=== PATIENT | female | born 1985 | race Caucasian/White ===

== ENCOUNTER 2018-06-27 19:06 | Inpatient (IN) | payer OTHER ==
[~2018-06-27] VITALS: Ht 182.9 cm; Wt 127.5 kg
[2018-06-28] VITALS (12 sets, daily range): BP systolic 130–155; BP diastolic 65–89; PULSE 66–115; RESP 18–20; Ht 182.9 cm; Wt 127.5 kg
--- NOTE | 2018-06-28 00:30 | NUR ---
RN NOTES RECEIVED PATIENT FROM [facility] ER,DIRECT ADMIT,AWAKE ALERT ORIENTED X4 ,COMPLAINING OF ABDOMINAL PAIN ,NAUSEA AND VOMITING.VITAL SIGNS STABLE.POSITIONED FOR COMFORT.PLACED A CALL AND LEFT MESSAGE TO DR JAMES FOR ADMISSION ORDERS.
[2018-06-28] MEDS ORDERED: POTASSIUM CHLORIDE (SR) 20 MEQ TAB PO STA (01:30)
[2018-06-28] MEDS: ONDANSETRON 4 MG INJ IV PRN ×3 (01:51→17:49)
[2018-06-28] MEDS: D5-NS + KCL 20 MEQ 1,000 ML IV SCH ×2 (01:51→10:49)
[2018-06-28] MEDS: morphine 4 MG/ML VIAL IV PRN ×5 (01:51→20:07)
[2018-06-28] MEDS: PANTOPRAZOLE 40 MG INJ IV SCH ×3 (01:51→20:07)
[2018-06-28] MEDS: METOCLOPRAMIDE 10 MG INJ IV PRN ×2 (06:13→12:50)
--- NOTE | 2018-06-28 07:01 | NUR ---
EOSS CONTINUE ON PAIN MANAGEMENT FOR ABDOMINAL PAIN.ALSO MEDICATED NEEDED FOR NAUSEA AND VOMITING.ON IV FLUID D5 NS AT 100ML/HR.RESTING AT THIS TIME WITH NO SIGNS OF DISTRESS.REPORT TO NEXT SHIFT RN.
--- NOTE | 2018-06-28 10:09 | HP ---
THERESA LEÓN 06/28/18 1009: Date/Time of Note Date/Time of Note DATE: 06/28/18 TIME: 10:09 Assessment/Plan VTE Prophylaxis SCD applied (from Nsg): Yes Pharmacological prophylaxis: NA/contraindicated Pharm contraindication: thrombocytopenia Lines/Catheters IV Catheter Type (from Nrsg): Peripheral IV Urinary Cath still in place: No Assessment/Plan Hospital Course 1. Abdominal pain more likely due to acute pancreatitis. Vomiting and diarrhea for 3 weeks. Last 2 weeks patient was drinking 2- 4 shots of hard liquor daily. 2. Hyperbilirubinemia with elevated liver enzymes. Hepatitis panel is negative from [place]. US of liver reveals fatty infiltration, CD is 5 mm. Records was reviewed form [facility]. CT scan abdomen with contrast revealed : hepato and splenomegaly, 3.1 cm left ovarian cyst 3. Former smoker, pt quit 6 years ago 4. hx of 2 C sections, 6 nad 2 years ago 5. Obesity 6. Microcytic hypochromic anemia with thrombocytopenia. Pat. smear show anisocytosis 7. Hx of asthma Assessment/Plan -iron profile -Consult Dr Earl, called -GI prophylaxis Protonix IV BID -DVT prophylaxis SCD -pain control /antiemetics -lipase/amylase level -MRCP -NPO Result Diagram: 06/28/1852006/28/18 0521 Results 24hrs Laboratory Tests Test 06/28/18 05:21 White Blood Count 8.1 Red Blood Count 4.28 Hemoglobin 10.5 L Hematocrit 32.9 L Mean Corpuscular Volume 76.9 L Mean Corpuscular Hemoglobin 24.5 L Mean Corpuscular Hemoglobin Concent 31.9 L Red Cell Distribution Width 20.8 H Platelet Count 121 L Mean Platelet Volume 11.1 H Immature Granulocytes % 0.200 Neutrophils % 84.5 H Lymphocytes % 8.3 L Monocytes % 6.5 Eosinophils % 0.1 Basophils % 0.4 Nucleated Red Blood Cells % 0.0 Immature Granulocytes # 0.020 Neutrophils # 6.8 Lymphocytes # 0.7 L Monocytes # 0.5 Eosinophils # 0.0 Basophils # 0.0 Nucleated Red Blood Cells # 0.0 Sodium Level 146 H Potassium Level 3.5 Chloride Level 102 Carbon Dioxide Level 28 Anion Gap 16 H Blood Urea Nitrogen 5 L Creatinine 0.63 Est Glomerular Filtrat Rate mL/min > 60 Glucose Level 132 Calcium Level 9.1 Total Bilirubin 3.3 H Direct Bilirubin 1.30 H Indirect Bilirubin 2.0 H Aspartate Amino Transf (AST/SGOT) 153 H Alanine Aminotransferase (ALT/SGPT) 60 Alkaline Phosphatase 261 H Total Protein 7.6 Albumin 4.0 Globulin 3.60 H Albumin/Globulin Ratio 1.11 HPI/ROS Admit Date/Time Admit Date/Time Jun 27, 2018 at 23:57 Hx of Present Illness This 32 y. o female with medical history of asthma presented initially to [facility] with abdominal pain 1 month ago where US and CT scan of abdomen was performed. Medical records was reviewed form [facility]. CT scan abdomen revealed: hepato and splenomegaly, 3.1 cm, left ovarian cyst. US of abdomen is consistent to hepatomegaly and fatty infiltration of liver, CBD is 5 mm. Pt was given zofran, morphine there and she was sent home. She was there again in ER, was given shot, magic cocktail and sent home again. Lately, 2 weeks ago she she went to [facility], where she complained again on abdominal pain, nausea and diarrhea/loose stool . Lab work reveals hyperbilirubinemia 3 and elevated liver enzymes, anemia and the rest are unremarkable. Pt reported spikes of temperature up to 101 2 times for 3 weeks. Surgical hx: 2 C sections ROS Eyes: no complaints ENT: no complaints Respiratory: cough, pleuritic pain; No no complaints, No pain, No shortness of breath, No sputum, No wheezing, No other Gastrointestinal: no complaints, pain, blood, constipation, decreased appetite, diarrhea, flatus, nausea, passing stool, vomiting, other Genitourinary: flank pain (left side more than right); No no complaints, No bleeding, No hematuria, No other Skin: other (easily bruised) Endocrine: no complaints PMH/Family/Social Past Medical History asthma Medications Current Medications Morphine Sulfate (morphine) 2 mg Q4H PRN IV SEVERE PAIN LEVEL 7-10 Last administered on 06/28/18at 06:13; Admin Dose 2 MG; Start 06/28/18 at 01:30 Ondansetron HCl (Zofran Inj) 4 mg Q6H PRN IV NAUSEA AND/OR VOMITING Last administered on 06/28/18at 09:25; Admin Dose 4 MG; Start 06/28/18 at 01:30 Pantoprazole (Protonix Iv) 40 mg DAILY@06 IV Last administered on 06/28/18at 01:51; Admin Dose 40 MG; Start 06/28/18 at 01:30 Metoclopramide HCl (Reglan) 10 mg Q6 PRN IV NAUSEA AND/OR VOMITING Last administered on 06/28/18at 06:13; Admin Dose 10 MG; Start 06/28/18 at 01:30 Potassium Chloride/Dextrose/ Sod Cl 1,000 ml @ 100 mls/hr Q10H IV Last administered on 06/28/18at 01:51; Admin Dose 100 MLS/HR; Start 06/28/18 at 01:30 Coded Allergies: nut - unspecified (Verified Allergy, Unknown, 06/28/18) olive oil (Verified Allergy, Unknown, 06/28/18) sesame seed (Verified Allergy, Unknown, 06/28/18) Past Surgical History Past Surgical Hx: endoscopy, other (c sections) Social History Alcohol Use: occasionally Smoking Status: Former smoker Drug Use: none Exam/Review of Systems Vital Signs Vitals Vital Signs Date Temp Pulse Resp B/P (MAP) Pulse Ox O2 O2 Flow FiO2 Time Delivery Rate 06/28/18 96 08:01 06/28/18 99.2 19 133/69 98 07:21 (90) Intake and Output 06/27/18 06/27/18 06/28/18 1414:59 22:59 06:59 IntakeIntake Total 525 ml OutputOutput Total 50 ml BalanceBalance 475 ml Exam Constitutional: alert, oriented Eyes: nl conjunctiva ENMT: nl external ears & nose Neck: supple Respiratory: clear to auscultation Cardiovascular: regular rate and rhythm Gastrointestinal: soft, hepatomegaly, rebound or guarding (left epigastic area) ZEB JAMES MD 06/28/18 1538: Assessment/Plan Assessment/Plan 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 gallstone pancreatitis gi Result Diagram: 06/28/18 0521 06/28/18 0521 PMH/Family/Social Past Medical History Coded Allergies: nut - unspecified (Verified Allergy, Unknown, 06/28/18) olive oil (Verified Allergy, Unknown, 06/28/18) sesame seed (Verified Allergy, Unknown, 06/28/18) THERESA LEÓN Jun 28, 2018 10:09 ZEB JAMES MD Jun 28, 2018 15:38
--- NOTE | 2018-06-28 14:36 | CONS ---
DATE OF ADMISSION: 06/27/2018 DATE OF CONSULTATION: TYPE OF CONSULTATION: Gastroenterology. HISTORY OF PRESENT ILLNESS: The patient is a 32-year-old female status post , comes to the ER complaining of abdominal pain, nausea, vomiting and some diarrhea. The patient was in the emergen cy room at [facility]. CAT scan of the abdomen was done which showed hepatosplenomegaly, 3.1 cm ovarian cyst. Ultrasound showed fatty liver. Common bile duct was 5 mm in diameter. Howeve r because of the persistent epigastric pain and right upper quadrant pain radiating to the back and a bnormal LFT, GI consult was called in. No history of hepatitis in the past and she is known to have fatty liver. 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 She does have fever. REVIEW OF SYSTEMS: Otherwise negative. ALLERGIES: NONE. PHYSICAL EXAMINATION: GENERAL: Well-built, nourished, not in distress. VITAL SIGNS: Stable. HEENT: Unremarkable. NECK: Supple. No thyromegaly, no lymphadenopathy. CARDIOVASCULAR: No murmur, gallop or click. LUNGS: Clear. ABDOMEN: Tenderness in the epigastric area, right upper quadrant. Bowel sounds are good. No mass f elt in abdomen. EXTREMITIES: No edema. CENTRAL NERVOUS SYSTEM: Grossly within normal limits. LABORATORY DATA: WBC is 8.1, hematocrit 32.9, microcytic hypochromic picture. Bilirubin is going up to 3.3, alkaline phosphatase 261. IMPRESSION: 1. Abnormal liver function tests with epigastric and right upper quadrant pain, biliary colicky, rul e out bile duct stone. 2. Fatty liver. 3. Status post . PLAN: At this point is to monitor LFT. Get MRCP done stat and if it is positive for bile duct stone , we will proceed with ERCP and removal of the stone. Dictated By: ASHOK POOLE/CHALINO Conf#: [id number] DID#: [id number] CC: ZEB JAMES;*EndCC*
--- NOTE | 2018-06-28 14:46 | NUR ---
Nurses Note: Pt. off unit. Pt. went down to MRI with Fry Cook.
[2018-06-28] MEDS: DEXTROSE 5%-0.45% NACL 1,000 ML IV SCH (16:09)
[2018-06-29] VITALS (10 sets, daily range): BP systolic 129–156; BP diastolic 70–97; PULSE 82–103; RESP 19–21
[2018-06-29] MEDS: morphine 4 MG/ML VIAL IV PRN ×4 (00:12→12:38)
[2018-06-29] MEDS: ONDANSETRON 4 MG INJ IV PRN ×2 (01:19→06:25)
[2018-06-29] MEDS: DEXTROSE 5%-0.45% NACL 1,000 ML IV SCH ×3 (01:19→20:36)
[2018-06-29] MEDS: PANTOPRAZOLE 40 MG INJ IV SCH ×2 (08:27→20:43)
--- NOTE | 2018-06-29 12:01 | PN ---
Date/Time of Note Date/Time of Note DATE: 06/29/18 TIME: 12:01 Assessment/Plan VTE Prophylaxis Risk score (from Nsg)>0 risk: 0 SCD applied (from Nsg): No SCD contraindicated: low risk/ambulating Pharmacological prophylaxis: NA/contraindicated Pharm contraindication: surgical contra Lines/Catheters IV Catheter Type (from Nrsg): Peripheral IV Urinary Cath still in place: No Assessment/Plan Hospital Course 1. Abdominal pain more likely due to acute pancreatitis. Vomiting and diarrhea for 3 weeks. Last 2 weeks patient was drinking 2- 4 shots of hard liquor daily. 2. Hyperbilirubinemia with elevated liver enzymes. Hepatitis panel is negative from [place]. US of liver reveals fatty infiltration, CD is 5 mm. Records was reviewed form [facility]. CT scan abdomen with contrast revealed : hepato and splenomegaly, 3.1 cm left ovarian cyst 3. Former smoker, pt quit 6 years ago 4. hx of 2 C sections, 6 and 2 years ago 5. Obesity 6. Microcytic hypochromic anemia with thrombocytopenia. Pat. smear show anisocytosis 7. Hx of asthma Assessment/Plan -antianxiety meds -sleeping pills -pain control -c/w IV fluids -Dr Earl consult Result Diagram: 06/29/18 0506/29/18 0527 Results 24hrs Laboratory Tests Test 06/29/18 05:27 White Blood Count 7.0 Red Blood Count 4.41 Hemoglobin 10.5 L Hematocrit 34.8 L Mean Corpuscular Volume 78.9 L Mean Corpuscular Hemoglobin 23.8 L Mean Corpuscular Hemoglobin Concent 30.2 L Red Cell Distribution Width 20.9 H Platelet Count 118 L Mean Platelet Volume 10.7 H Immature Granulocytes % 0.400 Neutrophils % 73.2 Lymphocytes % 17.2 Monocytes % 6.2 Eosinophils % 2.6 Basophils % 0.4 Nucleated Red Blood Cells % 0.3 H Immature Granulocytes # 0.030 Neutrophils # 5.1 Lymphocytes # 1.2 Monocytes # 0.4 Eosinophils # 0.2 Basophils # 0.0 Nucleated Red Blood Cells # 0.0 Sodium Level 143 Potassium Level 3.1 L Chloride Level 100 Carbon Dioxide Level 28 Anion Gap 15 H Blood Urea Nitrogen 5 L Creatinine 0.75 Est Glomerular Filtrat Rate mL/min > 60 Glucose Level 127 Hemoglobin A1c 5.6 Calcium Level 9.3 Iron Level 66 Total Iron Binding Capacity 391 Percent Iron Saturation 17 L Total Bilirubin 3.9 H Direct Bilirubin 2.00 #H Indirect Bilirubin 1.9 H Aspartate Amino Transf (AST/SGOT) 120 H Alanine Aminotransferase (ALT/SGPT) 55 Alkaline Phosphatase 271 H Total Protein 7.7 Albumin 4.0 Globulin 3.70 H Albumin/Globulin Ratio 1.08 Lipase 188 Subjective 24 Hr Interval Summary Psychological: anxiety Exam/Review of Systems Exam Vitals Vital Signs Date Temp Pulse Resp B/P (MAP) Pulse Ox O2 O2 Flow FiO2 Time Delivery Rate 06/29/18 98.5 97 19 153/97 97 11:58 (115) Intake and Output 06/28/18 06/28/18 06/29/18 1515:00 23:00 07:00 IntakeIntake Total 75 ml 1670 ml BalanceBalance 75 ml 1670 ml Exam anxious Constitutional: alert, oriented Neck: supple Respiratory: clear to auscultation Gastrointestinal: surgical scars; No nl liver, spleen, No non-tender, No ascites, No bowel sounds, No distended, No firm, No hepatomegaly, No mass, No splenomegaly, No tender, No other Results Results 24hrs Laboratory Tests Test 06/29/18 05:27 White Blood Count 7.0 Red Blood Count 4.41 Hemoglobin 10.5 L Hematocrit 34.8 L Mean Corpuscular Volume 78.9 L Mean Corpuscular Hemoglobin 23.8 L Mean Corpuscular Hemoglobin Concent 30.2 L Red Cell Distribution Width 20.9 H Platelet Count 118 L Mean Platelet Volume 10.7 H Immature Granulocytes % 0.400 Neutrophils % 73.2 Lymphocytes % 17.2 Monocytes % 6.2 Eosinophils % 2.6 Basophils % 0.4 Nucleated Red Blood Cells % 0.3 H Immature Granulocytes # 0.030 Neutrophils # 5.1 Lymphocytes # 1.2 Monocytes # 0.4 Eosinophils # 0.2 Basophils # 0.0 Nucleated Red Blood Cells # 0.0 Sodium Level 143 Potassium Level 3.1 L Chloride Level 100 Carbon Dioxide Level 28 Anion Gap 15 H Blood Urea Nitrogen 5 L Creatinine 0.75 Est Glomerular Filtrat Rate mL/min > 60 Glucose Level 127 Hemoglobin A1c 5.6 Calcium Level 9.3 Iron Level 66 Total Iron Binding Capacity 391 Percent Iron Saturation 17 L Total Bilirubin 3.9 H Direct Bilirubin 2.00 #H Indirect Bilirubin 1.9 H Aspartate Amino Transf (AST/SGOT) 120 H Alanine Aminotransferase (ALT/SGPT) 55 Alkaline Phosphatase 271 H Total Protein 7.7 Albumin 4.0 Globulin 3.70 H Albumin/Globulin Ratio 1.08 Lipase 188 Medications Medication Current Medications Morphine Sulfate (morphine) 2 mg Q4H PRN IV SEVERE PAIN LEVEL 7-10 Last administered on 06/29/18 08:27; Admin Dose 2 MG; Start 06/28/18 at 01:30 Ondansetron HCl (Zofran Inj) 4 mg Q6H PRN IV NAUSEA AND/OR VOMITING Last administered on 06/29/18 06:25; Admin Dose 4 MG; Start 06/28/18 at 01:30 Metoclopramide HCl (Reglan) 10 mg Q6 PRN IV NAUSEA AND/OR VOMITING Last a dministered on 06/28/18at 12:50; Admin Dose 10 MG; Start 06/28/18 at 01:30 Pantoprazole (Protonix Iv) 40 mg BID IV Last administered on 06/29/18 08:27; Admin Dose 40 MG; Start 06/28/18 at 21:00 Dextrose/Sodium Chloride 1,000 ml @ 70 mls/hr [id number] IV Last administered on 06/29/18 01:19; Admin Dose 70 MLS/HR; Start 06/28/18 at 16:00 Zolpidem Tartrate (Ambien) 5 mg HS PRN PO INSOMNIA; Start 06/29/18 at 12:00; Status UNV Alprazolam (Xanax) 0.25 mg Q8 PO ; Start 06/29/18 at 12:00; Status UNV THERESA LEÓN Jun 29, 2018 12:01
[2018-06-29] MEDS: ALPRAZOLAM 0.25 MG TAB PO SCH ×2 (13:19→20:43)
[2018-06-29] MEDS ORDERED: ALPRAZOLAM 0.25 MG TAB PO SCH (14:00)
[2018-06-29] MEDS: POTASSIUM CHLORIDE (SR) 20 MEQ TAB PO SCH (15:31)
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
[2018-06-29] MEDS: KETOROLAC 15 MG INJ IV PRN (16:51)
--- NOTE | 2018-06-29 17:16 | CONS ---
DATE OF ADMISSION: 06/27/2018 DATE OF CONSULTATION: SUBJECTIVE: A 32-year-old female who complains of excruciating epigastric pain radiating to the back requiring narcotic around the clock. Her MRCP was reported negative except for hepatosplenomegaly a nd some free fluid in the pelvis. OBJECTIVE: VITAL SIGNS: Stable. GENERAL: The patient is in distress secondary to pain. ABDOMEN: Soft. Tenderness in the epigastric area. Bowel sounds good. No mass felt per abdomen. EXTREMITIES: No edema. CENTRAL NERVOUS SYSTEM: Grossly within normal limits. LABORATORY DATA: Bilirubin jumped to 3.9. Alkaline phosphatase has gone up to 271. IMPRESSION: 1. Abdominal pain, persistent, biliary colicky and increasing bilirubin, more in favor of bile duct stone. MRCP can miss 20% of the stone in the bile duct. 2. Hepatosplenomegaly with free fluid. The patient has got a fatty liver. We will work her up for chronic liver disease. 3. Status post . 4. Overweight. PLAN: Plan at this point is scheduled for ERCP tomorrow. They can do it today. We will send for he patitis panel. Continue narcotics and IV hydration. We will monitor liver function test. Dictated By: ASHOK POOLE/CHALINO Conf#: [id number] DID#: [id number] CC: ZEB JAMES;*EndCC*
--- NOTE | 2018-06-29 18:24 | NUR ---
EOSS PT. IS ALERT AND ORIENTED, CALL LIGHT W/IN REACH. NO SOB OR DISTRESS NOTED. PT. IS FOR CT ABDOMEN WITH CONTRAST. AND NPO POST MID NIGHT FOR ERCP ASHLEE. KEPT CLEAN AND DRY. WILL CONTINUE TO MONITOR.
[2018-06-29] MEDS ORDERED: SOD CHLORIDE 0.9% 100 ML ONE (20:02)
[2018-06-29] MEDS ORDERED: IOHEXOL 300MG/ML 150 ML BTL ONE (20:02)
[2018-06-29] MEDS: ZOLPIDEM 5 MG TAB PO PRN (21:16)
[2018-06-30] VITALS (23 sets, daily range): BP systolic 128–149; BP diastolic 70–96; PULSE 72–107; RESP 18–24
[2018-06-30] MEDS: KETOROLAC 15 MG INJ IV PRN ×3 (01:26→21:29)
[2018-06-30] MEDS: DEXTROSE 5%-0.45% NACL 1,000 ML IV SCH ×2 (03:51→21:29)
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
[2018-06-30] MEDS: ALPRAZOLAM 0.25 MG TAB PO SCH ×3 (05:33→22:00)
[2018-06-30] MEDS: ONDANSETRON 4 MG INJ IV PRN ×2 (06:50→15:29)
[2018-06-30] MEDS: POTASSIUM CHLORIDE (SR) 20 MEQ TAB PO SCH (08:41)
[2018-06-30] MEDS: PANTOPRAZOLE 40 MG INJ IV SCH ×2 (08:41→21:14)
--- NOTE | 2018-06-30 12:46 | CONS ---
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 Plan is ERCP this evening by Dr. Earl #2 hepatosplenomegaly low platelets AST greater than ALT in with hx sig alc use, can signify ALD and or cirrhosis This should be worked up further if the patient gets over this acute illness. #3 obesity BMI 38 Consultation Date/Type/Reason Admit Date/Time Jun 27, 2018 at 23:57 Initial Consult Date Date/Time of Note DATE: 06/30/18 TIME: 12:34 Exam/Review of Systems Exam Vitals Vital Signs Date Temp Pulse Resp B/P (MAP) Pulse Ox O2 O2 Flow FiO2 Time Delivery Rate 06/30/18 97.8 77 18 130/70 97 11:41 (90) Intake and Output 06/29/18 06/29/18 06/30/18 1515:00 23:00 07:00 IntakeIntake Total 1240 ml BalanceBalance 1240 ml Results Result Diagram: 06/30/18 0531 06/30/18 0531 Results 24hrs Laboratory Tests Test 06/29/18 18:05 06/30/18 05:31 Urine Test NEGATIVE White Blood Count 6.3 Red Blood Count 4.21 Hemoglobin 10.1 L Hematocrit 33.3 L Mean Corpuscular Volume 79.1 L Mean Corpuscular Hemoglobin 24.0 L Mean Corpuscular Hemoglobin Concent 30.3 L Red Cell Distribution Width 21.3 H Platelet Count 121 L Mean Platelet Volume 11.0 H Immature Granulocytes % 0.200 Neutrophils % 77.6 H Lymphocytes % 12.8 L Monocytes % 5.4 Eosinophils % 3.7 Basophils % 0.3 Nucleated Red Blood Cells % 0.0 Immature Granulocytes # 0.010 Neutrophils # 4.9 Lymphocytes # 0.8 Monocytes # 0.3 Eosinophils # 0.2 Basophils # 0.0 Nucleated Red Blood Cells # 0.0 Absolute Reticulocyte Count 0.075 Percent Reticulocyte Count 1.8 H Sodium Level 143 Potassium Level 3.8 Chloride Level 101 Carbon Dioxide Level 28 Anion Gap 14 H Blood Urea Nitrogen 5 L Creatinine 0.81 Est Glomerular Filtrat Rate mL/min > 60 Glucose Level 104 Calcium Level 9.1 Iron Level 32 #L Total Iron Binding Capacity 358 Percent Iron Saturation 9 L Total Bilirubin 4.1 H Direct Bilirubin 2.60 H Indirect Bilirubin 1.5 H Aspartate Amino Transf (AST/SGOT) 104 H Alanine Aminotransferase (ALT/SGPT) 47 Alkaline Phosphatase 226 H Lactate Dehydrogenase 704 H Total Protein 7.1 Albumin 3.7 Globulin 3.40 H Albumin/Globulin Ratio 1.08 Medications Medication Current Medications Morphine Sulfate (morphine) 2 mg Q4H PRN IV SEVERE PAIN LEVEL 7-10 Last administered on 06/29/18 12:38; Admin Dose 2 MG; Start 06/28/18 at 01:30 Ondansetron HCl (Zofran Inj) 4 mg Q6H PRN IV NAUSEA AND/OR VOMITING Last administered on 06/30/18 06:50; Admin Dose 4 MG; Start 06/28/18 at 01:30 Metoclopramide HCl (Reglan) 10 mg Q6 PRN IV NAUSEA AND/OR VOMITING Last administered on 06/28/18 12:50; Admin Dose 10 MG; Start 06/28/18 at 01:30 Pantoprazole (Protonix Iv) 40 mg BID IV Last administered on 06/30/18 08:41; Admin Dose 40 MG; Start 06/28/18 at 21:00 Dextrose/Sodium Chloride 1,000 ml @ 70 mls/hr [id number] IV Last administered on 06/30/18 03:51; Admin Dose 70 MLS/HR; Start 06/28/18 at 16:00 Zolpidem Tartrate (Ambien) 5 mg HS PRN PO INSOMNIA Last administered on 06/29/18 21:16; Admin Dose 5 MG; Start 06/29/18 at 12:00 Alprazolam (Xanax) 0.25 mg Q8 PO Last administered on 06/30/18 05:33; Admin Do se 0.25 MG; Start 06/29/18 at 12:15 Potassium Chloride (Klor-Con 20) 40 meq DAILY PO Last administered on 06/30/18 08:41; Admin Dose 40 MEQ; Start 06/29/18 at 15:30 Ketorolac Tromethamine (Toradol) 15 mg Q6H PRN IV PAIN Last administered on 06/30/18at 10:52; Admin Dose 15 MG; Start 06/29/18 at 17:00; Stop 07/02/18 at 16:59 MEMO YOUNGER MD Jun 30, 2018 12:44
--- NOTE | 2018-06-30 16:45 | NUR ---
RN NOTES PT. WAS TRANSFERRED TO PACU FOR HER ERCP.
[2018-06-30] MEDS ORDERED: IOHEXOL 300MG/ML 30 ML BTL ONE (16:49)
[2018-06-30] MEDS ORDERED: GLYCOPYRROLATE 0.4 MG INJ ONE (16:50)
[2018-06-30] MEDS ORDERED: NEOSTIGMINE 3 MG/3 ML SYRINGE ONE (16:50)
[2018-06-30] MEDS ORDERED: CEFAZOLIN 1 GM INJ ONE (16:50)
[2018-06-30] MEDS ORDERED: ROCURONIUM 50 MG INJ ONE (16:50)
[2018-06-30] MEDS ORDERED: PROPOFOL 20 ML ONE (16:50)
[2018-06-30] MEDS ORDERED: DEXAMETHASONE 4 MG/ML 5 ML INJ ONE (16:52)
[2018-06-30] MEDS ORDERED: MIDAZOLAM 1 MG/ML 2 ML INJ ONE (16:52)
[2018-06-30] MEDS ORDERED: ONDANSETRON 4 MG INJ ONE (16:52)
[2018-06-30] MEDS ORDERED: FENTAnyl 50 MCG/ML VIAL ONE (16:52)
[2018-06-30] MEDS ORDERED: INDOMETHACIN 50 MG SUPP PR SCH (17:00)
--- NOTE | 2018-06-30 17:06 | PREAC ---
Date/Time of Note Date/Time of Note DATE: 06/30/18 TIME: 17:04 Anesthesia Eval and Record Evaluation Time Pre-Procedure Interview DATE: 06/30/18 TIME: 17:04 Age 32 Sex female NPO: 8 hrs Preoperative diagnosis CHOLEDOCHOLITHIASIS Planned procedure ERCP Past Medical History Past Medical History: Includes Pulm: Asthma GI: Obesity Surgery & Anesthesia Issues No known issue Meds Anticoagulation: No Beta Kristy within 24 hr: No Reason Beta Kristy not given: Pt. not on B-Kristy Current Medications Morphine Sulfate (morphine) 2 mg Q4H PRN IV SEVERE PAIN LEVEL 7-10 Last administered on 06/29/18 12:38; Admin Dose 2 MG; Start 06/28/18 at 01:30 Ondansetron HCl (Zofran Inj) 4 mg Q6H PRN IV NAUSEA AND/OR VOMITING Last administered on 06/30/18 15:29; Admin Dose 4 MG; Start 06/28/18 at 01:30 Metoclopramide HCl (Reglan) 10 mg Q6 PRN IV NAUSEA AND/OR VOMITING Last administered on 06/28/18 12:50; Admin Dose 10 MG; Start 06/28/18 at 01:30 Pantoprazole (Protonix Iv) 40 mg BID IV Last administered on 06/30/18 08:41; Admin Dose 40 MG; Start 06/28/18 at 21:00 Dextrose/Sodium Chloride 1,000 ml @ 70 mls/hr [id number] IV Last administered on 06/30/18 03:51; Admin Dose 70 MLS/HR; Start 06/28/18 at 16:00 Zolpidem Tartrate (Ambien) 5 mg HS PRN PO INSOMNIA Last administered on 06/29/18 21:16; Admin Dose 5 MG; Start 06/29/18 at 12:00 Alprazolam (Xanax) 0.25 mg Q8 PO Last administered on 06/30/18 05:33; Admin Dose 0.25 MG; Start 06/29/18 at 12:15 Potassium Chloride (Klor-Con 20) 40 meq DAILY PO Last administered on 06/30/18 08:41; Admin Dose 40 MEQ; Start 06/29/18 at 15:30 Ketorolac Tromethamine (Toradol) 15 mg Q6H PRN IV PAIN Last administered on 06/30/18at 10:52; Admin Dose 15 MG; Start 06/29/18 at 17:00; Stop 07/02/18 at 16:59 Ferric Sodium Gluconate Complex 125 mg/Sodium Chloride 100 ml @ 100 mls/hr DAILY@1300 IVPB ; Start 07/01/18 at 13:00; Stop 07/03/18 at 13:59 Indomethacin (Indocin Supp) 100 mg ONCE MN ; Start 06/30/18 at 17:00; Stop 07/01/18 at 16:59 Meds reviewed: Yes Allergies Coded Allergies: nut - unspecified (Verified Allergy, Unknown, 06/28/18) olive oil (Verified Allergy, Unknown, 06/28/18) sesame seed (Verified Allergy, Unknown, 06/28/18) Allergies Reviewed: Yes Labs/Studies Labs Reviewed: Reviewed by anesthesiologist Result Diagram: 06/30/18 0531 06/30/18 0531 Laboratory Tests 06/30/18 05:31 test: Negative Pre-procedure Exam Last vitals Vital Signs Date Temp Pulse Resp B/P (MAP) Pulse Ox O2 O2 Flow FiO2 Time Delivery Rate 06/30/18 89 16:21 06/30/18 98.3 18 128/81 98 15:48 (97) Airway: Adequate mouth opening, Adequate thyromental dist Mallampati: Mallampati II Teeth: Normal Lung: Normal Heart: Normal ASA Physical Status ASA physical status: 2 Emergency: None Planned Anesthetic General/MAC: ETT Planned Pain Management Parenteral pain med Pre-operative Attestations Prior to commencing anesthesia and surgery, the patient was re-evaluated, there was verification of: *The patient's identity *The results of appropriate recent lab work and preoperative vital signs *The above evaluation not changing prior to induction *Anesthetic plan, risk benefits, alternative and complications discussed with patient/family; questions answered; patient/family understands, accepts and wishes to proceed. Mark Newby M.D. Jun 30, 2018 17:06
[2018-06-30] MEDS ORDERED: TRIMETHOBENZAMIDE 100 MG/ML VIAL IM PRN (17:30)
[2018-06-30] MEDS ORDERED: hydrALAzine 20 MG INJ IV PRN (17:30)
[2018-06-30] MEDS ORDERED: ONDANSETRON 4 MG INJ IV PRN (17:30)
[2018-06-30] MEDS ORDERED: HYDROmorphONE 1 MG/5 ML IV SYRINGE IV PRN ×3 (17:30)
[2018-06-30] MEDS ORDERED: EPHEDrine SULFATE 50 MG/5 ML SYG IV PRN (17:30)
[2018-06-30] MEDS ORDERED: OXYCODONE/ACETAMINOPHEN (5/325) TAB PO PRN ×2 (17:30)
[2018-06-30] MEDS ORDERED: IPRATROPIUM (NEB) 0.5 MG/2.5 ML AMP HHN PRN (17:30)
[2018-06-30] MEDS ORDERED: LABETALOL HCL 20MG INJ IV PRN (17:30)
[2018-06-30] MEDS ORDERED: ALBUTEROL 0.083% (NEB) 2.5 MG/3 ML AMP HHN PRN (17:30)
[2018-06-30] MEDS ORDERED: DIPHENHYDRAMINE 50 MG INJ IV PRN (17:30)
[2018-06-30] MEDS ORDERED: MIDAZOLAM 1 MG/ML 2 ML INJ IV PRN (17:30)
[2018-06-30] MEDS ORDERED: MEPERIDINE 25 MG INJ IV PRN (17:30)
[2018-06-30] MEDS ORDERED: FENTAnyl 50 MCG/ML VIAL IV PRN ×3 (17:30)
--- NOTE | 2018-06-30 17:35 | PN ---
Date/Time of Note Date/Time of Note DATE: 06/30/18 TIME: 17:33 Assessment/Plan VTE Prophylaxis Risk score (from Nsg)>0 risk: 0 SCD applied (from Nsg): No SCD contraindicated: low risk/ambulating Pharmacological prophylaxis: NA/contraindicated Pharm contraindication: low risk/ambulating Lines/Catheters IV Catheter Type (from Nrsg): Peripheral IV Urinary Cath still in place: No Assessment/Plan Hospital Course 32 y/o with .1 Abdominal pain more likely due to acute pancreatitis. Vomiting and diarrhea for 3 weeks. Last 2 weeks patient was drinking 2- 4 shots of hard liquor daily. 2. Hyperbilirubinemia with elevated liver enzymes. Hepatitis panel is negative from [place]. US of liver reveals fatty infiltration, CD is 5 mm. Records was reviewed form [facility]. CT scan abdomen with contrast revealed : hepato and splenomegaly, 3.1 cm left ovarian cyst , rule out choledocholithiasis rule out stones, 3. Former smoker, pt quit 6 years ago 4. hx of 2 C sections, 6 and 2 years ago 5. Obesity 6. Microcytic hypochromic anemia with thrombocytopenia. Pat. smear show anisocytosis 7. Hx of asthma Assessment/Plan -pain meds - ercp - iv Fe - CT A+P neg -Dr Earl consult Result Diagram: 06/30/18 0531 06/30/18 0531 Results 24hrs Laboratory Tests Test 06/29/18 18:05 06/30/18 05:31 Urine Test NEGATIVE White Blood Count 6.3 Red Blood Count 4.21 Hemoglobin 10.1 L Hematocrit 33.3 L Mean Corpuscular Volume 79.1 L Mean Corpuscular Hemoglobin 24.0 L Mean Corpuscular Hemoglobin Concent 30.3 L Red Cell Distribution Width 21.3 H Platelet Count 121 L Mean Platelet Volume 11.0 H Immature Granulocytes % 0.200 Neutrophils % 77.6 H Lymphocytes % 12.8 L Monocytes % 5.4 Eosinophils % 3.7 Basophils % 0.3 Nucleated Red Blood Cells % 0.0 Immature Granulocytes # 0.010 Neutrophils # 4.9 Lymphocytes # 0.8 Monocytes # 0.3 Eosinophils # 0.2 Basophils # 0.0 Nucleated Red Blood Cells # 0.0 Absolute Reticulocyte Count 0.075 Percent Reticulocyte Count 1.8 H Sodium Level 143 Potassium Level 3.8 Chloride Level 101 Carbon Dioxide Level 28 Anion Gap 14 H Blood Urea Nitrogen 5 L Creatinine 0.81 Est Glomerular Filtrat Rate mL/min > 60 Glucose Level 104 Calcium Level 9.1 Iron Level 32 #L Total Iron Binding Capacity 358 Percent Iron Saturation 9 L Total Bilirubin 4.1 H Direct Bilirubin 2.60 H Indirect Bilirubin 1.5 H Aspartate Amino Transf (AST/SGOT) 104 H Alanine Aminotransferase (ALT/SGPT) 47 Alkaline Phosphatase 226 H Lactate Dehydrogenase 704 H Total Protein 7.1 Albumin 3.7 Globulin 3.40 H Albumin/Globulin Ratio 1.08 Subjective 24 Hr Interval Summary Free Text/Dictation Feels a lot better today pain has much improved ERCP today Exam/Review of Systems Exam Vitals Vital Signs Date Temp Pulse Resp B/P (MAP) Pulse Ox O2 O2 Flow FiO2 Time Delivery Rate 06/30/18 89 16:21 06/30/18 98.3 18 128/81 98 15:48 (97) Intake and Output 06/29/18 06/29/18 06/30/18 1515:00 23:00 07:00 IntakeIntake Total 1240 ml BalanceBalance 1240 ml Exam nxious Constitutional: alert, oriented Neck: supple Respiratory: clear to auscultation Gastrointestinal: surgical scars; No nl liver, spleen, No non-tender, No ascites, No bowel sounds, No distended, No firm, No hepatomegaly, No mass, No splenomegaly, No tender, No other Results Results 24hrs Laboratory Tests Test 06/29/18 18:05 06/30/18 05:31 Urine Test NEGATIVE White Blood Count 6.3 Red Blood Count 4.21 Hemoglobin 10.1 L Hematocrit 33.3 L Mean Corpuscular Volume 79.1 L Mean Corpuscular Hemoglobin 24.0 L Mean Corpuscular Hemoglobin Concent 30.3 L Red Cell Distribution Width 21.3 H Platelet Count 121 L Mean Platelet Volume 11.0 H Immature Granulocytes % 0.200 Neutrophils % 77.6 H Lymphocytes % 12.8 L Monocytes % 5.4 Eosinophils % 3.7 Basophils % 0.3 Nucleated Red Blood Cells % 0.0 Immature Granulocytes # 0.010 Neutrophils # 4.9 Lymphocytes # 0.8 Monocytes # 0.3 Eosinophils # 0.2 Basophils # 0.0 Nucleated Red Blood Cells # 0.0 Absolute Reticulocyte Count 0.075 Percent Reticulocyte Count 1.8 H Sodium Level 143 Potassium Level 3.8 Chloride Level 101 Carbon Dioxide Level 28 Anion Gap 14 H Blood Urea Nitrogen 5 L Creatinine 0.81 Est Glomerular Filtrat Rate mL/min > 60 Glucose Level 104 Calcium Level 9.1 Iron Level 32 #L Total Iron Binding Capacity 358 Percent Iron Saturation 9 L Total Bilirubin 4.1 H Direct Bilirubin 2.60 H Indirect Bilirubin 1.5 H Aspartate Amino Transf (AST/SGOT) 104 H Alanine Aminotransferase (ALT/SGPT) 47 Alkaline Phosphatase 226 H Lactate Dehydrogenase 704 H Total Protein 7.1 Albumin 3.7 Globulin 3.40 H Albumin/Globulin Ratio 1.08 Medications Medication Current Medications Morphine Sulfate (morphine) 2 mg Q4H PRN IV SEVERE PAIN LEVEL 7-10 Last administered on 06/29/18 12:38; Admin Dose 2 MG; Start 06/28/18 at 01:30 Ondansetron HCl (Zofran Inj) 4 mg Q6H PRN IV NAUSEA AND/OR VOMITING Last administered on 06/30/18 15:29; Admin Dose 4 MG; Start 06/28/18 at 01:30 Metoclopramide HCl (Reglan) 10 mg Q6 PRN IV NAUSEA AND/OR VOMITING Last administered on 06/28/18 12:50; Admin Dose 10 MG; Start 06/28/18 at 01:30 Pantoprazole (Protonix Iv) 40 mg BID IV Last administered on 06/30/18 08:41; Admin Dose 40 MG; Start 06/28/18 at 21:00 Dextrose/Sodium Chloride 1,000 ml @ 70 mls/hr [id number] IV Last administered on 06/30/18 03:51; Admin Dose 70 MLS/HR; Start 06/28/18 at 16:00 Zolpidem Tartrate (Ambien) 5 mg HS PRN PO INSOMNIA Last administered on 06/29/18 21:16; Admin Dose 5 MG; Start 06/29/18 at 12:00 Alprazolam (Xanax) 0.25 mg Q8 PO Last administered on 06/30/18 05:33; Admin Do se 0.25 MG; Start 06/29/18 at 12:15 Potassium Chloride (Klor-Con 20) 40 meq DAILY PO Last administered on 06/30/18 08:41; Admin Dose 40 MEQ; Start 06/29/18 at 15:30 Ketorolac Tromethamine (Toradol) 15 mg Q6H PRN IV PAIN Last administered on 06/30/18at 10:52; Admin Dose 15 MG; Start 06/29/18 at 17:00; Stop 07/02/18 at 16:59 Ferric Sodium Gluconate Complex 125 mg/Sodium Chloride 100 ml @ 100 mls/hr DAILY@1300 IVPB ; Start 07/01/18 at 13:00; Stop 07/03/18 at 13:59 Indomethacin (Indocin Supp) 100 mg ONCE DC ; Start 06/30/18 at 17:00; Stop 07/01/18 at 16:59 Hydromorphone HCl (Dilaudid) 0.2 mg PACU PRN IV MILD PAIN 1-3; Start 06/30/18 at 17:30; Stop 06/30/18 at 23:30 Hydromorphone HCl (Dilaudid) 0.4 mg PACU PRN IV MOD PAIN 4-6; Start 06/30/18 at 17:30; Stop 06/30/18 at 23:30 Hydromorphone HCl (Dilaudid) 0.6 mg PACU PRN IV SEVERE PAIN 7-10; Start 06/30/18 at 17:30; Stop 06/30/18 at 23:30 Fentanyl (Sublimaze) 25 mcg PACU ORDER PRN IV MILD PAIN 1-3; Start 06/30/18 at 17:30; Stop 06/30/18 at 23:30 Fentanyl (Sublimaze) 50 mcg PACU ORDER PRN IV MOD PAIN 4-6; Start 06/30/18 at 17:30; Stop 06/30/18 at 23:30 Fentanyl (Sublimaze) 75 mcg PACU ORDER PRN IV SEVERE PAIN 7-10; Start 06/30/18 at 17:30; Stop 06/30/18 at 23:30 Oxycodone/ Acetaminophen (Percocet (5/ 325)) 1 tab PACU ORDER PRN PO .PAIN 1-5; Start 06/30/18 at 17:30; Stop 06/30/18 at 23:30 Oxycodone/ Acetaminophen (Percocet (5/ 325)) 2 tab PACU ORDER PRN PO .PAIN 6-10; Start 06/30/18 at 17:30; Stop 06/30/18 at 23:30 Ondansetron HCl (Zofran Inj) 4 mg PACU ORDER PRN IV NAUSEA/VOMITING; Start 06/30/18 at 17:30; Stop 06/30/18 at 23:30 Trimethobenzamide HCl (Tigan) 200 mg PACU ORDER PRN IM NAUSEA/VOMITING; Start 06/30/18 at 17:30; Stop 06/30/18 at 23:30 Labetalol HCl (Labetalol) 5 mg PACU ORDER PRN IV HIGH BLOOD PRESSURE; Start 06/30/18 at 17:30; Stop 06/30/18 at 23:30 Hydralazine HCl (Apresoline) 5 mg PACU ORDER PRN IV HIGH BLOOD PRESSURE; Start 06/30/18 at 17:30; Stop 06/30/18 at 23:30 Ephedrine Sulfate 5 mg PACU ORDER PRN IV BLOOD PRESSURE SUPPORT; Start 06/30/18 at 17:30; Stop 06/30/18 at 23:30 Albuterol (Proventil 0.083% (Neb)) 2.5 mg PACU ORDER PRN HHN .WHEEZING; Start 06/30/18 at 17:30; Stop 06/30/18 at 23:30 Ipratropium [place] (Atrovent 0.02% (Neb)) 0.5 mg PACU ORDER PRN HHN .WHEEZING; Start 06/30/18 at 17:30; Stop 06/30/18 at 23:30 Meperidine HCl (Demerol) 25 mg PACU ORDER PRN IV .RIGORS; Start 06/30/18 at 17:30; Stop 06/30/18 at 23:30 Diphenhydramine HCl (Benadryl) 25 mg PACU ORDER PRN IV .PRURITUS; Start 06/30/18 at 17:30; Stop 06/30/18 at 23:30 Midazolam HCl (Versed) 0.5 mg PACU ORDER PRN IV .ANXIETY; Start 06/30/18 at 17:30; Stop 06/30/18 at 23:30 ZEB JAMES MD Jun 30, 2018 17:35
--- NOTE | 2018-06-30 18:24 | NUR ---
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
--- NOTE | 2018-06-30 18:28 | PAC ---
Date/Time of Note Date/Time of Note DATE: 06/30/18 TIME: 18:27 Post-Anesthesia Notes Post-Anesthesia Note Last documented vital signs Vital Signs Date Temp Pulse Resp B/P (MAP) Pulse Ox O2 O2 Flow FiO2 Time Delivery Rate 06/30/18 89 18:27 06/30/18 98.3 18 128/81 98 15:48 (97) Activity: WNL Respiratory function: WNL Cardiovascular function: WNL Mental status: Baseline Pain reasonably controlled: Yes Hydration appropriate: Yes Nausea/Vomiting absent: Yes Mark Newby M.D. Jun 30, 2018 18:28
--- NOTE | 2018-06-30 19:20 | NUR ---
RN NOTES PT. IS OFF UNIT.
--- NOTE | 2018-06-30 19:27 | NUR ---
pacu PT AWAKE ALERT ROOM AIR NO C/O PAIN NO RESP DISTRESS VS STABLE PT IS NPO AND WAS ENDORCED TO DAVID SHARP RT FOREARM 20 JEWELS IV SITE CLEAR REPORT GIVEN TO DAVID SHARP NO C/O PAIN OR NAUSEA Addendum: 06/30/18 at 1932 by JO LOGAN RN PT TRANSFERED TO ROOM [facility]
--- NOTE | 2018-06-30 20:07 | GILP ---
DATE OF PROCEDURE: INDICATION: The patient is a 32-year-old female who complains of abdominal pain, biliary colic in [facility]. Bilirubin is constantly going up. The purpose is to evaluate biliary system and perform thera peutic endoscope. The risk of the procedure like bleeding, perforation, pancreatitis, severity of th e pancreatitis all thoroughly explained to the patient, which she understood, agreed, consented for i t. DESCRIPTION OF PROCEDURE: The patient was brought to the OR room #6, intubated by Dr. Newby, was placed in a prone position, was given Indocin suppository and also Ancef prior to the procedure. ER CP scope passed with much ease into the esophagus and advanced further down into stomach. She had ga stritis. Duodenum identified. Ampulla was pretty small. I successfully cannulated and there appear ed to be long stricture in the mid portion of the bile duct, the exact etiology of which was unclear. The bile duct proximal to the stricture was not dilated. We magnified the biliary system and the s tricture was well defined. So at this point, I was thinking whether we were dealing with Mirizzi syn drome or not, so we used a 9 to 12 mm balloon, cleaned the bile duct multiple times and we did occlus jhon cholangiogram. Large quantity of bile was going into the gallbladder and there were multiple nba ling defects seen outside the narrowed segment of the bile duct indicating that the patient may have a stone in the cystic duct based upon the biliary system. So, at this point I decided to deploy the stent. A 10 [place] 7 cm stent was successfully deployed and it was above the stricture and a good fl ow of bile was established. The scope was removed with good patient tolerance. IMPRESSION: 1. 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 It looks like Mirizzi syndr ome. 2. Large sphincterotomy done. 3. Balloon sweeping with 12 mm balloon done and 12 mm balloon would come out easily. Some small slu dge was seen on the balloon. 4. Gallbladder was distended. PLAN: Review these pictures with the radiologist to confirm the diagnosis. We will continue antibio tic and keep the patient n.p.o. Dictated By: ASHOK POOLE/CHALINO Conf#: [id number] DID#: [id number] CC: ZEB JAMES;*[facility]*
[2018-06-30] MEDS: PIPER-TAZO 3.375 GM IV (PMX) 100 ML IVPB SCH (21:14)
--- NOTE | 2018-06-30 22:55 | NUR ---
Pt. was transferred to med surg 2 E at 2240 Alert, awake, calm when transferred; she had an episode of agitation when she was tapping on the bed and was saying to the neighboring pt.s daughter that she can see spirits; she stood and walked steadily , disconnected her peripheral IV, screaming, crying. Called Dr. Jones for IV sedation since she is stricly NPO...Ativan 0.5 mg IV x1 ordered PRN and ammonia level in am; endorsed to med surg nurse.
[2018-06-30] MEDS ORDERED: LORAZEPAM 2 MG INJ IV PRN (23:00)
[2018-07-01 03:06] VITALS: BP 136/82; PULSE 83; RESP 16
[2018-07-01] MEDS: ONDANSETRON 4 MG INJ IV PRN (04:19)
--- NOTE | 2018-07-01 05:07 | NUR ---
2300 Pt received from 6w telemetry via wheel chair report received from Barbara SHARP. Pt arrived aaox4, respirations shaky and fast, pt appears severely anxious, and is observed pacing in pt room. Pt is steady on her feet. Pt oriented to nurse and [facility] safety protocol including an active bed alarm and hourly rounding, pt verbalized understanding. 2306 Ativan IV 0.5mg administered as per one time order. Pt refused skin assessment at this time. Pt request ambien for difficulty sleeping, however pt is Strict NPO ordered by GI . Dr Lainez contacted, but she could not give approval for ambien due to strict NPO order and elevated liver enzymes. Pt informed and educated appropriately. Pt verbalized understanding of NPO status. 0000 Pt resting comfortably, eyes closed, respirations regular and even, no s/s of distress. 0200 Pt awake, alert, oriented, calm and cooperative. Nursing will continue to monitor. 0500 Pt has not slept since 0200, tolieted x2 urine only. Pt steady on feet IV patent and running appropriately. Nursing will continue to monitor. Addendum: 07/01/18 at 0635 by PAMELLA SCHMIDT RN 0610 Scheduled IV antibiotic administered as ordered, pt awake and alert watching TV. No significant changes noted throughout the shift, nursing will continue to monitor and endorse to morning shift to ensure pt safety and continuity of care.
[2018-07-01] MEDS: ALPRAZOLAM 0.25 MG TAB PO SCH ×3 (06:00→21:34)
[2018-07-01] MEDS: PIPER-TAZO 3.375 GM IV (PMX) 100 ML IVPB SCH ×3 (06:16→21:34)
[2018-07-01 08:00] VITALS: BP_SYST 139; BP_SYST 141; BP_DIAS 60; BP_DIAS 89; PULSE 86; PULSE 90; RESP 18; RESP 20
[2018-07-01] MEDS: POTASSIUM CHLORIDE (SR) 20 MEQ TAB PO SCH (09:00)
[2018-07-01] MEDS: PANTOPRAZOLE 40 MG INJ IV SCH ×2 (09:49→21:33)
--- NOTE | 2018-07-01 12:59 | CONS ---
Assessment/Plan Assessment/Plan Assessment/Plan (Daily) unfortunate 32 yo who has a significant alcohol history over the last year, admitted with massive hepatomegaly, splenomegaly, found to have cirrhosis. #elevated direct bilirubin/elevated LDH -these abnormalities are due to Cirrhosis of liver with portal hypertension. she is jaundiced from cirrhosis and has alcoholic hepatitis per Dr Earl thus explaining her enlarged liver, she has portal hypertension -I do not see any evidence of hemolysis #anemia check ferritin to accurately determine her iron status she likely has anemia of chronic disease please call with acute questions Consultation Date/Type/Reason Admit Date/Time Jun 27, 2018 at 23:57 Date/Time of Note DATE: 07/01/18 TIME: 12:53 Hx of Present Illness 32 you female with astham who was recently at [facility] with abdominal pain 1 month ago where US and CT scan of abdomen was performed. Scans from CT scan abdomen revealed: hepato and splenomegaly, 3.1 cm, left ovarian cyst. US of abdomen is consistent to hepatomegaly and fatty infiltration of liver, CBD is 5 mm. She had a few subsequent ER visits and was treated with zofran, morphine there and she was sent home. She then went to [facility] with abdominal pain again and there labs showed hyperbilirubinemia 3 and elevated liver enzymes, she also had temperature up to 101F a few times in the last few weeks She does several alcoholic drinks per day, reports 10 shots every day x 1 year. non smoker Here labs show Hgb 9.8, mcv 78, plt 121K d bili 5.5 total bili 4.1 AST/ALT 104/47 ALk phos 226 iron studies 37 serum iron iron sat 9% haptoglobin 90 LDH 704 further w/u with MRCP showed: The length of the liver equals 31 cm consistent with marked hepatomegaly. There is impression on the anterior right kidney and displacement of the right kidney posteriorly, laterally and inferiorly by the enlarged liver. The length of the spleen equals 18.8 cm consistent with moderate to marked splenomegaly. Appearance of trace ascites around the liver edge. Gallbladder is unremarkable. The biliary tree is not dilated. No intrahepatic nor extrahepatic biliary dilatation is present. No filling defect or choledocholithiasis is seen. There is no stricture or obstruction seen in the extrahepatic bile duct. The pancreatic duct, as visualized, is equally unremarkable. Mild nonspecific right perinephric edema. Mild subcutaneous edema in posterior and right lateral abdominal wall. Very small umbilical hernia containing fat only. CT AP showed: IMPRESSION: 1. There is no evidence of pneumoperitoneum to confirm the clinical suspicion of perforation. 2. Hepatosplenomegaly with nodular changes of the liver concerning for cirrhosis and portal hypertension with recanalization of the umbilical vein and small upper abdominal varices without evidence for ascites. We are asked to see for hemolysis Constitutional: poor po Eyes: no complaints ENT: no complaints Respiratory: no complaints Cardiovascular: no complaints Gastrointestinal: pain, diarrhea, nausea, vomiting Genitourinary: no complaints Musculoskeletal: no complaints Skin: no complaints Neurologic: no complaints Endocrine: no complaints Lymphatic: no complaints Psychological: no complaints, nl mood/affect Past Medical History Medications Current Medications Morphine Sulfate (morphine) 2 mg Q4H PRN IV SEVERE PAIN LEVEL 7-10 Last administered on 06/29/18 12:38; Admin Dose 2 MG; Start 06/28/18 at 01:30 Ondansetron HCl (Zofran Inj) 4 mg Q6H PRN IV NAUSEA AND/OR VOMITING Last admi nistered on 07/01/18 04:19; Admin Dose 4 MG; Start 06/28/18 at 01:30 Metoclopramide HCl (Reglan) 10 mg Q6 PRN IV NAUSEA AND/OR VOMITING Last administered on 06/28/18 12:50; Admin Dose 10 MG; Start 06/28/18 at 01:30 Pantoprazole (Protonix Iv) 40 mg BID IV Last administered on 07/01/18 09:49; Admin Dose 40 MG; Start 06/28/18 at 21:00 Dextrose/Sodium Chloride 1,000 ml @ 70 mls/hr [id number] IV Last administered on 06/30/18 21:29; Admin Dose 70 MLS/HR; Start 06/28/18 at 16:00 Zolpidem Tartrate (Ambien) 5 mg HS PRN PO INSOMNIA Last administered on 06/29/18 21:16; Admin Dose 5 MG; Start 06/29/18 at 12:00 Alprazolam (Xanax) 0.25 mg Q8 PO Last administered on 06/30/18 05:33; Admin Dose 0.25 MG; Start 06/29/18 at 12:15 Potassium Chloride (Klor-Con 20) 40 meq DAILY PO Last administered on 06/30/18at 08:41; Admin Dose 40 MEQ; Start 06/29/18 at 15:30 Ketorolac Tromethamine (Toradol) 15 mg Q6H PRN IV PAIN Last administered on 06/30/18at 21:29; Admin Dose 15 MG; Start 06/29/18 at 17:00; Stop 07/02/18 at 16:59 Ferric Sodium Gluconate Complex 125 mg/Sodium Chloride 100 ml @ 100 mls/hr ALAYNA Y@1300 IVPB ; Start 07/01/18 at 13:00; Stop 07/03/18 at 13:59 Piperacillin Sod/ Tazobactam Sod 100 ml @ 25 mls/hr Q8 IVPB Last administered on 07/01/18at 06:16; Admin Dose 25 MLS/HR; Start 06/30/18 at 20:00 Lorazepam (Ativan) 0.5 mg ONCE PRN IV AGITATION/ANXIETY Last administered on 06/30/18at 23:06; Admin Dose 0.5 MG; Start 06/30/18 at 23:00; Stop 07/01/18 at 22:59 Allergies: Coded Allergies: nut - unspecified (Verified Allergy, Unknown, 06/28/18) olive oil (Verified Allergy, Unknown, 06/28/18) sesame seed (Verified Allergy, Unknown, 06/28/18) Past Surgical History Past Surgical Hx: endoscopy, other (c sections) Social History Alcohol Use: occasionally Smoking Status: Former smoker Drug Use: none Exam/Review of Systems Exam Vitals Vital Signs Date Temp Pulse Resp B/P (MAP) Pulse Ox O2 O2 Flow FiO2 Time Delivery Rate 07/01/18 98.8 86 18 139/89 96 08:00 (106) 06/30/18 Room Air 19:09 Intake and Output 06/30/18 06/30/18 07/01/18 1515:00 23:00 07:00 IntakeIntake Total 700 ml BalanceBalance 700 ml Constitutional: obese Psych: no complaints, nl mood/affect Head: normocephalic, atraumatic Eyes: icteric ENMT: other (enlarged salivary glands) Respiratory: normal air movement Gastrointestinal: hepatomegaly, splenomegaly Extremities: normal pulses Results Result Diagram: 07/01/18 0508 07/01/18 0508 Results 24hrs Laboratory Tests Test 07/01/18 05:08 White Blood Count 5.9 Red Blood Count 4.09 L Hemoglobin 9.8 L Hematocrit 32.2 L Mean Corpuscular Volume 78.7 L Mean Corpuscular Hemoglobin 24.0 L Mean Corpuscular Hemoglobin Concent 30.4 L Red Cell Distribution Width 21.7 H Platelet Count 123 L Mean Platelet Volume 11.0 H Immature Granulocytes % 0.700 H Neutrophils % 85.9 H Lymphocytes % 7.7 L Monocytes % 5.3 Eosinophils % 0.2 Basophils % 0.2 Nucleated Red Blood Cells % 0.0 Immature Granulocytes # 0.040 H Neutrophils # 5.1 Lymphocytes # 0.5 L Monocytes # 0.3 Eosinophils # 0.0 Basophils # 0.0 Nucleated Red Blood Cells # 0.0 Sodium Level 145 H Potassium Level 4.0 Chloride Level 103 Carbon Dioxide Level 24 Anion Gap 18 H Blood Urea Nitrogen 9 Creatinine 0.71 Est Glomerular Filtrat Rate mL/min > 60 Glucose Level 134 Calcium Level 9.1 Total Bilirubin 5.5 H Direct Bilirubin 4.10 #H Indirect Bilirubin 1.4 H Aspartate Amino Transf (AST/SGOT) 84 H Alanine Aminotransferase (ALT/SGPT) 43 Alkaline Phosphatase 216 H Ammonia 33 H Total Protein 6.8 Albumin 3.6 Globulin 3.20 Albumin/Globulin Ratio 1.12 Medications Medication Current Medications Morphine Sulfate (morphine) 2 mg Q4H PRN IV SEVERE PAIN LEVEL 7-10 Last administered on 06/29/18 12:38; Admin Dose 2 MG; Start 06/28/18 at 01:30 Ondansetron HCl (Zofran Inj) 4 mg Q6H PRN IV NAUSEA AND/OR VOMITING Last a dministered on 07/01/18 04:19; Admin Dose 4 MG; Start 06/28/18 at 01:30 Metoclopramide HCl (Reglan) 10 mg Q6 PRN IV NAUSEA AND/OR VOMITING Last administered on 06/28/18 12:50; Admin Dose 10 MG; Start 06/28/18 at 01:30 Pantoprazole (Protonix Iv) 40 mg BID IV Last administered on 07/01/18 09:49; Admin Dose 40 MG; Start 06/28/18 at 21:00 Dextrose/Sodium Chloride 1,000 ml @ 70 mls/hr [id number] IV Last administered on 1/29/19at 21:29; Admin Dose 70 MLS/HR; Start 06/28/18 at 16:00 Zolpidem Tartrate (Ambien) 5 mg HS PRN PO INSOMNIA Last administered on 06/29/18at 21:16; Admin Dose 5 MG; Start 06/29/18 at 12:00 Alprazolam (Xanax) 0.25 mg Q8 PO Last administered on 06/30/18 05:33; Admin Dose 0.25 MG; Start 06/29/18 at 12:15 Potassium Chloride (Klor-Con 20) 40 meq DAILY PO Last administered on 06/30/18at 08:41; Admin Dose 40 MEQ; Start 06/29/18 at 15:30 Ketorolac Tromethamine (Toradol) 15 mg Q6H PRN IV PAIN Last administered on 06/30/18at 21:29; Admin Dose 15 MG; Start 06/29/18 at 17:00; Stop 07/02/18 at 16:59 Ferric Sodium Gluconate Complex 125 mg/Sodium Chloride 100 ml @ 100 mls/hr D AILY@1300 IVPB ; Start 07/01/18 at 13:00; Stop 07/03/18 at 13:59 Piperacillin Sod/ Tazobactam Sod 100 ml @ 25 mls/hr Q8 IVPB Last administered on 07/01/18at 06:16; Admin Dose 25 MLS/HR; Start 06/30/18 at 20:00 Lorazepam (Ativan) 0.5 mg ONCE PRN IV AGITATION/ANXIETY Last administered on 06/30/18at 23:06; Admin Dose 0.5 MG; Start 06/30/18 at 23:00; Stop 07/01/18 at 22:59 BARNEY PACHECO Jul 01, 2018 12:59
[2018-07-01] MEDS: DEXTROSE 5%-0.45% NACL 1,000 ML IV SCH (13:18)
[2018-07-01] MEDS: SOD FERRIC GLUC COMPLX 125 MG in SOD CHLORIDE 0.9% 100 ML IVPB SCH (13:21)
[2018-07-01 14:00] VITALS: BP 132/87; PULSE 98; RESP 18
--- NOTE | 2018-07-01 14:56 | CONS ---
Assessment/Plan Assessment/Plan Hospital Course (Demo Recall) 1. 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 Will need hepatic optimization, cessation of alcohol, etc. -possible repeat ercp and possible spyglass per Dr. Earl if bilirubin not improved -limit hepatotoxins 2. Transaminitis and hyperbilirubinemia -as above 3. Abdominal pain -pain mgt 4. Macrocytic hypochromic anemia: likely 2/2 liver disease -monitor &tx as needed 5. Thrombocytopenia: -bleeding precs -as above 6. Severe obesity BMI: 38 -diet and exercise optimization -encourage weight loss Thank you. Patient seen and examined in collaboration with Dr. Mannie Bailey. Consultation Date/Type/Reason Admit Date/Time Jun 27, 2018 at 23:57 Date of Consultation: Jul 01, 2018 Type of Consult surgical Reason for Consultation abd pain, possible Mirizzi syndrome Requesting Provider: ZEB JAMES MD Date/Time of Note DATE: 07/01/18 TIME: 14:12 Hx of Present Illness Faith Giordano is a 32 yo woman with medical history of asthma, hepat o/splenomegaly who presented with abdominal pain x 1 month. She as had multiple visits to several ED's with similar symptoms. She is currently admitted for hyperbilirubinemia and elevated liver enzymes. Associated symptoms include fevers, loose and dark stools. She denies, cp, palpitations, congested cough, nausea, vomiting, seizure or rash. She recently underwent an ercp, sphincterotomy and stenting. During ERCP, there was a noted area of stricture in the midportion of the bile duct. There was concern for Mirizzi's syndrome. General surgery was asked to evaluate. 12 point review of systems was performed and is negative except for stated in HPI. Past Medical History As above Medications Current Medications Morphine Sulfate (morphine) 2 mg Q4H PRN IV SEVERE PAIN LEVEL 7-10 Last administered on 06/29/18at 12:38; Admin Dose 2 MG; Start 06/28/18 at 01:30 Ondansetron HCl (Zofran Inj) 4 mg Q6H PRN IV NAUSEA AND/OR VOMITING Last administered on 07/01/18at 04:19; Admin Dose 4 MG; Start 06/28/18 at 01:30 Metoclopramide HCl (Reglan) 10 mg Q6 PRN IV NAUSEA AND/OR VOMITING Last administered on 06/28/18 12:50; Admin Dose 10 MG; Start 06/28/18 at 01:30 Pantoprazole (Protonix Iv) 40 mg BID IV Last administered on 07/01/18 09:49; Admin Dose 40 MG; Start 06/28/18 at 21:00 Dextrose/Sodium Chloride 1,000 ml @ 70 mls/hr [id number] IV Last administered on 07/01/18 13:18; Admin Dose 70 MLS/HR; Start 06/28/18 at 16:00 Zolpidem Tartrate (Ambien) 5 mg HS PRN PO INSOMNIA Last administered on 06/29/18 21:16; Admin Dose 5 MG; Start 06/29/18 at 12:00 Alprazolam (Xanax) 0.25 mg Q8 PO Last administered on 06/30/18 05:33; Admin Dose 0.25 MG; Start 06/29/18 at 12:15 Potassium Chloride (Klor-Con 20) 40 meq DAILY PO Last administered on 06/30/18 08:41; Admin Dose 40 MEQ; Start 06/29/18 at 15:30 Ketorolac Tromethamine (Toradol) 15 mg Q6H PRN IV PAIN Last administered on 06/30/18 21:29; Admin Dose 15 MG; Start 06/29/18 at 17:00; Stop 07/02/18 at 16:59 Ferric Sodium Gluconate Complex 125 mg/Sodium Chloride 100 ml @ 100 mls/hr DAILY@1300 IVPB Last administered on 07/01/18 13:21; Admin Dose 100 MLS/HR; Start 07/01/18 at 13:00; Stop 07/03/18 at 13:59 Piperacillin Sod/ Tazobactam Sod 100 ml @ 25 mls/hr Q8 IVPB Last administered on 07/01/18 06:16; Admin Dose 25 MLS/HR; Start 06/30/18 at 20:00 Lorazepam (Ativan) 0.5 mg ONCE PRN IV AGITATION/ANXIETY Last administered on 06/30/18 23:06; Admin Dose 0.5 MG; Start 06/30/18 at 23:00; Stop 07/01/18 at 22:59 Allergies: Coded Allergies: nut - unspecified (Verified Allergy, Unknown, 06/28/18) olive oil (Verified Allergy, Unknown, 06/28/18) sesame seed (Verified Allergy, Unknown, 06/28/18) Past Surgical History Past Surgical Hx: endoscopy, other (c sections) Family History Significant Family History: no pertinent family hx Social History Alcohol Use: heavy Smoking Status: Former smoker Drug Use: none Exam/Review of Systems Exam Vitals Vital Signs Date Temp Pulse Resp B/P (MAP) Pulse Ox O2 O2 Flow FiO2 Time Delivery Rate 07/01/18 98.8 86 18 139/89 96 08:00 (106) 06/30/18 Room Air 19:09 Intake and Output 06/30/18 06/30/18 07/01/18 1515:00 23:00 07:00 IntakeIntake Total 700 ml BalanceBalance 700 ml Constitutional: alert, oriented Psych: nl mood/affect, anxiety (min) Head: normocephalic, atraumatic Eyes: nl conjunctiva, EOMI, nl lids, nl sclera ENMT: nl external ears & nose, nl lips & teeth, nl nasal mucosa & septum, mucosa pink and moist Neck: supple, non-tender Respiratory: normal air movement; No congested cough, No labored breathing Cardiovascular: regular rate and rhythm, nl pulses; No edema Gastrointestinal: soft, tender (mid abdominal ) Genitourinary - Female: nl external genitalia Musculoskeletal: nl extremities to inspection, nl gait and stance Extremities: normal pulses Neurological: nl mental status, nl speech, nl strength Skin: other (mid abdominal min bruising); No rash or lesions Results Result Diagram: 07/01/18 0508 07/01/18 0508 Results 24hrs Laboratory Tests Test 07/01/18 05:08 White Blood Count 5.9 Red Blood Count 4.09 L Hemoglobin 9.8 L Hematocrit 32.2 L Mean Corpuscular Volume 78.7 L Mean Corpuscular Hemoglobin 24.0 L Mean Corpuscular Hemoglobin Concent 30.4 L Red Cell Distribution Width 21.7 H Platelet Count 123 L Mean Platelet Volume 11.0 H Immature Granulocytes % 0.700 H Neutrophils % 85.9 H Lymphocytes % 7.7 L Monocytes % 5.3 Eosinophils % 0.2 Basophils % 0.2 Nucleated Red Blood Cells % 0.0 Immature Granulocytes # 0.040 H Neutrophils # 5.1 Lymphocytes # 0.5 L Monocytes # 0.3 Eosinophils # 0.0 Basophils # 0.0 Nucleated Red Blood Cells # 0.0 Sodium Level 145 H Potassium Level 4.0 Chloride Level 103 Carbon Dioxide Level 24 Anion Gap 18 H Blood Urea Nitrogen 9 Creatinine 0.71 Est Glomerular Filtrat Rate mL/min > 60 Glucose Level 134 Calcium Level 9.1 Total Bilirubin 5.5 H Direct Bilirubin 4.10 #H Indirect Bilirubin 1.4 H Aspartate Amino Transf (AST/SGOT) 84 H Alanine Aminotransferase (ALT/SGPT) 43 Alkaline Phosphatase 216 H Ammonia 33 H Total Protein 6.8 Albumin 3.6 Globulin 3.20 Albumin/Globulin Ratio 1.12 Medications Medication Current Medications Morphine Sulfate (morphine) 2 mg Q4H PRN IV SEVERE PAIN LEVEL 7-10 Last administered on 06/29/18 12:38; Admin Dose 2 MG; Start 06/28/18 at 01:30 Ondansetron HCl (Zofran Inj) 4 mg Q6H PRN IV NAUSEA AND/OR VOMITING Last administered on 07/01/18 04:19; Admin Dose 4 MG; Start 06/28/18 at 01:30 Metoclopramide HCl (Reglan) 10 mg Q6 PRN IV NAUSEA AND/OR VOMITING Last administered on 06/28/18 12:50; Admin Dose 10 MG; Start 06/28/18 at 01:30 Pantoprazole (Protonix Iv) 40 mg BID IV Last administered on 07/01/18 09:49; Admin Dose 40 MG; Start 06/28/18 at 21:00 Dextrose/Sodium Chloride 1,000 ml @ 70 mls/hr [id number] IV Last administered on 07/01/18 13:18; Admin Dose 70 MLS/HR; Start 06/28/18 at 16:00 Zolpidem Tartrate (Ambien) 5 mg HS PRN PO INSOMNIA Last administered on 06/29/18 21:16; Admin Dose 5 MG; Start 06/29/18 at 12:00 Alprazolam (Xanax) 0.25 mg Q8 PO Last administered on 06/30/18 05:33; Admin Dose 0.25 MG; Start 06/29/18 at 12:15 Potassium Chloride (Klor-Con 20) 40 meq DAILY PO Last administered on 06/30/18at 08:41; Admin Dose 40 MEQ; Start 06/29/18 at 15:30 Ketorolac Tromethamine (Toradol) 15 mg Q6H PRN IV PAIN Last administered on 06/30/18at 21:29; Admin Dose 15 MG; Start 06/29/18 at 17:00; Stop 07/02/18 at 16:59 Ferric Sodium Gluconate Complex 125 mg/Sodium Chloride 100 ml @ 100 mls/hr DAILY@1300 IVPB Last administered on 07/01/18at 13:21; Admin Dose 100 MLS/HR; Start 07/01/18 at 13:00; Stop 07/03/18 at 13:59 Piperacillin Sod/ Tazobactam Sod 100 ml @ 25 mls/hr Q8 IVPB Last administered on 07/01/18at 06:16; Admin Dose 25 MLS/HR; Start 06/30/18 at 20:00 Lorazepam (Ativan) 0.5 mg ONCE PRN IV AGITATION/ANXIETY Last administered on 06/30/18at 23:06; Admin Dose 0.5 MG; Start 06/30/18 at 23:00; Stop 07/01/18 at 22:59 AARON FREGOSO NP Jul 01, 2018 14:36
--- NOTE | 2018-07-01 15:01 | PN ---
Date/Time of Note Date/Time of Note DATE: 07/01/18 TIME: 14:56 Assessment/Plan VTE Prophylaxis Risk score (from Nsg)>0 risk: 5 SCD applied (from Nsg): Yes Pharmacological prophylaxis: NA/contraindicated Pharm contraindication: low risk/ambulating Lines/Catheters IV Catheter Type (from Nrsg): Peripheral IV Urinary Cath still in place: No Assessment/Plan Hospital Course 32 y/o with .1 Abdominal pain more likely due to acute pancreatitis. Vomiting and diarrhea for 3 weeks. Last 2 weeks patient was drinking 2- 4 shots of hard liquor daily. 2. Hyperbilirubinemia with elevated liver enzymes. Hepatitis panel is negative from [place]. US of liver reveals fatty infiltration, CD is 5 mm. Records was reviewed form [facility]. 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 Former smoker, pt quit 6 years ago 4. hx of 2 C sections, 6 and 2 years ago 5. Obesity 6. Microcytic hypochromic anemia with thrombocytopenia. Pat. smear show anisocytosis 7. Hx of asthma Assessment/Plan - montior LFT - Per GI to monitor 1-2 days - alcholol cessation - surgery consult per GI - cw iv fe - ativan prn anxiet - iv Fe - cw zosyn Result Diagram: 07/01/18 0508 07/01/18 0508 Results 24hrs Laboratory Tests Test 07/01/18 05:08 White Blood Count 5.9 Red Blood Count 4.09 L Hemoglobin 9.8 L Hematocrit 32.2 L Mean Corpuscular Volume 78.7 L Mean Corpuscular Hemoglobin 24.0 L Mean Corpuscular Hemoglobin Concent 30.4 L Red Cell Distribution Width 21.7 H Platelet Count 123 L Mean Platelet Volume 11.0 H Immature Granulocytes % 0.700 H Neutrophils % 85.9 H Lymphocytes % 7.7 L Monocytes % 5.3 Eosinophils % 0.2 Basophils % 0.2 Nucleated Red Blood Cells % 0.0 Immature Granulocytes # 0.040 H Neutrophils # 5.1 Lymphocytes # 0.5 L Monocytes # 0.3 Eosinophils # 0.0 Basophils # 0.0 Nucleated Red Blood Cells # 0.0 Sodium Level 145 H Potassium Level 4.0 Chloride Level 103 Carbon Dioxide Level 24 Anion Gap 18 H Blood Urea Nitrogen 9 Creatinine 0.71 Est Glomerular Filtrat Rate mL/min > 60 Glucose Level 134 Calcium Level 9.1 Total Bilirubin 5.5 H Direct Bilirubin 4.10 #H Indirect Bilirubin 1.4 H Aspartate Amino Transf (AST/SGOT) 84 H Alanine Aminotransferase (ALT/SGPT) 43 Alkaline Phosphatase 216 H Ammonia 33 H Total Protein 6.8 Albumin 3.6 Globulin 3.20 Albumin/Globulin Ratio 1.12 Subjective 24 Hr Interval Summary Free Text/Dictation feels ok now s/p ERCP yesterday Stricture in the mid portion of the bile duct. ? mirizzi syndrome LFT trending up Exam/Review of Systems Exam Vitals Vital Signs Date Temp Pulse Resp B/P (MAP) Pulse Ox O2 O2 Flow FiO2 Time Delivery Rate 07/01/18 98.8 86 18 139/89 96 08:00 (106) 06/30/18 Room Air 19:09 Intake and Output 06/30/18 06/30/18 07/01/18 1515:00 23:00 07:00 IntakeIntake Total 700 ml BalanceBalance 700 ml Exam cuurently calm Constitutional: alert, oriented Neck: supple Respiratory: clear to auscultation Gastrointestinal: surgical scars; No nl liver, spleen, No non-tender, No ascites, No bowel sounds, No dis tended, No firm, No hepatomegaly, No mass, No splenomegaly, No tender, No other Results Results 24hrs Laboratory Tests Test 07/01/18 05:08 White Blood Count 5.9 Red Blood Count 4.09 L Hemoglobin 9.8 L Hematocrit 32.2 L Mean Corpuscular Volume 78.7 L Mean Corpuscular Hemoglobin 24.0 L Mean Corpuscular Hemoglobin Concent 30.4 L Red Cell Distribution Width 21.7 H Platelet Count 123 L Mean Platelet Volume 11.0 H Immature Granulocytes % 0.700 H Neutrophils % 85.9 H Lymphocytes % 7.7 L Monocytes % 5.3 Eosinophils % 0.2 Basophils % 0.2 Nucleated Red Blood Cells % 0.0 Immature Granulocytes # 0.040 H Neutrophils # 5.1 Lymphocytes # 0.5 L Monocytes # 0.3 Eosinophils # 0.0 Basophils # 0.0 Nucleated Red Blood Cells # 0.0 Sodium Level 145 H Potassium Level 4.0 Chloride Level 103 Carbon Dioxide Level 24 Anion Gap 18 H Blood Urea Nitrogen 9 Creatinine 0.71 Est Glomerular Filtrat Rate mL/min > 60 Glucose Level 134 Calcium Level 9.1 Total Bilirubin 5.5 H Direct Bilirubin 4.10 #H Indirect Bilirubin 1.4 H Aspartate Amino Transf (AST/SGOT) 84 H Alanine Aminotransferase (ALT/SGPT) 43 Alkaline Phosphatase 216 H Ammonia 33 H Total Protein 6.8 Albumin 3.6 Globulin 3.20 Albumin/Globulin Ratio 1.12 Medications Medication Current Medications Morphine Sulfate (morphine) 2 mg Q4H PRN IV SEVERE PAIN LEVEL 7-10 Last administered on 06/29/18 12:38; Admin Dose 2 MG; Start 06/28/18 at 01:30 Ondansetron HCl (Zofran Inj) 4 mg Q6H PRN IV NAUSEA AND/OR VOMITING Last administered on 07/01/18 04:19; Admin Dose 4 MG; Start 06/28/18 at 01:30 Metoclopramide HCl (Reglan) 10 mg Q6 PRN IV NAUSEA AND/OR VOMITING Last administered on 06/28/18 12:50; Admin Dose 10 MG; Start 06/28/18 at 01:30 Pantoprazole (Protonix Iv) 40 mg BID IV Last administered on 07/01/18 09:49; Admin Dose 40 MG; Start 06/28/18 at 21:00 Dextrose/Sodium Chloride 1,000 ml @ 70 mls/hr [id number] IV Last administered on 07/01/18 13:18; Admin Dose 70 MLS/HR; Start 06/28/18 at 16:00 Zolpidem Tartrate (Ambien) 5 mg HS PRN PO INSOMNIA Last administered on 06/29/18 21:16; Admin Dose 5 MG; Start 06/29/18 at 12:00 Alprazolam (Xanax) 0.25 mg Q8 PO Last administered on 06/30/18 05:33; Admin Dose 0.25 MG; Start 06/29/18 at 12:15 Potassium Chloride (Klor-Con 20) 40 meq DAILY PO Last administered on 06/30/18 08:41; Admin Dose 40 MEQ; Start 06/29/18 at 15:30 Ketorolac Tromethamine (Toradol) 15 mg Q6H PRN IV PAIN Last administered on 06/30/18at 21:29; Admin Dose 15 MG; Start 06/29/18 at 17:00; Stop 07/02/18 at 16:59 Ferric Sodium Gluconate Complex 125 mg/Sodium Chloride 100 ml @ 100 mls/hr DAILY@1300 IVPB Last administered on 07/01/18at 13:21; Admin Dose 100 MLS/HR; Start 07/01/18 at 13:00; Stop 07/03/18 at 13:59 Piperacillin Sod/ Tazobactam Sod 100 ml @ 25 mls/hr Q8 IVPB Last administered on 07/01/18at 14:34; Admin Dose 25 MLS/HR; Start 06/30/18 at 20:00 Lorazepam (Ativan) 0.5 mg ONCE PRN IV AGITATION/ANXIETY Last administered on 06/30/18at 23:06; Admin Dose 0.5 MG; Start 06/30/18 at 23:00; Stop 07/01/18 at 22:59 ZEB JAMES MD Jul 01, 2018 15:01
--- NOTE | 2018-07-01 15:14 | CONS ---
Assessment/Plan Assessment/Plan Assessment/Plan (Daily) IMPRESSION: 1. Abdominal pain, persistent, biliary colicky and increasing bilirubin, more in favor of bile duct stone. MRCP can miss 20% of the stone in the bile duct. 2. Hepatosplenomegaly with free fluid. The patient has got a fatty liver. We will work her up for chronic liver disease. 3. Status post . 4. Overweight. 5. Cirrhosis of liver with portal hypertension. 6. Progressive jaundice it is possible this may be from cirrhosis of liver and also definitely has element of alcoholic hepatitis since the liver is huge. 7. Biliary stricture etiology is unclear discussed with the radiologist Dr. Elfego Pride he feels it is being compressed from outside by and large to liver. Plan I [id number] discussion with the patient for almost 15-20 minutes educated regarding cessation of alcohol. Will monitor bilirubin closely if it keeps going up then will remove the stent do spyglass with brushing and biopsy and place a longer stent. At this point as per Dr. Elfego Pride stent is in the right position. Continue antibiotic, thiamine Consultation Date/Type/Reason Admit Date/Time Jun 27, 2018 at 23:57 Initial Consult Date 07/01/18 Requesting Provider: ZEB JAMES MD Date/Time of Note DATE: 07/01/18 TIME: 15:12 24 HR Interval Summary Constitutional: no complaints, improved Exam/Review of Systems Exam Vitals Vital Signs Date Temp Pulse Resp B/P (MAP) Pulse Ox O2 O2 Flow FiO2 Time Delivery Rate 07/01/18 98.8 86 18 139/89 96 08:00 (106) 06/30/18 Room Air 19:09 Intake and Output 06/30/18 06/30/18 07/01/18 1515:00 23:00 07:00 IntakeIntake Total 700 ml BalanceBalance 700 ml Constitutional: alert, oriented, well developed Psych: no complaints, nl mood/affect Head: normocephalic, atraumatic Eyes: nl conjunctiva, EOMI, nl lids, nl sclera, PERRL ENMT: nl external ears & nose, nl lips & teeth, nl nasal mucosa & septum Neck: supple, non-tender Respiratory: clear to auscultation, normal air movement Cardiovascular: regular rate and rhythm, nl pulses Gastrointestinal: soft, nl liver, spleen, non-tender Musculoskeletal: nl extremities to inspection, nl gait and stance Extremities: normal pulses Neurological: CHIEF EXECUTIVE II-XII intact, nl mental status, nl speech, nl strength Skin: nl turgor; No rash or lesions Lymph: nl lymph nodes Results Result Diagram: 07/01/18 0508 07/01/18 0508 Results 24hrs Laboratory Tests Test 07/01/18 05:08 White Blood Count 5.9 Red Blood Count 4.09 L Hemoglobin 9.8 L Hematocrit 32.2 L Mean Corpuscular Volume 78.7 L Mean Corpuscular Hemoglobin 24.0 L Mean Corpuscular Hemoglobin Concent 30.4 L Red Cell Distribution Width 21.7 H Platelet Count 123 L Mean Platelet Volume 11.0 H Immature Granulocytes % 0.700 H Neutrophils % 85.9 H Lymphocytes % 7.7 L Monocytes % 5.3 Eosinophils % 0.2 Basophils % 0.2 Nucleated Red Blood Cells % 0.0 Immature Granulocytes # 0.040 H Neutrophils # 5.1 Lymphocytes # 0.5 L Monocytes # 0.3 Eosinophils # 0.0 Basophils # 0.0 Nucleated Red Blood Cells # 0.0 Sodium Level 145 H Potassium Level 4.0 Chloride Level 103 Carbon Dioxide Level 24 Anion Gap 18 H Blood Urea Nitrogen 9 Creatinine 0.71 Est Glomerular Filtrat Rate mL/min > 60 Glucose Level 134 Calcium Level 9.1 Total Bilirubin 5.5 H Direct Bilirubin 4.10 #H Indirect Bilirubin 1.4 H Aspartate Amino Transf (AST/SGOT) 84 H Alanine Aminotransferase (ALT/SGPT) 43 Alkaline Phosphatase 216 H Ammonia 33 H Total Protein 6.8 Albumin 3.6 Globulin 3.20 Albumin/Globulin Ratio 1.12 Medications Medication Current Medications Morphine Sulfate (morphine) 2 mg Q4H PRN IV SEVERE PAIN LEVEL 7-10 Last administered on 06/29/18at 12:38; Admin Dose 2 MG; Start 06/28/18 at 01:30 Ondansetron HCl (Zofran Inj) 4 mg Q6H PRN IV NAUSEA AND/OR VOMITING Last administered on 07/01/18at 04:19; Admin Dose 4 MG; Start 06/28/18 at 01:30 Metoclopramide HCl (Reglan) 10 mg Q6 PRN IV NAUSEA AND/OR VOMITING Last administered on 06/28/18at 12:50; Admin Dose 10 MG; Start 06/28/18 at 01:30 Pantoprazole (Protonix Iv) 40 mg BID IV Last administered on 07/01/18 09:49; Admin Dose 40 MG; Start 06/28/18 at 21:00 Dextrose/Sodium Chloride 1,000 ml @ 40 mls/hr Q24H IV Last administered on 07/01/18 13:18; Admin Dose 70 MLS/HR; Start 06/28/18 at 16:00 Zolpidem Tartrate (Ambien) 5 mg HS PRN PO INSOMNIA Last administered on 06/29/18at 21:16; Admin Dose 5 MG; Start 06/29/18 at 12:00 Alprazolam (Xanax) 0.25 mg Q8 PO Last administered on 06/30/18 05:33; Admin Dose 0.25 MG; Start 06/29/18 at 12:15 Potassium Chloride (Klor-Con 20) 40 meq DAILY PO Last administered on 06/30/18 08:41; Admin Dose 40 MEQ; Start 06/29/18 at 15:30 Ketorolac Tromethamine (Toradol) 15 mg Q6H PRN IV PAIN Last administered on 06/30/18 21:29; Admin Dose 15 MG; Start 06/29/18 at 17:00; Stop 07/02/18 at 16:59 Ferric Sodium Gluconate Complex 125 mg/Sodium Chloride 100 ml @ 100 mls/hr DAILY@1300 IVPB Last administered on 07/01/18 13:21; Admin Dose 100 MLS/HR; Start 07/01/18 at 13:00; Stop 07/03/18 at 13:59 Piperacillin Sod/ Tazobactam Sod 100 ml @ 25 mls/hr Q8 IVPB Last administered on 07/01/18at 14:34; Admin Dose 25 MLS/HR; Start 06/30/18 at 20:00 Lorazepam (Ativan) 0.5 mg ONCE PRN IV AGITATION/ANXIETY Last administered on 06/30/18 23:06; Admin Dose 0.5 MG; Start 06/30/18 at 23:00; Stop 07/01/18 at 22:59 ASHOK TIWARI MD Jul 01, 2018 15:14
--- NOTE | 2018-07-01 16:24 | PSY ---
Date/Time of Note Date/Time of Note DATE: 07/01/18 TIME: 16:17 Psychiatric Subjective Eval Consent Pt consented to telemedicine: No Subjective Evaluation Patient location: inpatient History of present illness Patient is a 32year old female with medical history of asthma better admitted for abdominal pain. Staff report patient was talking to herself responding to internal stimuli, but on a [id number] evaluation patient states she had visual hallucination and auditory hallucination as side effect from pain medication but states since the medication was discontinued and she was given Ativan, but not the hallucination is minimal. Patient denies suicidal ideation she denies feeling of hopelessness and helplessness and contracted for safety. Past psychiatric history Patient had one episode of visiting a psychiatrist for dysfunctional grief after she lost her brother so many years ago. Hospitalization: other Family History Denies Allergies: Coded Allergies: nut - unspecified (Verified Allergy, Unknown, 06/28/18) olive oil (Verified Allergy, Unknown, 06/28/18) sesame seed (Verified Allergy, Unknown, 06/28/18) Substance Abuse Substance abuse history: No Prior substance abuse treatmen: No Social History Marital status: single Psychiatric Objective Eval Review of Systems: Review of Systems: Not Applicable Physical Examination: Physical Examination: Not Applicable Energy: Adequate Interest: Adequate Mental Status Examination: Appearance: Groomed Eye Contact: Good Psychomotor Activity: Normal Behavior: Cooperative Speech: Clear, Soft AFFECT: Appropriate, Flat Mood: Appropriate/Full Though Process: Linear Thought Content: Normal Orientation: x4 Cognition: Alert Attention Span: Distractible Laboratory Results Laboratory Tests Test 06/29/18 18:05 06/30/18 05:31 07/01/18 05:08 Urine Test NEGATIVE White Blood Count 6.3 10^3/ul 5.9 10^3/ul Red Blood Count 4.21 10^6/ul 4.09 10^6/ul Hemoglobin 10.1 g/dl 9.8 g/dl Hematocrit 33.3 % 32.2 % Mean Corpuscular Volume 79.1 fl 78.7 fl Mean Corpuscular Hemoglobin 24.0 pg 24.0 pg Mean Corpuscular 30.3 g/dl 30.4 g/dl Hemoglobin Concent Red Cell Distribution Width 21.3 % 21.7 % Platelet Count 121 10^3/UL 123 10^3/UL Mean Platelet Volume 11.0 fl 11.0 fl Immature Granulocytes % 0.200 % 0.700 % Neutrophils % 77.6 % 85.9 % Lymphocytes % 12.8 % 7.7 % Monocytes % 5.4 % 5.3 % Eosinophils % 3.7 % 0.2 % Basophils % 0.3 % 0.2 % Nucleated Red Blood Cells % 0.0 /100WBC 0.0 /100WBC Immature Granulocytes # 0.010 10^3/ul 0.040 10^3/ul Neutrophils # 4.9 10^3/ul 5.1 10^3/ul Lymphocytes # 0.8 10^3/ul 0.5 10^3/ul Monocytes # 0.3 10^3/ul 0.3 10^3/ul Eosinophils # 0.2 10^3/ul 0.0 10^3/ul Basophils # 0.0 10^3/ul 0.0 10^3/ul Nucleated Red Blood Cells # 0.0 10^3/ul 0.0 10^3/ul Absolute Reticulocyte Count 0.075 X10^6 Percent Reticulocyte Count 1.8 % Haptoglobin 90 mg/dL Sodium Level 143 mmol/L 145 mmol/L Potassium Level 3.8 mmol/L 4.0 mmol/L Chloride Level 101 mmol/L 103 mmol/L Carbon Dioxide Level 28 mmol/L 24 mmol/L Anion Gap 14 18 Blood Urea Nitrogen 5 mg/dl 9 mg/dl Creatinine 0.81 mg/dl 0.71 mg/dl Est Glomerular Filtrat > 60 mL/min > 60 mL/min Rate mL/min Glucose Level 104 mg/dl 134 mg/dl Calcium Level 9.1 mg/dl 9.1 mg/dl Iron Level 32 ug/dl Total Iron Binding Capacity 358 ug/dl Percent Iron Saturation 9 % SAT Total Bilirubin 4.1 mg/dl 5.5 mg/dl Direct Bilirubin 2.60 mg/dl 4.10 mg/dl Indirect Bilirubin 1.5 mg/dl 1.4 mg/dl Aspartate Amino Transf (AST/SGOT) 104 IU/L 84 IU/L Alanine 47 IU/L 43 IU/L Aminotransferase (ALT/SGPT) Alkaline Phosphatase 226 IU/L 216 IU/L Lactate Dehydrogenase 704 IU/L Total Protein 7.1 g/dl 6.8 g/dl Albumin 3.7 g/dl 3.6 g/dl Globulin 3.40 g/dl 3.20 g/dl Albumin/Globulin Ratio 1.08 1.12 Ammonia 33 umol/l Assessment and Plan Assessment/Diagnosis Diagnosis Medical medication induced psychosis Recommendation/Plan Medication Management Xanax 0.25 mg tid, Ambien 5 mg nightly as needed Discharge Disposition: Other Legal Status: Voluntary YVETTE VAZQUEZ NP Jul 01, 2018 16:24
[2018-07-01] MEDS: METOCLOPRAMIDE 10 MG INJ IV PRN (16:35)
[2018-07-01] MEDS: KETOROLAC 15 MG INJ IV PRN (18:44)
[2018-07-01 20:15] VITALS: BP 127/72; PULSE 96; RESP 18
[2018-07-01] MEDS ORDERED: morphine LIQ (10 MG/5 ML) CUP PO PRN (22:30)
[2018-07-01] MEDS: ZOLPIDEM 5 MG TAB PO PRN (23:43)
[2018-07-02 02:13] VITALS: BP 121/69; PULSE 88; RESP 18
[2018-07-02] MEDS: ONDANSETRON 4 MG INJ IV PRN (04:21)
[2018-07-02] MEDS: PIPER-TAZO 3.375 GM IV (PMX) 100 ML IVPB SCH ×3 (05:16→21:39)
[2018-07-02] MEDS: KETOROLAC 15 MG INJ IV PRN ×2 (05:16→12:17)
[2018-07-02] MEDS: ALPRAZOLAM 0.25 MG TAB PO SCH ×3 (06:04→21:39)
[2018-07-02 07:15] VITALS: BP 131/76; PULSE 80; RESP 16
--- NOTE | 2018-07-02 08:17 | NUR ---
1915 Pt received aaox4, no s/s of distress, respirations regular & even. Pt oriented to oncoming shift nurse and [facility] safety protocol including hourly rounding & an active bed alarm. Pt verbalized understanding. 2200 Scheduled medications administered whole with water w/o difficulty IV antibiotics hung. Pt tolieted, steady on feet. Denies pain at this time. 0000 Pt asleep, respirations regular and even, nursing will continue to monitor. 0400 Pt accidently pulled out left hand IV when turning in bed. New 20G IV inserted in the Left forearm, pt tolerated well. Zofran administered for complaints of nausea. Approx. 0600 Toradol administered as requested for complaints of pain. 0630 No significant changes noted throughout the shift. Nursing will continue to monitor and endorse to morning shift for continuity of care and to ensure pt safety.
[2018-07-02] MEDS: POTASSIUM CHLORIDE (SR) 20 MEQ TAB PO SCH (08:59)
[2018-07-02] MEDS: PANTOPRAZOLE 40 MG INJ IV SCH ×2 (08:59→21:42)
[2018-07-02] MEDS ORDERED: POTASSIUM PHOSPHATE 30 MM in SOD CHLORIDE 0.9% 250 ML IVPB ONE (10:30)
--- NOTE | 2018-07-02 12:23 | NUR ---
NUTRITION NOTES: Visited pt, in good spirits, states good PO, no longer having diarrhea. RD Recommendation: 1. Recommend Low fat diet due to cirrhosis and fatty liver, pt with elevated LFTs and could benefit from diet restriction of fat. Reviewed and approved by Niharika Donnelly, MS, RD
--- NOTE | 2018-07-02 12:37 | CONS ---
Consultation Date/Type/Reason Admit Date/Time Jun 27, 2018 at 23:57 Initial Consult Date Type of Consult follow up consult Requesting Provider: ZEB JAMES MD Date/Time of Note DATE: 07/02/18 TIME: 12:29 24 HR Interval Summary Free Text/Dictation face to face 20 minutes Patient complains of mild epigastric pain she feels secondary to p.o. 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 Whether it is adequately traversing the area of stricture #2 history of alcohol abuse with increase in her alcohol intake in the most recent months the hepatomegaly along with the AST being greater than the ALT rising bilirubin Makes alcoholic hepatitis a distinct possibility A long discussion about the necessity to stop alcohol completely and I advised that she and her attend alcoholic Anonymous after she gets discharged Plan is to continue to monitor this patient and Dr. Lazo got any plans to perform a digital spyglass choledochoscopy with directed biopsies of this area of questionable stricture pe icteric mild moderate tender over rt lobe bs present Exam/Review of Systems Exam Vitals Vital Signs Date Temp Pulse Resp B/P (MAP) Pulse Ox O2 O2 Flow FiO2 Time Delivery Rate 07/02/18 98.7 80 16 131/76 98 Room Air 07:15 (94) Intake and Output 07/01/18 07/01/18 07/02/18 1515:00 23:00 07:00 IntakeIntake Total 200 ml 350 ml 600 ml BalanceBalance 200 ml 350 ml 600 ml Results Result Diagram: 07/02/18 0458 07/02/18 0457 Results 24hrs Laboratory Tests Test 07/02/18 04:57 07/02/18 04:58 Sodium Level 140 Potassium Level 3.4 L Chloride Level 105 Carbon Dioxide Level 26 Anion Gap 9 # Blood Urea Nitrogen 12 Creatinine 0.85 Est Glomerular Filtrat Rate mL/min > 60 Glucose Level 96 Calcium Level 9.1 Phosphorus Level 2.4 L Magnesium Level 1.9 Total Bilirubin 5.7 H Direct Bilirubin 4.40 H Indirect Bilirubin 1.3 H Aspartate Amino Transf (AST/SGOT) 73 H Alanine Aminotransferase (ALT/SGPT) 38 Alkaline Phosphatase 204 H Total Protein 6.9 Albumin 3.5 Globulin 3.40 H Albumin/Globulin Ratio 1.02 White Blood Count 7.7 # Red Blood Count 4.10 L Hemoglobin 9.9 L Hematocrit 31.9 L Mean Corpuscular Volume 77.8 L Mean Corpuscular Hemoglobin 24.1 L Mean Corpuscular Hemoglobin Concent 31.0 L Red Cell Distribution Width 23.1 H Platelet Count 152 # Mean Platelet Volume 11.5 H Immature Granulocytes % 0.500 H Neutrophils % 68.2 Lymphocytes % 16.7 Monocytes % 11.1 H Eosinophils % 3.2 Basophils % 0.3 Nucleated Red Blood Cells % 0.0 Immature Granulocytes # 0.040 H Neutrophils # 5.3 Lymphocytes # 1.3 Monocytes # 0.9 Eosinophils # 0.3 Basophils # 0.0 Nucleated Red Blood Cells # 0.0 Medications Medication Current Medications Ondansetron HCl (Zofran Inj) 4 mg Q6H PRN IV NAUSEA AND/OR VOMITING Last administered on 07/02/18 04:21; Admin Dose 4 MG; Start 06/28/18 at 01:30 Metoclopramide HCl (Reglan) 10 mg Q6 PRN IV NAUSEA AND/OR VOMITING Last administered on 07/01/18 16:35; Admin Dose 10 MG; Start 06/28/18 at 01:30 Pantoprazole (Protonix Iv) 40 mg BID IV Last administered on 07/02/18 08:59; Admin Dose 40 MG; Start 06/28/18 at 21:00 Dextrose/Sodium Chloride 1,000 ml @ 40 mls/hr Q24H IV Last administered on 07/01/18 13:18; Admin Dose 70 MLS/HR; Start 06/28/18 at 16:00 Zolpidem Tartrate (Ambien) 5 mg HS PRN PO INSOMNIA Last administered on 07/01/18 23:43; Admin Dose 5 MG; Start 06/29/18 at 12:00 Alprazolam (Xanax) 0.25 mg Q8 PO Last administered on 07/02/18at 06:04; Admin Dose 0.25 MG; Start 06/29/18 at 12:15 Potassium Chloride (Klor-Con 20) 40 meq DAILY PO Last administered on 07/02/18at 08:59; Admin Dose 40 MEQ; Start 06/29/18 at 15:30 Ketorolac Tromethamine (Toradol) 15 mg Q6H PRN IV PAIN Last administered on 06/04 06/20at 05:16; Admin Dose 15 MG; Start 06/29/18 at 17:00; Stop 07/02/18 at 16:59 Ferric Sodium Gluconate Complex 125 mg/Sodium Chloride 100 ml @ 100 mls/hr DAILY@1300 IVPB Last administered on 07/01/18at 13:21; Admin Dose 100 MLS/HR; Start 07/01/18 at 13:00; Stop 07/03/18 at 13:59 Piperacillin Sod/ Tazobactam Sod 100 ml @ 25 mls/hr Q8 IVPB Last administered on 07/02/18at 05:16; Admin Dose 25 MLS/HR; Start 06/30/18 at 20:00 Morphine Sulfate (morphine) 6 mg Q4H PRN PO SEVERE PAIN LEVEL 7-10; Start 07/01/18 at 22:30 Potassium Phosphate 30 mm/ Sodium Chloride 260 ml @ 65 mls/hr ONCE ONCE IVPB Last administered on 07/02/18at 10:11; Admin Dose 65 MLS/HR; Start 07/02/18 at 10:30; Stop 07/02/18 at 14:29 MEMO YOUNGER MD Jul 02, 2018 12:37
--- NOTE | 2018-07-02 13:30 | CONS ---
Assessment/Plan Assessment/Plan Assessment/Plan (Daily) unfortunate 32 yo who has a significant alcohol history over the last year, admitted with massive hepatomegaly, splenomegaly, found to have cirrhosis. #elevated direct bilirubin/elevated LDH -these abnormalities are due to Cirrhosis of liver with portal hypertension. she is jaundiced from cirrhosis and has alcoholic hepatitis per Dr Earl thus explaining her enlarged liver, she has portal hypertension -no evidence of hemolysis #anemia will check ferritin to accurately determine her iron status- she likely has anemia of chronic disease Patient seen in collaboration with Dr Vieyra Consultation Date/Type/Reason Admit Date/Time Jun 27, 2018 at 23:57 Initial Consult Date 07/01/18 Type of Consult ONCOLOGY Reason for Consultation ANEMIA Requesting Provider: ZEB JAMES MD Date/Time of Note DATE: 07/02/18 TIME: 13:29 24 HR Interval Summary Free Text/Dictation Denies any complaints - no new issues reported last night Detailed Summary ENT: no complaints Respiratory: no complaints Cardiovascular: no complaints Gastrointestinal: no complaints Genitourinary: no complaints Musculoskeletal: no complaints Skin: no complaints Neurologic: no complaints Endocrine: no complaints Exam/Review of Systems Exam Vitals Vital Signs Date Temp Pulse Resp B/P (MAP) Pulse Ox O2 O2 Flow FiO2 Time Delivery Rate 07/02/18 98.7 80 16 131/76 98 Room Air 07:15 (94) Intake and Output 07/01/18 07/01/18 07/02/18 1515:00 23:00 07:00 IntakeIntake Total 200 ml 350 ml 600 ml BalanceBalance 200 ml 350 ml 600 ml Constitutional: alert, oriented, well developed, obese Head: atraumatic Eyes: EOMI, nl lids, nl sclera ENMT: nl external ears & nose Neck: non-tender Respiratory: diminished breath sounds Cardiovascular: nl pulses, other (S1S2) Gastrointestinal: soft, non-tender Extremities: normal pulses Neurological: nl mental status, nl speech Skin: nl turgor Lymph: nl lymph nodes Results Result Diagram: 07/02/18 0458 07/02/18 0457 Results 24hrs Laboratory Tests Test 07/02/18 04:57 07/02/18 04:58 Sodium Level 140 Potassium Level 3.4 L Chloride Level 105 Carbon Dioxide Level 26 Anion Gap 9 # Blood Urea Nitrogen 12 Creatinine 0.85 Est Glomerular Filtrat Rate mL/min > 60 Glucose Level 96 Calcium Level 9.1 Phosphorus Level 2.4 L Magnesium Level 1.9 Total Bilirubin 5.7 H Direct Bilirubin 4.40 H Indirect Bilirubin 1.3 H Aspartate Amino Transf (AST/SGOT) 73 H Alanine Aminotransferase (ALT/SGPT) 38 Alkaline Phosphatase 204 H Total Protein 6.9 Albumin 3.5 Globulin 3.40 H Albumin/Globulin Ratio 1.02 White Blood Count 7.7 # Red Blood Count 4.10 L Hemoglobin 9.9 L Hematocrit 31.9 L Mean Corpuscular Volume 77.8 L Mean Corpuscular Hemoglobin 24.1 L Mean Corpuscular Hemoglobin Concent 31.0 L Red Cell Distribution Width 23.1 H Platelet Count 152 # Mean Platelet Volume 11.5 H Immature Granulocytes % 0.500 H Neutrophils % 68.2 Lymphocytes % 16.7 Monocytes % 11.1 H Eosinophils % 3.2 Basophils % 0.3 Nucleated Red Blood Cells % 0.0 Immature Granulocytes # 0.040 H Neutrophils # 5.3 Lymphocytes # 1.3 Monocytes # 0.9 Eosinophils # 0.3 Basophils # 0.0 Nucleated Red Blood Cells # 0.0 Medications Medication Current Medications Ondansetron HCl (Zofran Inj) 4 mg Q6H PRN IV NAUSEA AND/OR VOMITING Last administered on 07/02/18 04:21; Admin Dose 4 MG; Start 06/28/18 at 01:30 Metoclopramide HCl (Reglan) 10 mg Q6 PRN IV NAUSEA AND/OR VOMITING Last administered on 07/01/18 16:35; Admin Dose 10 MG; Start 06/28/18 at 01:30 Pantoprazole (Protonix Iv) 40 mg BID IV Last administered on 07/02/18 08:59; Admin Dose 40 MG; Start 06/28/18 at 21:00 Dextrose/Sodium Chloride 1,000 ml @ 40 mls/hr Q24H IV Last administered on 07/01/18 13:18; Admin Dose 70 MLS/HR; Start 06/28/18 at 16:00 Zolpidem Tartrate (Ambien) 5 mg HS PRN PO INSOMNIA Last administered on 07/01/18 23:43; Admin Dose 5 MG; Start 06/29/18 at 12:00 Alprazolam (Xanax) 0.25 mg Q8 PO Last administered on 1/31/19at 06:04; Admin Dose 0.25 MG; Start 06/29/18 at 12:15 Potassium Chloride (Klor-Con 20) 40 meq DAILY PO Last administered on 07/02/18at 08:59; Admin Dose 40 MEQ; Start 06/29/18 at 15:30 Ketorolac Tromethamine (Toradol) 15 mg Q6H PRN IV PAIN Last administered on 07/02/18at 12:17; Admin Dose 15 MG; Start 06/29/18 at 17:00; Stop 07/02/18 at 16:59 Ferric Sodium Gluconate Complex 125 mg/Sodium Chloride 100 ml @ 100 mls/hr DAILY@1300 IVPB Last administered on 07/01/18at 13:21; Admin Dose 100 MLS/HR; Start 07/01/18 at 13:00; Stop 07/03/18 at 13:59 Piperacillin Sod/ Tazobactam Sod 100 ml @ 25 mls/hr Q8 IVPB Last administered on 07/02/18at 05:16; Admin Dose 25 MLS/HR; Start 06/30/18 at 20:00 Morphine Sulfate (morphine) 6 mg Q4H PRN PO SEVERE PAIN LEVEL 7-10; Start 07/01/18 at 22:30 Potassium Phosphate 30 mm/ Sodium Chloride 260 ml @ 65 mls/hr ONCE ONCE IVPB Last administered on 07/02/18at 10:11; Admin Dose 65 MLS/HR; Start 07/02/18 at 10:30; Stop 07/02/18 at 14:29 YULISSA LOVING Jul 02, 2018 13:30
[2018-07-02] MEDS: SOD FERRIC GLUC COMPLX 125 MG in SOD CHLORIDE 0.9% 100 ML IVPB SCH (13:31)
--- NOTE | 2018-07-02 13:37 | PN ---
Date/Time of Note Date/Time of Note DATE: 07/02/18 TIME: 13:33 Assessment/Plan Lines/Catheters IV Catheter Type (from [facility]): Peripheral IV Elias in Place (from [facility]): No Assessment/Plan Chief Complaint/Hosp Course 1. 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 Will need hepatic optimization, cessation of alcohol, etc. -repeat ercp and possible spyglass per Dr. Earl if bilirubin not improved> defer to GI -limit hepatotoxins 2. Transaminitis and hyperbilirubinemia: Persistent transaminitis -as above 3. Abdominal pain: Improved -pain mgt 4. Macrocytic hypochromic anemia: likely 2/2 liver disease -monitor &tx as needed 5. Thrombocytopenia: -bleeding precs -as above 6. Severe obesity BMI: 38 -diet and exercise optimization -encourage weight loss Thank you. Patient seen and examined in collaboration with Dr. Mannie Bailey. Subjective 24 Hr Interval Summary Tolerating diet. Minimal abdominal discomfort. Bili persistently elevated. No fevers, chills, sob, congested cough, cp, palpitations, arora, dizziness, nausea, vomiting, diarrhea, dysuria. Exam/Review of Systems Vital Signs Vitals Vital Signs Date Temp Pulse Resp B/P (MAP) Pulse Ox O2 O2 Flow FiO2 Time Delivery Rate 07/02/18 98.7 80 16 131/76 98 Room Air 07:15 (94) Intake and Output 07/01/18 07/01/18 07/02/18 1515:00 23:00 07:00 IntakeIntake Total 200 ml 350 ml 600 ml BalanceBalance 200 ml 350 ml 600 ml Exam Free Text/Dictation Constitutional: alert, oriented Psych: nl mood/affect, anxiety (min) Head: normocephalic, atraumatic Eyes: nl conjunctiva, EOMI, nl lids, nl sclera ENMT: nl external ears & nose, nl lips & teeth, nl nasal mucosa & septum, mucosa pink and moist Neck: supple, non-tender Respiratory: normal air movement; No congested cough, No labored breathing Cardiovascular: regular rate and rhythm, nl pulses; No edema Gastrointestinal: soft, tender (mid abdominal) Genitourinary - Female: nl external genitalia Musculoskeletal: nl extremities to inspection, nl gait and stance Extremities: normal pulses Neurological: nl mental status, nl speech, nl strength Skin: other (mid abdominal min bruising); No rash or lesions Results Result Diagram: 07/02/18 0458 07/02/18 0457 AARON FREGOSO NP Jul 02, 2018 13:37
[2018-07-02 14:00] VITALS: BP 133/67; PULSE 90; RESP 16
--- NOTE | 2018-07-02 16:14 | PN ---
Date/Time of Note Date/Time of Note DATE: 07/02/18 TIME: 16:09 Assessment/Plan VTE Prophylaxis Risk score (from Nsg)>0 risk: 2 SCD applied (from [facility]): Yes Pharmacological prophylaxis: NA/contraindicated Pharm contraindication: low risk/ambulating Lines/Catheters IV Catheter Type (from Nrsg): Peripheral IV Urinary Cath still in place: No Assessment/Plan Hospital Course 32 y/o with .1 Abdominal pain more likely due to acute pancreatitis. Vomiting and diarrhea for 3 weeks. Last 2 weeks patient was drinking 2- 4 shots of hard liquor daily. 2. Hyperbilirubinemia with elevated liver enzymes. Hepatitis panel is negative from [place]. US of liver reveals fatty infiltration, CD is 5 mm. Records was reviewed form [facility]. 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 Former smoker, pt quit 6 years ago 4. hx of 2 C sections, 6 and 2 years ago 5. Obesity 6. Microcytic hypochromic anemia with thrombocytopenia. Pat. smear show anisocytosis 7. Hx of asthma Assessment/Plan - montior LFT> continue to rise today - Per GI to monitor 1-2 days, if LFT Plan is to continue to monitor this patient and IF LFT dont improve then to perform a digital spyglass choledochoscopy with directed biopsies of this area of questionable stricture - alcholol cessation - cw iv fe - Replete K - ativan prn anxiet - iv Fe - cw zosyn Result Diagram: 07/02/18 0458 07/02/18 0457 Results 24hrs Laboratory Tests Test 07/02/18 04:57 07/02/18 04:58 Sodium Level 140 Potassium Level 3.4 L Chloride Level 105 Carbon Dioxide Level 26 Anion Gap 9 # Blood Urea Nitrogen 12 Creatinine 0.85 Est Glomerular Filtrat Rate mL/min > 60 Glucose Level 96 Calcium Level 9.1 Phosphorus Level 2.4 L Magnesium Level 1.9 Total Bilirubin 5.7 H Direct Bilirubin 4.40 H Indirect Bilirubin 1.3 H Aspartate Amino Transf (AST/SGOT) 73 H Alanine Aminotransferase (ALT/SGPT) 38 Alkaline Phosphatase 204 H Total Protein 6.9 Albumin 3.5 Globulin 3.40 H Albumin/Globulin Ratio 1.02 White Blood Count 7.7 # Red Blood Count 4.10 L Hemoglobin 9.9 L Hematocrit 31.9 L Mean Corpuscular Volume 77.8 L Mean Corpuscular Hemoglobin 24.1 L Mean Corpuscular Hemoglobin Concent 31.0 L Red Cell Distribution Width 23.1 H Platelet Count 152 # Mean Platelet Volume 11.5 H Immature Granulocytes % 0.500 H Neutrophils % 68.2 Lymphocytes % 16.7 Monocytes % 11.1 H Eosinophils % 3.2 Basophils % 0.3 Nucleated Red Blood Cells % 0.0 Immature Granulocytes # 0.040 H Neutrophils # 5.3 Lymphocytes # 1.3 Monocytes # 0.9 Eosinophils # 0.3 Basophils # 0.0 Nucleated Red Blood Cells # 0.0 Subjective 24 Hr Interval Summary Free Text/Dictation Pt denies any abdominal pain no nausea/vomiting Exam/Review of Systems Exam Vitals Vital Signs Date Temp Pulse Resp B/P (MAP) Pulse Ox O2 O2 Flow FiO2 Time Delivery Rate 07/02/18 98.1 90 16 133/67 95 Room Air 14:00 (89) Intake and Output 07/01/18 07/01/18 07/02/18 1515:00 23:00 07:00 IntakeIntake Total 200 ml 350 ml 600 ml BalanceBalance 200 ml 350 ml 600 ml Exam cuurently calm Constitutional: alert, oriented, scleral icterus Neck: supple Respiratory: clear to auscultation Gastrointestinal: surgical scars; No nl liver, spleen, No non-tender, No ascites, No bowel sounds, No distended, No firm, No hepatomegaly, No mass, No splenomegaly, No tender, No other Results Results 24hrs Laboratory Tests Test 07/02/18 04:57 07/02/18 04:58 Sodium Level 140 Potassium Level 3.4 L Chloride Level 105 Carbon Dioxide Level 26 Anion Gap 9 # Blood Urea Nitrogen 12 Creatinine 0.85 Est Glomerular Filtrat Rate mL/min > 60 Glucose Level 96 Calcium Level 9.1 Phosphorus Level 2.4 L Magnesium Level 1.9 Total Bilirubin 5.7 H Direct Bilirubin 4.40 H Indirect Bilirubin 1.3 H Aspartate Amino Transf (AST/SGOT) 73 H Alanine Aminotransferase (ALT/SGPT) 38 Alkaline Phosphatase 204 H Total Protein 6.9 Albumin 3.5 Globulin 3.40 H Albumin/Globulin Ratio 1.02 White Blood Count 7.7 # Red Blood Count 4.10 L Hemoglobin 9.9 L Hematocrit 31.9 L Mean Corpuscular Volume 77.8 L Mean Corpuscular Hemoglobin 24.1 L Mean Corpuscular Hemoglobin Concent 31.0 L Red Cell Distribution Width 23.1 H Platelet Count 152 # Mean Platelet Volume 11.5 H Immature Granulocytes % 0.500 H Neutrophils % 68.2 Lymphocytes % 16.7 Monocytes % 11.1 H Eosinophils % 3.2 Basophils % 0.3 Nucleated Red Blood Cells % 0.0 Immature Granulocytes # 0.040 H Neutrophils # 5.3 Lymphocytes # 1.3 Monocytes # 0.9 Eosinophils # 0.3 Basophils # 0.0 Nucleated Red Blood Cells # 0.0 Medications Medication Current Medications Ondansetron HCl (Zofran Inj) 4 mg Q6H PRN IV NAUSEA AND/OR VOMITING Last administered on 07/02/18 04:21; Admin Dose 4 MG; Start 06/28/18 at 01:30 Metoclopramide HCl (Reglan) 10 mg Q6 PRN IV NAUSEA AND/OR VOMITING Last administered on 07/01/18 16:35; Admin Dose 10 MG; Start 06/28/18 at 01:30 Pantoprazole (Protonix Iv) 40 mg BID IV Last administered on 07/02/18 08:59; Admin Dose 40 MG; Start 06/28/18 at 21:00 Dextrose/Sodium Chloride 1,000 ml @ 40 mls/hr Q24H IV Last administered on 07/01/18 13:18; Admin Dose 70 MLS/HR; Start 06/28/18 at 16:00 Zolpidem Tartrate (Ambien) 5 mg HS PRN PO INSOMNIA Last administered on 07/01/18 23:43; Admin Dose 5 MG; Start 06/29/18 at 12:00 Alprazolam (Xanax) 0.25 mg Q8 PO Last administered on 07/02/18 13:28; Admin Dose 0.25 MG; Start 06/29/18 at 12:15 Potassium Chloride (Klor-Con 20) 40 meq DAILY PO Last administered on 07/02/18 08:59; Admin Dose 40 MEQ; Start 06/29/18 at 15:30 Ketorolac Tromethamine (Toradol) 15 mg Q6H PRN IV PAIN Last administered on 07/02/18at 12:17; Admin Dose 15 MG; Start 06/29/18 at 17:00; Stop 07/02/18 at 16:59 Ferric Sodium Gluconate Complex 125 mg/Sodium Chloride 100 ml @ 100 mls/hr DAILY@1300 IVPB Last administered on 07/02/18at 13:31; Admin Dose 100 MLS/HR; Start 07/01/18 at 13:00; Stop 07/03/18 at 13:59 Piperacillin Sod/ Tazobactam Sod 100 ml @ 25 mls/hr Q8 IVPB Last administered on 07/02/18at 15:05; Admin Dose 25 MLS/HR; Start 06/30/18 at 20:00 Morphine Sulfate (morphine) 6 mg Q4H PRN PO SEVERE PAIN LEVEL 7-10; Start 06/04 at 22:30 ZEB JAMES MD Jul 02, 2018 16:14
--- NOTE | 2018-07-02 18:37 | NUR ---
Patient is alert, awake and verbally responsive. Respiration are even and non labored. No acute distress or discomfort noted. patient complain of pain during this shift. Effective and tolerated well. Family is at bedside. No significant changes noted. Will endorse accordingly.
[2018-07-02 20:20] VITALS: BP 151/71; PULSE 95; RESP 18
[2018-07-02] MEDS: HYDROmorphONE 0.5 MG/0.5 ML SYG IV PRN (22:12)
[2018-07-03] MEDS: ZOLPIDEM 5 MG TAB PO PRN (00:07)
[2018-07-03 02:11] VITALS: BP 112/62; PULSE 93; RESP 18
--- NOTE | 2018-07-03 05:25 | NUR ---
191 Pt received aaax4 no s/s of distress, respirations regular and even. Pt verbal & responsive, mentation calm and cooperative. Pt oriented to oncoming ui developer nurse & [facility] safety protocol including an active bed alarm and hourly rounding. Approx 2144 Scheduled medications administered w/o difficulty. Pt voices complaints of 10/10 epigastric pain, Dr. Dudley contacted for pain medication orders. Currently Morphine is a medication on pt EMAR yet, pt states, "It makes me hallucinate & gives me anxiety." Nursing did not administer due previously stated adverse side effects. 2216 Dr. Dudley returned phone call and gave an order for Dilaudid 0.5mg IV PRN BID. Administered by nurse as ordered. Pt verbalizes relief of pain. 0007 Ambien 5mg administered as per order for complaints of insomnia. IV wrapped at pt request to prevent from getting pulled out when sleeping. 0300 Pt stable, resting comfortably in bed at this time. Nursing will continue to monitor. Addendum: 07/03/18 at 0739 by PAMELLA SCHMIDT RN 0600 No significant changes noted in pt status throughout the shift. Nursing will continue to monitor and endorse to morning shift to ensure pt safety and continuity of care. 0700 Pt endorsed to Renzo SHARP.
[2018-07-03] MEDS: ALPRAZOLAM 0.25 MG TAB PO SCH ×3 (06:27→21:26)
[2018-07-03] MEDS: PIPER-TAZO 3.375 GM IV (PMX) 100 ML IVPB SCH ×3 (06:28→21:26)
[2018-07-03] MEDS: ONDANSETRON 4 MG INJ IV PRN ×3 (06:28→21:25)
--- NOTE | 2018-07-03 08:00 | NUR ---
Patient is requesting to raise all 4 side rails
[2018-07-03] MEDS: PANTOPRAZOLE 40 MG INJ IV SCH (08:12)
[2018-07-03] MEDS: POTASSIUM CHLORIDE (SR) 20 MEQ TAB PO SCH (08:13)
--- NOTE | 2018-07-03 08:27 | CONS ---
Assessment/Plan Assessment/Plan Hospital Course (Demo Recall) 32 yo with persistent biliary colicky pain and increasing bilirubin 1. Abdominal pain, persistent, biliary colicky and increasing bilirubin -s/p ERCP -post prandial 2. Hepatosplenomegaly with free fluid. The patient has got a fatty liver. We will work her up for chronic liver disease. 3. Status post . 4. Overweight. 5. Cirrhosis of liver with portal hypertension. 6. Progressive jaundice it is possible this may be from cirrhosis of liver and also definitely has element of alcoholic hepatitis since the liver is huge. 7. Biliary stricture etiology is unclear discussed with the radiologist Dr. Elfego Pride he feels it is being compressed from outside 8. Transaminitis with elevated bili which is trending up S/P ERCP IMPRESSION: 1. 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 It looks like Mirizzi syndrome. 2. Large sphincterotomy done. 3. Balloon sweeping with 12 mm balloon done and 12 mm balloon would come out easily. Some small sludge was seen on the balloon. 4. Gallbladder was distended. Plan: ERCP with spyglass on Friday Ammonia level tomorrow Alcohol cessation Monitor bilirubin, if continues to rise then will replace with longer stent, and do spyglass procedure. Continue with thiamine Continue with abx Pt examined and plan of care discussed with Dr. Earl Consultation Date/Type/Reason Admit Date/Time Jun 27, 2018 at 23:57 Initial Consult Date 07/01/18 Requesting Provider: ZEB JAMES MD Date/Time of Note DATE: 07/03/18 TIME: 08:01 24 HR Interval Summary Free Text/Dictation Pt c/o ruq, epigastric pain post prandial. She states that at 1800 last night she ate and did not have any pain after eating but then around 2200 had intense 10/10 pain which was barely touched by dilaudid. She has mild nausea with pills. She is trying to take pills with food. She denies any issues with bowel habits. Exam/Review of Systems Exam Vitals Vital Signs Date Temp Pulse Resp B/P (MAP) Pulse Ox O2 O2 Flow FiO2 Time Delivery Rate 07/03/18 98.1 93 18 112/62 96 02:11 (79) 07/02/18 Room Air 14:00 Intake and Output 07/02/18 07/02/18 07/03/18 1515:00 23:00 07:00 IntakeIntake Total 1060 ml 1200 ml 2500 ml BalanceBalance 1060 ml 1200 ml 2500 ml Constitutional: alert, oriented Head: normocephalic Eyes: PERRL, other (sclera icteric) Gastrointestinal: soft, tender, other (obese) Musculoskeletal: nl gait and stance Extremities: normal pulses Neurological: nl mental status Results Result Diagram: 07/02/18 0458 07/03/18 0515 Results 24hrs Laboratory Tests Test 07/03/18 05:15 Sodium Level 142 Potassium Level 3.7 Chloride Level 103 Carbon Dioxide Level 27 Anion Gap 12 Blood Urea Nitrogen 8 Creatinine 0.82 Est Glomerular Filtrat Rate mL/min > 60 Glucose Level 93 Calcium Level 9.2 Ferritin 60.2 Total Bilirubin 6.6 H Direct Bilirubin 5.40 H Indirect Bilirubin 1.2 H Aspartate Amino Transf (AST/SGOT) 75 H Alanine Aminotransferase (ALT/SGPT) 32 Alkaline Phosphatase 214 H Total Protein 6.8 Albumin 3.6 Globulin 3.20 Albumin/Globulin Ratio 1.12 Medications Medication Current Medications Ondansetron HCl (Zofran Inj) 4 mg Q6H PRN IV NAUSEA AND/OR VOMITING Last administered on 07/03/18 06:28; Admin Dose 4 MG; Start 06/28/18 at 01:30 Metoclopramide HCl (Reglan) 10 mg Q6 PRN IV NAUSEA AND/OR VOMITING Last administered on 07/01/18 16:35; Admin Dose 10 MG; Start 06/28/18 at 01:30 Pantoprazole (Protonix Iv) 40 mg BID IV Last administered on 07/02/18at 21:42; Admin Dose 40 MG; Start 06/28/18 at 21:00 Zolpidem Tartrate (Ambien) 5 mg HS PRN PO INSOMNIA Last administered on 07/03/18 00:07; Admin Dose 5 MG; Start 06/29/18 at 12:00 Alprazolam (Xanax) 0.25 mg Q8 PO Last administered on 07/03/18 06:27; Admin Dose 0.25 MG; Start 06/29/18 at 12:15 Potassium Chloride (Klor-Con 20) 40 meq DAILY PO Last administered on 07/02/18at 08:59; Admin Dose 40 MEQ; Start 06/29/18 at 15:30 Ferric Sodium Gluconate Complex 125 mg/Sodium Chloride 100 ml @ 100 mls/hr DAILY@1300 IVPB Last administered on 07/02/18at 13:31; Admin Dose 100 MLS/HR; Start 07/01/18 at 13:00; Stop 07/03/18 at 12:59 Piperacillin Sod/ Tazobactam Sod 100 ml @ 25 mls/hr Q8 IVPB Last administered on 07/03/18at 06:28; Admin Dose 25 MLS/HR; Start 06/30/18 at 20:00 Morphine Sulfate (morphine) 6 mg Q4H PRN PO SEVERE PAIN LEVEL 7-10; Start 07/01/18 at 22:30 Ferric Sodium Gluconate Complex 125 mg/Sodium Chloride 110 ml @ 110 mls/hr DAILY@1300 IVPB ; Start 07/03/18 at 13:00; Stop 07/07/18 at 13:59 Hydromorphone HCl (Dilaudid) 0.5 mg BID PRN IV PAIN LEVEL 6-10 Last administere d on 07/02/18at 22:12; Admin Dose 0.5 MG; Start 07/02/18 at 22:09 ADRIANA RICHARDSON Jul 03, 2018 08:12
[2018-07-03 08:51] VITALS: BP 137/70; PULSE 84; RESP 18
--- NOTE | 2018-07-03 10:41 | PN ---
THERESA VAZQUEZ 07/03/18 1041: Date/Time of Note Date/Time of Note DATE: 07/03/18 TIME: 10:41 Assessment/Plan VTE Prophylaxis Risk score (from [facility])>0 risk: 2 SCD applied (from [facility]): Yes Pharmacological prophylaxis: NA/contraindicated Pharm contraindication: thrombocytopenia, surgical contra Lines/Catheters IV Catheter Type (from [facility]): Peripheral IV Urinary Cath still in place: No Assessment/Plan Hospital Course 1. 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 Hyperbilirubinemia with elevated liver enzymes. Hepatitis panel is negative from [place]. US of liver reveals fatty infiltration, CD is 5 mm. Records was reviewed form [facility] CT scan abdomen with contrast revealed : hepato and splenomegaly, 3.1 cm left ovarian cyst 3. Former smoker, pt quit 6 years ago 4. hx of 2 C sections, 6 and 2 years ago 5. Obesity 6. Microcytic hypochromic anemia with thrombocytopenia. Pat. smear show anisocy tosis 7. Hx of asthma Assessment/Plan - montior LFT> continue to rise today - Per GI to monitor 1-2 days, if LFT Plan is to continue to monitor this patient and IF LFT don't improve then to perform a digital spyglass choledochoscopy with directed biopsies of this area of questionable stricture - alcohol cessation - cw iv fe - Replete K - ativan prn anxiety - iv Fe - cw zosyn Result Diagram: 07/02/18 0458 07/03/18 0515 Results 24hrs Laboratory Tests Test 07/03/18 05:15 Sodium Level 142 Potassium Level 3.7 Chloride Level 103 Carbon Dioxide Level 27 Anion Gap 12 Blood Urea Nitrogen 8 Creatinine 0.82 Est Glomerular Filtrat Rate mL/min > 60 Glucose Level 93 Calcium Level 9.2 Ferritin 60.2 Total Bilirubin 6.6 H Direct Bilirubin 5.40 H Indirect Bilirubin 1.2 H Aspartate Amino Transf (AST/SGOT) 75 H Alanine Aminotransferase (ALT/SGPT) 32 Alkaline Phosphatase 214 H Total Protein 6.8 Albumin 3.6 Globulin 3.20 Albumin/Globulin Ratio 1.12 Subjective 24 Hr Interval Summary Gastrointestinal: pain Exam/Review of Systems Exam Vitals Vital Signs Date Temp Pulse Resp B/P (MAP) Pulse Ox O2 O2 Flow FiO2 Time Delivery Rate 07/03/18 98.0 84 18 137/70 95 08:51 (92) 07/02/18 Room Air 14:00 Intake and Output 07/02/18 07/02/18 07/03/18 1515:00 23:00 07:00 IntakeIntake Total 1060 ml 1200 ml 2500 ml BalanceBalance 1060 ml 1200 ml 2500 ml Constitutional: alert, oriented Eyes: icteric Neck: supple Respiratory: clear to auscultation Cardiovascular: regular rate and rhythm Gastrointestinal: soft, hepatomegaly Results Result Diagram: 07/02/18 0458 07/03/18 0515 Results 24hrs Laboratory Tests Test 07/03/18 05:15 Sodium Level 142 Potassium Level 3.7 Chloride Level 103 Carbon Dioxide Level 27 Anion Gap 12 Blood Urea Nitrogen 8 Creatinine 0.82 Est Glomerular Filtrat Rate mL/min > 60 Glucose Level 93 Calcium Level 9.2 Ferritin 60.2 Total Bilirubin 6.6 H Direct Bilirubin 5.40 H Indirect Bilirubin 1.2 H Aspartate Amino Transf (AST/SGOT) 75 H Alanine Aminotransferase (ALT/SGPT) 32 Alkaline Phosphatase 214 H Total Protein 6.8 Albumin 3.6 Globulin 3.20 Albumin/Globulin Ratio 1.12 Medications Medication Current Medications Ondansetron HCl (Zofran Inj) 4 mg Q6H PRN IV NAUSEA AND/OR VOMITING Last administered on 07/03/18at 06:28; Admin Dose 4 MG; Start 06/28/18 at 01:30 Metoclopramide HCl (Reglan) 10 mg Q6 PRN IV NAUSEA AND/OR VOMITING Last administered on 07/01/18at 16:35; Admin Dose 10 MG; Start 06/28/18 at 01:30 Zolpidem Tartrate (Ambien) 5 mg HS PRN PO INSOMNIA Last administered on 07/03/18at 00:07; Admin Dose 5 MG; Start 06/29/18 at 12:00 Alprazolam (Xanax) 0.25 mg Q8 PO Last administered on 07/03/18at 06:27; Admin Dose 0.25 MG; Start 06/29/18 at 12:15 Potassium Chloride (Klor-Con 20) 40 meq DAILY PO Last administered on 07/03/18at 08:13; Admin Dose 40 MEQ; Start 06/29/18 at 15:30 Ferric Sodium Gluconate Complex 125 mg/Sodium Chloride 100 ml @ 100 mls/hr D AILY@1300 IVPB Last administered on 07/02/18at 13:31; Admin Dose 100 MLS/HR; Start 07/01/18 at 13:00; Stop 07/03/18 at 12:59 Piperacillin Sod/ Tazobactam Sod 100 ml @ 25 mls/hr Q8 IVPB Last administered on 07/03/18at 06:28; Admin Dose 25 MLS/HR; Start 06/30/18 at 20:00 Morphine Sulfate (morphine) 6 mg Q4H PRN PO SEVERE PAIN LEVEL 7-10; Start 07/01/18 at 22:30 Ferric Sodium Gluconate Complex 125 mg/Sodium Chloride 110 ml @ 110 mls/hr DAILY@1300 IVPB ; Start 07/03/18 at 13:00; Stop 07/07/18 at 13:59 Hydromorphone HCl (Dilaudid) 0.5 mg BID PRN IV PAIN LEVEL 6-10 Last administered on 07/02/18at 22:12; Admin Dose 0.5 MG; Start 07/02/18 at 22:09 Pantoprazole (Protonix Tab) 40 mg BID@06,18 PO ; Start 07/03/18 at 18:00 ZEB JAMES MD 07/03/18 1626: Assessment/Plan Assessment/Plan Assessment/Plan lft continue to rise ERCP FRIDAY NOT IN MUCH PAIN Result Diagram: 07/02/18 0458 07/03/18 0515 THERESA LEÓN Jul 03, 2018 10:41 ZEB JAMES MD Jul 03, 2018 16:26
[2018-07-03] MEDS: SOD FERRIC GLUC COMPLX 125 MG in SOD CHLORIDE 0.9% 100 ML IVPB SCH (13:14)
[2018-07-03 15:43] VITALS: BP 121/67; PULSE 93
[2018-07-03] MEDS: PANTOPRAZOLE (EC) 40 MG TAB PO SCH (17:45)
[2018-07-03] MEDS: METOCLOPRAMIDE 10 MG INJ IV PRN (17:45)
--- NOTE | 2018-07-03 18:02 | NUR ---
Patient is alert, awake and verbally responsive. Respiration are even and non labored. Complain of nausea medication given as ordered. Tolerated well. Patient is scheduled for ERCP on friday. Consent was signed. Will endorse accordingly.
--- NOTE | 2018-07-03 19:31 | PN ---
Date/Time of Note Date/Time of Note DATE: 07/03/18 TIME: 19:31 Assessment/Plan Lines/Catheters IV Catheter Type (from [facility]): Peripheral IV Elias in Place (from [facility]): No Assessment/Plan Chief Complaint/Hosp Course 1. 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 Will need hepatic o ptimization, cessation of alcohol, etc. -repeat ercp and possible spyglass per Dr. Earl as bili continues to uptrend >scheduled for friday -limit hepatotoxins 2. Transaminitis and hyperbilirubinemia: Persistent transaminitis -as above 3. Abdominal pain: Improved -pain mgt 4. Macrocytic hypochromic anemia: likely 2/2 liver disease -monitor &tx as needed 5. Thrombocytopenia: -bleeding precs -as above 6. Severe obesity BMI: 38 -diet and exercise optimization -encourage weight loss Thank you. Patient seen and examined in collaboration with Dr. Mannie Bailey. Subjective 24 Hr Interval Summary Feels well. Abdominal discomfort with food improved. No fevers, chills, sob, congested cough, cp, palpitations, arora, dizziness, n/v/d/dysuria. Bili continues to uptrend. Exam/Review of Systems Vital Signs Vitals Vital Signs Date Temp Pulse Resp B/P (MAP) Pulse Ox O2 O2 Flow FiO2 Time Delivery Rate 07/03/18 98.6 92 18 126/76 96 20:00 (93) 07/02/18 Room Air 14:00 Intake and Output 07/02/18 07/02/18 07/03/18 1515:00 23:00 07:00 IntakeIntake Total 1060 ml 1200 ml 2500 ml BalanceBalance 1060 ml 1200 ml 2500 ml Exam Free Text/Dictation Constitutional: alert, oriented Psych: nl mood/affect, anxiety (min) Head: normocephalic, atraumatic Eyes: nl conjunctiva, EOMI, nl lids, sclera icterus ENMT: nl external ears & nose, nl lips & teeth, nl nasal mucosa & septum, mucosa pink and moist Neck: supple, non-tender Respiratory: normal air movement; No congested cough, No labored breathing Cardiovascular: regular rate and rhythm, nl pulses; No edema Gastrointestinal: soft, tender (mid abdominal) Genitourinary - Female: nl external genitalia Musculoskeletal: nl extremities to inspection, nl gait and stance Extremities: normal pulses Neurological: nl mental status, nl speech, nl strength Skin: other (mid abdominal min bruising); jaundice No rash or lesions Results Result Diagram: 07/02/18 0458 07/03/18 0515 AARON FREGOSO NP Jul 03, 2018 19:31
[2018-07-03 20:00] VITALS: BP 126/76; PULSE 92; RESP 18
--- NOTE | 2018-07-03 21:09 | CONS ---
Assessment/Plan Assessment/Plan Assessment/Plan (Daily) Assessment/Plan (Daily) unfortunate 32 yo who has a significant alcohol history over the last year, admitted with massive hepatomegaly, splenomegaly, found to have cirrhosis. #elevated direct bilirubin/elevated LDH -these abnormalities are due to Cirrhosis of liver with portal hypertension. she is jaundiced from cirrhosis and has alcoholic hepatitis per Dr Earl thus explaining her enlarged liver, she has portal hypertension -I do not see any evidence of hemolysis #anemia cont venofer she likely has anemia of chronic disease #mild coagulopathy due to liver dysfunction, if INR >2, given vit K 5 mg po x 1. no need for FFP at present Consultation Date/Type/Reason Admit Date/Time Jun 27, 2018 at 23:57 Initial Consult Date 07/01/18 Requesting Provider: ZEB JAMES MD Date/Time of Note DATE: 07/03/18 TIME: 21:07 24 HR Interval Summary Free Text/Dictation feeling much better today less abdo pain Constitutional: improved Exam/Review of Systems Exam Vitals Vital Signs Date Temp Pulse Resp B/P (MAP) Pulse Ox O2 O2 Flow FiO2 Time Delivery Rate 07/03/18 98.6 92 18 126/76 96 20:00 (93) 07/02/18 Room Air 14:00 Intake and Output 07/02/18 07/02/18 07/03/18 1515:00 23:00 07:00 IntakeIntake Total 1060 ml 1200 ml 2500 ml BalanceBalance 1060 ml 1200 ml 2500 ml Constitutional: alert, obese Psych: depression Head: normocephalic, atraumatic Eyes: icteric Neck: supple Musculoskeletal: nl extremities to inspection Results Result Diagram: 07/02/18 0458 07/03/18 0515 Results 24hrs Laboratory Tests Test 07/03/18 05:15 07/03/18 12:09 Sodium Level 142 Potassium Level 3.7 Chloride Level 103 Carbon Dioxide Level 27 Anion Gap 12 Blood Urea Nitrogen 8 Creatinine 0.82 Est Glomerular Filtrat Rate mL/min > 60 Glucose Level 93 Calcium Level 9.2 Ferritin 60.2 Total Bilirubin 6.6 H Direct Bilirubin 5.40 H Indirect Bilirubin 1.2 H Aspartate Amino Transf (AST/SGOT) 75 H Alanine Aminotransferase (ALT/SGPT) 32 Alkaline Phosphatase 214 H Total Protein 6.8 Albumin 3.6 Globulin 3.20 Albumin/Globulin Ratio 1.12 Prothrombin Time 17.2 H Prothrombin Time Ratio 1.3 INR International Normalized Ratio 1.39 Activated Partial Thromboplast Time 37.2 H Medications Medication Current Medications Ondansetron HCl (Zofran Inj) 4 mg Q6H PRN IV NAUSEA AND/OR VOMITING Last administered on 07/03/18 13:16; Admin Dose 4 MG; Start 06/28/18 at 01:30 Metoclopramide HCl (Reglan) 10 mg Q6 PRN IV NAUSEA AND/OR VOMITING Last administered on 07/03/18 17:45; Admin Dose 10 MG; Start 06/28/18 at 01:30 Zolpidem Tartrate (Ambien) 5 mg HS PRN PO INSOMNIA Last administered on 07/03/18 00:07; Admin Dose 5 MG; Start 06/29/18 at 12:00 Potassium Chloride (Klor-Con 20) 40 meq DAILY PO Last administered on 07/03/18 08:13; Admin Dose 40 MEQ; Start 06/29/18 at 15:30 Piperacillin Sod/ Tazobactam Sod 100 ml @ 25 mls/hr Q8 IVPB Last administered on 07/03/18 14:21; Admin Dose 25 MLS/HR; Start 06/30/18 at 20:00 Morphine Sulfate (morphine) 6 mg Q4H PRN PO SEVERE PAIN LEVEL 7-10; Start 07/01/18 at 22:30 Ferric Sodium Gluconate Complex 125 mg/Sodium Chloride 110 ml @ 110 mls/hr DAILY@1300 IVPB Last administered on 07/03/18 13:14; Admin Dose 110 MLS/HR; Start 07/03/18 at 13:00; Stop 07/07/18 at 13:59 Hydromorphone HCl (Dilaudid) 0.5 mg BID PRN IV PAIN LEVEL 6-10 Last administered on 07/02/18 22:12; Admin Dose 0.5 MG; Start 07/02/18 at 22:09 Pantoprazole (Protonix Tab) 40 mg BID@06,18 PO Last administered on 07/03/18 17:45; Admin Dose 40 MG; Start 07/03/18 at 18:00 Alprazolam (Xanax) 0.25 mg Q12 PO ; Start 07/03/18 at 21:00 BARNEY PACHECO 1, 2019 21:09
[2018-07-03] MEDS: HYDROmorphONE 0.5 MG/0.5 ML SYG IV PRN (22:28)
[2018-07-04] MEDS: ZOLPIDEM 5 MG TAB PO PRN (00:02)
--- NOTE | 2018-07-04 01:34 | NUR ---
191 Pt received aaox4 no s/s of distress, respirations regular and even, pt ambulatory. Oriented to oncoming RN & ACCESS TECH. [facility] safety protocols reviewed including an active bed alarm & hourly rounding. Pt verbalized understanding, yet refused bedalarm even after education of its safety benefits. Charge nurse aware. 2200 Pt ambulatory around the unit with RN supervision. Ambulation well tolerated by pt. 2230 Pain medication administered at pt request for 10/10 epigastric pain. 0002 Ambien administered as per order for insomnia. 0140 Pt resting in bed comfortably, eyes closed. Nursing will continue to monitor. Addendum: 07/04/18 at 0708 by PAMELLA SCHMIDT RN 0600 No significant changes noted in pt status throughout the shift. Nursing will continue to monitor and endorse to morning shift to ensure pt safety and continuity of care. 0700 Endorsed to Renzo SHARP.
[2018-07-04 02:00] VITALS: BP 132/75; PULSE 99; RESP 18
[2018-07-04] MEDS: PANTOPRAZOLE (EC) 40 MG TAB PO SCH ×2 (06:09→17:35)
[2018-07-04] MEDS: PIPER-TAZO 3.375 GM IV (PMX) 100 ML IVPB SCH ×3 (06:09→22:19)
[2018-07-04] MEDS: ONDANSETRON 4 MG INJ IV PRN (06:09)
[2018-07-04 08:25] VITALS: BP 123/72; PULSE 86; RESP 18
[2018-07-04] MEDS: ALPRAZOLAM 0.25 MG TAB PO SCH ×2 (08:30→21:15)
[2018-07-04] MEDS: POTASSIUM CHLORIDE (SR) 20 MEQ TAB PO SCH (08:31)
--- NOTE | 2018-07-04 10:53 | PN ---
Date/Time of Note Date/Time of Note DATE: 07/04/18 TIME: 10:51 Assessment/Plan VTE Prophylaxis Risk score (from Nsg)>0 risk: 2 SCD applied (from Nsg): Yes Pharmacological prophylaxis: NA/contraindicated Pharm contraindication: blood coag disorder Lines/Catheters IV Catheter Type (from Nrsg): Peripheral IV Urinary Cath still in place: No Assessment/Plan Hospital Course 1. 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 Hyperbilirubinemia with elevated liver enzymes. Hepatitis panel is negative from [facility]. US of liver reveals fatty infiltration, CD is 5 mm. Records was reviewed form [facility]. CT scan abdomen with contrast revealed : hepato and splenomegaly, 3.1 cm left ovarian cyst 3. Former smoker, pt quit 6 years ago 4. hx of 2 C sections, 6 and 2 years ago 5. Obesity 6. Microcytic hypochromic anemia with thrombocytopenia. Pat. smear show anisocytosis 7. Hx of asthma Assessment/Plan - monitor LFT - Per GI to monitor 1-2 days, if LFT Plan is to continue to monitor this patient and IF LFT don't improve then to perform a digital spyglass choledochoscopy with directed biopsies of this area of questionable stricture - alcohol cessation - cw iv fe - Replete K daily - ativan prn anxiety - iv Fe - cw zosyn -dr Earl and Dr montoya consults Result Diagram: 07/04/18 0505 07/04/18 0505 Results 24hrs Laboratory Tests Test 07/03/18 12:09 07/04/18 05:05 Prothrombin Time 17.2 H Prothrombin Time Ratio 1.3 INR International Normalized Ratio 1.39 Activated Partial Thromboplast Time 37.2 H White Blood Count 5.7 # Red Blood Count 3.66 L Hemoglobin 9.1 L Hematocrit 28.9 L Mean Corpuscular Volume 79.0 L Mean Corpuscular Hemoglobin 24.9 L Mean Corpuscular Hemoglobin Concent 31.5 L Red Cell Distribution Width 24.7 H Platelet Count 142 Mean Platelet Volume 11.6 H Immature Granulocytes % 0.500 H Neutrophils % Segmented Neutrophils % (Manual) 35 L Band Neutrophils % (Manual) 28 H Lymphocytes % Lymphocytes % (Manual) 16 Reactive Lymphocytes % (Manual) 2 H Monocytes % Monocytes % (Manual) 11 Eosinophils % Eosinophils % (Manual) 6 Basophils % Metamyelocytes % (manual) 1 H Promyelocytes % (Manual) 1 H Nucleated Red Blood Cells % 2 H Immature Granulocytes # 0.030 Neutrophils # Neutrophils # (Manual) 2.1 Band Neutrophils # 1.5 H Lymphocytes (Manual) 0.9 Lymphocytes # Reactive Lymphocytes # 0.1 H Monocytes # Monocytes # (Manual) 0.6 Eosinophils # Basophils # Metamyelocytes # 0.0 Promyelocytes # 0.0 Nucleated Red Blood Cells # Platelet Estimate NORMAL Giant Platelets 1 H Polychromasia 2+ Hypochromasia 2+ Poikilocytosis 1+ Anisocytosis 1+ Target Cells 1+ Ovalocytes 1+ Sodium Level 139 Potassium Level 3.8 Chloride Level 102 Carbon Dioxide Level 27 Anion Gap 10 Blood Urea Nitrogen 5 L Creatinine 0.74 Est Glomerular Filtrat Rate mL/min > 60 Glucose Level 108 Calcium Level 8.9 Total Bilirubin 6.8 H Direct Bilirubin 5.60 H Indirect Bilirubin 1.2 H Aspartate Amino Transf (AST/SGOT) 69 H Alanine Aminotransferase (ALT/SGPT) 29 Alkaline Phosphatase 192 H Ammonia 10 Total Protein 6.3 Albumin 3.2 L Globulin 3.10 Albumin/Globulin Ratio 1.03 Exam/Review of Systems Exam Vitals Vital Signs Date Temp Pulse Resp B/P (MAP) Pulse Ox O2 O2 Flow FiO2 Time Delivery Rate 07/04/18 98.9 86 18 123/72 97 Room Air 08:25 (89) Intake and Output 07/03/18 07/03/18 07/04/18 1414:59 22:59 06:59 IntakeIntake Total 810 ml 340 ml BalanceBalance 810 ml 340 ml Results Results 24hrs Laboratory Tests Test 07/03/18 12:09 07/04/18 05:05 Prothrombin Time 17.2 H Prothrombin Time Ratio 1.3 INR International Normalized Ratio 1.39 Activated Partial Thromboplast Time 37.2 H White Blood Count 5.7 # Red Blood Count 3.66 L Hemoglobin 9.1 L Hematocrit 28.9 L Mean Corpuscular Volume 79.0 L Mean Corpuscular Hemoglobin 24.9 L Mean Corpuscular Hemoglobin Concent 31.5 L Red Cell Distribution Width 24.7 H Platelet Count 142 Mean Platelet Volume 11.6 H Immature Granulocytes % 0.500 H Neutrophils % Segmented Neutrophils % (Manual) 35 L Band Neutrophils % (Manual) 28 H Lymphocytes % Lymphocytes % (Manual) 16 Reactive Lymphocytes % (Manual) 2 H Monocytes % Monocytes % (Manual) 11 Eosinophils % Eosinophils % (Manual) 6 Basophils % Metamyelocytes % (manual) 1 H Promyelocytes % (Manual) 1 H Nucleated Red Blood Cells % 2 H Immature Granulocytes # 0.030 Neutrophils # Neutrophils # (Manual) 2.1 Band Neutrophils # 1.5 H Lymphocytes (Manual) 0.9 Lymphocytes # Reactive Lymphocytes # 0.1 H Monocytes # Monocytes # (Manual) 0.6 Eosinophils # Basophils # Metamyelocytes # 0.0 Promyelocytes # 0.0 Nucleated Red Blood Cells # Platelet Estimate NORMAL Giant Platelets 1 H Polychromasia 2+ Hypochromasia 2+ Poikilocytosis 1+ Anisocytosis 1+ Target Cells 1+ Ovalocytes 1+ Sodium Level 139 Potassium Level 3.8 Chloride Level 102 Carbon Dioxide Level 27 Anion Gap 10 Blood Urea Nitrogen 5 L Creatinine 0.74 Est Glomerular Filtrat Rate mL/min > 60 Glucose Level 108 Calcium Level 8.9 Total Bilirubin 6.8 H Direct Bilirubin 5.60 H Indirect Bilirubin 1.2 H Aspartate Amino Transf (AST/SGOT) 69 H Alanine Aminotransferase (ALT/SGPT) 29 Alkaline Phosphatase 192 H Ammonia 10 Total Protein 6.3 Albumin 3.2 L Globulin 3.10 Albumin/Globulin Ratio 1.03 Medications Medication Current Medications Ondansetron HCl (Zofran Inj) 4 mg Q6H PRN IV NAUSEA AND/OR VOMITING Last administered on 07/04/18 06:09; Admin Dose 4 MG; Start 06/28/18 at 01:30 Metoclopramide HCl (Reglan) 10 mg Q6 PRN IV NAUSEA AND/OR VOMITING Last administered on 07/03/18at 17:45; Admin Dose 10 MG; Start 06/28/18 at 01:30 Zolpidem Tartrate (Ambien) 5 mg HS PRN PO INSOMNIA Last administered on 07/04/18 00:02; Admin Dose 5 MG; Start 06/29/18 at 12:00 Potassium Chloride (Klor-Con 20) 40 meq DAILY PO Last administered on 07/04/18 08:31; Admin Dose 40 MEQ; Start 06/29/18 at 15:30 Piperacillin Sod/ Tazobactam Sod 100 ml @ 25 mls/hr Q8 IVPB Last administered on 07/04/18 06:09; Admin Dose 25 MLS/HR; Start 06/30/18 at 20:00 Morphine Sulfate (morphine) 6 mg Q4H PRN PO SEVERE PAIN LEVEL 7-10; Start 07/01/18 at 22:30 Ferric Sodium Gluconate Complex 125 mg/Sodium Chloride 110 ml @ 110 mls/hr DAILY@1300 IVPB Last administered on 07/03/18at 13:14; Admin Dose 110 MLS/HR; Start 07/03/18 at 13:00; Stop 07/07/18 at 13:59 Hydromorphone HCl (Dilaudid) 0.5 mg BID PRN IV PAIN LEVEL 6-10 Last a dministered on 07/03/18 22:28; Admin Dose 0.5 MG; Start 07/02/18 at 22:09 Pantoprazole (Protonix Tab) 40 mg BID@06,18 PO Last administered on 07/04/18 06:09; Admin Dose 40 MG; Start 07/03/18 at 18:00 Alprazolam (Xanax) 0.25 mg Q12 PO Last administered on 07/04/18 08:30; Admin Dose 0.25 MG; Start 07/03/18 at 21:00 THERESA LEÓN Jul 04, 2018 10:53
--- NOTE | 2018-07-04 11:23 | CONS ---
Assessment/Plan Assessment/Plan Assessment/Plan (Daily) Hospital Course (Demo Recall) 32 yo with persistent biliary colicky pain and increasing bilirubin 1. Abdominal pain, persistent, biliary colicky and increasing bilirubin -s/p ERCP -post prandial 2. Hepatosplenomegaly with free fluid. The patient has got a fatty liver. We will work her up for chronic liver disease. 3. Status post . 4. Overweight. 5. Cirrhosis of liver with portal hypertension. 6. Progressive jaundice it is possible this may be from cirrhosis of liver and also definitely has element of alcoholic hepatitis since the liver is huge. 7. Biliary stricture etiology is unclear discussed with the radiologist Dr. Elfego Pride he feels it is being compressed from outside 8. Transaminitis with elevated bili which is stabilized now., Cirrhosis of liver and alcoholic hepatitis is playing a major role in her elevated total bilirubin S/P ERCP IMPRESSION: 1. 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 It looks like Mirizzi syndrome. 2. Large sphincterotomy done. 3. Balloon sweeping with 12 mm balloon done and 12 mm balloon would come out easily. Some small sludge was seen on the balloon. 4. Gallbladder was distended. Plan: ERCP with spyglass on Friday, to evaluate the stricture and rule out malignancy Ammonia level tomorrow Alcohol cessation Monitor bilirubin, if continues to rise then will replace with longer stent, and do spyglass procedure. Continue with thiamine Continue with abx Consultation Date/Type/Reason Admit Date/Time Jun 27, 2018 at 23:57 Initial Consult Date 07/01/18 Requesting Provider: ZEB JAMES MD Date/Time of Note DATE: 07/04/18 TIME: 11:21 24 HR Interval Summary Free Text/Dictation Patient pain is reduced. She becomes nauseous after eating food. Pain is much less compared to the day of admission Constitutional: improved Exam/Review of Systems Exam Vitals Vital Signs Date Temp Pulse Resp B/P (MAP) Pulse Ox O2 O2 Flow FiO2 Time Delivery Rate 07/04/18 98.9 86 18 123/72 97 Room Air 08:25 (89) Intake and Output 07/03/18 07/03/18 07/04/18 1515:00 23:00 07:00 IntakeIntake Total 810 ml 340 ml BalanceBalance 810 ml 340 ml Constitutional: alert, oriented, well developed Psych: no complaints, nl mood/affect Head: normocephalic, atraumatic Eyes: nl conjunctiva, EOMI, nl lids, nl sclera, PERRL ENMT: nl external ears & nose, nl lips & teeth, nl nasal mucosa & septum Neck: supple, non-tender Respiratory: clear to auscultation, normal air movement Cardiovascular: regular rate and rhythm, nl pulses Gastrointestinal: soft, nl liver, spleen, non-tender Musculoskeletal: nl extremities to inspection, nl gait and stance Extremities: normal pulses Neurological: MONUMENT LETTERER II-XII intact, nl mental status, nl speech, nl strength Skin: nl turgor; No rash or lesions Lymph: nl lymph nodes Results Result Diagram: 07/04/18 0505 07/04/18 0505 Results 24hrs Laboratory Tests Test 07/03/18 12:09 07/04/18 05:05 Prothrombin Time 17.2 H Prothrombin Time Ratio 1.3 INR International Normalized Ratio 1.39 Activated Partial Thromboplast Time 37.2 H White Blood Count 5.7 # Red Blood Count 3.66 L Hemoglobin 9.1 L Hematocrit 28.9 L Mean Corpuscular Volume 79.0 L Mean Corpuscular Hemoglobin 24.9 L Mean Corpuscular Hemoglobin Concent 31.5 L Red Cell Distribution Width 24.7 H Platelet Count 142 Mean Platelet Volume 11.6 H Immature Granulocytes % 0.500 H Neutrophils % Segmented Neutrophils % (Manual) 35 L Band Neutrophils % (Manual) 28 H Lymphocytes % Lymphocytes % (Manual) 16 Reactive Lymphocytes % (Manual) 2 H Monocytes % Monocytes % (Manual) 11 Eosinophils % Eosinophils % (Manual) 6 Basophils % Metamyelocytes % (manual) 1 H Promyelocytes % (Manual) 1 H Nucleated Red Blood Cells % 2 H Immature Granulocytes # 0.030 Neutrophils # Neutrophils # (Manual) 2.1 Band Neutrophils # 1.5 H Lymphocytes (Manual) 0.9 Lymphocytes # Reactive Lymphocytes # 0.1 H Monocytes # Monocytes # (Manual) 0.6 Eosinophils # Basophils # Metamyelocytes # 0.0 Promyelocytes # 0.0 Nucleated Red Blood Cells # Platelet Estimate NORMAL Giant Platelets 1 H Polychromasia 2+ Hypochromasia 2+ Poikilocytosis 1+ Anisocytosis 1+ Target Cells 1+ Ovalocytes 1+ Sodium Level 139 Potassium Level 3.8 Chloride Level 102 Carbon Dioxide Level 27 Anion Gap 10 Blood Urea Nitrogen 5 L Creatinine 0.74 Est Glomerular Filtrat Rate mL/min > 60 Glucose Level 108 Calcium Level 8.9 Total Bilirubin 6.8 H Direct Bilirubin 5.60 H Indirect Bilirubin 1.2 H Aspartate Amino Transf (AST/SGOT) 69 H Alanine Aminotransferase (ALT/SGPT) 29 Alkaline Phosphatase 192 H Ammonia 10 Total Protein 6.3 Albumin 3.2 L Globulin 3.10 Albumin/Globulin Ratio 1.03 Medications Medication Current Medications Ondansetron HCl (Zofran Inj) 4 mg Q6H PRN IV NAUSEA AND/OR VOMITING Last administered on 07/04/18 06:09; Admin Dose 4 MG; Start 06/28/18 at 01:30 Metoclopramide HCl (Reglan) 10 mg Q6 PRN IV NAUSEA AND/OR VOMITING Last administered on 07/03/18 17:45; Admin Dose 10 MG; Start 06/28/18 at 01:30 Zolpidem Tartrate (Ambien) 5 mg HS PRN PO INSOMNIA Last administered on 07/04/18 00:02; Admin Dose 5 MG; Start 06/29/18 at 12:00 Potassium Chloride (Klor-Con 20) 40 meq DAILY PO Last administered on 07/04/18 08:31; Admin Dose 40 MEQ; Start 06/29/18 at 15:30 Piperacillin Sod/ Tazobactam Sod 100 ml @ 25 mls/hr Q8 IVPB Last administered on 07/04/18 06:09; Admin Dose 25 MLS/HR; Start 06/30/18 at 20:00 Morphine Sulfate (morphine) 6 mg Q4H PRN PO SEVERE PAIN LEVEL 7-10; Start 07/01/18 at 22:30 Ferric Sodium Gluconate Complex 125 mg/Sodium Chloride 110 ml @ 110 mls/hr DAILY@1300 IVPB Last administered on 07/03/18 13:14; Admin Dose 110 MLS/HR; Start 07/03/18 at 13:00; Stop 07/07/18 at 13:59 Hydromorphone HCl (Dilaudid) 0.5 mg BID PRN IV PAIN LEVEL 6-10 Last administered on 07/03/18 22:28; Admin Dose 0.5 MG; Start 07/02/18 at 22:09 Pantoprazole (Protonix Tab) 40 mg BID@06,18 PO Last administered on 07/04/18at 06:09; Admin Dose 40 MG; Start 07/03/18 at 18:00 Alprazolam (Xanax) 0.25 mg Q12 PO Last administered on 07/04/18at 08:30; Admin D ose 0.25 MG; Start 07/03/18 at 21:00 Ondansetron HCl (Zofran Odt) 4 mg AC BREAKFAST DINNER ODT ; Start 07/04/18 at 17:35 ASHOK TIWARI MD Jul 04, 2018 11:23
[2018-07-04] MEDS: METOCLOPRAMIDE 10 MG INJ IV PRN (11:45)
[2018-07-04] MEDS: SOD FERRIC GLUC COMPLX 125 MG in SOD CHLORIDE 0.9% 100 ML IVPB SCH (13:11)
[2018-07-04 15:25] VITALS: BP 120/64; PULSE 90; RESP 17
--- NOTE | 2018-07-04 15:44 | NUR ---
Page Dr. Jones to ask for pain medication
[2018-07-04] MEDS: HYDROmorphONE 0.5 MG/0.5 ML SYG IV PRN ×2 (16:18→22:21)
--- NOTE | 2018-07-04 16:55 | CONS ---
Assessment/Plan Assessment/Plan Assessment/Plan (Daily) unfortunate 32 yo who has a significant alcohol history over the last year, admitted with massive hepatomegaly, splenomegaly, found to have cirrhosis. #elevated direct bilirubin/elevated LDH -these abnormalities are due to Cirrhosis of liver with portal hypertension. she is jaundiced from cirrhosis and has alcoholic hepatitis per Dr Earl thus explaining her enlarged liver, she has portal hypertension -no evidence of hemolysis #anemia cont venofer anemia of chronic disease #mild coagulopathy due to liver dysfunction, if INR >2, given vit K 5 mg po x 1. no need for FFP at present Patient seen in collaboration with Dr Vieyra Consultation Date/Type/Reason Admit Date/Time Jun 27, 2018 at 23:57 Initial Consult Date 07/01/18 Type of Consult ONCOLOGY Reason for Consultation ANEMIA Requesting Provider: ZEB JAMES MD Date/Time of Note DATE: 07/04/18 TIME: 16:54 24 HR Interval Summary Free Text/Dictation Feels better nausea is well controlled no new events reported last night Constitutional: requiring IVF Detailed Summary Eyes: no complaints ENT: no complaints Exam/Review of Systems Exam Vitals Vital Signs Date Temp Pulse Resp B/P (MAP) Pulse Ox O2 O2 Flow FiO2 Time Delivery Rate 07/04/18 98.6 90 17 120/64 99 Room Air 15:25 (82) Intake and Output 07/03/18 07/03/18 07/04/18 1515:00 23:00 07:00 IntakeIntake Total 810 ml 340 ml BalanceBalance 810 ml 340 ml Constitutional: alert, oriented, well developed Psych: nl mood/affect Head: atraumatic Eyes: EOMI, nl lids, icteric ENMT: nl external ears & nose Neck: non-tender Respiratory: clear to auscultation Cardiovascular: nl pulses Gastrointestinal: soft Results Result Diagram: 07/04/18 0505 07/04/18 0505 Results 24hrs Laboratory Tests Test 07/04/18 05:05 White Blood Count 5.7 # Red Blood Count 3.66 L Hemoglobin 9.1 L Hematocrit 28.9 L Mean Corpuscular Volume 79.0 L Mean Corpuscular Hemoglobin 24.9 L Mean Corpuscular Hemoglobin Concent 31.5 L Red Cell Distribution Width 24.7 H Platelet Count 142 Mean Platelet Volume 11.6 H Immature Granulocytes % 0.500 H Neutrophils % Segmented Neutrophils % (Manual) 35 L Band Neutrophils % (Manual) 28 H Lymphocytes % Lymphocytes % (Manual) 16 Reactive Lymphocytes % (Manual) 2 H Monocytes % Monocytes % (Manual) 11 Eosinophils % Eosinophils % (Manual) 6 Basophils % Metamyelocytes % (manual) 1 H Promyelocytes % (Manual) 1 H Nucleated Red Blood Cells % 2 H Immature Granulocytes # 0.030 Neutrophils # Neutrophils # (Manual) 2.1 Band Neutrophils # 1.5 H Lymphocytes (Manual) 0.9 Lymphocytes # Reactive Lymphocytes # 0.1 H Monocytes # Monocytes # (Manual) 0.6 Eosinophils # Basophils # Metamyelocytes # 0.0 Promyelocytes # 0.0 Nucleated Red Blood Cells # Platelet Estimate NORMAL Giant Platelets 1 H Polychromasia 2+ Hypochromasia 2+ Poikilocytosis 1+ Anisocytosis 1+ Target Cells 1+ Ovalocytes 1+ Sodium Level 139 Potassium Level 3.8 Chloride Level 102 Carbon Dioxide Level 27 Anion Gap 10 Blood Urea Nitrogen 5 L Creatinine 0.74 Est Glomerular Filtrat Rate mL/min > 60 Glucose Level 108 Calcium Level 8.9 Total Bilirubin 6.8 H Direct Bilirubin 5.60 H Indirect Bilirubin 1.2 H Aspartate Amino Transf (AST/SGOT) 69 H Alanine Aminotransferase (ALT/SGPT) 29 Alkaline Phosphatase 192 H Ammonia 10 Total Protein 6.3 Albumin 3.2 L Globulin 3.10 Albumin/Globulin Ratio 1.03 Medications Medication Current Medications Ondansetron HCl (Zofran Inj) 4 mg Q6H PRN IV NAUSEA AND/OR VOMITING Last administered on 07/04/18at 06:09; Admin Dose 4 MG; Start 06/28/18 at 01:30 Metoclopramide HCl (Reglan) 10 mg Q6 PRN IV NAUSEA AND/OR VOMITING Last administered on 07/04/18at 11:45; Admin Dose 10 MG; Start 06/28/18 at 01:30 Zolpidem Tartrate (Ambien) 5 mg HS PRN PO INSOMNIA Last administered on 07/04/18at 00:02; Admin Dose 5 MG; Start 06/29/18 at 12:00 Potassium Chloride (Klor-Con 20) 40 meq DAILY PO Last administered on 07/04/18at 08:31; Admin Dose 40 MEQ; Start 06/29/18 at 15:30 Piperacillin Sod/ Tazobactam Sod 100 ml @ 25 mls/hr Q8 IVPB Last administered on 07/04/18at 14:21; Admin Dose 25 MLS/HR; Start 06/30/18 at 20:00 Morphine Sulfate (morphine) 6 mg Q4H PRN PO SEVERE PAIN LEVEL 7-10; Start 07/01/18 at 22:30 Ferric Sodium Gluconate Complex 125 mg/Sodium Chloride 110 ml @ 110 mls/hr DAILY@1300 IVPB Last administered on 07/04/18at 13:11; Admin Dose 110 MLS/HR; Start 07/03/18 at 13:00; Stop 07/07/18 at 13:59 Pantoprazole (Protonix Tab) 40 mg BID@06,18 PO Last administered on 07/04/18at 06:09; Admin Dose 40 MG; Start 07/03/18 at 18:00 Alprazolam (Xanax) 0.25 mg Q12 PO Last administered on 07/04/18at 08:30; Admin Dose 0.25 MG; Start 07/03/18 at 21:00 Ondansetron HCl (Zofran Odt) 4 mg AC BREAKFAST DINNER ODT ; Start 07/04/18 at 17:35 Hydromorphone HCl (Dilaudid) 0.5 mg Q6H PRN IV SEVERE PAIN LEVEL 7-10; Start 07/04/18 at 16:30 YULISSA LOVING Jul 04, 2018 4:54 pm
[2018-07-04] MEDS: ONDANSETRON (ODT) 4 MG TAB ODT SCH (17:37)
--- NOTE | 2018-07-04 18:37 | NUR ---
Dr. Briceno seen the patient and give an order to change pain medication to 6 hours. Attended all needs. Respiration are even and non labored. Pain medication and nausea medication given as ordered. Effective and tolerated well. No significant changes noted. Will endorse accordingly.
[2018-07-04 20:51] VITALS: BP 133/75; PULSE 97; RESP 18
[2018-07-05] MEDS: ZOLPIDEM 5 MG TAB PO PRN (00:01)
[2018-07-05 02:40] VITALS: BP 122/61; PULSE 99; RESP 20
[2018-07-05] MEDS: PIPER-TAZO 3.375 GM IV (PMX) 100 ML IVPB SCH ×3 (05:50→20:24)
[2018-07-05] MEDS: PANTOPRAZOLE (EC) 40 MG TAB PO SCH ×2 (05:50→17:20)
--- NOTE | 2018-07-05 06:33 | NUR ---
Patient calm and comfortable on bed, able to make needs known. Abdominal pain noted, x1 pain med given during this shift,no a/r noted, effective. no nausea, no vomiting no fever, no chills noted at this time, no diarrhea. Will continue to monitor.
[2018-07-05] MEDS: ONDANSETRON (ODT) 4 MG TAB ODT SCH ×2 (07:47→17:35)
[2018-07-05] MEDS: ALPRAZOLAM 0.25 MG TAB PO SCH ×2 (08:31→20:24)
[2018-07-05] MEDS: POTASSIUM CHLORIDE (SR) 20 MEQ TAB PO SCH (08:31)
[2018-07-05 08:32] VITALS: BP 128/67; PULSE 90; RESP 17
[2018-07-05] MEDS: METOCLOPRAMIDE 10 MG INJ IV PRN ×2 (10:28→17:20)
[2018-07-05] MEDS: HYDROmorphONE 0.5 MG/0.5 ML SYG IV PRN ×2 (10:36→22:20)
[2018-07-05] MEDS: SOD FERRIC GLUC COMPLX 125 MG in SOD CHLORIDE 0.9% 100 ML IVPB SCH (13:04)
--- NOTE | 2018-07-05 14:28 | CONS ---
Assessment/Plan Assessment/Plan Assessment/Plan (Daily) Hospital Course (Demo Recall) 32 yo with persistent biliary colicky pain and increasing bilirubin 1. Abdominal pain much better, biliary colicky and increasing bilirubin -s/p ERCP -post prandial 2. Hepatosplenomegaly with free fluid. The patient has got a fatty liver. We will work her up for chronic liver disease. 3. Status post . 4. Overweight. 5. Cirrhosis of liver with portal hypertension. 6. Progressive jaundice it is possible this may be from cirrhosis of liver and also definitely has element of alcoholic hepatitis since the liver is huge. 7. Biliary stricture etiology is unclear discussed with the radiologist Dr. Elfego Pride he feels it is being compressed from outside 8. Transaminitis with elevated bili which is stabilized now., Cirrhosis of liver and alcoholic hepatitis is playing a major role in her elevated total bilirubin S/P ERCP IMPRESSION: 1. 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 It looks like Mirizzi syndrome. 2. Large sphincterotomy done. 3. Balloon sweeping with 12 mm balloon done and 12 mm balloon would come out easily. Some small sludge was seen on the balloon. 4. Gallbladder was distended. Plan: ERCP with spyglass on Friday, to evaluate the stricture and rule out malignancy Ammonia level tomorrow Alcohol cessation Monitor bilirubin, if continues to rise then will replace with longer stent, and do spyglass procedure. Continue with thiamine Continue with abx Consultation Date/Type/Reason Admit Date/Time Jun 27, 2018 at 23:57 Initial Consult Date 07/01/18 Requesting Provider: ZEB JAMES MD Date/Time of Note DATE: 07/05/18 TIME: 14:27 24 HR Interval Summary Constitutional: improved Exam/Review of Systems Exam Vitals Vital Signs Date Temp Pulse Resp B/P (MAP) Pulse Ox O2 O2 Flow FiO2 Time Delivery Rate 07/05/18 99.6 90 17 128/67 96 Room Air 08:32 (87) Intake and Output 07/04/18 07/04/18 07/05/18 1515:00 23:00 07:00 IntakeIntake Total 1230 ml 400 ml 450 ml BalanceBalance 1230 ml 400 ml 450 ml Constitutional: alert, oriented, well developed Psych: no complaints, nl mood/affect Head: normocephalic, atraumatic Eyes: nl conjunctiva, EOMI, nl lids, nl sclera, PERRL ENMT: nl external ears & nose, nl lips & teeth, nl nasal mucosa & septum Neck: supple, non-tender Respiratory: clear to auscultation, normal air movement Cardiovascular: regular rate and rhythm, nl pulses Gastrointestinal: soft, nl liver, spleen, non-tender Musculoskeletal: nl extremities to inspection, nl gait and stance Extremities: normal pulses Neurological: [employer] II-XII intact, nl mental status, nl speech, nl strength Skin: nl turgor; No rash or lesions Lymph: nl lymph nodes Results Result Diagram: 07/05/18 0549 07/05/18 0549 Results 24hrs Laboratory Tests Test 07/05/18 05:49 White Blood Count 8.6 # Red Blood Count 3.82 L Hemoglobin 9.5 L Hematocrit 30.8 L Mean Corpuscular Volume 80.6 L Mean Corpuscular Hemoglobin 24.9 L Mean Corpuscular Hemoglobin Concent 30.8 L Red Cell Distribution Width 26.1 H Platelet Count 188 # Mean Platelet Volume 11.5 H Immature Granulocytes % 0.800 H Neutrophils % Segmented Neutrophils % (Manual) 27 L Band Neutrophils % (Manual) 24 H Lymphocytes % Lymphocytes % (Manual) 32 Reactive Lymphocytes % (Manual) 3 H Monocytes % Monocytes % (Manual) 9 Eosinophils % Eosinophils % (Manual) 3 Basophils % Basophils % (Manual) 2 Nucleated Red Blood Cells % 4 H Immature Granulocytes # 0.070 H Neutrophils # Neutrophils # (Manual) 2.5 Band Neutrophils # 2.0 H Lymphocytes (Manual) 2.7 Lymphocytes # Reactive Lymphocytes # 0.2 H Monocytes # Monocytes # (Manual) 0.7 Eosinophils # Basophils # Basophils # (Manual) 0.1 H Nucleated Red Blood Cells # Platelet Estimate NORMAL Giant Platelets 10 H Polychromasia 1+ Poikilocytosis 1+ Anisocytosis 1+ Macrocytosis 1+ Target Cells 1+ Sodium Level 139 Potassium Level 3.8 Chloride Level 103 Carbon Dioxide Level 29 Anion Gap 7 Blood Urea Nitrogen 2 L Creatinine 0.68 Est Glomerular Filtrat Rate mL/min > 60 Glucose Level 90 Calcium Level 8.8 Total Bilirubin 9.3 #H Direct Bilirubin 7.50 H Indirect Bilirubin 1.8 H Aspartate Amino Transf (AST/SGOT) 74 H Alanine Aminotransferase (ALT/SGPT) 34 Alkaline Phosphatase 193 H Total Protein 7.0 Albumin 3.4 Globulin 3.60 H Albumin/Globulin Ratio 0.94 Medications Medication Current Medications Ondansetron HCl (Zofran Inj) 4 mg Q6H PRN IV NAUSEA AND/OR VOMITING Last administered on 07/04/18 06:09; Admin Dose 4 MG; Start 06/28/18 at 01:30 Metoclopramide HCl (Reglan) 10 mg Q6 PRN IV NAUSEA AND/OR VOMITING Last administered on 07/05/18 10:28; Admin Dose 10 MG; Start 06/28/18 at 01:30 Zolpidem Tartrate (Ambien) 5 mg HS PRN PO INSOMNIA Last administered on 07/05/18 00:01; Admin Dose 5 MG; Start 06/29/18 at 12:00 Potassium Chloride (Klor-Con 20) 40 meq DAILY PO Last administered on 07/05/18 08:31; Admin Dose 40 MEQ; Start 06/29/18 at 15:30 Piperacillin Sod/ Tazobactam Sod 100 ml @ 25 mls/hr Q8 IVPB Last administered on 07/05/18 14:07; Admin Dose 25 MLS/HR; Start 06/30/18 at 20:00 Morphine Sulfate (morphine) 6 mg Q4H PRN PO SEVERE PAIN LEVEL 7-10; Start 07/01/18 at 22:30 Ferric Sodium Gluconate Complex 125 mg/Sodium Chloride 110 ml @ 110 mls/hr DAILY@1300 IVPB Last administered on 07/05/18 13:04; Admin Dose 110 MLS/HR; Start 07/03/18 at 13:00; Stop 07/07/18 at 13:59 Pantoprazole (Protonix Tab) 40 mg BID@06,18 PO Last administered on 07/05/18 05:50; Admin Dose 40 MG; Start 07/03/18 at 18:00 Alprazolam (Xanax) 0.25 mg Q12 PO Last administered on 07/05/18 08:31; Admin Dose 0.25 MG; Start 07/03/18 at 21:00 Ondansetron HCl (Zofran Odt) 4 mg AC BREAKFAST DINNER ODT Last administered on 07/05/18 07:47; Admin Dose 4 MG; Start 07/04/18 at 17:35 Hydromorphone HCl (Dilaudid) 0.5 mg Q6H PRN IV SEVERE PAIN LEVEL 7-10 Last administered on 07/05/18at 10:36; Admin Dose 0.5 MG; Start 07/04/18 at 16:30 ASHOK TIWARI MD Jul 05, 2018 14:28
[2018-07-05 14:41] VITALS: BP 140/74; PULSE 98; RESP 17
--- NOTE | 2018-07-05 15:23 | PN ---
Date/Time of Note Date/Time of Note DATE: 07/05/18 TIME: 15:22 Assessment/Plan VTE Prophylaxis Risk score (from Nsg)>0 risk: 2 SCD applied (from Nsg): Yes SCD contraindicated: other Pharmacological prophylaxis: other Lines/Catheters IV Catheter Type (from Nrsg): Peripheral IV Urinary Cath still in place: No Assessment/Plan Hospital Course 1. 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 Hyperbilirubinemia with elevated liver enzymes. Hepatitis panel is negative from [place]. US of liver reveals fatty infiltration, CD is 5 mm. Records was reviewed form [facility]. CT scan abdomen with contrast revealed : hepato and splenomegaly, 3.1 cm left ovarian cyst 3. Former smoker, pt quit 6 years ago 4. hx of 2 C sections, 6 and 2 years ago 5. Obesity 6. Microcytic hypochromic anemia with thrombocytopenia. Pat. smear show anisocytosis 7. Hx of asthma plan per gi Result Diagram: 07/05/18 0549 07/05/18 0549 Results 24hrs Laboratory Tests Test 07/05/18 05:49 White Blood Count 8.6 # Red Blood Count 3.82 L Hemoglobin 9.5 L Hematocrit 30.8 L Mean Corpuscular Volume 80.6 L Mean Corpuscular Hemoglobin 24.9 L Mean Corpuscular Hemoglobin Concent 30.8 L Red Cell Distribution Width 26.1 H Platelet Count 188 # Mean Platelet Volume 11.5 H Immature Granulocytes % 0.800 H Neutrophils % Segmented Neutrophils % (Manual) 27 L Band Neutrophils % (Manual) 24 H Lymphocytes % Lymphocytes % (Manual) 32 Reactive Lymphocytes % (Manual) 3 H Monocytes % Monocytes % (Manual) 9 Eosinophils % Eosinophils % (Manual) 3 Basophils % Basophils % (Manual) 2 Nucleated Red Blood Cells % 4 H Immature Granulocytes # 0.070 H Neutrophils # Neutrophils # (Manual) 2.5 Band Neutrophils # 2.0 H Lymphocytes (Manual) 2.7 Lymphocytes # Reactive Lymphocytes # 0.2 H Monocytes # Monocytes # (Manual) 0.7 Eosinophils # Basophils # Basophils # (Manual) 0.1 H Nucleated Red Blood Cells # Platelet Estimate NORMAL Giant Platelets 10 H Polychromasia 1+ Poikilocytosis 1+ Anisocytosis 1+ Macrocytosis 1+ Target Cells 1+ Sodium Level 139 Potassium Level 3.8 Chloride Level 103 Carbon Dioxide Level 29 Anion Gap 7 Blood Urea Nitrogen 2 L Creatinine 0.68 Est Glomerular Filtrat Rate mL/min > 60 Glucose Level 90 Calcium Level 8.8 Total Bilirubin 9.3 #H Direct Bilirubin 7.50 H Indirect Bilirubin 1.8 H Aspartate Amino Transf (AST/SGOT) 74 H Alanine Aminotransferase (ALT/SGPT) 34 Alkaline Phosphatase 193 H Total Protein 7.0 Albumin 3.4 Globulin 3.60 H Albumin/Globulin Ratio 0.94 Subjective 24 Hr Interval Summary Respiratory: no complaints Gastrointestinal: pain (+) Exam/Review of Systems Exam Vitals Vital Signs Date Temp Pulse Resp B/P (MAP) Pulse Ox O2 O2 Flow FiO2 Time Delivery Rate 07/05/18 98.8 98 17 140/74 95 Room Air 14:41 (96) Intake and Output 07/04/18 07/04/18 07/05/18 1515:00 23:00 07:00 IntakeIntake Total 1230 ml 400 ml 450 ml BalanceBalance 1230 ml 400 ml 450 ml Neck: supple Respiratory: clear to auscultation Cardiovascular: regular rate and rhythm Gastrointestinal: soft Musculoskeletal: nl extremities to inspection Extremities: normal pulses Results Results 24hrs Laboratory Tests Test 07/05/18 05:49 White Blood Count 8.6 # Red Blood Count 3.82 L Hemoglobin 9.5 L Hematocrit 30.8 L Mean Corpuscular Volume 80.6 L Mean Corpuscular Hemoglobin 24.9 L Mean Corpuscular Hemoglobin Concent 30.8 L Red Cell Distribution Width 26.1 H Platelet Count 188 # Mean Platelet Volume 11.5 H Immature Granulocytes % 0.800 H Neutrophils % Segmented Neutrophils % (Manual) 27 L Band Neutrophils % (Manual) 24 H Lymphocytes % Lymphocytes % (Manual) 32 Reactive Lymphocytes % (Manual) 3 H Monocytes % Monocytes % (Manual) 9 Eosinophils % Eosinophils % (Manual) 3 Basophils % Basophils % (Manual) 2 Nucleated Red Blood Cells % 4 H Immature Granulocytes # 0.070 H Neutrophils # Neutrophils # (Manual) 2.5 Band Neutrophils # 2.0 H Lymphocytes (Manual) 2.7 Lymphocytes # Reactive Lymphocytes # 0.2 H Monocytes # Monocytes # (Manual) 0.7 Eosinophils # Basophils # Basophils # (Manual) 0.1 H Nucleated Red Blood Cells # Platelet Estimate NORMAL Giant Platelets 10 H Polychromasia 1+ Poikilocytosis 1+ Anisocytosis 1+ Macrocytosis 1+ Target Cells 1+ Sodium Level 139 Potassium Level 3.8 Chloride Level 103 Carbon Dioxide Level 29 Anion Gap 7 Blood Urea Nitrogen 2 L Creatinine 0.68 Est Glomerular Filtrat Rate mL/min > 60 Glucose Level 90 Calcium Level 8.8 Total Bilirubin 9.3 #H Direct Bilirubin 7.50 H Indirect Bilirubin 1.8 H Aspartate Amino Transf (AST/SGOT) 74 H Alanine Aminotransferase (ALT/SGPT) 34 Alkaline Phosphatase 193 H Total Protein 7.0 Albumin 3.4 Globulin 3.60 H Albumin/Globulin Ratio 0.94 Medications Medication Current Medications Ondansetron HCl (Zofran Inj) 4 mg Q6H PRN IV NAUSEA AND/OR VOMITING Last administered on 07/04/18 06:09; Admin Dose 4 MG; Start 06/28/18 at 01:30 Metoclopramide HCl (Reglan) 10 mg Q6 PRN IV NAUSEA AND/OR VOMITING Last administered on 07/05/18 10:28; Admin Dose 10 MG; Start 06/28/18 at 01:30 Zolpidem Tartrate (Ambien) 5 mg HS PRN PO INSOMNIA Last administered on 07/05/18 00:01; Admin Dose 5 MG; Start 06/29/18 at 12:00 Potassium Chloride (Klor-Con 20) 40 meq DAILY PO Last administered on 07/05/18 08:31; Admin Dose 40 MEQ; Start 06/29/18 at 15:30 Piperacillin Sod/ Tazobactam Sod 100 ml @ 25 mls/hr Q8 IVPB Last administered on 07/05/18 14:07; Admin Dose 25 MLS/HR; Start 06/30/18 at 20:00 Morphine Sulfate (morphine) 6 mg Q4H PRN PO SEVERE PAIN LEVEL 7-10; Start 07/01/18 at 22:30 Ferric Sodium Gluconate Complex 125 mg/Sodium Chloride 110 ml @ 110 mls/hr DAILY@1300 IVPB Last administered on 07/05/18 13:04; Admin Dose 110 MLS/HR; Start 07/03/18 at 13:00; Stop 07/07/18 at 13:59 Pantoprazole (Protonix Tab) 40 mg BID@06,18 PO Last administered on 07/05/18 05:50; Admin Dose 40 MG; Start 2/1/19 at 18:00 Alprazolam (Xanax) 0.25 mg Q12 PO Last administered on 07/05/18 08:31; Admin Dose 0.25 MG; Start 07/03/18 at 21:00 Ondansetron HCl (Zofran Odt) 4 mg AC BREAKFAST DINNER ODT Last administered on 07/05/18 07:47; Admin Dose 4 MG; Start 07/04/18 at 17:35 Hydromorphone HCl (Dilaudid) 0.5 mg Q6H PRN IV SEVERE PAIN LEVEL 7-10 Last administered on 07/05/18at 10:36; Admin Dose 0.5 MG; Start 07/04/18 at 16:30 LYNN CRANDALL MD Jul 05, 2018 15:23
--- NOTE | 2018-07-05 18:13 | NUR ---
patient is alert, awake and verbally responsive. Respiration are even and non labored. Pain medication are given during this shift. Effective and tolerated well. Patient will be NPO tomorrow for ERCP at 1pm. Will endorse accordingly.
[2018-07-05 20:00] VITALS: BP 133/71; PULSE 101; RESP 19
[2018-07-05] MEDS: ONDANSETRON 4 MG INJ IV PRN (20:24)
--- NOTE | 2018-07-05 22:00 | NUR ---
paged dr oliver to report pt's temp of 100.8. cooling measures provided. will continue to monitor. Addendum: 07/05/18 at 2231 by RUI ESTEVEZ RN received call back from dr oliver, notified of pt's temp. received new order for blood culture x 2 and tylenol 650 mg po q6 prn. dr oliver aware pt has cirrhosis and elevated liver enzymes.
[2018-07-05] MEDS: ACETAMINOPHEN 325 MG TAB PO PRN (22:20)
[2018-07-06] VITALS (12 sets, daily range): BP systolic 111–128; BP diastolic 62–74; PULSE 87–106; RESP 17–31
[2018-07-06] MEDS: ZOLPIDEM 5 MG TAB PO PRN (00:04)
[2018-07-06] MEDS: METOCLOPRAMIDE 10 MG INJ IV PRN ×2 (00:37→21:47)
--- NOTE | 2018-07-06 04:39 | CONS ---
Assessment/Plan Assessment/Plan Assessment/Plan (Daily) An unfortunate 32 yo who has a significant alcohol history over the last year, admitted with massive hepatomegaly, splenomegaly, found to have cirrhosis. #elevated direct bilirubin/elevated LDH -these abnormalities are due to Cirrhosis of liver with portal hypertension. she is jaundiced from cirrhosis and has alcoholic hepatitis per Dr Earl thus explaining her enlarged liver, she has portal hypertension -no evidence of hemolysis #anemia- Hgb 9.5 today cont venofer anemia of chronic disease #mild coagulopathy due to liver dysfunction, if INR >2, given vit K 5 mg po x 1. no need for FFP at present Patient seen in collaboration with Dr Vieyra Consultation Date/Type/Reason Admit Date/Time Jun 27, 2018 at 11:57 pm Initial Consult Date 07/01/18 Type of Consult ONCOLOGY Reason for Consultation ANEMIA Requesting Provider: ZEB JAMES MD Date/Time of Note DATE: 07/06/18 TIME: 04:39 24 HR Interval Summary Free Text/Dictation LATE ENTRY- 07/05/2018 Feels better -nausea is well controlled; able to tolerate diet - family at bed side, -no new events reported last night Detailed Summary Eyes: no complaints ENT: no complaints Respiratory: no complaints Cardiovascular: no complaints Gastrointestinal: nausea Genitourinary: no complaints Musculoskeletal: no complaints Skin: no complaints Neurologic: no complaints Endocrine: no complaints Exam/Review of Systems Exam Vitals Vital Signs Date Temp Pulse Resp B/P (MAP) Pulse Ox O2 O2 Flow FiO2 Time Delivery Rate 07/06/18 98.4 87 17 116/67 94 02:23 (83) 07/05/18 Room Air 14:41 Intake and Output 07/05/18 07/05/18 07/06/18 1515:00 23:00 07:00 IntakeIntake Total 210 ml 600 ml 240 ml BalanceBalance 210 ml 600 ml 240 ml Constitutional: alert, oriented, well developed Psych: nl mood/affect Eyes: nl conjunctiva, EOMI, nl lids, icteric ENMT: nl external ears & nose Neck: supple Respiratory: clear to auscultation (bilatrally) Cardiovascular: nl pulses Gastrointestinal: soft, non-tender Musculoskeletal: nl extremities to inspection Neurological: nl mental status, nl speech Skin: other (jaundiced) Lymph: nontender Results Result Diagram: 07/05/18 0549 07/05/18 0549 Results 24hrs Laboratory Tests Test 07/05/18 05:49 White Blood Count 8.6 # Red Blood Count 3.82 L Hemoglobin 9.5 L Hematocrit 30.8 L Mean Corpuscular Volume 80.6 L Mean Corpuscular Hemoglobin 24.9 L Mean Corpuscular Hemoglobin Concent 30.8 L Red Cell Distribution Width 26.1 H Platelet Count 188 # Mean Platelet Volume 11.5 H Immature Granulocytes % 0.800 H Neutrophils % Segmented Neutrophils % (Manual) 27 L Band Neutrophils % (Manual) 24 H Lymphocytes % Lymphocytes % (Manual) 32 Reactive Lymphocytes % (Manual) 3 H Monocytes % Monocytes % (Manual) 9 Eosinophils % Eosinophils % (Manual) 3 Basophils % Basophils % (Manual) 2 Nucleated Red Blood Cells % 4 H Immature Granulocytes # 0.070 H Neutrophils # Neutrophils # (Manual) 2.5 Band Neutrophils # 2.0 H Lymphocytes (Manual) 2.7 Lymphocytes # Reactive Lymphocytes # 0.2 H Monocytes # Monocytes # (Manual) 0.7 Eosinophils # Basophils # Basophils # (Manual) 0.1 H Nucleated Red Blood Cells # Platelet Estimate NORMAL Giant Platelets 10 H Polychromasia 1+ Poikilocytosis 1+ Anisocytosis 1+ Macrocytosis 1+ Target Cells 1+ Sodium Level 139 Potassium Level 3.8 Chloride Level 103 Carbon Dioxide Level 29 Anion Gap 7 Blood Urea Nitrogen 2 L Creatinine 0.68 Est Glomerular Filtrat Rate mL/min > 60 Glucose Level 90 Calcium Level 8.8 Total Bilirubin 9.3 #H Direct Bilirubin 7.50 H Indirect Bilirubin 1.8 H Aspartate Amino Transf (AST/SGOT) 74 H Alanine Aminotransferase (ALT/SGPT) 34 Alkaline Phosphatase 193 H Total Protein 7.0 Albumin 3.4 Globulin 3.60 H Albumin/Globulin Ratio 0.94 Medications Medication Current Medications Ondansetron HCl (Zofran Inj) 4 mg Q6H PRN IV NAUSEA AND/OR VOMITING Last administered on 07/05/18at 20:24; Admin Dose 4 MG; Start 06/28/18 at 01:30 Metoclopramide HCl (Reglan) 10 mg Q6 PRN IV NAUSEA AND/OR VOMITING Last administered on 07/06/18at 00:37; Admin Dose 10 MG; Start 06/28/18 at 01:30 Zolpidem Tartrate (Ambien) 5 mg HS PRN PO INSOMNIA Last administered on 07/06/18 00:04; Admin Dose 5 MG; Start 06/29/18 at 12:00 Potassium Chloride (Klor-Con 20) 40 meq DAILY PO Last administered on 07/05/18 08:31; Admin Dose 40 MEQ; Start 06/29/18 at 15:30 Piperacillin Sod/ Tazobactam Sod 100 ml @ 25 mls/hr Q8 IVPB Last administered on 07/05/18 20:24; Admin Dose 25 MLS/HR; Start 06/30/18 at 20:00 Morphine Sulfate (morphine) 6 mg Q4H PRN PO SEVERE PAIN LEVEL 7-10; Start 07/01/18 at 22:30 Ferric Sodium Gluconate Complex 125 mg/Sodium Chloride 110 ml @ 110 mls/hr DAILY@1300 IVPB Last administered on 07/05/18 13:04; Admin Dose 110 MLS/HR; Start 07/03/18 at 13:00; Stop 07/07/18 at 13:59 Pantoprazole (Protonix Tab) 40 mg BID@06,18 PO Last administered on 07/05/18 17:20; Admin Dose 40 MG; Start 07/03/18 at 18:00 Alprazolam (Xanax) 0.25 mg Q12 PO Last administered on 07/05/18 20:24; Admin Dose 0.25 MG; Start 07/03/18 at 21:00 Ondansetron HCl (Zofran Odt) 4 mg AC BREAKFAST DINNER ODT Last administered on 07/05/18 07:47; Admin Dose 4 MG; Start 07/04/18 at 17:35 Hydromorphone HCl (Dilaudid) 0.5 mg Q6H PRN IV SEVERE PAIN LEVEL 7-10 Last administered on 07/05/18 22:20; Admin Dose 0.5 MG; Start 07/04/18 at 16:30 Acetaminophen (Tylenol Tab) 650 mg Q6H PRN PO MILD PAIN(1-3)OR ELEVATED TEMP Last administered on 07/05/18 22:20; Admin Dose 650 MG; Start 07/05/18 at 22:30 YULISSA LOVING Jul 06, 2018 4:39 am
[2018-07-06] MEDS: PIPER-TAZO 3.375 GM IV (PMX) 100 ML IVPB SCH ×3 (05:52→21:47)
[2018-07-06] MEDS: ONDANSETRON 4 MG INJ IV PRN (05:53)
[2018-07-06] MEDS: PANTOPRAZOLE (EC) 40 MG TAB PO SCH ×2 (05:54→18:02)
--- NOTE | 2018-07-06 06:50 | NUR ---
pt now afebrile, the rest of vs stable. no episode of vomiting, however pt ws medicated with zofran and reglan for nausea with relief. pt also c/o pain and medicated with Dilaudid with relief. NPO after midnight for ERCP schedule today. Fall precautions observed. needs attended to and anticipated. will continue to monitor and will endorse to next shift.
--- NOTE | 2018-07-06 07:18 | CONS ---
Assessment/Plan Assessment/Plan Hospital Course (Demo Recall) 32 yo with persistent biliary colicky pain and increasing bilirubin 1. Abdominal pain, persistent, biliary colicky and increasing bilirubin -s/p ERCP -post prandial 2. Hepatosplenomegaly with free fluid. The patient has got a fatty liver. We will work her up for chronic liver disease. 3. Status post . 4. Overweight. 5. Cirrhosis of liver with portal hypertension. 6. Progressive jaundice it is possible this may be from cirrhosis of liver and also definitely has element of alcoholic hepatitis since the liver is huge. 7. Biliary stricture etiology is unclear discussed with the radiologist Dr. Elfego Pride he feels it is being compressed from outside 8. Transaminitis with elevated bili which is trending up S/P ERCP IMPRESSION: 1. 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 It looks like Mirizzi syndrome. 2. Large sphincterotomy done. 3. Balloon sweeping with 12 mm balloon done and 12 mm balloon would come out easily. Some small sludge was seen on the balloon. 4. Gallbladder was distended. Plan: ERCP with spyglass today. Pt has consented to procedure. NPO since [place]. T bili continues to rise. INR 1.37. Platelets wnl. Pt examined and plan of care discussed with Dr. Earl Consultation Date/Type/Reason Admit Date/Time Jun 27, 2018 at 23:57 Initial Consult Date 07/01/18 Requesting Provider: ZEB JAMES MD Date/Time of Note DATE: 07/06/18 TIME: 07:17 Exam/Review of Systems Exam Vitals Vital Signs Date Temp Pulse Resp B/P (MAP) Pulse Ox O2 O2 Flow FiO2 Time Delivery Rate 07/06/18 98.4 87 17 116/67 94 02:23 (83) 07/05/18 Room Air 14:41 Intake and Output 07/05/18 07/05/18 07/06/18 1515:00 23:00 07:00 IntakeIntake Total 210 ml 600 ml 265 ml BalanceBalance 210 ml 600 ml 265 ml Results Result Diagram: 07/06/18 0507/06/18 0521 Results 24hrs Laboratory Tests Test 07/06/18 05:21 White Blood Count 9.8 Red Blood Count 3.80 L Hemoglobin 9.7 L Hematocrit 30.5 L Mean Corpuscular Volume 80.3 L Mean Corpuscular Hemoglobin 25.5 L Mean Corpuscular Hemoglobin Concent 31.8 L Red Cell Distribution Width 27.2 H Platelet Count 207 Mean Platelet Volume 11.5 H Immature Granulocytes % 0.800 H Neutrophils % Segmented Neutrophils % (Manual) 53 Band Neutrophils % (Manual) 11 H Lymphocytes % Lymphocytes % (Manual) 25 Monocytes % Monocytes % (Manual) 7 Eosinophils % Eosinophils % (Manual) 3 Basophils % Basophils % (Manual) 1 Nucleated Red Blood Cells % 4 H Immature Granulocytes # 0.080 H Neutrophils # Neutrophils # (Manual) 5.3 Band Neutrophils # 1.0 H Lymphocytes (Manual) 2.4 Lymphocytes # Monocytes # Monocytes # (Manual) 0.6 Eosinophils # Basophils # Basophils # (Manual) 0.0 Nucleated Red Blood Cells # Toxic Granulation 1+ Platelet Estimate NORMAL Giant Platelets 4 H Polychromasia 3+ Hypochromasia 2+ Poikilocytosis 1+ Anisocytosis 1+ Macrocytosis 1+ Target Cells 1+ Prothrombin Time 17.0 H Prothrombin Time Ratio 1.3 INR International Normalized Ratio 1.37 Activated Partial Thromboplast Time 40.0 H Sodium Level 138 Potassium Level 4.0 Chloride Level 102 Carbon Dioxide Level 27 Anion Gap 9 Blood Urea Nitrogen 2 L Creatinine 0.65 Est Glomerular Filtrat Rate mL/min > 60 Glucose Level 89 Calcium Level 8.6 Total Bilirubin 9.9 H Direct Bilirubin 8.20 H Indirect Bilirubin 1.7 H Aspartate Amino Transf (AST/SGOT) 85 H Alanine Aminotransferase (ALT/SGPT) 26 Alkaline Phosphatase 199 H Total Protein 6.7 Albumin 3.3 Globulin 3.40 H Albumin/Globulin Ratio 0.97 Medications Medication Current Medications Ondansetron HCl (Zofran Inj) 4 mg Q6H PRN IV NAUSEA AND/OR VOMITING Last administered on 07/06/18 05:53; Admin Dose 4 MG; Start 06/28/18 at 01:30 Metoclopramide HCl (Reglan) 10 mg Q6 PRN IV NAUSEA AND/OR VOMITING Last administered on 07/06/18at 00:37; Admin Dose 10 MG; Start 06/28/18 at 01:30 Zolpidem Tartrate (Ambien) 5 mg HS PRN PO INSOMNIA Last administered on 07/06/18at 00:04; Admin Dose 5 MG; Start 06/29/18 at 12:00 Potassium Chloride (Klor-Con 20) 40 meq DAILY PO Last administered on 07/05/18 08:31; Admin Dose 40 MEQ; Start 06/29/18 at 15:30 Piperacillin Sod/ Tazobactam Sod 100 ml @ 25 mls/hr Q8 IVPB Last administered on 07/06/18 05:52; Admin Dose 25 MLS/HR; Start 06/30/18 at 20:00 Morphine Sulfate (morphine) 6 mg Q4H PRN PO SEVERE PAIN LEVEL 7-10; Start 07/01/18 at 22:30 Ferric Sodium Gluconate Complex 125 mg/Sodium Chloride 110 ml @ 110 mls/hr DAILY@1300 IVPB Last administered on 07/05/18 13:04; Admin Dose 110 MLS/HR; Start 07/03/18 at 13:00; Stop 07/07/18 at 13:59 Pantoprazole (Protonix Tab) 40 mg BID@06,18 PO Last administered on 07/05/18 17:20; Admin Dose 40 MG; Start 07/03/18 at 18:00 Alprazolam (Xanax) 0.25 mg Q12 PO Last administered on 07/05/18 20:24; Admin Dose 0.25 MG; Start 07/03/18 at 21:00 Ondansetron HCl (Zofran Odt) 4 mg AC BREAKFAST DINNER ODT Last administered on 07/05/18 07:47; Admin Dose 4 MG; Start 07/04/18 at 17:35 Hydromorphone HCl (Dilaudid) 0.5 mg Q6H PRN IV SEVERE PAIN LEVEL 7-10 Last administered on 07/05/18 22:20; Admin Dose 0.5 MG; Start 07/04/18 at 16:30 Acetaminophen (Tylenol Tab) 650 mg Q6H PRN PO MILD PAIN(1-3)OR ELEVATED TEMP Last administered on 07/05/18 22:20; Admin Dose 650 MG; Start 07/05/18 at 22:30 ADRIANA RICHARDSON Jul 06, 2018 07:18
[2018-07-06] MEDS: ONDANSETRON (ODT) 4 MG TAB ODT SCH ×2 (07:50→18:02)
[2018-07-06] MEDS: ALPRAZOLAM 0.25 MG TAB PO SCH ×2 (08:05→20:01)
[2018-07-06] MEDS: POTASSIUM CHLORIDE (SR) 20 MEQ TAB PO SCH (08:06)
--- NOTE | 2018-07-06 12:50 | NUR ---
RN NOTES Patient was picked up by transport going to GI lab for ERCP in stable condition.
--- NOTE | 2018-07-06 13:05 | PN ---
Date/Time of Note Date/Time of Note DATE: 07/06/18 TIME: 13:04 Assessment/Plan VTE Prophylaxis Risk score (from Nsg)>0 risk: 2 SCD applied (from Nsg): Yes Pharmacological prophylaxis: NA/contraindicated Pharm contraindication: bleeding Lines/Catheters IV Catheter Type (from Nrsg): Saline Lock Urinary Cath still in place: No Assessment/Plan Hospital Course 32 y/o with .1 Abdominal pain more likely due to acute pancreatitis. Vomiting and diarrhea for 3 weeks. Last 2 weeks patient was drinking 2- 4 shots of hard liquor daily. 2. Hyperbilirubinemia with elevated liver enzymes. Hepatitis panel is negative from [place]. US of liver reveals fatty infiltration, CD is 5 mm. Records was reviewed form [place] and [facility]. 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 Former smoker, pt quit 6 years ago 4. hx of 2 C sections, 6 and 2 years ago 5. Obesity 6. Microcytic hypochromic anemia with thrombocytopenia. Pat. smear show anisoc ytosis 7. Hx of asthma Assessment/Plan - montior LFT> continue to rise - s/p ERCP with spyglass and removal of stent - picture more consistent with alchloc hepatitis - ? steroids - alcholol cessation - cw iv fe - ativan prn anxiet - iv Fe - cw zosyn Result Diagram: 07/06/18 0521 07/06/18 0521 Results 24hrs Laboratory Tests Test 07/06/18 05:21 White Blood Count 9.8 Red Blood Count 3.80 L Hemoglobin 9.7 L Hematocrit 30.5 L Mean Corpuscular Volume 80.3 L Mean Corpuscular Hemoglobin 25.5 L Mean Corpuscular Hemoglobin Concent 31.8 L Red Cell Distribution Width 27.2 H Platelet Count 207 Mean Platelet Volume 11.5 H Immature Granulocytes % 0.800 H Neutrophils % Segmented Neutrophils % (Manual) 53 Band Neutrophils % (Manual) 11 H Lymphocytes % Lymphocytes % (Manual) 25 Monocytes % Monocytes % (Manual) 7 Eosinophils % Eosinophils % (Manual) 3 Basophils % Basophils % (Manual) 1 Nucleated Red Blood Cells % 4 H Immature Granulocytes # 0.080 H Neutrophils # Neutrophils # (Manual) 5.3 Band Neutrophils # 1.0 H Lymphocytes (Manual) 2.4 Lymphocytes # Monocytes # Monocytes # (Manual) 0.6 Eosinophils # Basophils # Basophils # (Manual) 0.0 Nucleated Red Blood Cells # Toxic Granulation 1+ Platelet Estimate NORMAL Giant Platelets 4 H Polychromasia 3+ Hypochromasia 2+ Poikilocytosis 1+ Anisocytosis 1+ Macrocytosis 1+ Target Cells 1+ Prothrombin Time 17.0 H Prothrombin Time Ratio 1.3 INR International Normalized Ratio 1.37 Activated Partial Thromboplast Time 40.0 H Sodium Level 138 Potassium Level 4.0 Chloride Level 102 Carbon Dioxide Level 27 Anion Gap 9 Blood Urea Nitrogen 2 L Creatinine 0.65 Est Glomerular Filtrat Rate mL/min > 60 Glucose Level 89 Calcium Level 8.6 Total Bilirubin 9.9 H Direct Bilirubin 8.20 H Indirect Bilirubin 1.7 H Aspartate Amino Transf (AST/SGOT) 85 H Alanine Aminotransferase (ALT/SGPT) 26 Alkaline Phosphatase 199 H Total Protein 6.7 Albumin 3.3 Globulin 3.40 H Albumin/Globulin Ratio 0.97 Subjective 24 Hr Interval Summary Free Text/Dictation LFT CONTINUE TO rise s/p ERCP today with removal of stent ? alcholic picture Exam/Review of Systems Exam Vitals Vital Signs Date Temp Pulse Resp B/P (MAP) Pulse Ox O2 O2 Flow FiO2 Time Delivery Rate 07/06/18 98.5 95 18 125/62 99 Room Air 12:26 (83) Intake and Output 07/05/18 07/05/18 07/06/18 1515:00 23:00 07:00 IntakeIntake Total 210 ml 600 ml 265 ml BalanceBalance 210 ml 600 ml 265 ml Exam Neck: supple, scleral icterus Respiratory: clear to auscultation Cardiovascular: regular rate and rhythm Gastrointestinal: soft Musculoskeletal: nl extremities to inspection Extremities: normal pulses Results Results Results 24hrs Laboratory Tests Test 07/06/18 05:21 White Blood Count 9.8 Red Blood Count 3.80 L Hemoglobin 9.7 L Hematocrit 30.5 L Mean Corpuscular Volume 80.3 L Mean Corpuscular Hemoglobin 25.5 L Mean Corpuscular Hemoglobin Concent 31.8 L Red Cell Distribution Width 27.2 H Platelet Count 207 Mean Platelet Volume 11.5 H Immature Granulocytes % 0.800 H Neutrophils % Segmented Neutrophils % (Manual) 53 Band Neutrophils % (Manual) 11 H Lymphocytes % Lymphocytes % (Manual) 25 Monocytes % Monocytes % (Manual) 7 Eosinophils % Eosinophils % (Manual) 3 Basophils % Basophils % (Manual) 1 Nucleated Red Blood Cells % 4 H Immature Granulocytes # 0.080 H Neutrophils # Neutrophils # (Manual) 5.3 Band Neutrophils # 1.0 H Lymphocytes (Manual) 2.4 Lymphocytes # Monocytes # Monocytes # (Manual) 0.6 Eosinophils # Basophils # Basophils # (Manual) 0.0 Nucleated Red Blood Cells # Toxic Granulation 1+ Platelet Estimate NORMAL Giant Platelets 4 H Polychromasia 3+ Hypochromasia 2+ Poikilocytosis 1+ Anisocytosis 1+ Macrocytosis 1+ Target Cells 1+ Prothrombin Time 17.0 H Prothrombin Time Ratio 1.3 INR International Normalized Ratio 1.37 Activated Partial Thromboplast Time 40.0 H Sodium Level 138 Potassium Level 4.0 Chloride Level 102 Carbon Dioxide Level 27 Anion Gap 9 Blood Urea Nitrogen 2 L Creatinine 0.65 Est Glomerular Filtrat Rate mL/min > 60 Glucose Level 89 Calcium Level 8.6 Total Bilirubin 9.9 H Direct Bilirubin 8.20 H Indirect Bilirubin 1.7 H Aspartate Amino Transf (AST/SGOT) 85 H Alanine Aminotransferase (ALT/SGPT) 26 Alkaline Phosphatase 199 H Total Protein 6.7 Albumin 3.3 Globulin 3.40 H Albumin/Globulin Ratio 0.97 Medications Medication Current Medications Ondansetron HCl (Zofran Inj) 4 mg Q6H PRN IV NAUSEA AND/OR VOMITING Last administered on 07/06/18 05:53; Admin Dose 4 MG; Start 06/28/18 at 01:30 Metoclopramide HCl (Reglan) 10 mg Q6 PRN IV NAUSEA AND/OR VOMITING Last administered on 07/06/18at 00:37; Admin Dose 10 MG; Start 06/28/18 at 01:30 Zolpidem Tartrate (Ambien) 5 mg HS PRN PO INSOMNIA Last administered on 07/06/18at 00:04; Admin Dose 5 MG; Start 06/29/18 at 12:00 Potassium Chloride (Klor-Con 20) 40 meq DAILY PO Last administered on 07/06/18at 08:06; Admin Dose 40 MEQ; Start 06/29/18 at 15:30 Piperacillin Sod/ Tazobactam Sod 100 ml @ 25 mls/hr Q8 IVPB Last administered on 07/06/18 05:52; Admin Dose 25 MLS/HR; Start 06/30/18 at 20:00 Morphine Sulfate (morphine) 6 mg Q4H PRN PO SEVERE PAIN LEVEL 7-10; Start 07/01/18 at 22:30 Ferric Sodium Gluconate Complex 125 mg/Sodium Chloride 110 ml @ 110 mls/hr DAILY@1300 IVPB Last administered on 07/05/18 13:04; Admin Dose 110 MLS/HR; S tart 07/03/18 at 13:00; Stop 07/07/18 at 13:59 Pantoprazole (Protonix Tab) 40 mg BID@06,18 PO Last administered on 07/05/18 17:20; Admin Dose 40 MG; Start 07/03/18 at 18:00 Alprazolam (Xanax) 0.25 mg Q12 PO Last administered on 07/06/18 08:05; Admin Dose 0.25 MG; Start 07/03/18 at 21:00 Ondansetron HCl (Zofran Odt) 4 mg AC BREAKFAST DINNER ODT Last administered on 07/06/18 07:50; Admin Dose 4 MG; Start 07/04/18 at 17:35 Hydromorphone HCl (Dilaudid) 0.5 mg Q6H PRN IV SEVERE PAIN LEVEL 7-10 Last ad ministered on 07/05/18 22:20; Admin Dose 0.5 MG; Start 07/04/18 at 16:30 Acetaminophen (Tylenol Tab) 650 mg Q6H PRN PO MILD PAIN(1-3)OR ELEVATED TEMP Last administered on 07/05/18 22:20; Admin Dose 650 MG; Start 07/05/18 at 22:30 ZEB JAMES MD Jul 06, 2018 13:04
--- NOTE | 2018-07-06 13:17 | PREAC ---
Date/Time of Note Date/Time of Note DATE: 07/06/18 TIME: 13:16 Anesthesia Eval and Record Evaluation Time Pre-Procedure Interview DATE: 07/06/18 TIME: 13:16 Age 32 Sex female NPO: 8 hrs Preoperative diagnosis ERCP Planned procedure ERCP Past Medical History Past Medical History: Includes Hepatic: Hepatitis, Cirrhosis GI: Morbid obesity Surgery & Anesthesia Issues No known issue Meds Anticoagulation: No Beta Kristy within 24 hr: No Reason Beta Kristy not given: Pt. not on B-Kristy Current Medications Ondansetron HCl (Zofran Inj) 4 mg Q6H PRN IV NAUSEA AND/OR VOMITING Last administered on 07/06/18 05:53; Admin Dose 4 MG; Start 06/28/18 at 01:30 Metoclopramide HCl (Reglan) 10 mg Q6 PRN IV NAUSEA AND/OR VOMITING Last administered on 07/06/18 00:37; Admin Dose 10 MG; Start 06/28/18 at 01:30 Zolpidem Tartrate (Ambien) 5 mg HS PRN PO INSOMNIA Last administered on 07/06/18at 00:04; Admin Dose 5 MG; Start 06/29/18 at 12:00 Potassium Chloride (Klor-Con 20) 40 meq DAILY PO Last administered on 07/06/18 08:06; Admin Dose 40 MEQ; Start 06/29/18 at 15:30 Piperacillin Sod/ Tazobactam Sod 100 ml @ 25 mls/hr Q8 IVPB Last administered on 07/06/18 05:52; Admin Dose 25 MLS/HR; Start 06/30/18 at 20:00 Morphine Sulfate (morphine) 6 mg Q4H PRN PO SEVERE PAIN LEVEL 7-10; Start 07/01/18 at 22:30 Ferric Sodium Gluconate Complex 125 mg/Sodium Chloride 110 ml @ 110 mls/hr DAILY@1300 IVPB Last administered on 07/05/18 13:04; Admin Dose 110 MLS/HR; Start 07/03/18 at 13:00; Stop 07/07/18 at 13:59 Pantoprazole (Protonix Tab) 40 mg BID@06,18 PO Last administered on 07/05/18 17:20; Admin Dose 40 MG; Start 07/03/18 at 18:00 Alprazolam (Xanax) 0.25 mg Q12 PO Last administered on 07/06/18at 08:05; Admin Dose 0.25 MG; Start 07/03/18 at 21:00 Ondansetron HCl (Zofran Odt) 4 mg AC BREAKFAST DINNER ODT Last administered on 07/06/18at 07:50; Admin Dose 4 MG; Start 07/04/18 at 17:35 Hydromorphone HCl (Dilaudid) 0.5 mg Q6H PRN IV SEVERE PAIN LEVEL 7-10 Last administered on 07/05/18at 22:20; Admin Dose 0.5 MG; Start 07/04/18 at 16:30 Acetaminophen (Tylenol Tab) 650 mg Q6H PRN PO MILD PAIN(1-3)OR ELEVATED TEMP Last administered on 07/05/18 22:20; Admin Dose 650 MG; Start 07/05/18 at 22:30 Meds reviewed: Yes Allergies Coded Allergies: nut - unspecified (Verified Allergy, Unknown, 06/28/18) olive oil (Verified Allergy, Unknown, 06/28/18) sesame seed (Verified Allergy, Unknown, 06/28/18) Allergies Reviewed: Yes Labs/Studies Labs Reviewed: Reviewed by anesthesiologist Result Diagram: 07/06/1852007/06/18520 Laboratory Tests 07/06/18 05:21 test: Negative Pre-procedure Exam Last vitals Vital Signs Date Temp Pulse Resp B/P (MAP) Pulse Ox O2 O2 Flow FiO2 Time Delivery Rate 07/06/18 98.5 95 18 125/62 99 Room Air 12:26 (83) Airway: Adequate mouth opening, Adequate thyromental dist Mallampati: Mallampati III Teeth: Normal Lung: Normal Heart: Normal ASA Physical Status ASA physical status: 3 Emergency: None Pre-operative Attestations Prior to commencing anesthesia and surgery, the patient was re-evaluated, there was verification of: *The patient's identity *The results of appropriate recent lab work and preoperative vital signs *The above evaluation not changing prior to induction *Anesthetic plan, risk benefits, alternative and complications discussed with patient/family; questions answered; patient/family understands, accepts and wishes to proceed. AN HOLLAND DO Jul 06, 2018 13:17
[2018-07-06] MEDS ORDERED: SUCCINYLCHOLINE CHLORIDE 100 MG/5 ML SYG IV ONE (13:23)
[2018-07-06] MEDS ORDERED: MIDAZOLAM 1 MG/ML 2 ML INJ ONE (13:23)
[2018-07-06] MEDS ORDERED: LIDOCAINE 1% (MDV) 20 ML INJ ONE (13:23)
[2018-07-06] MEDS ORDERED: PROPOFOL 20 ML ONE (13:23)
[2018-07-06] MEDS ORDERED: IOHEXOL 300MG/ML 30 ML BTL ONE (13:30)
[2018-07-06] MEDS ORDERED: INDOMETHACIN 50 MG SUPP PR ONE (13:30)
[2018-07-06] MEDS ORDERED: INDOMETHACIN 50 MG SUPP PR STA (13:33)
--- NOTE | 2018-07-06 13:35 | HPN ---
Date/Time of Note Date/Time of Note DATE: 07/06/18 TIME: 13:35 Interval H&P Admission Note Pt. seen H&P reviewed: No system changes ASHOK TIWARI MD Jul 06, 2018 13:35
[2018-07-06] MEDS ORDERED: CEFAZOLIN 1 GM INJ ONE (13:55)
--- NOTE | 2018-07-06 15:03 | PAC ---
Date/Time of Note Date/Time of Note DATE: 07/06/18 TIME: 15:02 Post-Anesthesia Notes Post-Anesthesia Note Last documented vital signs Vital Signs Date Temp Pulse Resp B/P (MAP) Pulse Ox O2 O2 Flow FiO2 Time Delivery Rate 07/06/18 98 100 20 113/65 99 Room Air 1503 Activity: WNL Respiratory function: WNL Cardiovascular function: WNL Mental status: Baseline Pain reasonably controlled: Yes Hydration appropriate: Yes Nausea/Vomiting absent: Yes AN HOLLAND DO Jul 06, 2018 15:03
--- NOTE | 2018-07-06 15:11 | NUR ---
S/P ERCP. AWAKE ALERT.DENIES PAIN/DISCOMFORT. V/S STABLE/WNL
[2018-07-06] MEDS ORDERED: ONDANSETRON 4 MG INJ IV PRN (15:30)
[2018-07-06] MEDS ORDERED: KETOROLAC 30 MG INJ IV PRN (15:30)
[2018-07-06] MEDS: SOD FERRIC GLUC COMPLX 125 MG in SOD CHLORIDE 0.9% 100 ML IVPB SCH (16:00)
--- NOTE | 2018-07-06 16:00 | NUR ---
RN NOTES Patient just came back from GI lab, S/P stent removal, alert and oriented and denies any pain or discomfort at the time being. Patient may resume previous diet as ordered. Will continue to monitor.
--- NOTE | 2018-07-06 16:27 | GILP ---
DATE OF PROCEDURE: PROCEDURE PERFORMED: ERCP with removal of the stent, SpyGlass and Spy bite. INDICATION: A 32-year-old female with progressive jaundice, cirrhosis of liver with a biliary strict ure undergoing this procedure for the evaluation of the stricture and possible Spy bite . The r isks of the procedure, related and unrelated complications, anesthetic risks and alternatives were th oroughly discussed. Informed consent was obtained. DESCRIPTION OF PROCEDURE: The patient was brought to OR room #1, intubated and placed in a prone pos ition. ERCP scope was passed with much ease into esophagus. Prior to the introduction of the ERCP s cope, she was given Ancef 1 gram and also Indocin suppository. Scope was advanced all the way into t he second part of the duodenum, ampulla identified covered with a large clot which could not be remov ed. Ampullary opening was well seen. We removed the stent. Along with the stent, some debris came out. Bile duct was selectively cannulated. The clots were still hanging on the superior margin of t he ampulla. The ampullary opening was pretty wide, able to pass the SpyGlass all the way close to th e bifurcation. We evaluated the bile duct and the common hepatic duct. There was no intraluminal gr owth seen. One of the blood vessels was oozing from the common bile duct. We did brushing which deniz eared to be mild inflammation of the lining of the bile duct. Two to 3 Spy bites obtained and sent f or analysis. No gross lesion or cholangiocarcinoma or malignancy identified. Spy scope was removed. After that, a good cholangiogram with occlusive balloon obtained. The stricture appeared to be muc h wider than before, but it was a smooth stricture as if something was compressing from outside, mayb e the liver margin. Since it was mild stricture and there was no intraluminal defect, I decided not to deploy the stent, so the scope was removed. Excellent drainage was noted. The clots were still h anging there. IMPRESSION: 1. Removal of stent. 2. Removal of debris. 3. Spy scope with the Spy bite of the inflammatory mucosal lining in the common hepatic duct. 4. No intraluminal defect seen. 5. Biliary stricture at the common hepatic duct probably due to the compression from outside maybe h epatomegaly. 6. No functional obstruction. 7. Fluoroscopy time was 6 to 7 seconds. PLAN: Monitor LFT and treat the patient like an alcoholic hepatitis. We will follow. Dictated By: ASHOK POOLE/CHALINO Conf#: [id number] DID#: [id number] CC: ZEB JAMES; LYNN CRANDALL MD;*End*
--- NOTE | 2018-07-06 16:43 | PN ---
Date/Time of Note Date/Time of Note DATE: 07/06/18 TIME: 16:43 Assessment/Plan VTE Prophylaxis Risk score (from Nsg)>0 risk: 2 SCD applied (from Nsg): Yes Pharmacological prophylaxis: NA/contraindicated Pharm contraindication: low risk/ambulating Lines/Catheters IV Catheter Type (from Nrsg): Peripheral IV Urinary Cath still in place: No Assessment/Plan Hospital Course 32 y/o with .1 Abdominal pain more likely due to acute pancreatitis. Vomiting and diarrhea f or 3 weeks. Last 2 weeks patient was drinking 2- 4 shots of hard liquor daily. 2. Hyperbilirubinemia with elevated liver enzymes. Hepatitis panel is negative from [place]. US of liver reveals fatty infiltration, CD is 5 mm. Records was reviewed form [facility]. 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 Former smoker, pt quit 6 years ago 4. hx of 2 C sections, 6 and 2 years ago 5. Obesity 6. Microcytic hypochromic anemia with thrombocytopenia. Pat. smear show anisocytosis 7. Hx of asthma Aduplicate Result Diagram: 07/06/18 0507/06/18 0521 Results 24hrs Laboratory Tests Test 07/06/18 05:21 White Blood Count 9.8 Red Blood Count 3.80 L Hemoglobin 9.7 L Hematocrit 30.5 L Mean Corpuscular Volume 80.3 L Mean Corpuscular Hemoglobin 25.5 L Mean Corpuscular Hemoglobin Concent 31.8 L Red Cell Distribution Width 27.2 H Platelet Count 207 Mean Platelet Volume 11.5 H Immature Granulocytes % 0.800 H Neutrophils % Segmented Neutrophils % (Manual) 53 Band Neutrophils % (Manual) 11 H Lymphocytes % Lymphocytes % (Manual) 25 Monocytes % Monocytes % (Manual) 7 Eosinophils % Eosinophils % (Manual) 3 Basophils % Basophils % (Manual) 1 Nucleated Red Blood Cells % 4 H Immature Granulocytes # 0.080 H Neutrophils # Neutrophils # (Manual) 5.3 Band Neutrophils # 1.0 H Lymphocytes (Manual) 2.4 Lymphocytes # Monocytes # Monocytes # (Manual) 0.6 Eosinophils # Basophils # Basophils # (Manual) 0.0 Nucleated Red Blood Cells # Toxic Granulation 1+ Platelet Estimate NORMAL Giant Platelets 4 H Polychromasia 3+ Hypochromasia 2+ Poikilocytosis 1+ Anisocytosis 1+ Macrocytosis 1+ Target Cells 1+ Prothrombin Time 17.0 H Prothrombin Time Ratio 1.3 INR International Normalized Ratio 1.37 Activated Partial Thromboplast Time 40.0 H Sodium Level 138 Potassium Level 4.0 Chloride Level 102 Carbon Dioxide Level 27 Anion Gap 9 Blood Urea Nitrogen 2 L Creatinine 0.65 Est Glomerular Filtrat Rate mL/min > 60 Glucose Level 89 Calcium Level 8.6 Total Bilirubin 9.9 H Direct Bilirubin 8.20 H Indirect Bilirubin 1.7 H Aspartate Amino Transf (AST/SGOT) 85 H Alanine Aminotransferase (ALT/SGPT) 26 Alkaline Phosphatase 199 H Total Protein 6.7 Albumin 3.3 Globulin 3.40 H Albumin/Globulin Ratio 0.97 Subjective 24 Hr Interval Summary Free Text/Dictation duplicate Exam/Review of Systems Exam Vitals Vital Signs Date Temp Pulse Resp B/P (MAP) Pulse Ox O2 O2 Flow FiO2 Time Delivery Rate 07/06/18 98 27 125/74 95 Nasal 2.0 15:37 (91) Cannula 07/06/18 100.5 15:02 Intake and Output 07/05/18 07/05/18 07/06/18 1515:00 23:00 07:00 IntakeIntake Total 210 ml 600 ml 265 ml BalanceBalance 210 ml 600 ml 265 ml Exam duplicte Results Results 24hrs Laboratory Tests Test 07/06/18 05:21 White Blood Count 9.8 Red Blood Count 3.80 L Hemoglobin 9.7 L Hematocrit 30.5 L Mean Corpuscular Volume 80.3 L Mean Corpuscular Hemoglobin 25.5 L Mean Corpuscular Hemoglobin Concent 31.8 L Red Cell Distribution Width 27.2 H Platelet Count 207 Mean Platelet Volume 11.5 H Immature Granulocytes % 0.800 H Neutrophils % Segmented Neutrophils % (Manual) 53 Band Neutrophils % (Manual) 11 H Lymphocytes % Lymphocytes % (Manual) 25 Monocytes % Monocytes % (Manual) 7 Eosinophils % Eosinophils % (Manual) 3 Basophils % Basophils % (Manual) 1 Nucleated Red Blood Cells % 4 H Immature Granulocytes # 0.080 H Neutrophils # Neutrophils # (Manual) 5.3 Band Neutrophils # 1.0 H Lymphocytes (Manual) 2.4 Lymphocytes # Monocytes # Monocytes # (Manual) 0.6 Eosinophils # Basophils # Basophils # (Manual) 0.0 Nucleated Red Blood Cells # Toxic Granulation 1+ Platelet Estimate NORMAL Giant Platelets 4 H Polychromasia 3+ Hypochromasia 2+ Poikilocytosis 1+ Anisocytosis 1+ Macrocytosis 1+ Target Cells 1+ Prothrombin Time 17.0 H Prothrombin Time Ratio 1.3 INR International Normalized Ratio 1.37 Activated Partial Thromboplast Time 40.0 H Sodium Level 138 Potassium Level 4.0 Chloride Level 102 Carbon Dioxide Level 27 Anion Gap 9 Blood Urea Nitrogen 2 L Creatinine 0.65 Est Glomerular Filtrat Rate mL/min > 60 Glucose Level 89 Calcium Level 8.6 Total Bilirubin 9.9 H Direct Bilirubin 8.20 H Indirect Bilirubin 1.7 H Aspartate Amino Transf (AST/SGOT) 85 H Alanine Aminotransferase (ALT/SGPT) 26 Alkaline Phosphatase 199 H Total Protein 6.7 Albumin 3.3 Globulin 3.40 H Albumin/Globulin Ratio 0.97 Medications Medication Current Medications Ondansetron HCl (Zofran Inj) 4 mg Q6H PRN IV NAUSEA AND/OR VOMITING Last administered on 07/06/18 05:53; Admin Dose 4 MG; Start 06/28/18 at 01:30 Metoclopramide HCl (Reglan) 10 mg Q6 PRN IV NAUSEA AND/OR VOMITING Last a dministered on 07/06/18 00:37; Admin Dose 10 MG; Start 06/28/18 at 01:30 Zolpidem Tartrate (Ambien) 5 mg HS PRN PO INSOMNIA Last administered on 07/06/18 00:04; Admin Dose 5 MG; Start 06/29/18 at 12:00 Potassium Chloride (Klor-Con 20) 40 meq DAILY PO Last administered on 07/06/18 08:06; Admin Dose 40 MEQ; Start 06/29/18 at 15:30 Piperacillin Sod/ Tazobactam Sod 100 ml @ 25 mls/hr Q8 IVPB Last administered on 07/06/18 16:00; Admin Dose 25 MLS/HR; Start 06/30/18 at 20:00 Morphine Sulfate (morphine) 6 mg Q4H PRN PO SEVERE PAIN LEVEL 7-10; Start 07/01/18 at 22:30 Ferric Sodium Gluconate Complex 125 mg/Sodium Chloride 110 ml @ 110 mls/hr DAILY@1300 IVPB Last administered on 07/06/18 16:00; Admin Dose 110 MLS/HR; Start 07/03/18 at 13:00; Stop 07/07/18 at 13:59 Pantoprazole (Protonix Tab) 40 mg BID@06,18 PO Last administered on 07/05/18 17:20; Admin Dose 40 MG; Start 07/03/18 at 18:00 Alprazolam (Xanax) 0.25 mg Q12 PO Last administered on 07/06/18 08:05; Admin Dose 0.25 MG; Start 07/03/18 at 21:00 Ondansetron HCl (Zofran Odt) 4 mg AC BREAKFAST DINNER ODT Last administered on 07/06/18 07:50; Admin Dose 4 MG; Start 07/04/18 at 17:35 Hydromorphone HCl (Dilaudid) 0.5 mg Q6H PRN IV SEVERE PAIN LEVEL 7-10 Last administered on 07/05/18 22:20; Admin Dose 0.5 MG; Start 07/04/18 at 16:30 Acetaminophen (Tylenol Tab) 650 mg Q6H PRN PO MILD PAIN(1-3)OR ELEVATED TEMP Last administered on 07/05/18 22:20; Admin Dose 650 MG; Start 07/05/18 at 22:30 Ketorolac Tromethamine (Toradol) 30 mg PACU ORDER PRN IV FOR PAIN AFTER IV NARCOTIC MED; Start 07/06/18 at 15:30; Stop 07/06/18 at 21:00 Ondansetron HCl (Zofran Inj) 4 mg PACU ORDER PRN IV NAUSEA/VOMITING; Start 07/06/18 at 15:30; Stop 07/06/18 at 21:00 ZEB JAMES MD Jul 06, 2018 16:43
--- NOTE | 2018-07-06 18:15 | CONS ---
Assessment/Plan Assessment/Plan Assessment/Plan (Daily) An unfortunate 32 yo who has a significant alcohol history over the last year, admitted with massive hepatomegaly, splenomegaly, found to have cirrhosis. #elevated direct bilirubin/elevated LDH -these abnormalities are due to Cirrhosis of liver with portal hypertension. she is jaundiced from cirrhosis and has alcoholic hepatitis per Dr Earl thus explaining her enlarged liver, she has portal hypertension -no evidence of hemolysis #anemia- Hgb 9.7 today cont venofer anemia of chronic disease #mild coagulopathy due to liver dysfunction, if INR >2, given vit K 5 mg po x 1. no need for FFP at present Patient seen in collaboration with Dr Vieyra Consultation Date/Type/Reason Admit Date/Time Jun 27, 2018 at 11:57 pm Initial Consult Date 07/01/18 Type of Consult ONCOLOGY Reason for Consultation Anemia Requesting Provider: ZEB JAMES MD Date/Time of Note DATE: 07/06/18 TIME: 18:14 24 HR Interval Summary Free Text/Dictation C/o RUQ abdominal pain denies any nausea /vomitting no new events reported last night per staff Detailed Summary Eyes: no complaints ENT: no complaints Respiratory: no complaints Cardiovascular: no complaints Gastrointestinal: pain Genitourinary: no complaints Musculoskeletal: no complaints Skin: other (yellow discoloration) Neurologic: no complaints Endocrine: no complaints Lymphatic: no complaints Psychological: nl mood/affect Exam/Review of Systems Exam Vitals Vital Signs Date Temp Pulse Resp B/P (MAP) Pulse Ox O2 O2 Flow FiO2 Time Delivery Rate 07/06/18 98 27 125/74 95 Nasal 2.0 15:37 (91) Cannula 07/06/18 100.5 15:02 Intake and Output 07/05/18 07/05/18 07/06/18 1515:00 23:00 07:00 IntakeIntake Total 210 ml 600 ml 265 ml BalanceBalance 210 ml 600 ml 265 ml Constitutional: alert, oriented, well developed Psych: nl mood/affect Head: atraumatic Eyes: EOMI, nl lids, icteric ENMT: nl external ears & nose Neck: non-tender Respiratory: clear to auscultation Cardiovascular: nl pulses, other (s1s2) Gastrointestinal: soft, tender (RUQ tendddernness noted) Musculoskeletal: nl extremities to inspection Extremities: normal pulses Neurological: nl mental status, nl speech Skin: other (jaundiced) Lymph: nontender Results Result Diagram: 07/06/18 0507/06/18 0521 Results 24hrs Laboratory Tests Test 07/06/18 05:21 White Blood Count 9.8 Red Blood Count 3.80 L Hemoglobin 9.7 L Hematocrit 30.5 L Mean Corpuscular Volume 80.3 L Mean Corpuscular Hemoglobin 25.5 L Mean Corpuscular Hemoglobin Concent 31.8 L Red Cell Distribution Width 27.2 H Platelet Count 207 Mean Platelet Volume 11.5 H Immature Granulocytes % 0.800 H Neutrophils % Segmented Neutrophils % (Manual) 53 Band Neutrophils % (Manual) 11 H Lymphocytes % Lymphocytes % (Manual) 25 Monocytes % Monocytes % (Manual) 7 Eosinophils % Eosinophils % (Manual) 3 Basophils % Basophils % (Manual) 1 Nucleated Red Blood Cells % 4 H Immature Granulocytes # 0.080 H Neutrophils # Neutrophils # (Manual) 5.3 Band Neutrophils # 1.0 H Lymphocytes (Manual) 2.4 Lymphocytes # Monocytes # Monocytes # (Manual) 0.6 Eosinophils # Basophils # Basophils # (Manual) 0.0 Nucleated Red Blood Cells # Toxic Granulation 1+ Platelet Estimate NORMAL Giant Platelets 4 H Polychromasia 3+ Hypochromasia 2+ Poikilocytosis 1+ Anisocytosis 1+ Macrocytosis 1+ Target Cells 1+ Prothrombin Time 17.0 H Prothrombin Time Ratio 1.3 INR International Normalized Ratio 1.37 Activated Partial Thromboplast Time 40.0 H Sodium Level 138 Potassium Level 4.0 Chloride Level 102 Carbon Dioxide Level 27 Anion Gap 9 Blood Urea Nitrogen 2 L Creatinine 0.65 Est Glomerular Filtrat Rate mL/min > 60 Glucose Level 89 Calcium Level 8.6 Total Bilirubin 9.9 H Direct Bilirubin 8.20 H Indirect Bilirubin 1.7 H Aspartate Amino Transf (AST/SGOT) 85 H Alanine Aminotransferase (ALT/SGPT) 26 Alkaline Phosphatase 199 H Total Protein 6.7 Albumin 3.3 Globulin 3.40 H Albumin/Globulin Ratio 0.97 Medications Medication Current Medications Ondansetron HCl (Zofran Inj) 4 mg Q6H PRN IV NAUSEA AND/OR VOMITING Last a dministered on 07/06/18at 05:53; Admin Dose 4 MG; Start 06/28/18 at 01:30 Metoclopramide HCl (Reglan) 10 mg Q6 PRN IV NAUSEA AND/OR VOMITING Last administered on 07/06/18 00:37; Admin Dose 10 MG; Start 06/28/18 at 01:30 Zolpidem Tartrate (Ambien) 5 mg HS PRN PO INSOMNIA Last administered on 07/06/18 00:04; Admin Dose 5 MG; Start 06/29/18 at 12:00 Potassium Chloride (Klor-Con 20) 40 meq DAILY PO Last administered on 07/06/18 08:06; Admin Dose 40 MEQ; Start 06/29/18 at 15:30 Piperacillin Sod/ Tazobactam Sod 100 ml @ 25 mls/hr Q8 IVPB Last administered on 07/06/18 16:00; Admin Dose 25 MLS/HR; Start 06/30/18 at 20:00 Morphine Sulfate (morphine) 6 mg Q4H PRN PO SEVERE PAIN LEVEL 7-10; Start 07/01/18 at 22:30 Ferric Sodium Gluconate Complex 125 mg/Sodium Chloride 110 ml @ 110 mls/hr DAILY@1300 IVPB Last administered on 07/06/18 16:00; Admin Dose 110 MLS/HR; Start 07/03/18 at 13:00; Stop 07/07/18 at 13:59 Pantoprazole (Protonix Tab) 40 mg BID@06,18 PO Last administered on 07/06/18 18:02; Admin Dose 40 MG; Start 07/03/18 at 18:00 Alprazolam (Xanax) 0.25 mg Q12 PO Last administered on 07/06/18 08:05; Admin Dose 0.25 MG; Start 07/03/18 at 21:00 Ondansetron HCl (Zofran Odt) 4 mg AC BREAKFAST DINNER ODT Last administered on 07/06/18 18:02; Admin Dose 4 MG; Start 07/04/18 at 17:35 Hydromorphone HCl (Dilaudid) 0.5 mg Q6H PRN IV SEVERE PAIN LEVEL 7-10 Last administered on 07/05/18 22:20; Admin Dose 0.5 MG; Start 07/04/18 at 16:30 Acetaminophen (Tylenol Tab) 650 mg Q6H PRN PO MILD PAIN(1-3)OR ELEVATED TEMP Last administered on 07/05/18 22:20; Admin Dose 650 MG; Start 07/05/18 at 22:30 Ketorolac Tromethamine (Toradol) 30 mg PACU ORDER PRN IV FOR PAIN AFTER IV NARCOTIC MED; Start 07/06/18 at 15:30; Stop 07/06/18 at 21:00 Ondansetron HCl (Zofran Inj) 4 mg PACU ORDER PRN IV NAUSEA/VOMITING; Start 07/06/18 at 15:30; Stop 07/06/18 at 21:00 YULISSA LOVING Jul 06, 2018 18:14
--- NOTE | 2018-07-06 18:27 | NUR ---
RN NOTES No significant change, patient remained alert and oriented, denies any pain or discomfort. Able to tolerate diet well. Vital signs stable. Kept comfortable and safe. S/P ERCP with spyglass and stent removal done. Assisted at all times. Needs attended. Hourly rounding done. No fever noted. Will endorse to service writer for continuity of care.
--- NOTE | 2018-07-06 19:17 | PN ---
Date/Time of Note Date/Time of Note DATE: 07/06/18 TIME: 19:14 Assessment/Plan Lines/Catheters IV Catheter Type (from [facility]): Peripheral IV Elias in Place (from [facility]): No Assessment/Plan Chief Complaint/Hosp Course 1. 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 Transaminitis and hyperbilirubinemia 2nd above -as above 3. Abdominal pain: Improved -pain mgt 4. Macrocytic hypochromic anemia: likely 2/2 liver disease -monitor &tx as needed 5. Thrombocytopenia: -bleeding precs -as above 6. Severe obesity BMI: 38 -diet and exercise optimization -encourage weight loss Thank you Subjective 24 Hr Interval Summary s/p Spyglass by Dr. Earl. Abdominal discomfort with food improved. No fevers, chills, sob, congested cough, cp, palpitations, arora, dizziness, n/v/d/dysuria. Transaminitis and hyperbilirubinemia. Exam/Review of Systems Vital Signs Vitals Vital Signs Date Temp Pulse Resp B/P (MAP) Pulse Ox O2 O2 Flow FiO2 Time Delivery Rate 07/06/18 98 27 125/74 95 Nasal 2.0 15:37 (91) Cannula 07/06/18 100.5 15:02 Intake and Output 07/05/18 07/05/18 07/06/18 1515:00 23:00 07:00 IntakeIntake Total 210 ml 600 ml 265 ml BalanceBalance 210 ml 600 ml 265 ml Exam Free Text/Dictation Constitutional: alert, oriented Psych: nl mood/affect, anxiety (min) Head: normocephalic, atraumatic Eyes: nl conjunctiva, EOMI, nl lids, sclera icterus ENMT: nl external ears & nose, nl lips & teeth, nl nasal mucosa & septum, mucosa pink and moist Neck: supple, non-tender Respiratory: normal air movement; No congested cough, No labored breathing Cardiovascular: regular rate and rhythm, nl pulses; No edema Gastrointestinal: soft, tender (mid abdominal) Genitourinary - Female: nl external genitalia Musculoskeletal: nl extremities to inspection, nl gait and stance Extremities: normal pulses Neurological: nl mental status, nl speech, nl strength Skin: other (mid abdominal min bruising); jaundice No rash or lesions Results Result Diagram: 07/06/18 0521 07/06/18 0521 ESTEE BINGHAM MD Jul 06, 2018 19:17
[2018-07-06] MEDS: HYDROmorphONE 0.5 MG/0.5 ML SYG IV PRN (20:01)
--- NOTE | 2018-07-06 22:26 | NUR ---
Patient complaining of generalized itching. No redness noted upon assessment. Notified Dr. Dudley at this time for patient's request for Benadryl. Awaiting further orders at this time. Will continue to monitor.
[2018-07-06] MEDS: DIPHENHYDRAMINE 25 MG CAP PO PRN (23:37)
[2018-07-07 02:00] VITALS: BP 106/61; PULSE 77; RESP 18
[2018-07-07] MEDS: HYDROmorphONE 0.5 MG/0.5 ML SYG IV PRN ×3 (03:39→18:38)
--- NOTE | 2018-07-07 05:11 | NUR ---
END OF SHIFT NOTE: Patient in room asleep with no signs of distress. Vital signs stable. Patient complained of pain to RUQ this shift. Administered Dilaudid x2 per MD order. One episode of nausea with administration of Reglan x1 this shift. Patient denied nausea and discomfort thereafter. Patient also complained of generalized itching. Received orders to administer Benadryl PRN for itching; patient denied discomfort thereafter. No skin breakdown noted upon assessment. Generalized jaundice noted. Patient turned every 2 hours and OOB this shift. All needs met and medications administered per MD order. Safety precautions and hourly rounding currently in place until change of shift.
[2018-07-07] MEDS: PIPER-TAZO 3.375 GM IV (PMX) 100 ML IVPB SCH ×3 (05:44→22:32)
[2018-07-07] MEDS: PANTOPRAZOLE (EC) 40 MG TAB PO SCH ×2 (05:44→17:02)
--- NOTE | 2018-07-07 06:03 | NUR ---
Zosyn infusing at this time at 25 ml/hr. Will endorse to oncoming nurse to close on IVSS upon completion of infusion.
[2018-07-07 08:00] VITALS: BP 121/61; PULSE 63; RESP 18
[2018-07-07] MEDS: ONDANSETRON (ODT) 4 MG TAB ODT SCH ×2 (08:07→17:06)
[2018-07-07] MEDS: ALPRAZOLAM 0.25 MG TAB PO SCH (08:07)
[2018-07-07] MEDS: POTASSIUM CHLORIDE (SR) 20 MEQ TAB PO SCH (08:08)
--- NOTE | 2018-07-07 10:08 | CONS ---
Assessment/Plan Assessment/Plan Hospital Course (Demo Recall) 32 yo with persistent biliary colicky pain and increasing bilirubin 1. Abdominal pain, persistent, biliary colicky and increasing bilirubin -s/p ERCP x 2 -RUQ 2. 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 Hepatosplenomegaly secondary to #2 4. Overweight. 5. Progressive jaundice secondary to #2 6. Biliary stricture secondary to hepatomegaly 7. Transaminitis with elevated bili which is trending up secondary to hepatomegaly. 8. Fevers, low grade without leukocytosis, patient is on Zosyn 9. Anemia, acute Plan: Patient's transaminitis is due to biliary stricture from hepatomegaly due to alcoholic hepatitis. If patient's liver profile does not improve, she will need a steroid to help with the inflammation. Currently patient is having low grade fevers and is on zosyn. Her last tmax of 100.2 was 2/4 at 1500. We will monitor her liver profile and her fevers and consider starting her on steroids. Discussed with patient alcohol cessation Pt examined and plan of care discussed with Dr. Earl Consultation Date/Type/Reason Admit Date/Time Jun 27, 2018 at 23:57 Initial Consult Date 07/01/18 Requesting Provider: ZEB JAMES MD Date/Time of Note DATE: 07/07/18 TIME: 09:55 24 HR Interval Summary Free Text/Dictation Pt states her epigastric pain is improved but feels it more in RUQ to rt upper back. She denies nausea. Tolerating PO diet. Her tmax was 100.2 2/4 at 1500. WBC wnl. Exam/Review of Systems Exam Vitals Vital Signs Date Temp Pulse Resp B/P (MAP) Pulse Ox O2 O2 Flow FiO2 Time Delivery Rate 07/07/18 97.8 63 18 121/61 95 08:00 (81) 07/06/18 Nasal 2.0 15:37 Cannula Intake and Output 07/06/18 07/06/18 07/07/18 1414:59 22:59 06:59 IntakeIntake Total 75 ml 210 ml 2500 ml BalanceBalance 75 ml 210 ml 2500 ml Constitutional: alert, oriented Psych: no complaints Head: normocephalic Eyes: PERRL, icteric ENMT: mucosa pink and moist Gastrointestinal: soft, tender Musculoskeletal: nl gait and stance Neurological: nl mental status, nl speech Skin: other (jaundice) Results Result Diagram: 07/07/18 0631 07/07/18 0631 Results 24hrs Laboratory Tests Test 07/07/18 06:31 White Blood Count 10.7 Red Blood Count 3.83 L Hemoglobin 9.6 L Hematocrit 32.0 L Mean Corpuscular Volume 83.6 Mean Corpuscular Hemoglobin 25.1 L Mean Corpuscular Hemoglobin Concent 30.0 L Red Cell Distribution Width 27.7 H Platelet Count 223 Mean Platelet Volume 11.6 H Immature Granulocytes % 0.900 H Neutrophils % 79.1 H Segmented Neutrophils % (Manual) 27 L Band Neutrophils % (Manual) 46 H Lymphocytes % 10.0 L Lymphocytes % (Manual) 14 L Reactive Lymphocytes % (Manual) 3 H Monocytes % 7.7 Monocytes % (Manual) 5 Eosinophils % 1.9 Eosinophils % (Manual) 1 Basophils % 0.4 Basophils % (Manual) 3 H Promyelocytes % (Manual) 1 H Nucleated Red Blood Cells % 0.5 H Immature Granulocytes # 0.100 H Neutrophils # 8.5 H Neutrophils # (Manual) 3.4 Band Neutrophils # 4.9 H Lymphocytes (Manual) 1.4 Lymphocytes # 1.1 Reactive Lymphocytes # 0.3 H Monocytes # 0.8 Monocytes # (Manual) 0.5 Eosinophils # 0.2 Basophils # 0.0 Basophils # (Manual) 0.3 H Promyelocytes # 0.1 H Nucleated Red Blood Cells # 0.1 H Toxic Granulation 1+ Platelet Estimate NORMAL Giant Platelets 3 H Polychromasia 2+ Poikilocytosis 2+ Anisocytosis 2+ Macrocytosis 2+ Sodium Level 135 Potassium Level 3.8 Chloride Level 98 Carbon Dioxide Level 26 Anion Gap 11 Blood Urea Nitrogen 4 L Creatinine 0.63 Est Glomerular Filtrat Rate mL/min > 60 Glucose Level 124 Calcium Level 8.8 Phosphorus Level 2.8 Magnesium Level 2.2 Total Bilirubin 10.9 H Direct Bilirubin 9.40 H Indirect Bilirubin 1.5 H Aspartate Amino Transf (AST/SGOT) 112 H Alanine Aminotransferase (ALT/SGPT) 28 Alkaline Phosphatase 209 H Total Protein 6.8 Albumin 3.3 Globulin 3.50 H Albumin/Globulin Ratio 0.94 Medications Medication Current Medications Ondansetron HCl (Zofran Inj) 4 mg Q6H PRN IV NAUSEA AND/OR VOMITING Last administered on 2/4/19at 05:53; Admin Dose 4 MG; Start 06/28/18 at 01:30 Metoclopramide HCl (Reglan) 10 mg Q6 PRN IV NAUSEA AND/OR VOMITING Last administered on 07/06/18 21:47; Admin Dose 10 MG; Start 06/28/18 at 01:30 Zolpidem Tartrate (Ambien) 5 mg HS PRN PO INSOMNIA Last administered on 07/06/18 00:04; Admin Dose 5 MG; Start 06/29/18 at 12:00 Potassium Chloride (Klor-Con 20) 40 meq DAILY PO Last administered on 07/07/18 08:08; Admin Dose 40 MEQ; Start 06/29/18 at 15:30 Piperacillin Sod/ Tazobactam Sod 100 ml @ 25 mls/hr Q8 IVPB Last administered on 07/07/18 05:44; Admin Dose 25 MLS/HR; Start 06/30/18 at 20:00 Morphine Sulfate (morphine) 6 mg Q4H PRN PO SEVERE PAIN LEVEL 7-10; Start 07/01/18 at 22:30 Ferric Sodium Gluconate Complex 125 mg/Sodium Chloride 110 ml @ 110 mls/hr DAILY@1300 IVPB Last administered on 07/06/18 16:00; Admin Dose 110 MLS/HR; Start 07/03/18 at 13:00; Stop 07/07/18 at 13:59 Pantoprazole (Protonix Tab) 40 mg BID@06,18 PO Last administered on 07/07/18 05:44; Admin Dose 40 MG; Start 07/03/18 at 18:00 Alprazolam (Xanax) 0.25 mg Q12 PO Last administered on 07/07/18 08:07; Admin D ose 0.25 MG; Start 07/03/18 at 21:00 Ondansetron HCl (Zofran Odt) 4 mg AC BREAKFAST DINNER ODT Last administered on 07/07/18 08:07; Admin Dose 4 MG; Start 07/04/18 at 17:35 Hydromorphone HCl (Dilaudid) 0.5 mg Q6H PRN IV SEVERE PAIN LEVEL 7-10 Last administered on 07/07/18 03:39; Admin Dose 0.5 MG; Start 07/04/18 at 16:30 Acetaminophen (Tylenol Tab) 650 mg Q6H PRN PO MILD PAIN(1-3)OR ELEVATED TEMP Last administered on 07/05/18at 22:20; Admin Dose 650 MG; Start 07/05/18 at 22:30 Diphenhydramine HCl (Benadryl) 25 mg BID PRN PO ITCHING Last administered on 07/06/18at 23:37; Admin Dose 25 MG; Start 07/06/18 at 23:30 ADRIANA RICHARDSON Jul 07, 2018 10:05
--- NOTE | 2018-07-07 10:46 | PN ---
Date/Time of Note Date/Time of Note DATE: 07/07/18 TIME: 10:44 Assessment/Plan Lines/Catheters IV Catheter Type (from Nrs): Saline Lock Elias in Place (from Nrs): No Assessment/Plan Chief Complaint/Hosp Course 1. 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 Transaminitis and hyperbilirubinemia 2nd above -as above 3. Abdominal pain: Improved -pain mgt 4. Macrocytic hypochromic anemia: likely 2/2 liver disease -monitor &tx as needed 5. Severe obesity BMI: 38 -diet and exercise optimization -encourage weight loss Thank you. Patient seen and examined in collaboration with Dr. Mannie Bailey. Subjective 24 Hr Interval Summary Feels well. Mid abdominal discomfort improved. No fevers, chills, sob, congested cough, cp, palpitations, arora, dizziness, nausea, vomiting, diarrhea, dysuria. Exam/Review of Systems Vital Signs Vitals Vital Signs Date Temp Pulse Resp B/P (MAP) Pulse Ox O2 O2 Flow FiO2 Time Delivery Rate 07/07/18 97.8 63 18 121/61 95 08:00 (81) 07/06/18 Nasal 2.0 15:37 Cannula Intake and Output 07/06/18 07/06/18 07/07/18 1515:00 23:00 07:00 IntakeIntake Total 75 ml 210 ml 2500 ml BalanceBalance 75 ml 210 ml 2500 ml Exam Free Text/Dictation Constitutional: alert, oriented Psych: nl mood/affect, anxiety (min) Head: normocephalic, atraumatic Eyes: nl conjunctiva, EOMI, nl lids, sclera icterus ENMT: nl external ears & nose, nl lips & teeth, nl nasal mucosa & septum, mucosa pink and moist Neck: supple, non-tender Respiratory: normal air movement; No congested cough, No labored breathing Cardiovascular: regular rate and rhythm, nl pulses; No edema Gastrointestinal: soft, tender (mid abdominal) Genitourinary - Female: nl external genitalia Musculoskeletal: nl extremities to inspection, nl gait and stance Extremities: normal pulses Neurological: nl mental status, nl speech, nl strength Skin: other (mid abdominal min bruising); jaundice No rash or lesions Results Result Diagram: 07/07/1863007/07/1831 AARON FREGOSO NP Jul 07, 2018 10:46
--- NOTE | 2018-07-07 11:44 | CONS ---
Assessment/Plan Assessment/Plan Assessment/Plan (Daily) An unfortunate 32 yo who has a significant alcohol history over the last year, admitted with massive hepatomegaly, splenomegaly, found to have cirrhosis. #elevated direct bilirubin/elevated LDH -these abnormalities are due to Cirrhosis of liver with portal hypertension. she is jaundiced from cirrhosis and has alcoholic hepatitis per Dr Earl thus explaining her enlarged liver, she has portal hypertension -no evidence of hemolysis #anemia- Hgb 9.5 today cont venofer anemia of chronic disease #mild coagulopathy due to liver dysfunction, if INR >2, given vit K 5 mg po x 1. no need for FFP at present Patient seen in collaboration with Dr Vieyra Consultation Date/Type/Reason Admit Date/Time Jun 27, 2018 at 11:57 pm Initial Consult Date 07/01/18 Type of Consult ONCOLOGY Reason for Consultation Anemia Requesting Provider: ZEB JAMES MD Date/Time of Note DATE: 07/07/18 TIME: 11:44 24 HR Interval Summary Free Text/Dictation c/o feeling weakness but feels better SP ERCP no new issues reported last night Detailed Summary ENT: no complaints Respiratory: no complaints Gastrointestinal: no complaints Genitourinary: no complaints Musculoskeletal: no complaints Skin: no complaints Exam/Review of Systems Exam Vitals Vital Signs Date Temp Pulse Resp B/P (MAP) Pulse Ox O2 O2 Flow FiO2 Time Delivery Rate 07/07/18 97.8 63 18 121/61 95 08:00 (81) 07/06/18 Nasal 2.0 15:37 Cannula Intake and Output 07/06/18 07/06/18 07/07/18 1515:00 23:00 07:00 IntakeIntake Total 75 ml 210 ml 2500 ml BalanceBalance 75 ml 210 ml 2500 ml Constitutional: alert, oriented, well developed Psych: nl mood/affect Head: atraumatic Eyes: EOMI, nl lids, icteric ENMT: nl external ears & nose Neck: non-tender Respiratory: clear to auscultation Cardiovascular: nl pulses, other (s1s2) Gastrointestinal: soft, non-tender Musculoskeletal: nl extremities to inspection Extremities: normal pulses Neurological: nl mental status, nl speech Results Result Diagram: 07/07/18 0631 07/07/18 0631 Results 24hrs Laboratory Tests Test 07/07/18 06:31 White Blood Count 10.7 Red Blood Count 3.83 L Hemoglobin 9.6 L Hematocrit 32.0 L Mean Corpuscular Volume 83.6 Mean Corpuscular Hemoglobin 25.1 L Mean Corpuscular Hemoglobin Concent 30.0 L Red Cell Distribution Width 27.7 H Platelet Count 223 Mean Platelet Volume 11.6 H Immature Granulocytes % 0.900 H Neutrophils % 79.1 H Segmented Neutrophils % (Manual) 27 L Band Neutrophils % (Manual) 46 H Lymphocytes % 10.0 L Lymphocytes % (Manual) 14 L Reactive Lymphocytes % (Manual) 3 H Monocytes % 7.7 Monocytes % (Manual) 5 Eosinophils % 1.9 Eosinophils % (Manual) 1 Basophils % 0.4 Basophils % (Manual) 3 H Promyelocytes % (Manual) 1 H Nucleated Red Blood Cells % 0.5 H Immature Granulocytes # 0.100 H Neutrophils # 8.5 H Neutrophils # (Manual) 3.4 Band Neutrophils # 4.9 H Lymphocytes (Manual) 1.4 Lymphocytes # 1.1 Reactive Lymphocytes # 0.3 H Monocytes # 0.8 Monocytes # (Manual) 0.5 Eosinophils # 0.2 Basophils # 0.0 Basophils # (Manual) 0.3 H Promyelocytes # 0.1 H Nucleated Red Blood Cells # 0.1 H Toxic Granulation 1+ Platelet Estimate NORMAL Giant Platelets 3 H Polychromasia 2+ Poikilocytosis 2+ Anisocytosis 2+ Macrocytosis 2+ Sodium Level 135 Potassium Level 3.8 Chloride Level 98 Carbon Dioxide Level 26 Anion Gap 11 Blood Urea Nitrogen 4 L Creatinine 0.63 Est Glomerular Filtrat Rate mL/min > 60 Glucose Level 124 Calcium Level 8.8 Phosphorus Level 2.8 Magnesium Level 2.2 Total Bilirubin 10.9 H Direct Bilirubin 9.40 H Indirect Bilirubin 1.5 H Aspartate Amino Transf (AST/SGOT) 112 H Alanine Aminotransferase (ALT/SGPT) 28 Alkaline Phosphatase 209 H Total Protein 6.8 Albumin 3.3 Globulin 3.50 H Albumin/Globulin Ratio 0.94 Medications Medication Current Medications Ondansetron HCl (Zofran Inj) 4 mg Q6H PRN IV NAUSEA AND/OR VOMITING Last administered on 07/06/18at 05:53; Admin Dose 4 MG; Start 06/28/18 at 01:30 Metoclopramide HCl (Reglan) 10 mg Q6 PRN IV NAUSEA AND/OR VOMITING Last administered on 07/06/18at 21:47; Admin Dose 10 MG; Start 06/28/18 at 01:30 Zolpidem Tartrate (Ambien) 5 mg HS PRN PO INSOMNIA Last administered on 07/06/18 00:04; Admin Dose 5 MG; Start 06/29/18 at 12:00 Potassium Chloride (Klor-Con 20) 40 meq DAILY PO Last administered on 07/07/18 08:08; Admin Dose 40 MEQ; Start 06/29/18 at 15:30 Piperacillin Sod/ Tazobactam Sod 100 ml @ 25 mls/hr Q8 IVPB Last administered on 07/07/18 05:44; Admin Dose 25 MLS/HR; Start 06/30/18 at 20:00 Morphine Sulfate (morphine) 6 mg Q4H PRN PO SEVERE PAIN LEVEL 7-10; Start 07/01/18 at 22:30 Ferric Sodium Gluconate Complex 125 mg/Sodium Chloride 110 ml @ 110 mls/hr DAILY@1300 IVPB Last administered on 07/06/18 16:00; Admin Dose 110 MLS/HR; Start 07/03/18 at 13:00; Stop 07/07/18 at 13:59 Pantoprazole (Protonix Tab) 40 mg BID@06,18 PO Last administered on 07/07/18 05:44; Admin Dose 40 MG; Start 07/03/18 at 18:00 Alprazolam (Xanax) 0.25 mg Q12 PO Last administered on 07/07/18 08:07; Admin Dose 0.25 MG; Start 07/03/18 at 21:00 Ondansetron HCl (Zofran Odt) 4 mg AC BREAKFAST DINNER ODT Last administered on 07/07/18 08:07; Admin Dose 4 MG; Start 07/04/18 at 17:35 Hydromorphone HCl (Dilaudid) 0.5 mg Q6H PRN IV SEVERE PAIN LEVEL 7-10 Last administered on 07/07/18 11:36; Admin Dose 0.5 MG; Start 07/04/18 at 16:30 Acetaminophen (Tylenol Tab) 650 mg Q6H PRN PO MILD PAIN(1-3)OR ELEVATED TEMP Last administered on 07/05/18 22:20; Admin Dose 650 MG; Start 07/05/18 at 22:30 Diphenhydramine HCl (Benadryl) 25 mg BID PRN PO ITCHING Last administered on 07/06/18at 23:37; Admin Dose 25 MG; Start 07/06/18 at 23:30 YULISSA LOVING Jul 07, 2018 11:44
[2018-07-07] MEDS: DIPHENHYDRAMINE 25 MG CAP PO PRN ×2 (11:54→22:19)
[2018-07-07] MEDS: METOCLOPRAMIDE 10 MG INJ IV PRN ×2 (13:22→22:19)
[2018-07-07] MEDS: SOD FERRIC GLUC COMPLX 125 MG in SOD CHLORIDE 0.9% 100 ML IVPB SCH (13:22)
[2018-07-07 14:20] VITALS: BP 146/81; PULSE 100; RESP 18
--- NOTE | 2018-07-07 15:13 | PN ---
Date/Time of Note Date/Time of Note DATE: 07/07/18 TIME: 15:11 Assessment/Plan VTE Prophylaxis Risk score (from Nsg)>0 risk: 3 SCD applied (from Nsg): Yes Pharmacological prophylaxis: NA/contraindicated Pharm contraindication: low risk/ambulating Lines/Catheters IV Catheter Type (from Nrsg): Saline Lock Urinary Cath still in place: No Assessment/Plan Hospital Course 32 y/o with .1 Abdominal pain more likely due to acute pancreatitis. Vomiting and diarrhea for 3 weeks. Last 2 weeks patient was drinking 2- 4 shots of hard liquor daily. 2. Hyperbilirubinemia with elevated liver enzymes. Hepatitis panel is negative from [facility]. US of liver reveals fatty infiltration, CD is 5 mm. Records was reviewed form [facility]. 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 Former smoker, pt quit 6 years ago 4. hx of 2 C sections, 6 and 2 years ago 5. Obesity 6. Microcytic hypochromic anemia with thrombocytopenia. Pat. smear show anisocytosis 7. Hx of asthma Assessment/Plan - montior LFT> continue to rise - s/p ERCP with spyglass and removal of stent, biopsy positive for Yumiko questionable colonization questionable active infection spoke to Dr. Ritchie will call Dr. Griffin - picture more consistent with alchloc hepatitis ? Steroids spoke to GI - alcholol cessation -DC iron - ativan prn anxiet - cw zosyn Result Diagram: 07/07/18 0631 07/07/18 0631 Results 24hrs Laboratory Tests Test 07/07/18 06:31 White Blood Count 10.7 Red Blood Count 3.83 L Hemoglobin 9.6 L Hematocrit 32.0 L Mean Corpuscular Volume 83.6 Mean Corpuscular Hemoglobin 25.1 L Mean Corpuscular Hemoglobin Concent 30.0 L Red Cell Distribution Width 27.7 H Platelet Count 223 Mean Platelet Volume 11.6 H Immature Granulocytes % 0.900 H Neutrophils % 79.1 H Segmented Neutrophils % (Manual) 27 L Band Neutrophils % (Manual) 46 H Lymphocytes % 10.0 L Lymphocytes % (Manual) 14 L Reactive Lymphocytes % (Manual) 3 H Monocytes % 7.7 Monocytes % (Manual) 5 Eosinophils % 1.9 Eosinophils % (Manual) 1 Basophils % 0.4 Basophils % (Manual) 3 H Promyelocytes % (Manual) 1 H Nucleated Red Blood Cells % 0.5 H Immature Granulocytes # 0.100 H Neutrophils # 8.5 H Neutrophils # (Manual) 3.4 Band Neutrophils # 4.9 H Lymphocytes (Manual) 1.4 Lymphocytes # 1.1 Reactive Lymphocytes # 0.3 H Monocytes # 0.8 Monocytes # (Manual) 0.5 Eosinophils # 0.2 Basophils # 0.0 Basophils # (Manual) 0.3 H Promyelocytes # 0.1 H Nucleated Red Blood Cells # 0.1 H Toxic Granulation 1+ Platelet Estimate NORMAL Giant Platelets 3 H Polychromasia 2+ Poikilocytosis 2+ Anisocytosis 2+ Macrocytosis 2+ Sodium Level 135 Potassium Level 3.8 Chloride Level 98 Carbon Dioxide Level 26 Anion Gap 11 Blood Urea Nitrogen 4 L Creatinine 0.63 Est Glomerular Filtrat Rate mL/min > 60 Glucose Level 124 Calcium Level 8.8 Phosphorus Level 2.8 Magnesium Level 2.2 Total Bilirubin 10.9 H Direct Bilirubin 9.40 H Indirect Bilirubin 1.5 H Aspartate Amino Transf (AST/SGOT) 112 H Alanine Aminotransferase (ALT/SGPT) 28 Alkaline Phosphatase 209 H Total Protein 6.8 Albumin 3.3 Globulin 3.50 H Albumin/Globulin Ratio 0.94 Subjective 24 Hr Interval Summary Free Text/Dictation Low-grade fevers. LFT continue to rise Biopsy from CBD questionable fungal organisms Exam/Review of Systems Exam Vitals Vital Signs Date Temp Pulse Resp B/P (MAP) Pulse Ox O2 O2 Flow FiO2 Time Delivery Rate 07/07/18 97.8 63 18 121/61 95 08:00 (81) 07/06/18 Nasal 2.0 15:37 Cannula Intake and Output 07/06/18 07/06/18 07/07/18 1515:00 23:00 07:00 IntakeIntake Total 75 ml 210 ml 2500 ml BalanceBalance 75 ml 210 ml 2500 ml Exam Exam Neck: supple, scleral icterus Respiratory: clear to auscultation Cardiovascular: regular rate and rhythm Gastrointestinal: soft, hepatomegaly Musculoskeletal: nl extremities to inspection Extremities: normal pulses Results Results 24hrs Laboratory Tests Test 07/07/18 06:31 White Blood Count 10.7 Red Blood Count 3.83 L Hemoglobin 9.6 L Hematocrit 32.0 L Mean Corpuscular Volume 83.6 Mean Corpuscular Hemoglobin 25.1 L Mean Corpuscular Hemoglobin Concent 30.0 L Red Cell Distribution Width 27.7 H Platelet Count 223 Mean Platelet Volume 11.6 H Immature Granulocytes % 0.900 H Neutrophils % 79.1 H Segmented Neutrophils % (Manual) 27 L Band Neutrophils % (Manual) 46 H Lymphocytes % 10.0 L Lymphocytes % (Manual) 14 L Reactive Lymphocytes % (Manual) 3 H Monocytes % 7.7 Monocytes % (Manual) 5 Eosinophils % 1.9 Eosinophils % (Manual) 1 Basophils % 0.4 Basophils % (Manual) 3 H Promyelocytes % (Manual) 1 H Nucleated Red Blood Cells % 0.5 H Immature Granulocytes # 0.100 H Neutrophils # 8.5 H Neutrophils # (Manual) 3.4 Band Neutrophils # 4.9 H Lymphocytes (Manual) 1.4 Lymphocytes # 1.1 Reactive Lymphocytes # 0.3 H Monocytes # 0.8 Monocytes # (Manual) 0.5 Eosinophils # 0.2 Basophils # 0.0 Basophils # (Manual) 0.3 H Promyelocytes # 0.1 H Nucleated Red Blood Cells # 0.1 H Toxic Granulation 1+ Platelet Estimate NORMAL Giant Platelets 3 H Polychromasia 2+ Poikilocytosis 2+ Anisocytosis 2+ Macrocytosis 2+ Sodium Level 135 Potassium Level 3.8 Chloride Level 98 Carbon Dioxide Level 26 Anion Gap 11 Blood Urea Nitrogen 4 L Creatinine 0.63 Est Glomerular Filtrat Rate mL/min > 60 Glucose Level 124 Calcium Level 8.8 Phosphorus Level 2.8 Magnesium Level 2.2 Total Bilirubin 10.9 H Direct Bilirubin 9.40 H Indirect Bilirubin 1.5 H Aspartate Amino Transf (AST/SGOT) 112 H Alanine Aminotransferase (ALT/SGPT) 28 Alkaline Phosphatase 209 H Total Protein 6.8 Albumin 3.3 Globulin 3.50 H Albumin/Globulin Ratio 0.94 Medications Medication Current Medications Ondansetron HCl (Zofran Inj) 4 mg Q6H PRN IV NAUSEA AND/OR VOMITING Last administered on 07/06/18at 05:53; Admin Dose 4 MG; Start 06/28/18 at 01:30 Metoclopramide HCl (Reglan) 10 mg Q6 PRN IV NAUSEA AND/OR VOMITING Last administered on 07/07/18at 13:22; Admin Dose 10 MG; Start 06/28/18 at 01:30 Zolpidem Tartrate (Ambien) 5 mg HS PRN PO INSOMNIA Last administered on 07/06/18 00:04; Admin Dose 5 MG; Start 06/29/18 at 12:00 Potassium Chloride (Klor-Con 20) 40 meq DAILY PO Last administered on 07/07/18 08:08; Admin Dose 40 MEQ; Start 06/29/18 at 15:30 Piperacillin Sod/ Tazobactam Sod 100 ml @ 25 mls/hr Q8 IVPB Last administered on 07/07/18 13:22; Admin Dose 25 MLS/HR; Start 06/30/18 at 20:00 Morphine Sulfate (morphine) 6 mg Q4H PRN PO SEVERE PAIN LEVEL 7-10; Start 07/01/18 at 22:30 Pantoprazole (Protonix Tab) 40 mg BID@06,18 PO Last administered on 07/07/18 05:44; Admin Dose 40 MG; Start 07/03/18 at 18:00 Alprazolam (Xanax) 0.25 mg Q12 PO Last administered on 07/07/18 08:07; Admin Dose 0.25 MG; Start 07/03/18 at 21:00 Ondansetron HCl (Zofran Odt) 4 mg AC BREAKFAST DINNER ODT Last administered on 07/07/18 08:07; Admin Dose 4 MG; Start 07/04/18 at 17:35 Hydromorphone HCl (Dilaudid) 0.5 mg Q6H PRN IV SEVERE PAIN LEVEL 7-10 Last administered on 07/07/18 11:36; Admin Dose 0.5 MG; Start 07/04/18 at 16:30 Acetaminophen (Tylenol Tab) 650 mg Q6H PRN PO MILD PAIN(1-3)OR ELEVATED TEMP Last administered on 07/05/18 22:20; Admin Dose 650 MG; Start 07/05/18 at 22:30 Diphenhydramine HCl (Benadryl) 25 mg BID PRN PO ITCHING Last administered on 07/07/18 11:54; Admin Dose 25 MG; Start 07/06/18 at 23:30 ZEB JAMES MD Jul 07, 2018 15:13
[2018-07-07] MEDS: ONDANSETRON 4 MG INJ IV PRN (17:02)
--- NOTE | 2018-07-07 18:06 | NUR ---
RN NOTES Patient has no significant change. Vital signs stable, no fever noted. Medicated with Dilaudid 0.5 mg x 2 and verbalized relief after. Patient was also given Zofran 4 mg IV x 1 and Reglan 10 mg IV x 1 with relief from nausea noted after. Still noted about jaundice especially on both sclera. Educated with cessation of alcohol and patient verbalized understanding. Also thankful for the care provided. Able to ambulate well inside the room. Kept comfortable and dry. Needs attended. Hourly rounding provided. Will endorse to oncoming shift for continuity of care.
--- NOTE | 2018-07-07 18:29 | CONS ---
DATE OF ADMISSION: 06/27/2018 DATE OF CONSULTATION: 07/07/2018 TYPE OF CONSULTATION: Infectious disease. REASON FOR CONSULTATION: Antibiotic management. HISTORY OF PRESENT ILLNESS: Faith Giordano is a 32-year-old female who presented to the [facility] [place] with a number of problems and is being seen for antibiotic management. According to the history , she has asthma. She presented to [facility] with abdominal pain 1 month ago where an ultraso und and CT scan of the abdomen were performed. A CT scan of the abdomen revealed hepatosplenomegaly, left ovarian cyst. Ultrasound of the abdomen was consistent with fatty infiltration of the liver. Common bile duct was 5 mm. The patient was given Zofran and morphine and she was sent home. She sheryl t to the emergency room again and was given a shot. She was given some cocktail and sent home. Two weeks ago, she went to [facility] and then she complained of abdominal pain. Lab work revea led hyperbilirubinemia and elevated liver enzymes. She also was anemic. The patient reports spiking temperatures up to 101 twice in the last 3 weeks. On admission, her white count was 8.1, H and H of 10.5 and 32.8, platelet count of 121, BUN and creatinine is 5/0.63, glucose of 132. She had 85% diamond trophils. Her total bilirubin was 3.3, direct 1.3, indirect 2. AST was 153, ALT 60, alkaline phosph atase 261, total protein 7.6, albumin 4.0. The patient was felt to have acute pancreatitis with naus ea and vomiting for 3 weeks. For the last 2 weeks prior to admission, she was drinking 2 to 4 shots of hard liquor daily. She has hyperbilirubinemia with elevated liver enzymes. Ultrasound reveals fa tty infiltration. The patient is a former smoker, quit 6 years ago. She has a history of 2 C-sectio ns. She is obese and has microcytic hypochromic anemia with thrombocytopenia and a history of asthma . Dr. Earl was asked to see the patient in GI consultation. He noted abnormal liver tests functio n tests with epigastric and right upper quadrant pain, fatty liver, status post . We recomm ended monitoring LFTs, get an MRCP and if it is positive for bile duct stones, we will proceed with [employer] and removal of the stone. An MRI of the abdomen was done on 06/28/2018 which showed marked hepat omegaly, moderate to marked splenomegaly, trace ascites around the liver edge, no biliary dilatation, no choledocholithiasis. CT scan of the abdomen and pelvis was done on 06/29/2018, no evidence of pn eumoperitoneum to confirm the clinical suspicion of perforation, hepatosplenomegaly with nodular fraga ges of the liver concerning for cirrhosis and portal hypertension with recanalization of the umbilica l vein and small upper abdominal varices without evidence for ascites. Gallbladder x-ray was done. An ERCP was done, retrograde opacification of the common bile duct, demonstrating nondilated common b ile duct and intrahepatic bile duct with focal narrowing in the middle common bile duct without filli ng defect. The cystic duct is patent with opacification of the gallbladder. Common bile duct stent was placed. ERCP procedure demonstrated focal narrowing of the middle common bile duct without visua lized filling defect. Ultrasound may be helpful to further evaluate the gallbladder which was nondis tended on CT and MRCP without definite visualized stones. Blood cultures done were negative. At thi s point, abdominal pain is more likely due to acute pancreatitis. She had nausea and vomiting for 3 weeks prior to admission. Hyperbilirubinemia as outlined. Status post ERCP with stricture of the bi le duct, status post stent placement. She has also cirrhosis from alcoholic intake, likely has a com ponent of alcoholic hepatitis and cirrhosis. The patient is currently on Zosyn. PAST MEDICAL HISTORY: As outlined. FAMILY HISTORY: Noncontributory. SOCIAL HISTORY: Has been reviewed. She drinks. She quit smoking 6 years ago. ALLERGIES: NONE TO PENICILLIN, SULFA OR FOODS. MEDICATIONS: Per chart. REVIEW OF SYSTEMS: Noncontributory. PHYSICAL EXAMINATION: GENERAL: The patient is awake, responsive, in no acute distress. VITAL SIGNS: Stable. She is afebrile. SKIN: Slightly icteric. HEENT: She has scleral icterus. NECK: Supple. LYMPH NODES: None palpable. CHEST: Decreased breath sounds at the bases. HEART: Without murmur or gallop. ABDOMEN: Soft, nontender. She has hepatomegaly 3 to 4 fingerbreadths below the right costal margin. I did not feel a spleen. EXTREMITIES: Without cyanosis, clubbing or edema. RECTAL AND GENITAL: Deferred. NEUROLOGIC: No focal neurological abnormality. IMPRESSION AND PLAN: The patient is at this point still complaining of abdominal pain related to her pancreatitis. She had an intraoperative ERCP on 07/06/2018 without any evidence of stones, so we wi ll continue her on current therapy. I will dictate my findings to Dr. James and the various consult ants. I want to thank her for asking me to see this antwan lady in consultation. Dictated By: ANUPAM HUSSEIN MD, JD/CHALINO Conf#: [id number] DID#: [id number] CC: ZEB JAMES; ASHOK EARL MD;*EndCC*
[2018-07-07 20:44] VITALS: BP 126/66; PULSE 99; RESP 18
[2018-07-07] MEDS: ZOLPIDEM 5 MG TAB PO PRN (22:19)
[2018-07-08 02:47] VITALS: BP 117/63; PULSE 98; RESP 16
[2018-07-08] MEDS: PANTOPRAZOLE (EC) 40 MG TAB PO SCH ×2 (05:25→17:13)
[2018-07-08] MEDS: PIPER-TAZO 3.375 GM IV (PMX) 100 ML IVPB SCH (05:25)
[2018-07-08] MEDS: HYDROmorphONE 0.5 MG/0.5 ML SYG IV PRN (06:28)
--- NOTE | 2018-07-08 06:55 | NUR ---
Patient in room asleep with no signs of distress. Vital signs stable. Patient complained of pain x1; Dilaudid administered per MD order. No pain noted thereafter. One episode of nausea this shift with Reglan administered thereafter; no signs of distress thereafter. No other changes otherwise noted. All needs met and medications administered per MD order. Patient turned every 2 hours and OOB this shift. Safety precautions and hourly rounding currently in place until change of shift. Addendum: 07/08/18 at 0702 by HAZEL DUCKWORTH RN Zosyn currently infusing at 25 ml/hr. Will endorse to oncoming nurse to close on IVSS upon completion of infusion.
[2018-07-08] MEDS: ONDANSETRON (ODT) 4 MG TAB ODT SCH ×2 (08:02→17:13)
--- NOTE | 2018-07-08 08:32 | CONS ---
Assessment/Plan Assessment/Plan Hospital Course (Demo Recall) 32 yo with persistent biliary colicky pain and increasing bilirubin 1. Abdominal pain, persistent, biliary colicky and increasing bilirubin -s/p ERCP x 2 -RUQ 2. 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 Hepatosplenomegaly secondary to #2 4. Overweight. 5. Progressive jaundice secondary to #2 6. Biliary stricture secondary to hepatomegaly 7. Transaminitis with elevated bili which is trending up secondary to hepatomegaly. 8. Fevers, low grade without leukocytosis, patient is on Zosyn 9. Anemia, acute 10. Diarrhea improved 11. N/V resolved Maddrey discriminant function is 85.34 Plan: Dr Earl will be by to see her today and determine if steroids an option for her INR and CMP in am Promote oral hydration Patient's transaminitis is due to biliary stricture from hepatomegaly due to alcoholic hepatitis. If patient's liver profile does not improve, she will need a steroid to help with the inflammation. Currently patient is having low grade fevers and is on zosyn. Her last tmax of 100.2 was 2/ at 1500. We will monitor her liver profile and her fevers and consider starting her on steroids. Discussed with patient alcohol cessation Pt examined and plan of care discussed with Dr. Earl Consultation Date/Type/Reason Admit Date/Time Jun 27, 2018 at 23:57 Initial Consult Date 07/01/18 Requesting Provider: ZEB JAMES MD Date/Time of Note DATE: 07/08/18 TIME: 08:20 24 HR Interval Summary Free Text/Dictation Pt has intermittent RUQ pain which is alleviated with dilaudid. This morning she said she had bilateral lower quadrant pain which was alleviated with going to the bathroom, soft/loose bm. She states she is overall feeling better. More energy. Slept 7 hours last night. Exam/Review of Systems Exam Vitals Vital Signs Date Temp Pulse Resp B/P (MAP) Pulse Ox O2 O2 Flow FiO2 Time Delivery Rate 07/08/18 98.4 98 16 117/63 96 02:47 (81) 07/07/18 Room Air 14:20 07/06/18 2.0 15:37 Intake and Output 07/07/18 07/07/18 07/08/18 1515:00 23:00 07:00 IntakeIntake Total 210 ml 1900 ml 800 ml BalanceBalance 210 ml 1900 ml 800 ml Constitutional: alert, oriented Psych: no complaints Eyes: icteric ENMT: nl external ears & nose, nl lips & teeth Respiratory: clear to auscultation Cardiovascular: regular rate and rhythm Gastrointestinal: soft, tender (in RUQ) Neurological: nl mental status, nl speech Results Result Diagram: 07/07/18 0631 07/08/18 0559 Results 24hrs Laboratory Tests Test 07/08/18 05:59 Sodium Level 136 Potassium Level 4.4 Chloride Level 105 Carbon Dioxide Level 27 Anion Gap 4 L Blood Urea Nitrogen 3 L Creatinine 0.66 Est Glomerular Filtrat Rate mL/min > 60 Glucose Level 90 Calcium Level 8.9 Total Bilirubin 12.2 H Direct Bilirubin 10.20 H Indirect Bilirubin 2.0 H Aspartate Amino Transf (AST/SGOT) 124 H Alanine Aminotransferase (ALT/SGPT) 34 Alkaline Phosphatase 209 H Total Protein 7.1 Albumin 3.3 Globulin 3.80 H Albumin/Globulin Ratio 0.86 Lipase 108 Medications Medication Current Medications Ondansetron HCl (Zofran Inj) 4 mg Q6H PRN IV NAUSEA AND/OR VOMITING Last administered on 07/07/18at 17:02; Admin Dose 4 MG; Start 06/28/18 at 01:30 Metoclopramide HCl (Reglan) 10 mg Q6 PRN IV NAUSEA AND/OR VOMITING Last administered on 07/07/18at 22:19; Admin Dose 10 MG; Start 06/28/18 at 01:30 Zolpidem Tartrate (Ambien) 5 mg HS PRN PO INSOMNIA Last administered on 07/07/18at 22:19; Admin Dose 5 MG; Start 06/29/18 at 12:00 Potassium Chloride (Klor-Con 20) 40 meq DAILY PO Last administered on 07/07/18at 08:08; Admin Dose 40 MEQ; Start 06/29/18 at 15:30 Morphine Sulfate (morphine) 6 mg Q4H PRN PO SEVERE PAIN LEVEL 7-10; Start 07/01/18 at 22:30 Pantoprazole (Protonix Tab) 40 mg BID@06,18 PO Last administered on 07/08/18at 05:25; Admin Dose 40 MG; Start 07/03/18 at 18:00 Ondansetron HCl (Zofran Odt) 4 mg AC BREAKFAST DINNER ODT Last administered on 07/08/18 08:02; Admin Dose 4 MG; Start 07/04/18 at 17:35 Hydromorphone HCl (Dilaudid) 0.5 mg Q6H PRN IV SEVERE PAIN LEVEL 7-10 Last administered on 07/08/18 06:28; Admin Dose 0.5 MG; Start 07/04/18 at 16:30 Acetaminophen (Tylenol Tab) 650 mg Q6H PRN PO MILD PAIN(1-3)OR ELEVATED TEMP Last administered on 07/05/18 22:20; Admin Dose 650 MG; Start 07/05/18 at 22:30 Diphenhydramine HCl (Benadryl) 25 mg BID PRN PO ITCHING Last administered on 07/07/18 22:19; Admin Dose 25 MG; Start 07/06/18 at 23:30 Piperacillin Sod/ Tazobactam Sod 100 ml @ 25 mls/hr Q8 IVPB Last administered on 07/08/18 05:25; Admin Dose 25 MLS/HR; Start 07/07/18 at 22:00 ADRIANA RICHARDSON Jul 08, 2018 08:32
[2018-07-08 08:46] VITALS: BP 127/78; PULSE 100; RESP 18
[2018-07-08] MEDS: POTASSIUM CHLORIDE (SR) 20 MEQ TAB PO SCH (08:53)
--- NOTE | 2018-07-08 10:06 | NUR ---
Patient alert and oriented x4, Patient IV intact and running antibiotic, denies pain at this time due to recently receiving pain medication. States she is very thirsty today and all she wants is water. Vitals signs stable and no temperature. Bed in lowest position, conducting hourly rounding, bed alarms on and call light in reach. Will continue to monitor patient.
[2018-07-08] MEDS: ACETAMINOPHEN 325 MG TAB PO PRN ×2 (10:36→18:55)
--- NOTE | 2018-07-08 14:29 | CONS ---
Assessment/Plan Assessment/Plan Assessment/Plan (Daily) Assessment/Plan (Daily) unfortunate 32 yo who has a significant alcohol history over the last year, admitted with massive hepatomegaly, splenomegaly, found to have cirrhosis. #elevated direct bilirubin/elevated LDH -these abnormalities are due to Cirrhosis of liver with portal hypertension. she is jaundiced from cirrhosis and has alcoholic hepatitis per Dr Earl thus explaining her enlarged liver, she has portal hypertension -I do not see any evidence of hemolysis #anemia of chronic disease and chronic inflammation s/p venofer she likely has anemia of chronic disease #mild coagulopathy due to liver dysfunction, if INR >2, given vit K 5 mg po x 1. check lupus anticoagulant suspect elevated PT/PTT due to synthetic dysfunction Consultation Date/Type/Reason Admit Date/Time Jun 27, 2018 at 23:57 Initial Consult Date 07/01/18 Requesting Provider: ZEB JAMES MD Date/Time of Note DATE: 07/08/18 TIME: 14:27 24 HR Interval Summary Free Text/Dictation feeling better abdominal pain is under control no nausea or vomiting Exam/Review of Systems Exam Vitals Vital Signs Date Temp Pulse Resp B/P (MAP) Pulse Ox O2 O2 Flow FiO2 Time Delivery Rate 07/08/18 98.0 100 18 127/78 98 Room Air 08:46 (94) 07/06/18 2.0 15:37 Intake and Output 07/07/18 07/07/18 07/08/18 1515:00 23:00 07:00 IntakeIntake Total 210 ml 1900 ml 800 ml BalanceBalance 210 ml 1900 ml 800 ml Constitutional: obese Psych: no complaints, nl mood/affect Head: normocephalic, atraumatic Eyes: icteric Cardiovascular: No regular rate and rhythm, No nl pulses, No bruits, No diastolic murmur, No edema, No gallop, No irregular rhythm, No jugular venous distention (JVD), No murmurs/extra sounds, No rub, No systolic murmur, No S3, No S4, No other Gastrointestinal: No soft, No nl liver, spleen, No non-tender, No ascites, No bowel sounds, No distended, No firm, No hepatomegaly, No mass, No rebound or guarding, No splenomegaly, No surgical scars, No tender, No other Extremities: normal pulses Neurological: [employer] II-XII intact, nl mental status, nl speech, nl strength Results Result Diagram: 07/07/18 0631 07/08/18 0559 Results 24hrs Laboratory Tests Test 07/08/18 05:59 Sodium Level 136 Potassium Level 4.4 Chloride Level 105 Carbon Dioxide Level 27 Anion Gap 4 L Blood Urea Nitrogen 3 L Creatinine 0.66 Est Glomerular Filtrat Rate mL/min > 60 Glucose Level 90 Calcium Level 8.9 Total Bilirubin 12.2 H Direct Bilirubin 10.20 H Indirect Bilirubin 2.0 H Aspartate Amino Transf (AST/SGOT) 124 H Alanine Aminotransferase (ALT/SGPT) 34 Alkaline Phosphatase 209 H Total Protein 7.1 Albumin 3.3 Globulin 3.80 H Albumin/Globulin Ratio 0.86 Lipase 108 Medications Medication Current Medications Ondansetron HCl (Zofran Inj) 4 mg Q6H PRN IV NAUSEA AND/OR VOMITING Last administered on 07/07/18 17:02; Admin Dose 4 MG; Start 06/28/18 at 01:30 Metoclopramide HCl (Reglan) 10 mg Q6 PRN IV NAUSEA AND/OR VOMITING Last administered on 07/07/18 22:19; Admin Dose 10 MG; Start 06/28/18 at 01:30 Zolpidem Tartrate (Ambien) 5 mg HS PRN PO INSOMNIA Last administered on 07/07/18 22:19; Admin Dose 5 MG; Start 06/29/18 at 12:00 Potassium Chloride (Klor-Con 20) 40 meq DAILY PO Last administered on 07/08/18 08:53; Admin Dose 40 MEQ; Start 06/29/18 at 15:30 Morphine Sulfate (morphine) 6 mg Q4H PRN PO SEVERE PAIN LEVEL 7-10; Start 07/01/18 at 22:30 Pantoprazole (Protonix Tab) 40 mg BID@06,18 PO Last administered on 07/08/18 05:25; Admin Dose 40 MG; Start 07/03/18 at 18:00 Ondansetron HCl (Zofran Odt) 4 mg AC BREAKFAST DINNER ODT Last administered on 07/08/18 08:02; Admin Dose 4 MG; Start 07/04/18 at 17:35 Hydromorphone HCl (Dilaudid) 0.5 mg Q6H PRN IV SEVERE PAIN LEVEL 7-10 Last administered on 07/08/18 06:28; Admin Dose 0.5 MG; Start 07/04/18 at 16:30 Acetaminophen (Tylenol Tab) 650 mg Q6H PRN PO MILD PAIN(1-3)OR ELEVATED TEMP Last administered on 07/08/18 10:36; Admin Dose 650 MG; Start 07/05/18 at 22:30 Diphenhydramine HCl (Benadryl) 25 mg BID PRN PO ITCHING Last administered on 07/07/18 22:19; Admin Dose 25 MG; Start 07/06/18 at 23:30 Piperacillin Sod/ Tazobactam Sod 100 ml @ 25 mls/hr Q8 IVPB Last administered on 07/08/18 05:25; Admin Dose 25 MLS/HR; Start 07/07/18 at 22:00 BARNEY PACHECO Jul 08, 2018 14:29
[2018-07-08 14:43] VITALS: BP 133/63; PULSE 96; RESP 18
--- NOTE | 2018-07-08 15:26 | CONS ---
Assessment/Plan Assessment/Plan Hospital Course (Demo Recall) Patient is alert feels good denies pain no fevers overnight vital signs stable. Patient is awake feels better looks comfortable no fevers overnight, no labs BUN 3 creatinine 0.66 Physical examination: Obese well-developed middle-aged white woman who is alert in no distress. Head atraumatic normocephalic sclera icteric. Neck is supple. Chest rise symmetrical, breath sounds clear. Heart: S1-S2. Abdomen obese, soft bowel sounds present extremities without cyanosis. Skin positive for jaundice Assessment: 1. Transaminitis with abdominal pain and increased bilirubin, status post ERCP with pathology being positive for budding yeast 2. Liver cirrhosis 3. Biliary stricture secondary to hepatomegaly 4. Anemia 5. Obesity Plan: Patient is clinically stable, gastroenterology on case, we will will start her on Cancidas, she may need liver biopsy Consultation Date/Type/Reason Admit Date/Time Jun 27, 2018 at 23:57 Initial Consult Date 07/01/18 Type of Consult id Requesting Provider: ZEB JAMES MD Date/Time of Note DATE: 07/08/18 TIME: 15:26 Exam/Review of Systems Exam Vitals Vital Signs Date Temp Pulse Resp B/P (MAP) Pulse Ox O2 O2 Flow FiO2 Time Delivery Rate 07/08/18 99.1 96 18 133/63 96 Room Air 14:43 (86) 07/06/18 2.0 15:37 Intake and Output 07/07/18 07/07/18 07/08/18 1515:00 23:00 07:00 IntakeIntake Total 210 ml 1900 ml 800 ml BalanceBalance 210 ml 1900 ml 800 ml Results Result Diagram: 07/07/18 0631 07/08/18 0559 Results 24hrs Laboratory Tests Test 07/08/18 05:59 Sodium Level 136 Potassium Level 4.4 Chloride Level 105 Carbon Dioxide Level 27 Anion Gap 4 L Blood Urea Nitrogen 3 L Creatinine 0.66 Est Glomerular Filtrat Rate mL/min > 60 Glucose Level 90 Calcium Level 8.9 Total Bilirubin 12.2 H Direct Bilirubin 10.20 H Indirect Bilirubin 2.0 H Aspartate Amino Transf (AST/SGOT) 124 H Alanine Aminotransferase (ALT/SGPT) 34 Alkaline Phosphatase 209 H Total Protein 7.1 Albumin 3.3 Globulin 3.80 H Albumin/Globulin Ratio 0.86 Lipase 108 Medications Medication Current Medications Ondansetron HCl (Zofran Inj) 4 mg Q6H PRN IV NAUSEA AND/OR VOMITING Last administered on 07/07/18 17:02; Admin Dose 4 MG; Start 06/28/18 at 01:30 Metoclopramide HCl (Reglan) 10 mg Q6 PRN IV NAUSEA AND/OR VOMITING Last administered on 07/07/18 22:19; Admin Dose 10 MG; Start 06/28/18 at 01:30 Zolpidem Tartrate (Ambien) 5 mg HS PRN PO INSOMNIA Last administered on 07/07/18 22:19; Admin Dose 5 MG; Start 06/29/18 at 12:00 Potassium Chloride (Klor-Con 20) 40 meq DAILY PO Last administered on 07/08/18 08:53; Admin Dose 40 MEQ; Start 06/29/18 at 15:30 Morphine Sulfate (morphine) 6 mg Q4H PRN PO SEVERE PAIN LEVEL 7-10; Start 07/01/18 at 22:30 Pantoprazole (Protonix Tab) 40 mg BID@06,18 PO Last administered on 07/08/18 05:25; Admin Dose 40 MG; Start 07/03/18 at 18:00 Ondansetron HCl (Zofran Odt) 4 mg AC BREAKFAST DINNER ODT Last administered on 07/08/18 08:02; Admin Dose 4 MG; Start 07/04/18 at 17:35 Hydromorphone HCl (Dilaudid) 0.5 mg Q6H PRN IV SEVERE PAIN LEVEL 7-10 Last administered on 07/08/18 06:28; Admin Dose 0.5 MG; Start 07/04/18 at 16:30 Acetaminophen (Tylenol Tab) 650 mg Q6H PRN PO MILD PAIN(1-3)OR ELEVATED TEMP Last administered on 07/08/18 10:36; Admin Dose 650 MG; Start 07/05/18 at 22:30 Diphenhydramine HCl (Benadryl) 25 mg BID PRN PO ITCHING Last administered on 07/07/18 22:19; Admin Dose 25 MG; Start 07/06/18 at 23:30 Piperacillin Sod/ Tazobactam Sod 100 ml @ 25 mls/hr Q8 IVPB Last administered on 2/6/19at 05:25; Admin Dose 25 MLS/HR; Start 07/07/18 at 22:00 Caspofungin 50 mg/ Sodium Chloride 250 ml @ 250 mls/hr Q24H IVPB ; Start 07/09/18 at 16:00 Caspofungin 70 mg/ Sodium Chloride 250 ml @ 250 mls/hr ONCE ONCE IVPB ; Start 07/08/18 at 16:00; Stop 07/08/18 at 16:59 DARLEEN RAMOS NP Jul 08, 2018 15:26
[2018-07-08] MEDS ORDERED: FUROSEMIDE 20 MG INJ IV ONE (15:30)
--- NOTE | 2018-07-08 15:32 | PN ---
Date/Time of Note Date/Time of Note DATE: 07/08/18 TIME: 15:29 Assessment/Plan VTE Prophylaxis Risk score (from Nsg)>0 risk: 3 SCD applied (from Nsg): No SCD contraindicated: low risk/ambulating Pharmacological prophylaxis: NA/contraindicated Pharm contraindication: low risk/ambulating Lines/Catheters IV Catheter Type (from Nrsg): Saline Lock Urinary Cath still in place: No Assessment/Plan Hospital Course 32 y/o with .1 Abdominal pain more likely due to acute pancreatitis. Vomiting and diarrhea for 3 weeks. Last 2 weeks patient was drinking 2- 4 shots of hard liquor daily. 2. Hyperbilirubinemia with elevated liver enzymes. Hepatitis panel is negative from [facility]. US of liver reveals fatty infiltration, CD is 5 mm. Records wa s reviewed form [facility]. 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 Former smoker, pt quit 6 years ago 4. hx of 2 C sections, 6 and 2 years ago 5. Obesity 6. Microcytic hypochromic anemia with thrombocytopenia. Pat. smear show anisocytosis 7. Hx of asthma Assessment/Plan -Spoke to ID Dr. Griffin and also Dr. dias pt could have very healthy a picture of alcoholic hepatitis but the pathology is positive for Yumiko which needs to be treated. ID has started the patient on IV IV caspofungin, in order for the patient to be started on steroids for alcoholic hepatitis patient needs to be free from infection> spoke to Dr. dias again will get a liver biopsy to confirm the diagnosis -PT/INR stat - montior LFT> continue to rise -DC Zosyn - alcholol cessation - iv lasix family was updated about the current situation Result Diagram: 07/07/18 0631 07/08/18 0559 Results 24hrs Laboratory Tests Test 07/08/18 05:59 Sodium Level 136 Potassium Level 4.4 Chloride Level 105 Carbon Dioxide Level 27 Anion Gap 4 L Blood Urea Nitrogen 3 L Creatinine 0.66 Est Glomerular Filtrat Rate mL/min > 60 Glucose Level 90 Calcium Level 8.9 Total Bilirubin 12.2 H Direct Bilirubin 10.20 H Indirect Bilirubin 2.0 H Aspartate Amino Transf (AST/SGOT) 124 H Alanine Aminotransferase (ALT/SGPT) 34 Alkaline Phosphatase 209 H Total Protein 7.1 Albumin 3.3 Globulin 3.80 H Albumin/Globulin Ratio 0.86 Lipase 108 Subjective 24 Hr Interval Summary Free Text/Dictation LFTs continue to rise She has noticed swelling of the lower extremities Exam/Review of Systems Exam Vitals Vital Signs Date Temp Pulse Resp B/P (MAP) Pulse Ox O2 O2 Flow FiO2 Time Delivery Rate 07/08/18 99.1 96 18 133/63 96 Room Air 14:43 (86) 07/06/18 2.0 15:37 Intake and Output 07/07/18 07/07/18 07/08/18 1515:00 23:00 07:00 IntakeIntake Total 210 ml 1900 ml 800 ml BalanceBalance 210 ml 1900 ml 800 ml Exam xam Neck: supple, scleral icterus Respiratory: clear to auscultation Cardiovascular: regular rate and rhythm Gastrointestinal: soft, hepatomegaly ++ Musculoskeletal: nl extremities to inspection Extremities: normal pulses Results Results 24hrs Laboratory Tests Test 07/08/18 05:59 Sodium Level 136 Potassium Level 4.4 Chloride Level 105 Carbon Dioxide Level 27 Anion Gap 4 L Blood Urea Nitrogen 3 L Creatinine 0.66 Est Glomerular Filtrat Rate mL/min > 60 Glucose Level 90 Calcium Level 8.9 Total Bilirubin 12.2 H Direct Bilirubin 10.20 H Indirect Bilirubin 2.0 H Aspartate Amino Transf (AST/SGOT) 124 H Alanine Aminotransferase (ALT/SGPT) 34 Alkaline Phosphatase 209 H Total Protein 7.1 Albumin 3.3 Globulin 3.80 H Albumin/Globulin Ratio 0.86 Lipase 108 Medications Medication Current Medications Ondansetron HCl (Zofran Inj) 4 mg Q6H PRN IV NAUSEA AND/OR VOMITING Last administered on 07/07/18 17:02; Admin Dose 4 MG; Start 06/28/18 at 01:30 Metoclopramide HCl (Reglan) 10 mg Q6 PRN IV NAUSEA AND/OR VOMITING Last administered on 07/07/18 22:19; Admin Dose 10 MG; Start 06/28/18 at 01:30 Zolpidem Tartrate (Ambien) 5 mg HS PRN PO INSOMNIA Last administered on 07/07/18 22:19; Admin Dose 5 MG; Start 06/29/18 at 12:00 Potassium Chloride (Klor-Con 20) 40 meq DAILY PO Last administered on 07/08/18 08:53; Admin Dose 40 MEQ; Start 06/29/18 at 15:30 Morphine Sulfate (morphine) 6 mg Q4H PRN PO SEVERE PAIN LEVEL 7-10; Start 07/01/18 at 22:30 Pantoprazole (Protonix Tab) 40 mg BID@06,18 PO Last administered on 07/08/18 05:25; Admin Dose 40 MG; Start 07/03/18 at 18:00 Ondansetron HCl (Zofran Odt) 4 mg AC BREAKFAST DINNER ODT Last administered on 07/08/18 08:02; Admin Dose 4 MG; Start 07/04/18 at 17:35 Hydromorphone HCl (Dilaudid) 0.5 mg Q6H PRN IV SEVERE PAIN LEVEL 7-10 Last administered on 07/08/18 06:28; Admin Dose 0.5 MG; Start 07/04/18 at 16:30 Acetaminophen (Tylenol Tab) 650 mg Q6H PRN PO MILD PAIN(1-3)OR ELEVATED TEMP Last administered on 07/08/18 10:36; Admin Dose 650 MG; Start 07/05/18 at 22:30 Diphenhydramine HCl (Benadryl) 25 mg BID PRN PO ITCHING Last administered on 07/07/18 22:19; Admin Dose 25 MG; Start 07/06/18 at 23:30 Piperacillin Sod/ Tazobactam Sod 100 ml @ 25 mls/hr Q8 IVPB Last administered on 07/08/18 05:25; Admin Dose 25 MLS/HR; Start 07/07/18 at 22:00 Caspofungin 50 mg/ Sodium Chloride 250 ml @ 250 mls/hr Q24H IVPB ; Start 07/09/18 at 16:00 Caspofungin 70 mg/ Sodium Chloride 250 ml @ 250 mls/hr ONCE ONCE IVPB ; Start 07/08/18 at 16:00; Stop 07/08/18 at 16:59 Furosemide (Lasix) 20 mg ONCE ONCE IV ; Start 07/08/18 at 15:30; Stop 07/08/18 at 15:31; Status ZEB MONET MD Jul 08, 2018 15:32
[2018-07-08] MEDS ORDERED: CASPOFUNGIN 70 MG in SOD CHLORIDE 0.9% 250 ML IVPB ONE (16:00)
--- NOTE | 2018-07-08 18:49 | PN ---
Date/Time of Note Date/Time of Note DATE: 07/08/18 TIME: 18:47 Assessment/Plan Lines/Catheters IV C[facility]ter Type (from [facility] Saline Lock Elias in Place (from [facility]): No Assessment/Plan Chief Complaint/Hosp Course 1. 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 +Yumiko started on antifungals. -liver biopsy per GI recs pending -no surgical intervention recommended at this time -encourage etoh cessation -trend labs -limit hepatotoxins -Hepatic optimization per GI > steroids on hold till infection treated 2. Transaminitis and hyperbilirubinemia 2nd above -as above 3. Abdominal pain: Improved -pain mgt 4. Macrocytic hypochromic anemia: likely 2/2 liver disease -monitor &tx as needed 5. Severe obesity BMI: 38 -diet and exercise optimization -encourage weight loss Thank you, Subjective 24 Hr Interval Summary +Yumiko on antifungals. Liver bx pending. Feels well. Mid abdominal discomfort. No fevers, chills, sob, congested cough, cp, palpitations, arora, dizziness, nausea, vomiting, diarrhea, dysuria. Exam/Review of Systems Vital Signs Vitals Vital Signs Date Temp Pulse Resp B/P (MAP) Pulse Ox O2 O2 Flow FiO2 Time Delivery Rate 07/08/18 99.1 96 18 133/63 96 Room Air 14:43 (86) 07/06/18 2.0 15:37 Intake and Output 07/07/18 07/07/18 07/08/18 1515:00 23:00 07:00 IntakeIntake Total 210 ml 1900 ml 800 ml BalanceBalance 210 ml 1900 ml 800 ml Exam Free Text/Dictation Constitutional: alert, oriented Psych: nl mood/affect, anxiety (min) Head: normocephalic, atraumatic Eyes: nl conjunctiva, EOMI, nl lids, sclera icterus ENMT: nl external ears & nose, nl lips & teeth, nl nasal mucosa & septum, mucosa pink and moist Neck: supple, non-tender Respiratory: normal air movement; No congested cough, No labored breathing Cardiovascular: regular rate and rhythm, nl pulses; No edema Gastrointestinal: soft, tender (mid abdominal) Genitourinary - Female: nl external genitalia Musculoskeletal: nl extremities to inspection, nl gait and stance Extremities: normal pulses Neurological: nl mental status, nl speech, nl strength Skin: other (mid abdominal min bruising); jaundice No rash or lesions Results Result Diagram: 07/07/18 0631 07/08/18 0559 ESTEE BINGHAM MD Jul 08, 2018 18:49
[2018-07-08] MEDS: METOCLOPRAMIDE 10 MG INJ IV PRN (18:54)
[2018-07-08 19:36] VITALS: BP 112/62; PULSE 93; RESP 20
--- NOTE | 2018-07-08 19:40 | NUR ---
Patient with PT of 17.2 and INR of 1.3. Notified Dr. Dudley, media liaison officer MD for Dr. Jones regarding lab value. Reminded MD that patient was undergoing liver biopsy tomorrow. Received orders to administer 10 mg of Vitamin K SQ ONCE this shift.
[2018-07-08] MEDS ORDERED: PHYTONADIONE 10 MG/ML INJ SC ONE (20:30)
[2018-07-08] MEDS: DIPHENHYDRAMINE 25 MG CAP PO PRN (22:21)
[2018-07-08] MEDS: ZOLPIDEM 5 MG TAB PO PRN (22:21)
[2018-07-09 01:58] VITALS: BP 101/59; PULSE 89; RESP 18
[2018-07-09] MEDS: ONDANSETRON 4 MG INJ IV PRN (05:14)
[2018-07-09] MEDS: PANTOPRAZOLE (EC) 40 MG TAB PO SCH ×2 (05:18→17:38)
--- NOTE | 2018-07-09 06:08 | NUR ---
Patient in room asleep with no signs of distress. Vital signs stable. Patient denying pain. Patient complained of nausea and itchiness x1 this shift. Administered Benadryl and Zofran per MD order. Patient denied discomfort thereafter. Patient currently NPO for liver biopsy scheduled for today. Consent in chart. No other changes otherwise noted. All needs met and medications administered per MD order. Patient turned every 2 hours and OOB this shift. Safety precautions and hourly rounding currently in place until change of shift.
[2018-07-09] MEDS: ONDANSETRON (ODT) 4 MG TAB ODT SCH ×2 (07:30→17:38)
[2018-07-09 07:53] VITALS: BP 119/65; PULSE 89; RESP 18
--- NOTE | 2018-07-09 07:57 | CONS ---
Assessment/Plan Assessment/Plan Hospital Course (Demo Recall) 32 yo with persistent biliary colicky pain and increasing bilirubin 1. Abdominal pain, persistent, biliary colicky and increasing bilirubin -t bili is slightly down today -s/p ERCP x 2 -RUQ 2. 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 -autoimmune serologies -Hep panel 3. Hepatosplenomegaly secondary to #2 4. Overweight. 5. Progressive jaundice secondary to #2 6. Biliary stricture secondary to hepatomegaly 7. Transaminitis with elevated bili which is trending up secondary to hepatomegaly. 8. Fevers, low grade without leukocytosis, patient is on Zosyn 9. Anemia, acute 10. Diarrhea improved 11. N/V resolved Maddrey discriminant function is 85.34 Plan: Liver biopsy today Autoimmune serologies Hep panel AFP INR and CMP in am Promote oral hydration Discussed with patient alcohol cessation Pt examined and plan of care discussed with Dr. Earl Consultation Date/Type/Reason Admit Date/Time Jun 27, 2018 at 23:57 Initial Consult Date 07/01/18 Requesting Provider: ZEB JAMES MD Date/Time of Note DATE: 07/09/18 TIME: 07:54 24 HR Interval Summary Free Text/Dictation Intermittent RUQ pain. Improved. No N/V. Tolerating PO diet but NPO for procedure. Exam/Review of Systems Exam Vitals Vital Signs Date Temp Pulse Resp B/P (MAP) Pulse Ox O2 O2 Flow FiO2 Time Delivery Rate 07/09/18 98.6 89 18 119/65 96 Room Air 07:53 (83) 07/06/18 2.0 15:37 Intake and Output 07/08/18 07/08/18 07/09/18 1515:00 23:00 07:00 IntakeIntake Total 1220 ml 250 ml BalanceBalance 1220 ml 250 ml Constitutional: alert, oriented Psych: no complaints Head: normocephalic Eyes: PERRL, icteric Respiratory: clear to auscultation Cardiovascular: regular rate and rhythm Gastrointestinal: soft, non-tender Musculoskeletal: nl gait and stance Neurological: nl mental status, nl speech Results Result Diagram: 07/07/18 0631 07/09/18 0600 Results 24hrs Laboratory Tests Test 07/08/18 15:45 07/09/18 06:00 Prothrombin Time 17.2 H 16.9 H Prothrombin Time Ratio 1.3 1.3 INR International Normalized Ratio 1.39 1.36 Sodium Level 140 Potassium Level 4.0 Chloride Level 104 Carbon Dioxide Level 26 Anion Gap 10 # Blood Urea Nitrogen 4 L Creatinine 0.66 Est Glomerular Filtrat Rate mL/min > 60 Glucose Level 96 Calcium Level 9.0 Phosphorus Level 3.3 Magnesium Level 2.3 Total Bilirubin 11.5 H Direct Bilirubin 9.70 H Indirect Bilirubin 1.8 H Aspartate Amino Transf (AST/SGOT) 128 H Alanine Aminotransferase (ALT/SGPT) 31 Alkaline Phosphatase 228 H Total Protein 6.6 Albumin 3.2 L Globulin 3.40 H Albumin/Globulin Ratio 0.94 Medications Medication Current Medications Ondansetron HCl (Zofran Inj) 4 mg Q6H PRN IV NAUSEA AND/OR VOMITING Last administered on 07/09/18 05:14; Admin Dose 4 MG; Start 06/28/18 at 01:30 Metoclopramide HCl (Reglan) 10 mg Q6 PRN IV NAUSEA AND/OR VOMITING Last administered on 07/08/18 18:54; Admin Dose 10 MG; Start 06/28/18 at 01:30 Zolpidem Tartrate (Ambien) 5 mg HS PRN PO INSOMNIA Last administered on 07/08/18 22:21; Admin Dose 5 MG; Start 06/29/18 at 12:00 Potassium Chloride (Klor-Con 20) 40 meq DAILY PO Last administered on 07/08/18 08:53; Admin Dose 40 MEQ; Start 06/29/18 at 15:30 Morphine Sulfate (morphine) 6 mg Q4H PRN PO SEVERE PAIN LEVEL 7-10; Start 07/01/18 at 22:30 Pantoprazole (Protonix Tab) 40 mg BID@06,18 PO Last administered on 07/08/18 17:13; Admin Dose 40 MG; Start 07/03/18 at 18:00 Ondansetron HCl (Zofran Odt) 4 mg AC BREAKFAST DINNER ODT Last administered on 07/08/18 17:13; Admin Dose 4 MG; Start 07/04/18 at 17:35 Hydromorphone HCl (Dilaudid) 0.5 mg Q6H PRN IV SEVERE PAIN LEVEL 7-10 Last administered on 07/08/18 06:28; Admin Dose 0.5 MG; Start 07/04/18 at 16:30 Acetaminophen (Tylenol Tab) 650 mg Q6H PRN PO MILD PAIN(1-3)OR ELEVATED TEMP Last administered on 07/08/18at 18:55; Admin Dose 650 MG; Start 07/05/18 at 22:30 Diphenhydramine HCl (Benadryl) 25 mg BID PRN PO ITCHING Last administered on 07/08/18at 22:21; Admin Dose 25 MG; Start 07/06/18 at 23:30 Caspofungin 50 mg/ Sodium Chloride 250 ml @ 250 mls/hr Q24H IVPB ; Start 07/09/18 at 16:00 ADRIANA RICHARDSON Jul 09, 2018 07:57
[2018-07-09] MEDS: POTASSIUM CHLORIDE (SR) 20 MEQ TAB PO SCH (09:00)
--- NOTE | 2018-07-09 10:56 | PN ---
Date/Time of Note Date/Time of Note DATE: 07/09/18 TIME: 10:53 Assessment/Plan Lines/Catheters IV Catheter Type (from [facility] [place]): Saline Lock Elias in Place (from [facility] [place]): No Assessment/Plan Chief Complaint/Hosp Course 1. 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 +Yumiko started on antifungals. -liver biopsy per GI recs pending today -no surgical intervention recommended at this time -encourage etoh cessation -trend labs -limit hepatotoxins -Hepatic optimization per GI > steroids on hold till infection treated 2. Transaminitis and hyperbilirubinemia 2nd above -as above 3. Abdominal pain: Improved -pain mgt 4. Macrocytic hypochromic anemia: likely 2/2 liver disease -monitor & tx as needed 5. Severe obesity BMI: 38 -diet and exercise optimization -encourage weight loss Thank you. Patient seen and examined in collaboration with Dr. Mannie Bailey. Subjective 24 Hr Interval Summary Feels well. No abdominal pain. Tenderness improved. Bili improved. No fevers, chills, sob, congested cough, cp, palpitations, arora, dizziness, n/v/d/dysuria. Exam/Review of Systems Vital Signs Vitals Vital Signs Date Temp Pulse Resp B/P (MAP) Pulse Ox O2 O2 Flow FiO2 Time Delivery Rate 07/09/18 98.6 89 18 119/65 96 Room Air 07:53 (83) 07/06/18 2.0 15:37 Intake and Output 07/08/18 07/08/18 07/09/18 1515:00 23:00 07:00 IntakeIntake Total 1220 ml 250 ml BalanceBalance 1220 ml 250 ml Exam Free Text/Dictation Constitutional: alert, oriented Psych: nl mood/affect, anxiety (min) Head: normocephalic, atraumatic Eyes: nl conjunctiva, EOMI, nl lids, sclera icterus ENMT: nl external ears & nose, nl lips & teeth, nl nasal mucosa & septum, mucosa pink and moist Neck: supple, non-tender Respiratory: normal air movement; No congested cough, No labored breathing Cardiovascular: regular rate and rhythm, nl pulses; No edema Gastrointestinal: soft, tender (improved) Genitourinary - Female: nl external genitalia Musculoskeletal: nl extremities to inspection, nl gait and stance Extremities: normal pulses Neurological: nl mental status, nl speech, nl strength Skin: jaundice No rash or lesions Results Result Diagram: 07/07/1831 07/09/18 0600 AARON FREGOSO NP Jul 09, 2018 10:56
[2018-07-09] MEDS: METOCLOPRAMIDE 10 MG INJ IV PRN ×2 (12:48→22:39)
--- NOTE | 2018-07-09 13:40 | NUR ---
Patient had an episode of diarrhea with red blood. Pt states she has history of hemorhoids but is scared it can be more. Placed hat to collect sample if happens again. Notified Dr. Jones and waiting for further orders. Addendum: 07/09/18 at 1349 by PAM GOMES RN Per Dr. Jones continue to monitor patient and will assess when she sees patient later today. Addendum: 07/09/18 at 1717 by PAM GOMES RN Dr. Jones assessed patient and blood. States blood caused by hemorrhoids.
[2018-07-09 13:45] VITALS: BP 120/67; PULSE 87; RESP 18
--- NOTE | 2018-07-09 14:00 | CONS ---
Assessment/Plan Assessment/Plan Hospital Course (Demo Recall) Patient is alert feels slightly better still with nausea no fevers overnight. She was started on Cancidas yesterday Physical examination: Obese well-developed middle-aged white woman who is alert in no distress. Head atraumatic normocephalic sclera icteric. Neck is supple. Chest rise symmetrical, breath sounds clear. Heart: S1-S2. Abdomen obese, soft bowel sounds present extremities without cyanosis. Skin positive for jaundice Assessment: 1. 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 Liver cirrhosis 3. Anemia 4. Obesity Plan: Stable, continue on antifungal therapy, follow GI and surgical recommen dations Consultation Date/Type/Reason Admit Date/Time Jun 27, 2018 at 23:57 Initial Consult Date 07/01/18 Type of Consult id Requesting Provider: ZEB JAMES MD Date/Time of Note DATE: 07/09/18 TIME: 13:58 Exam/Review of Systems Exam Vitals Vital Signs Date Temp Pulse Resp B/P (MAP) Pulse Ox O2 O2 Flow FiO2 Time Delivery Rate 07/09/18 98.6 89 18 119/65 96 Room Air 07:53 (83) 07/06/18 2.0 15:37 Intake and Output 07/08/18 07/08/18 07/09/18 1515:00 23:00 07:00 IntakeIntake Total 1220 ml 250 ml BalanceBalance 1220 ml 250 ml Results Result Diagram: 07/07/18 0631 07/09/18 0600 Results 24hrs Laboratory Tests Test 07/08/18 15:45 07/09/18 06:00 07/09/18 08:28 Prothrombin Time 17.2 H 16.9 H Prothrombin Time Ratio 1.3 1.3 INR International Normalized Ratio 1.39 1.36 Sodium Level 140 Potassium Level 4.0 Chloride Level 104 Carbon Dioxide Level 26 Anion Gap 10 # Blood Urea Nitrogen 4 L Creatinine 0.66 Est Glomerular Filtrat Rate mL/min > 60 Glucose Level 96 Calcium Level 9.0 Phosphorus Level 3.3 Magnesium Level 2.3 Total Bilirubin 11.5 H Direct Bilirubin 9.70 H Indirect Bilirubin 1.8 H Aspartate Amino Transf (AST/SGOT) 128 H Alanine Aminotransferase (ALT/SGPT) 31 Alkaline Phosphatase 228 H Total Protein 6.6 Albumin 3.2 L Globulin 3.40 H Albumin/Globulin Ratio 0.94 Alpha Fetoprotein 1.56 Hepatitis B Surface Antigen NEGATIVE Hepatitis B Core Total Antibody NEGATIVE Hepatitis C Antibody NEGATIVE Medications Medication Current Medications Ondansetron HCl (Zofran Inj) 4 mg Q6H PRN IV NAUSEA AND/OR VOMITING Last administered on 07/09/18 05:14; Admin Dose 4 MG; Start 06/28/18 at 01:30 Metoclopramide HCl (Reglan) 10 mg Q6 PRN IV NAUSEA AND/OR VOMITING Last administered on 07/09/18 12:48; Admin Dose 10 MG; Start 06/28/18 at 01:30 Zolpidem Tartrate (Ambien) 5 mg HS PRN PO INSOMNIA Last administered on 07/08/18 22:21; Admin Dose 5 MG; Start 06/29/18 at 12:00 Potassium Chloride (Klor-Con 20) 40 meq DAILY PO Last administered on 07/08/18 08:53; Admin Dose 40 MEQ; Start 06/29/18 at 15:30 Morphine Sulfate (morphine) 6 mg Q4H PRN PO SEVERE PAIN LEVEL 7-10; Start 07/01/18 at 22:30 Pantoprazole (Protonix Tab) 40 mg BID@06,18 PO Last administered on 07/08/18 17:13; Admin Dose 40 MG; Start 07/03/18 at 18:00 Ondansetron HCl (Zofran Odt) 4 mg AC BREAKFAST DINNER ODT Last administered on 07/08/18 17:13; Admin Dose 4 MG; Start 07/04/18 at 17:35 Hydromorphone HCl (Dilaudid) 0.5 mg Q6H PRN IV SEVERE PAIN LEVEL 7-10 Last administered on 07/08/18 06:28; Admin Dose 0.5 MG; Start 07/04/18 at 16:30 Acetaminophen (Tylenol Tab) 650 mg Q6H PRN PO MILD PAIN(1-3)OR ELEVATED TEMP Last administered on 07/08/18 18:55; Admin Dose 650 MG; Start 07/05/18 at 22:30 Diphenhydramine HCl (Benadryl) 25 mg BID PRN PO ITCHING Last administered on 07/08/18 22:21; Admin Dose 25 MG; Start 07/06/18 at 23:30 Caspofungin 50 mg/ Sodium Chloride 250 ml @ 250 mls/hr Q24H IVPB ; Start 07/09/18 at 16:00 DARLEEN RAMOS NP Jul 09, 2018 14:00
--- NOTE | 2018-07-09 15:01 | PN ---
Date/Time of Note Date/Time of Note DATE: 07/09/18 TIME: 15:01 Assessment/Plan VTE Prophylaxis Risk score (from Nsg)>0 risk: 3 SCD applied (from Nsg): No SCD contraindicated: low risk/ambulating Pharmacological prophylaxis: NA/contraindicated Pharm contraindication: low risk/ambulating Lines/Catheters IV Catheter Type (from Nrsg): Saline Lock Urinary Cath still in place: No Assessment/Plan Hospital Course 32 y/o with .1 Abdominal pain more likely due to acute pancreatitis. Vomiting and diarrhea for 3 weeks. Last 2 weeks patient was drinking 2- 4 shots of hard liquor daily. 2. Hyperbilirubinemia with elevated liver enzymes. Hepatitis panel is negative from [place]. US of liver reveals fatty infiltration, CD is 5 mm. Records wa s reviewed form [facility]. 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 Former smoker, pt quit 6 years ago 4. hx of 2 C sections, 6 and 2 years ago 5. Obesity 6. Microcytic hypochromic anemia with thrombocytopenia. Pat. smear show anisocytosis 7. Hx of asthma Assessment/Plan -s/p liver biopsy today - brbpr? hemorrhoids> recehck hb> GI NOTIFIED - montior LFT> slight better today - cw caspofungin - alcholol cessation - iv lasix Result Diagram: 07/07/18 0631 07/09/18 0600 Results 24hrs Laboratory Tests Test 07/08/18 15:45 07/09/18 06:00 07/09/18 08:28 Prothrombin Time 17.2 H 16.9 H Prothrombin Time Ratio 1.3 1.3 INR International Normalized Ratio 1.39 1.36 Sodium Level 140 Potassium Level 4.0 Chloride Level 104 Carbon Dioxide Level 26 Anion Gap 10 # Blood Urea Nitrogen 4 L Creatinine 0.66 Est Glomerular Filtrat Rate mL/min > 60 Glucose Level 96 Calcium Level 9.0 Phosphorus Level 3.3 Magnesium Level 2.3 Total Bilirubin 11.5 H Direct Bilirubin 9.70 H Indirect Bilirubin 1.8 H Aspartate Amino Transf (AST/SGOT) 128 H Alanine Aminotransferase (ALT/SGPT) 31 Alkaline Phosphatase 228 H Total Protein 6.6 Albumin 3.2 L Globulin 3.40 H Albumin/Globulin Ratio 0.94 Alpha Fetoprotein 1.56 Hepatitis B Surface Antigen NEGATIVE Hepatitis B Core Total Antibody NEGATIVE Hepatitis C Antibody NEGATIVE Subjective 24 Hr Interval Summary Free Text/Dictation npted to have bright red blood per rectum ? haemorrhoids s/p biopsy today Exam/Review of Systems Exam Vitals Vital Signs Date Temp Pulse Resp B/P (MAP) Pulse Ox O2 O2 Flow FiO2 Time Delivery Rate 07/09/18 98.6 89 18 119/65 96 Room Air 07:53 (83) 07/06/18 2.0 15:37 Intake and Output 07/08/18 07/08/18 07/09/18 1515:00 23:00 07:00 IntakeIntake Total 1220 ml 250 ml BalanceBalance 1220 ml 250 ml Exam xam Neck: supple, scleral icterus Respiratory: clear to auscultation Cardiovascular: regular rate and rhythm Gastrointestinal: soft, hepatomegaly ++ Musculoskeletal: nl extremities to inspection Extremities: normal pulses Results Results 24hrs Laboratory Tests Test 07/08/18 15:45 07/09/18 06:00 07/09/18 08:28 Prothrombin Time 17.2 H 16.9 H Prothrombin Time Ratio 1.3 1.3 INR International Normalized Ratio 1.39 1.36 Sodium Level 140 Potassium Level 4.0 Chloride Level 104 Carbon Dioxide Level 26 Anion Gap 10 # Blood Urea Nitrogen 4 L Creatinine 0.66 Est Glomerular Filtrat Rate mL/min > 60 Glucose Level 96 Calcium Level 9.0 Phosphorus Level 3.3 Magnesium Level 2.3 Total Bilirubin 11.5 H Direct Bilirubin 9.70 H Indirect Bilirubin 1.8 H Aspartate Amino Transf (AST/SGOT) 128 H Alanine Aminotransferase (ALT/SGPT) 31 Alkaline Phosphatase 228 H Total Protein 6.6 Albumin 3.2 L Globulin 3.40 H Albumin/Globulin Ratio 0.94 Alpha Fetoprotein 1.56 Hepatitis B Surface Antigen NEGATIVE Hepatitis B Core Total Antibody NEGATIVE Hepatitis C Antibody NEGATIVE Medications Medication Current Medications Ondansetron HCl (Zofran Inj) 4 mg Q6H PRN IV NAUSEA AND/OR VOMITING Last administered on 07/09/18at 05:14; Admin Dose 4 MG; Start 06/28/18 at 01:30 Metoclopramide HCl (Reglan) 10 mg Q6 PRN IV NAUSEA AND/OR VOMITING Last administered on 07/09/18 12:48; Admin Dose 10 MG; Start 06/28/18 at 01:30 Zolpidem Tartrate (Ambien) 5 mg HS PRN PO INSOMNIA Last administered on 07/08/18 22:21; Admin Dose 5 MG; Start 06/29/18 at 12:00 Potassium Chloride (Klor-Con 20) 40 meq DAILY PO Last administered on 07/08/18 08:53; Admin Dose 40 MEQ; Start 06/29/18 at 15:30 Morphine Sulfate (morphine) 6 mg Q4H PRN PO SEVERE PAIN LEVEL 7-10; Start 07/01/18 at 22:30 Pantoprazole (Protonix Tab) 40 mg BID@06,18 PO Last administered on 07/08/18 17:13; Admin Dose 40 MG; Start 07/03/18 at 18:00 Ondansetron HCl (Zofran Odt) 4 mg AC BREAKFAST DINNER ODT Last administered on 07/08/18 17:13; Admin Dose 4 MG; Start 07/04/18 at 17:35 Hydromorphone HCl (Dilaudid) 0.5 mg Q6H PRN IV SEVERE PAIN LEVEL 7-10 Last administered on 07/08/18 06:28; Admin Dose 0.5 MG; Start 07/04/18 at 16:30 Acetaminophen (Tylenol Tab) 650 mg Q6H PRN PO MILD PAIN(1-3)OR ELEVATED TEMP Last administered on 07/08/18 18:55; Admin Dose 650 MG; Start 07/05/18 at 22:30 Diphenhydramine HCl (Benadryl) 25 mg BID PRN PO ITCHING Last administered on 07/08/18 22:21; Admin Dose 25 MG; Start 07/06/18 at 23:30 Caspofungin 50 mg/ Sodium Chloride 250 ml @ 250 mls/hr Q24H IVPB ; Start 07/09/18 at 16:00 ZEB JAMES MD Jul 09, 2018 15:01
[2018-07-09] MEDS ORDERED: LIDOCAINE 2% (SDV) 5 ML INJ ONE (15:25)
[2018-07-09] MEDS: CASPOFUNGIN 50 MG in SOD CHLORIDE 0.9% 250 ML IVPB SCH (16:33)
--- NOTE | 2018-07-09 17:36 | HPN ---
Date/Time of Note Date/Time of Note DATE: 07/09/18 TIME: 17:36 Interval H&P Admission Note Pt. seen H&P reviewed: No system changes LORENA CASTILLO MD Jul 09, 2018 17:36
[2018-07-09] MEDS: IBUPROFEN 400 MG TAB PO PRN (17:39)
[2018-07-09 21:09] VITALS: BP 125/72; PULSE 91; RESP 20
[2018-07-09] MEDS: ZOLPIDEM 5 MG TAB PO PRN (23:27)
[2018-07-09] MEDS: DIPHENHYDRAMINE 25 MG CAP PO PRN (23:27)
[2018-07-10 02:19] VITALS: BP 110/59; PULSE 79; RESP 18
[2018-07-10] MEDS: IBUPROFEN 400 MG TAB PO PRN ×3 (04:39→17:40)
[2018-07-10] MEDS: ONDANSETRON 4 MG INJ IV PRN ×2 (04:39→21:10)
[2018-07-10] MEDS: PANTOPRAZOLE (EC) 40 MG TAB PO SCH ×2 (05:34→17:38)
--- NOTE | 2018-07-10 05:48 | NUR ---
Patient is alert and oriented x4, motrin administered x1 for pain. Patient complained of nausea, reglan administered x1. Patient did not complain of diarrhea or blood in stool. Per ARON Browning Dr. is aware, no need to collect stool. Hourly rounding provided, call light within reach. Will continue to monitor for the remaining of the shift.
[2018-07-10 08:47] VITALS: BP 125/64; PULSE 92; RESP 20
[2018-07-10] MEDS: ONDANSETRON (ODT) 4 MG TAB ODT SCH ×2 (09:03→17:38)
[2018-07-10] MEDS: POTASSIUM CHLORIDE (SR) 20 MEQ TAB PO SCH (09:03)
--- NOTE | 2018-07-10 10:05 | CONS ---
Assessment/Plan Assessment/Plan Hospital Course (Demo Recall) 32 yo with persistent biliary colicky pain and increasing bilirubin 1. Abdominal pain, persistent, biliary colicky and increasing bilirubin -t bili is slightly down today -s/p ERCP x 2 -RUQ 2. 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 -autoimmune serologies -Hep panel neg 3. Hepatosplenomegaly secondary to #2 4. Overweight. 5. Progressive jaundice secondary to #2 6. Biliary stricture secondary to hepatomegaly 7. Transaminitis with elevated bili which is trending up secondary to hepatomegaly. 8. Fevers, low grade without leukocytosis, patient is on Zosyn 9. Anemia, acute 10. Diarrhea improved 11. N/V resolved 12. Biopsy positive for budding yeast -on anti fungal 13. One episode of hematochezia likely due to hemorrhoids - will monitor closely 14. Coagulopathy -improving Biopsy of bile duct results: Common bile duct biopsy: -- Fragment of mucoid and purulent exudate containing PAS positive budding yeast and pseudohyphae compatible with lacie species fungal organisms (positive PAS Light Green concurrently reviewed). -- There are a few cytologically bland cuboidal epithelial cells but no tissue fragments are present. -- There is no evidence of malignancy. Maddrey discriminant function is 85.34 Plan: Liver biopsy results pending Autoimmune serologies pending Hep panel negative so far Promote oral hydration Discussed with patient alcohol cessation Pt examined and plan of care discussed with Dr. Earl Consultation Date/Type/Reason Admit Date/Time Jun 27, 2018 at 23:57 Initial Consult Date 07/01/18 Requesting Provider: ZEB JAMES MD Date/Time of Note DATE: 07/10/18 TIME: 09:57 24 HR Interval Summary Free Text/Dictation Pt states she feels much better. Sleeping at night. Intermittent pain in RUQ. diarrhea resolved. Pt had one episode of blood in stool yesterday. She has hemorrhoids. HH has been stable. Exam/Review of Systems Exam Vitals Vital Signs Date Temp Pulse Resp B/P (MAP) Pulse Ox O2 O2 Flow FiO2 Time Delivery Rate 07/10/18 98.1 92 20 125/64 96 Room Air 08:47 (84) 07/06/18 2.0 15:37 Intake and Output 07/09/18 07/09/18 07/10/18 1515:00 23:00 07:00 IntakeIntake Total 550 ml 250 ml OutputOutput Total 400 ml BalanceBalance -400 ml 550 ml 250 ml Constitutional: alert, oriented Psych: no complaints Eyes: PERRL, icteric Gastrointestinal: soft, non-tender Musculoskeletal: nl gait and stance Extremities: normal pulses Neurological: nl mental status, nl speech Results Result Diagram: 07/10/18 0439 07/10/18 0439 Results 24hrs Laboratory Tests Test 07/09/18 18:13 07/10/18 04:39 Hemoglobin 9.4 L 9.5 L Hematocrit 30.0 L 30.2 L White Blood Count 13.9 #H Red Blood Count 3.57 L Mean Corpuscular Volume 84.6 Mean Corpuscular Hemoglobin 26.6 L Mean Corpuscular Hemoglobin Concent 31.5 L Red Cell Distribution Width 31.2 H Platelet Count 292 # Mean Platelet Volume 11.3 H Immature Granulocytes % 2.200 H Neutrophils % Segmented Neutrophils % (Manual) 69 Band Neutrophils % (Manual) 15 H Lymphocytes % Lymphocytes % (Manual) 11 L Monocytes % Monocytes % (Manual) 3 Eosinophils % Eosinophils % (Manual) 2 Basophils % Nucleated Red Blood Cells % 1 H Immature Granulocytes # 0.310 H Neutrophils # Neutrophils # (Manual) 9.9 H Band Neutrophils # 2.0 H Lymphocytes (Manual) 1.5 Lymphocytes # Monocytes # Monocytes # (Manual) 0.4 Eosinophils # Basophils # Nucleated Red Blood Cells # Platelet Estimate NORMAL Polychromasia 3+ Hypochromasia 3+ Poikilocytosis 1+ Anisocytosis 2+ Macrocytosis 2+ Target Cells 1+ Ovalocytes 1+ Prothrombin Time 15.7 H Prothrombin Time Ratio 1.2 INR International Normalized Ratio 1.24 Sodium Level 137 Potassium Level 3.7 Chloride Level 101 Carbon Dioxide Level 28 Anion Gap 8 Blood Urea Nitrogen 4 L Creatinine 0.70 Est Glomerular Filtrat Rate mL/min > 60 Glucose Level 87 Calcium Level 9.1 Phosphorus Level 3.8 Magnesium Level 2.3 Total Bilirubin 11.5 H Direct Bilirubin 9.70 H Indirect Bilirubin 1.8 H Aspartate Amino Transf (AST/SGOT) 131 H Alanine Aminotransferase (ALT/SGPT) 36 Alkaline Phosphatase 248 H Total Protein 6.9 Albumin 3.2 L Globulin 3.70 H Albumin/Globulin Ratio 0.86 Medications Medication Current Medications Ondansetron HCl (Zofran Inj) 4 mg Q6H PRN IV NAUSEA AND/OR VOMITING Last administered on 07/10/18 04:39; Admin Dose 4 MG; Start 06/28/18 at 01:30 Metoclopramide HCl (Reglan) 10 mg Q6 PRN IV NAUSEA AND/OR VOMITING Last administered on 07/09/18 22:39; Admin Dose 10 MG; Start 06/28/18 at 01:30 Zolpidem Tartrate (Ambien) 5 mg HS PRN PO INSOMNIA Last administered on 07/09/18 23:27; Admin Dose 5 MG; Start 06/29/18 at 12:00 Potassium Chloride (Klor-Con 20) 40 meq DAILY PO Last administered on 07/10/18 09:03; Admin Dose 40 MEQ; Start 06/29/18 at 15:30 Morphine Sulfate (morphine) 6 mg Q4H PRN PO SEVERE PAIN LEVEL 7-10; Start 07/01/18 at 22:30 Pantoprazole (Protonix Tab) 40 mg BID@06,18 PO Last administered on 07/10/18 05:34; Admin Dose 40 MG; Start 07/03/18 at 18:00 Ondansetron HCl (Zofran Odt) 4 mg AC BREAKFAST DINNER ODT Last administered on 07/10/18 09:03; Admin Dose 4 MG; Start 07/04/18 at 17:35 Hydromorphone HCl (Dilaudid) 0.5 mg Q6H PRN IV SEVERE PAIN LEVEL 7-10 Last administered on 07/08/18 06:28; Admin Dose 0.5 MG; Start 07/04/18 at 16:30 Diphenhydramine HCl (Benadryl) 25 mg BID PRN PO ITCHING Last administered on 07/09/18 23:27; Admin Dose 25 MG; Start 07/06/18 at 23:30 Caspofungin 50 mg/ Sodium Chloride 250 ml @ 250 mls/hr Q24H IVPB Last administered on 07/09/18 16:33; Admin Dose 250 MLS/HR; Start 07/09/18 at 16:00 Ibuprofen (Motrin) 400 mg Q6 PRN PO PAIN Last administered on 07/10/18 04:39; Admin Dose 400 MG; Start 07/09/18 at 17:00 ADRIANA RICHARDSON Jul 10, 2018 10:05
--- NOTE | 2018-07-10 10:17 | PN ---
Date/Time of Note Date/Time of Note DATE: 07/10/18 TIME: 10:12 Assessment/Plan VTE Prophylaxis Risk score (from Nsg)>0 risk: 2 SCD applied (from Nsg): No SCD contraindicated: low risk/ambulating Pharmacological prophylaxis: NA/contraindicated, LMWH Pharm contraindication: thrombocytopenia Lines/Catheters IV Catheter Type (from Nrsg): Saline Lock Urinary Cath still in place: No Assessment/Plan Hospital Course 1. 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 S/p ERCP with stricture of bile duct, s/p stent placement. 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 Hyperbilirubinemia with elevated liver enzymes. LIver cirrhosisHepatitis panel is negative from [place]. US of liver reveals fatty infiltration, CD is 5 mm. Records was reviewed form [facility]. CT scan abdomen with contrast revealed : hepato and splenomegaly, 3.1 cm left ovarian cyst 3. Former smoker, pt quit 6 years ago 4. hx of 2 C sections, 6 and 2 years ago 5. Obesity 6. Microcytic hypochromic anemia with thrombocytopenia. Pat. smear show anisocytosis 7. Hx of asthma . - Assessment/Plan -s/p liver biopsy, results are pending - brbpr? hemorrhoids> recheck hb> GI NOTIFIED - montior LFT> slightly worse today - cw caspofungin - alcohol cessation - ambulate Result Diagram: 07/10/18 0439 07/10/18 0439 Results 24hrs Laboratory Tests Test 07/09/18 18:13 07/10/18 04:39 Hemoglobin 9.4 L 9.5 L Hematocrit 30.0 L 30.2 L White Blood Count 13.9 #H Red Blood Count 3.57 L Mean Corpuscular Volume 84.6 Mean Corpuscular Hemoglobin 26.6 L Mean Corpuscular Hemoglobin Concent 31.5 L Red Cell Distribution Width 31.2 H Platelet Count 292 # Mean Platelet Volume 11.3 H Immature Granulocytes % 2.200 H Neutrophils % Segmented Neutrophils % (Manual) 69 Band Neutrophils % (Manual) 15 H Lymphocytes % Lymphocytes % (Manual) 11 L Monocytes % Monocytes % (Manual) 3 Eosinophils % Eosinophils % (Manual) 2 Basophils % Nucleated Red Blood Cells % 1 H Immature Granulocytes # 0.310 H Neutrophils # Neutrophils # (Manual) 9.9 H Band Neutrophils # 2.0 H Lymphocytes (Manual) 1.5 Lymphocytes # Monocytes # Monocytes # (Manual) 0.4 Eosinophils # Basophils # Nucleated Red Blood Cells # Platelet Estimate NORMAL Polychromasia 3+ Hypochromasia 3+ Poikilocytosis 1+ Anisocytosis 2+ Macrocytosis 2+ Target Cells 1+ Ovalocytes 1+ Prothrombin Time 15.7 H Prothrombin Time Ratio 1.2 INR International Normalized Ratio 1.24 Sodium Level 137 Potassium Level 3.7 Chloride Level 101 Carbon Dioxide Level 28 Anion Gap 8 Blood Urea Nitrogen 4 L Creatinine 0.70 Est Glomerular Filtrat Rate mL/min > 60 Glucose Level 87 Calcium Level 9.1 Phosphorus Level 3.8 Magnesium Level 2.3 Total Bilirubin 11.5 H Direct Bilirubin 9.70 H Indirect Bilirubin 1.8 H Aspartate Amino Transf (AST/SGOT) 131 H Alanine Aminotransferase (ALT/SGPT) 36 Alkaline Phosphatase 248 H Total Protein 6.9 Albumin 3.2 L Globulin 3.70 H Albumin/Globulin Ratio 0.86 Subjective 24 Hr Interval Summary Gastrointestinal: pain, nausea Exam/Review of Systems Exam Vitals Vital Signs Date Temp Pulse Resp B/P (MAP) Pulse Ox O2 O2 Flow FiO2 Time Delivery Rate 07/10/18 98.1 92 20 125/64 96 Room Air 08:47 (84) 07/06/18 2.0 15:37 Intake and Output 07/09/18 07/09/18 07/10/18 1515:00 23:00 07:00 IntakeIntake Total 550 ml 250 ml OutputOutput Total 400 ml BalanceBalance -400 ml 550 ml 250 ml Constitutional: alert, oriented Eyes: icteric Neck: supple Respiratory: clear to auscultation Cardiovascular: regular rate and rhythm Gastrointestinal: soft, rebound or guarding Results Results 24hrs Laboratory Tests Test 07/09/18 18:13 07/10/18 04:39 Hemoglobin 9.4 L 9.5 L Hematocrit 30.0 L 30.2 L White Blood Count 13.9 #H Red Blood Count 3.57 L Mean Corpuscular Volume 84.6 Mean Corpuscular Hemoglobin 26.6 L Mean Corpuscular Hemoglobin Concent 31.5 L Red Cell Distribution Width 31.2 H Platelet Count 292 # Mean Platelet Volume 11.3 H Immature Granulocytes % 2.200 H Neutrophils % Segmented Neutrophils % (Manual) 69 Band Neutrophils % (Manual) 15 H Lymphocytes % Lymphocytes % (Manual) 11 L Monocytes % Monocytes % (Manual) 3 Eosinophils % Eosinophils % (Manual) 2 Basophils % Nucleated Red Blood Cells % 1 H Immature Granulocytes # 0.310 H Neutrophils # Neutrophils # (Manual) 9.9 H Band Neutrophils # 2.0 H Lymphocytes (Manual) 1.5 Lymphocytes # Monocytes # Monocytes # (Manual) 0.4 Eosinophils # Basophils # Nucleated Red Blood Cells # Platelet Estimate NORMAL Polychromasia 3+ Hypochromasia 3+ Poikilocytosis 1+ Anisocytosis 2+ Macrocytosis 2+ Target Cells 1+ Ovalocytes 1+ Prothrombin Time 15.7 H Prothrombin Time Ratio 1.2 INR International Normalized Ratio 1.24 Sodium Level 137 Potassium Level 3.7 Chloride Level 101 Carbon Dioxide Level 28 Anion Gap 8 Blood Urea Nitrogen 4 L Creatinine 0.70 Est Glomerular Filtrat Rate mL/min > 60 Glucose Level 87 Calcium Level 9.1 Phosphorus Level 3.8 Magnesium Level 2.3 Total Bilirubin 11.5 H Direct Bilirubin 9.70 H Indirect Bilirubin 1.8 H Aspartate Amino Transf (AST/SGOT) 131 H Alanine Aminotransferase (ALT/SGPT) 36 Alkaline Phosphatase 248 H Total Protein 6.9 Albumin 3.2 L Globulin 3.70 H Albumin/Globulin Ratio 0.86 Medications Medication Current Medications Ondansetron HCl (Zofran Inj) 4 mg Q6H PRN IV NAUSEA AND/OR VOMITING Last administered on 07/10/18 04:39; Admin Dose 4 MG; Start 06/28/18 at 01:30 Metoclopramide HCl (Reglan) 10 mg Q6 PRN IV NAUSEA AND/OR VOMITING Last administered on 07/09/18at 22:39; Admin Dose 10 MG; Start 06/28/18 at 01:30 Zolpidem Tartrate (Ambien) 5 mg HS PRN PO INSOMNIA Last administered on 07/09/18at 23:27; Admin Dose 5 MG; Start 06/29/18 at 12:00 Potassium Chloride (Klor-Con 20) 40 meq DAILY PO Last administered on 07/10/18at 09:03; Admin Dose 40 MEQ; Start 06/29/18 at 15:30 Morphine Sulfate (morphine) 6 mg Q4H PRN PO SEVERE PAIN LEVEL 7-10; Start 07/01/18 at 22:30 Pantoprazole (Protonix Tab) 40 mg BID@06,18 PO Last administered on 07/10/18 05:34; Admin Dose 40 MG; Start 07/03/18 at 18:00 Ondansetron HCl (Zofran Odt) 4 mg AC BREAKFAST DINNER ODT Last administered on 07/10/18 09:03; Admin Dose 4 MG; Start 07/04/18 at 17:35 Hydromorphone HCl (Dilaudid) 0.5 mg Q6H PRN IV SEVERE PAIN LEVEL 7-10 Last administered on 07/08/18 06:28; Admin Dose 0.5 MG; Start 07/04/18 at 16:30 Diphenhydramine HCl (Benadryl) 25 mg BID PRN PO ITCHING Last administered on 07/09/18 23:27; Admin Dose 25 MG; Start 07/06/18 at 23:30 Caspofungin 50 mg/ Sodium Chloride 250 ml @ 250 mls/hr Q24H IVPB Last administered on 07/09/18 16:33; Admin Dose 250 MLS/HR; Start 07/09/18 at 16:00 Ibuprofen (Motrin) 400 mg Q6 PRN PO PAIN Last administered on 07/10/18 04:39; Admin Dose 400 MG; Start 07/09/18 at 17:00 THERESA LEÓN Jul 10, 2018 10:17
--- NOTE | 2018-07-10 11:25 | CONS ---
Assessment/Plan Assessment/Plan Hospital Course (Demo Recall) All noted, no acute events, no fevers, looks comfortable Abx: [place] 07/08/18 Physical examination: Obese well-developed middle-aged white woman who is alert in no distress. Head atraumatic normocephalic sclera icteric. Neck is supple. Chest rise symmetrical, breath sounds clear. Heart: S1-S2. Abdomen obese, soft bowel sounds present extremities without cyanosis. Skin positive for jaundice Assessment: 1. 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 Liver cirrhosis 3. Anemia 4. Obesity Plan: Stable, continue on antifungal therapy, s/p liver bx 07/09/18, follow GI and surgical recommendations Consultation Date/Type/Reason Admit Date/Time Jun 27, 2018 at 23:57 Initial Consult Date 07/01/18 Type of Consult id Requesting Provider: ZEB JAMES MD Date/Time of Note DATE: 07/10/18 TIME: 11:23 Exam/Review of Systems Exam Vitals Vital Signs Date Temp Pulse Resp B/P (MAP) Pulse Ox O2 O2 Flow FiO2 Time Delivery Rate 07/10/18 98.1 92 20 125/64 96 Room Air 08:47 (84) 07/06/18 2.0 15:37 Intake and Output 07/09/18 07/09/18 07/10/18 1515:00 23:00 07:00 IntakeIntake Total 550 ml 250 ml OutputOutput Total 400 ml BalanceBalance -400 ml 550 ml 250 ml Results Result Diagram: 07/10/18 0439 07/10/18 0439 Results 24hrs Laboratory Tests Test 07/09/18 18:13 07/10/18 04:39 Hemoglobin 9.4 L 9.5 L Hematocrit 30.0 L 30.2 L White Blood Count 13.9 #H Red Blood Count 3.57 L Mean Corpuscular Volume 84.6 Mean Corpuscular Hemoglobin 26.6 L Mean Corpuscular Hemoglobin Concent 31.5 L Red Cell Distribution Width 31.2 H Platelet Count 292 # Mean Platelet Volume 11.3 H Immature Granulocytes % 2.200 H Neutrophils % Segmented Neutrophils % (Manual) 69 Band Neutrophils % (Manual) 15 H Lymphocytes % Lymphocytes % (Manual) 11 L Monocytes % Monocytes % (Manual) 3 Eosinophils % Eosinophils % (Manual) 2 Basophils % Nucleated Red Blood Cells % 1 H Immature Granulocytes # 0.310 H Neutrophils # Neutrophils # (Manual) 9.9 H Band Neutrophils # 2.0 H Lymphocytes (Manual) 1.5 Lymphocytes # Monocytes # Monocytes # (Manual) 0.4 Eosinophils # Basophils # Nucleated Red Blood Cells # Platelet Estimate NORMAL Polychromasia 3+ Hypochromasia 3+ Poikilocytosis 1+ Anisocytosis 2+ Macrocytosis 2+ Target Cells 1+ Ovalocytes 1+ Prothrombin Time 15.7 H Prothrombin Time Ratio 1.2 INR International Normalized Ratio 1.24 Sodium Level 137 Potassium Level 3.7 Chloride Level 101 Carbon Dioxide Level 28 Anion Gap 8 Blood Urea Nitrogen 4 L Creatinine 0.70 Est Glomerular Filtrat Rate mL/min > 60 Glucose Level 87 Calcium Level 9.1 Phosphorus Level 3.8 Magnesium Level 2.3 Total Bilirubin 11.5 H Direct Bilirubin 9.70 H Indirect Bilirubin 1.8 H Aspartate Amino Transf (AST/SGOT) 131 H Alanine Aminotransferase (ALT/SGPT) 36 Alkaline Phosphatase 248 H Total Protein 6.9 Albumin 3.2 L Globulin 3.70 H Albumin/Globulin Ratio 0.86 Medications Medication Current Medications Ondansetron HCl (Zofran Inj) 4 mg Q6H PRN IV NAUSEA AND/OR VOMITING Last administered on 07/10/18 04:39; Admin Dose 4 MG; Start 06/28/18 at 01:30 Metoclopramide HCl (Reglan) 10 mg Q6 PRN IV NAUSEA AND/OR VOMITING Last administered on 07/09/18 22:39; Admin Dose 10 MG; Start 06/28/18 at 01:30 Zolpidem Tartrate (Ambien) 5 mg HS PRN PO INSOMNIA Last administered on 07/09/18 23:27; Admin Dose 5 MG; Start 06/29/18 at 12:00 Potassium Chloride (Klor-Con 20) 40 meq DAILY PO Last administered on 07/10/18 09:03; Admin Dose 40 MEQ; Start 06/29/18 at 15:30 Morphine Sulfate (morphine) 6 mg Q4H PRN PO SEVERE PAIN LEVEL 7-10; Start 07/01/18 at 22:30 Pantoprazole (Protonix Tab) 40 mg BID@06,18 PO Last administered on 07/10/18 05:34; Admin Dose 40 MG; Start 07/03/18 at 18:00 Ondansetron HCl (Zofran Odt) 4 mg AC BREAKFAST DINNER ODT Last administered on 07/10/18 09:03; Admin Dose 4 MG; Start 07/04/18 at 17:35 Hydromorphone HCl (Dilaudid) 0.5 mg Q6H PRN IV SEVERE PAIN LEVEL 7-10 Last administered on 07/08/18 06:28; Admin Dose 0.5 MG; Start 07/04/18 at 16:30 Diphenhydramine HCl (Benadryl) 25 mg BID PRN PO ITCHING Last administered on 07/09/18 23:27; Admin Dose 25 MG; Start 07/06/18 at 23:30 Caspofungin 50 mg/ Sodium Chloride 250 ml @ 250 mls/hr Q24H IVPB Last administered on 07/09/18 16:33; Admin Dose 250 MLS/HR; Start 07/09/18 at 16:00 Ibuprofen (Motrin) 400 mg Q6 PRN PO PAIN Last administered on 07/10/18 11:19; Admin Dose 400 MG; Start 07/09/18 at 17:00 DARLEEN RAMOS NP Jul 10, 2018 11:25
--- NOTE | 2018-07-10 13:07 | PN ---
Date/Time of Note Date/Time of Note DATE: 07/10/18 TIME: 13:03 Assessment/Plan Lines/Catheters IV Catheter Type (from [facility]): Saline Lock Elias in Place (from [facility]): No Assessment/Plan Chief Complaint/Hosp Course 1. 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 +Yumiko started on antifungals. -follow liver biopsy -no surgical intervention recommended at this time -encourage etoh cessation -trend labs -limit hepatotoxins -Hepatic optimization per GI -continue antifungals 2. Transaminitis and hyperbilirubinemia 2nd above -as above 3. Abdominal pain: Improved -pain mgt 4. Macrocytic hypochromic anemia: likely 2/2 liver disease -monitor & tx as needed 5. Severe obesity BMI: 38 -diet and exercise optimization -encourage weight loss Thank you. Patient seen and examined in collaboration with Dr. Mannie Bailey. Subjective 24 Hr Interval Summary Feels well. sp liver biopsy. No fevers, chills, sob, congested cough, cp, palpitations, arora, dizziness, n/v/d/dysuria. Exam/Review of Systems Vital Signs Vitals Vital Signs Date Temp Pulse Resp B/P (MAP) Pulse Ox O2 O2 Flow FiO2 Time Delivery Rate 07/10/18 98.1 92 20 125/64 96 Room Air 08:47 (84) 07/06/18 2.0 15:37 Intake and Output 07/09/18 07/09/18 07/10/18 1515:00 23:00 07:00 IntakeIntake Total 550 ml 250 ml OutputOutput Total 400 ml BalanceBalance -400 ml 550 ml 250 ml Exam Free Text/Dictation Constitutional: alert, oriented Psych: nl mood/affect, anxiety (min) Head: normocephalic, atraumatic Eyes: nl conjunctiva, EOMI, nl lids, sclera icterus ENMT: nl external ears & nose, nl lips & teeth, nl nasal mucosa & septum, mucosa pink and moist Neck: supple, non-tender Respiratory: normal air movement; No congested cough, No labored breathing Cardiovascular: regular rate and rhythm, nl pulses; No edema Gastrointestinal: soft, tender (improved) Genitourinary - Female: nl external genitalia Musculoskeletal: nl extremities to inspection, nl gait and stance Extremities: normal pulses Neurological: nl mental status, nl speech, nl strength Skin: jaundice No rash or lesions Results Result Diagram: 07/10/18 0439 07/10/18 0439 AARON FREGOSO NP Jul 10, 2018 13:07
[2018-07-10] MEDS: METOCLOPRAMIDE 10 MG INJ IV PRN (16:01)
[2018-07-10] MEDS: CASPOFUNGIN 50 MG in SOD CHLORIDE 0.9% 250 ML IVPB SCH (16:01)
--- NOTE | 2018-07-10 18:53 | NUR ---
No acute changes during shift. Pt safe and free from injury. Family at bedside. Pt pain and nausea assessed and controlled throughout shift. No signs of discomfort or distress. No SOB. Pt currently laying in bed comfortably with family at bedside. Bed alarm on, call light within reach. Will continue to monitor.
[2018-07-10 20:25] VITALS: BP 123/63; PULSE 94; RESP 18
[2018-07-10 20:30] VITALS: PULSE 85
[2018-07-10] MEDS: DIPHENHYDRAMINE 25 MG CAP PO PRN (22:07)
[2018-07-10] MEDS: ZOLPIDEM 5 MG TAB PO PRN (23:02)
[2018-07-11 02:30] VITALS: BP 106/61; PULSE 89; RESP 18
[2018-07-11] MEDS: ONDANSETRON 4 MG INJ IV PRN ×2 (05:38→19:59)
[2018-07-11] MEDS: PANTOPRAZOLE (EC) 40 MG TAB PO SCH ×2 (05:38→16:59)
--- NOTE | 2018-07-11 06:51 | NUR ---
End of shift Report: Awake on watching Tv. No sob. No resp distress. Afebrile. denies pain. Nausea med given x2 well-red and effective. Needs attended and anticipated. No significant changes overnight. Pending liver biopsy. Will continue to monitor. Call light within reach.
[2018-07-11 07:15] VITALS: BP 112/58; PULSE 87; RESP 18
[2018-07-11] MEDS: IBUPROFEN 400 MG TAB PO PRN ×2 (07:49→15:44)
[2018-07-11] MEDS: ONDANSETRON (ODT) 4 MG TAB ODT SCH ×2 (07:49→16:59)
[2018-07-11] MEDS: POTASSIUM CHLORIDE (SR) 20 MEQ TAB PO SCH (09:04)
--- NOTE | 2018-07-11 11:59 | PN ---
Date/Time of Note Date/Time of Note DATE: 07/11/18 TIME: 11:58 Assessment/Plan VTE Prophylaxis Risk score (from Nsg)>0 risk: 1 SCD applied (from Ns): No SCD contraindicated: low risk/ambulating Pharmacological prophylaxis: NA/contraindicated Pharm contraindication: low risk/ambulating Lines/Catheters IV Catheter Type (from Nrs): Saline Lock Urinary Cath still in place: No Assessment/Plan Hospital Course 1. 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 S/p ERCP with stricture of bile duct, s/p stent placement. 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 Hyperbilirubinemia with elevated liver enzymes. LIver cirrhosisHepatitis panel is negative from [place]. US of liver reveals fatty infiltration, CD is 5 mm. Records was reviewed form [facility]. CT scan abdomen with contrast revealed : hepato and splenomegaly, 3.1 cm left ovarian cyst 3. Former smoker, pt quit 6 years ago 4. hx of 2 C sections, 6 and 2 years ago 5. Obesity 6. Microcytic hypochromic anemia with thrombocytopenia. Pat. smear show anisocytosis 7. Hx of asthma . - Assessment/Plan -s/p liver biopsy, consistent with liver steatosis - montior LFT> slightly worse today - cw caspofungin - alcohol cessation - ambulate -bilirubin is up Result Diagram: 07/11/18 0535 07/11/18 0535 Results 24hrs Laboratory Tests Test 07/11/18 05:35 White Blood Count 13.6 H Red Blood Count 3.59 L Hemoglobin 9.3 L Hematocrit 30.2 L Mean Corpuscular Volume 84.1 Mean Corpuscular Hemoglobin 25.9 L Mean Corpuscular Hemoglobin Concent 30.8 L Red Cell Distribution Width 31.7 H Platelet Count 280 Mean Platelet Volume 11.3 H Immature Granulocytes % 1.500 H Neutrophils % Segmented Neutrophils % (Manual) 69 Band Neutrophils % (Manual) 20 H Lymphocytes % Lymphocytes % (Manual) 7 L Monocytes % Monocytes % (Manual) 1 Eosinophils % Basophils % Basophils % (Manual) 2 Metamyelocytes % (manual) 1 H Nucleated Red Blood Cells % 0.4 H Immature Granulocytes # 0.210 H Neutrophils # Neutrophils # (Manual) 9.8 H Band Neutrophils # 2.7 H Lymphocytes (Manual) 0.9 Lymphocytes # Monocytes # Monocytes # (Manual) 0.1 L Eosinophils # Basophils # Basophils # (Manual) 0.2 H Metamyelocytes # 0.1 H Nucleated Red Blood Cells # Toxic Granulation 1+ Platelet Estimate NORMAL Giant Platelets 2 H Platelet Morphology Comment @See below Polychromasia 3+ Hypochromasia 2+ Poikilocytosis 2+ Anisocytosis 2+ Target Cells 1+ Tear Drop Cells 1+ Ovalocytes 1+ Sodium Level 140 Potassium Level 4.2 Chloride Level 106 Carbon Dioxide Level 28 Anion Gap 6 Blood Urea Nitrogen 3 L Creatinine 0.68 Est Glomerular Filtrat Rate mL/min > 60 Glucose Level 95 Calcium Level 8.9 Total Bilirubin 12.0 H Direct Bilirubin 9.90 H Indirect Bilirubin 2.1 H Aspartate Amino Transf (AST/SGOT) 129 H Alanine Aminotransferase (ALT/SGPT) 34 Alkaline Phosphatase 227 H Total Protein 6.9 Albumin 3.2 L Globulin 3.70 H Albumin/Globulin Ratio 0.86 Subjective 24 Hr Interval Summary Gastrointestinal: pain, nausea Exam/Review of Systems Exam Vitals Vital Signs Date Temp Pulse Resp B/P (MAP) Pulse Ox O2 O2 Flow FiO2 Time Delivery Rate 07/11/18 98.0 87 18 112/58 97 Room Air 07:15 (76) Intake and Output 07/10/18 07/10/18 07/11/18 1515:00 23:00 07:00 IntakeIntake Total 520 ml 670 ml 4120 ml BalanceBalance 520 ml 670 ml 4120 ml Constitutional: alert, oriented Psych: no complaints Head: normocephalic Eyes: nl conjunctiva, icteric ENMT: nl external ears & nose Cardiovascular: regular rate and rhythm Gastrointestinal: soft Genitourinary - Female: nl adnexae Results Results 24hrs Laboratory Tests Test 07/11/18 05:35 White Blood Count 13.6 H Red Blood Count 3.59 L Hemoglobin 9.3 L Hematocrit 30.2 L Mean Corpuscular Volume 84.1 Mean Corpuscular Hemoglobin 25.9 L Mean Corpuscular Hemoglobin Concent 30.8 L Red Cell Distribution Width 31.7 H Platelet Count 280 Mean Platelet Volume 11.3 H Immature Granulocytes % 1.500 H Neutrophils % Segmented Neutrophils % (Manual) 69 Band Neutrophils % (Manual) 20 H Lymphocytes % Lymphocytes % (Manual) 7 L Monocytes % Monocytes % (Manual) 1 Eosinophils % Basophils % Basophils % (Manual) 2 Metamyelocytes % (manual) 1 H Nucleated Red Blood Cells % 0.4 H Immature Granulocytes # 0.210 H Neutrophils # Neutrophils # (Manual) 9.8 H Band Neutrophils # 2.7 H Lymphocytes (Manual) 0.9 Lymphocytes # Monocytes # Monocytes # (Manual) 0.1 L Eosinophils # Basophils # Basophils # (Manual) 0.2 H Metamyelocytes # 0.1 H Nucleated Red Blood Cells # Toxic Granulation 1+ Platelet Estimate NORMAL Giant Platelets 2 H Platelet Morphology Comment @See below Polychromasia 3+ Hypochromasia 2+ Poikilocytosis 2+ Anisocytosis 2+ Target Cells 1+ Tear Drop Cells 1+ Ovalocytes 1+ Sodium Level 140 Potassium Level 4.2 Chloride Level 106 Carbon Dioxide Level 28 Anion Gap 6 Blood Urea Nitrogen 3 L Creatinine 0.68 Est Glomerular Filtrat Rate mL/min > 60 Glucose Level 95 Calcium Level 8.9 Total Bilirubin 12.0 H Direct Bilirubin 9.90 H Indirect Bilirubin 2.1 H Aspartate Amino Transf (AST/SGOT) 129 H Alanine Aminotransferase (ALT/SGPT) 34 Alkaline Phosphatase 227 H Total Protein 6.9 Albumin 3.2 L Globulin 3.70 H Albumin/Globulin Ratio 0.86 Medications Medication Current Medications Ondansetron HCl (Zofran Inj) 4 mg Q6H PRN IV NAUSEA AND/OR VOMITING Last administered on 07/11/18 05:38; Admin Dose 4 MG; Start 06/28/18 at 01:30 Metoclopramide HCl (Reglan) 10 mg Q6 PRN IV NAUSEA AND/OR VOMITING Last administered on 07/10/18 16:01; Admin Dose 10 MG; Start 06/28/18 at 01:30 Zolpidem Tartrate (Ambien) 5 mg HS PRN PO INSOMNIA Last administered on 07/10/18 23:02; Admin Dose 5 MG; Start 06/29/18 at 12:00 Potassium Chloride (Klor-Con 20) 40 meq DAILY PO Last administered on 07/11/18 09:04; Admin Dose 40 MEQ; Start 06/29/18 at 15:30 Morphine Sulfate (morphine) 6 mg Q4H PRN PO SEVERE PAIN LEVEL 7-10; Start 07/01/18 at 22:30 Pantoprazole (Protonix Tab) 40 mg BID@06,18 PO Last administered on 07/11/18 05:38; Admin Dose 40 MG; Start 07/03/18 at 18:00 Ondansetron HCl (Zofran Odt) 4 mg AC BREAKFAST DINNER ODT Last administered on 07/11/18 07:49; Admin Dose 4 MG; Start 07/04/18 at 17:35 Hydromorphone HCl (Dilaudid) 0.5 mg Q6H PRN IV SEVERE PAIN LEVEL 7-10 Last administered on 07/08/18 06:28; Admin Dose 0.5 MG; Start 07/04/18 at 16:30 Diphenhydramine HCl (Benadryl) 25 mg BID PRN PO ITCHING Last administered on 07/10/18 22:07; Admin Dose 25 MG; Start 07/06/18 at 23:30 Ibuprofen (Motrin) 400 mg Q6 PRN PO PAIN Last administered on 07/11/18 07:49; Admin Dose 400 MG; Start 07/09/18 at 17:00 Caspofungin 35 mg/ Sodium Chloride 250 ml @ 250 mls/hr Q24H IVPB ; Start 07/11/18 at 16:00 THERESA LEÓN Jul 11, 2018 11:59
[2018-07-11] MEDS: METOCLOPRAMIDE 10 MG INJ IV PRN (12:07)
--- NOTE | 2018-07-11 12:09 | CONS ---
Consultation Date/Type/Reason Admit Date/Time Jun 27, 2018 at 23:57 Initial Consult Date SUBJECTIVE: Pt is jaundice. sleepy. No acute events, no fevers. VS: stable T: 98.0 LABS: reviewed. WBC- 13.6 Abx: Cancidas 07/08/18 Physical examination: GEN: Obese well-developed middle-aged white woman who is alert in no distress. HENT: Head atraumatic normocephalic sclera icteric. Neck is supple. PULM: Chest rise symmetrical, breath sounds clear. Heart: S1-S2. Abdomen obese, soft bowel sounds present Extremities without cyanosis. Skin positive for jaundice Assessment: 1. 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 Liver cirrhosis 3. Anemia 4. Obesity Plan: Pt is stable. Continue on antifungal therapy. S/p liver bx 07/09/18, follow GI and surgical recommendations. AM labs. Requesting Provider: ZEB JAMES MD Date/Time of Note DATE: 07/11/18 TIME: 12:06 Exam/Review of Systems Exam Vitals Vital Signs Date Temp Pulse Resp B/P (MAP) Pulse Ox O2 O2 Flow FiO2 Time Delivery Rate 07/11/18 98.0 87 18 112/58 97 Room Air 07:15 (76) Intake and Output 07/10/18 07/10/18 07/11/18 1414:59 22:59 06:59 IntakeIntake Total 520 ml 670 ml 4120 ml BalanceBalance 520 ml 670 ml 4120 ml Results Result Diagram: 07/11/18 0535 07/11/18 0535 Results 24hrs Laboratory Tests Test 07/11/18 05:35 White Blood Count 13.6 H Red Blood Count 3.59 L Hemoglobin 9.3 L Hematocrit 30.2 L Mean Corpuscular Volume 84.1 Mean Corpuscular Hemoglobin 25.9 L Mean Corpuscular Hemoglobin Concent 30.8 L Red Cell Distribution Width 31.7 H Platelet Count 280 Mean Platelet Volume 11.3 H Immature Granulocytes % 1.500 H Neutrophils % Segmented Neutrophils % (Manual) 69 Band Neutrophils % (Manual) 20 H Lymphocytes % Lymphocytes % (Manual) 7 L Monocytes % Monocytes % (Manual) 1 Eosinophils % Basophils % Basophils % (Manual) 2 Metamyelocytes % (manual) 1 H Nucleated Red Blood Cells % 0.4 H Immature Granulocytes # 0.210 H Neutrophils # Neutrophils # (Manual) 9.8 H Band Neutrophils # 2.7 H Lymphocytes (Manual) 0.9 Lymphocytes # Monocytes # Monocytes # (Manual) 0.1 L Eosinophils # Basophils # Basophils # (Manual) 0.2 H Metamyelocytes # 0.1 H Nucleated Red Blood Cells # Toxic Granulation 1+ Platelet Estimate NORMAL Giant Platelets 2 H Platelet Morphology Comment @See below Polychromasia 3+ Hypochromasia 2+ Poikilocytosis 2+ Anisocytosis 2+ Target Cells 1+ Tear Drop Cells 1+ Ovalocytes 1+ Sodium Level 140 Potassium Level 4.2 Chloride Level 106 Carbon Dioxide Level 28 Anion Gap 6 Blood Urea Nitrogen 3 L Creatinine 0.68 Est Glomerular Filtrat Rate mL/min > 60 Glucose Level 95 Calcium Level 8.9 Total Bilirubin 12.0 H Direct Bilirubin 9.90 H Indirect Bilirubin 2.1 H Aspartate Amino Transf (AST/SGOT) 129 H Alanine Aminotransferase (ALT/SGPT) 34 Alkaline Phosphatase 227 H Total Protein 6.9 Albumin 3.2 L Globulin 3.70 H Albumin/Globulin Ratio 0.86 Medications Medication Current Medications Ondansetron HCl (Zofran Inj) 4 mg Q6H PRN IV NAUSEA AND/OR VOMITING Last administered on 07/11/18 05:38; Admin Dose 4 MG; Start 06/28/18 at 01:30 Metoclopramide HCl (Reglan) 10 mg Q6 PRN IV NAUSEA AND/OR VOMITING Last administered on 07/10/18at 16:01; Admin Dose 10 MG; Start 06/28/18 at 01:30 Zolpidem Tartrate (Ambien) 5 mg HS PRN PO INSOMNIA Last administered on 07/10/18at 23:02; Admin Dose 5 MG; Start 06/29/18 at 12:00 Potassium Chloride (Klor-Con 20) 40 meq DAILY PO Last administered on 07/11/18 09:04; Admin Dose 40 MEQ; Start 06/29/18 at 15:30 Morphine Sulfate (morphine) 6 mg Q4H PRN PO SEVERE PAIN LEVEL 7-10; Start 07/01/18 at 22:30 Pantoprazole (Protonix Tab) 40 mg BID@06,18 PO Last administered on 07/11/18at 05:38; Admin Dose 40 MG; Start 07/03/18 at 18:00 Ondansetron HCl (Zofran Odt) 4 mg AC BREAKFAST DINNER ODT Last administered on 07/11/18 07:49; Admin Dose 4 MG; Start 07/04/18 at 17:35 Hydromorphone HCl (Dilaudid) 0.5 mg Q6H PRN IV SEVERE PAIN LEVEL 7-10 Last administered on 07/08/18 06:28; Admin Dose 0.5 MG; Start 07/04/18 at 16:30 Diphenhydramine HCl (Benadryl) 25 mg BID PRN PO ITCHING Last administered on 07/10/18at 22:07; Admin Dose 25 MG; Start 07/06/18 at 23:30 Ibuprofen (Motrin) 400 mg Q6 PRN PO PAIN Last administered on 07/11/18at 07:49; Admin Dose 400 MG; Start 07/09/18 at 17:00 Caspofungin 35 mg/ Sodium Chloride 250 ml @ 250 mls/hr Q24H IVPB ; Start 07/11/18 at 16:00 SONU MARTELL Jul 11, 2018 12:09
[2018-07-11] MEDS ORDERED: FUROSEMIDE 40 MG INJ IV ONE (12:30)
[2018-07-11 14:06] VITALS: BP 119/62; PULSE 89; RESP 16
--- NOTE | 2018-07-11 14:11 | CONS ---
Assessment/Plan Assessment/Plan Assessment/Plan (Daily) Hospital Course (Demo Recall) 32 yo with persistent biliary colicky pain and increasing bilirubin 1. Abdominal pain, persistent, biliary colicky and increasing bilirubin -t bili is slightly down today -s/p ERCP x 2 -RUQ 2. 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 -autoimmune serologies -Hep panel neg 3. Hepatosplenomegaly secondary to #2 4. Overweight. 5. Progressive jaundice secondary to #2 6. Biliary stricture secondary to hepatomegaly 7. Transaminitis with elevated bili which is trending up secondary to hepatomegaly. 8. Fevers, low grade without leukocytosis, patient is on Zosyn 9. Anemia, acute 10. Diarrhea improved 11. N/V resolved 12. Biopsy positive for budding yeast -on anti fungal 13. One episode of hematochezia likely due to hemorrhoids - will monitor closely 14. Coagulopathy -improving Biopsy of bile duct results: Common bile duct biopsy: -- Fragment of mucoid and purulent exudate containing PAS positive budding yeast and pseudohyphae compatible with lacie species fungal organisms (positive PAS Light Green concurrently reviewed). -- There are a few cytologically bland cuboidal epithelial cells but no tissue fragments are present. -- There is no evidence of malignancy. 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 Patient will definitely need prednisolone 40 mg once a day for 28 days once the WBC count comes down. It is possible her WBC is elevated secondary to alcoholic hepatitis and not due to infection the fungal infection in the biliary system is most probably colonized ration from the stent Consultation Date/Type/Reason Admit Date/Time Jun 27, 2018 at 23:57 Initial Consult Date 07/01/18 Requesting Provider: ZEB JAMES MD Date/Time of Note DATE: 07/11/18 TIME: 14:09 24 HR Interval Summary Constitutional: improved Exam/Review of Systems Exam Vitals Vital Signs Date Temp Pulse Resp B/P (MAP) Pulse Ox O2 O2 Flow FiO2 Time Delivery Rate 07/11/18 98.4 89 16 119/62 95 Room Air 14:06 (81) Intake and Output 07/10/18 07/10/18 07/11/18 1414:59 22:59 06:59 IntakeIntake Total 520 ml 670 ml 4120 ml BalanceBalance 520 ml 670 ml 4120 ml Constitutional: alert, oriented, well developed Psych: no complaints, nl mood/affect Head: normocephalic, atraumatic Eyes: nl conjunctiva, EOMI, nl lids, nl sclera, PERRL ENMT: nl external ears & nose, nl lips & teeth, nl nasal mucosa & septum Neck: supple, non-tender Respiratory: clear to auscultation, normal air movement Cardiovascular: regular rate and rhythm, nl pulses Gastrointestinal: soft, nl liver, spleen, non-tender Musculoskeletal: nl extremities to inspection, nl gait and stance Extremities: normal pulses Neurological: RN [employer] II-XII intact, nl mental status, nl speech, nl strength Skin: nl turgor; No rash or lesions Lymph: nl lymph nodes Results Result Diagram: 07/11/18 0535 07/11/18 0535 Results 24hrs Laboratory Tests Test 07/11/18 05:35 White Blood Count 13.6 H Red Blood Count 3.59 L Hemoglobin 9.3 L Hematocrit 30.2 L Mean Corpuscular Volume 84.1 Mean Corpuscular Hemoglobin 25.9 L Mean Corpuscular Hemoglobin Concent 30.8 L Red Cell Distribution Width 31.7 H Platelet Count 280 Mean Platelet Volume 11.3 H Immature Granulocytes % 1.500 H Neutrophils % Segmented Neutrophils % (Manual) 69 Band Neutrophils % (Manual) 20 H Lymphocytes % Lymphocytes % (Manual) 7 L Monocytes % Monocytes % (Manual) 1 Eosinophils % Basophils % Basophils % (Manual) 2 Metamyelocytes % (manual) 1 H Nucleated Red Blood Cells % 0.4 H Immature Granulocytes # 0.210 H Neutrophils # Neutrophils # (Manual) 9.8 H Band Neutrophils # 2.7 H Lymphocytes (Manual) 0.9 Lymphocytes # Monocytes # Monocytes # (Manual) 0.1 L Eosinophils # Basophils # Basophils # (Manual) 0.2 H Metamyelocytes # 0.1 H Nucleated Red Blood Cells # Toxic Granulation 1+ Platelet Estimate NORMAL Giant Platelets 2 H Platelet Morphology Comment @See below Polychromasia 3+ Hypochromasia 2+ Poikilocytosis 2+ Anisocytosis 2+ Target Cells 1+ Tear Drop Cells 1+ Ovalocytes 1+ Sodium Level 140 Potassium Level 4.2 Chloride Level 106 Carbon Dioxide Level 28 Anion Gap 6 Blood Urea Nitrogen 3 L Creatinine 0.68 Est Glomerular Filtrat Rate mL/min > 60 Glucose Level 95 Calcium Level 8.9 Total Bilirubin 12.0 H Direct Bilirubin 9.90 H Indirect Bilirubin 2.1 H Aspartate Amino Transf (AST/SGOT) 129 H Alanine Aminotransferase (ALT/SGPT) 34 Alkaline Phosphatase 227 H Total Protein 6.9 Albumin 3.2 L Globulin 3.70 H Albumin/Globulin Ratio 0.86 Medications Medication Current Medications Ondansetron HCl (Zofran Inj) 4 mg Q6H PRN IV NAUSEA AND/OR VOMITING Last administered on 07/11/18 05:38; Admin Dose 4 MG; Start 06/28/18 at 01:30 Metoclopramide HCl (Reglan) 10 mg Q6 PRN IV NAUSEA AND/OR VOMITING Last administered on 07/11/18 12:07; Admin Dose 10 MG; Start 06/28/18 at 01:30 Zolpidem Tartrate (Ambien) 5 mg HS PRN PO INSOMNIA Last administered on 07/10/18 at 23:02; Admin Dose 5 MG; Start 06/29/18 at 12:00 Potassium Chloride (Klor-Con 20) 40 meq DAILY PO Last administered on 07/11/18 09:04; Admin Dose 40 MEQ; Start 06/29/18 at 15:30 Morphine Sulfate (morphine) 6 mg Q4H PRN PO SEVERE PAIN LEVEL 7-10; Start 07/01/18 at 22:30 Pantoprazole (Protonix Tab) 40 mg BID@06,18 PO Last administered on 07/11/18 05:38; Admin Dose 40 MG; Start 07/03/18 at 18:00 Ondansetron HCl (Zofran Odt) 4 mg AC BREAKFAST DINNER ODT Last administered on 07/11/18 07:49; Admin Dose 4 MG; Start 07/04/18 at 17:35 Hydromorphone HCl (Dilaudid) 0.5 mg Q6H PRN IV SEVERE PAIN LEVEL 7-10 Last administered on 07/08/18 06:28; Admin Dose 0.5 MG; Start 07/04/18 at 16:30 Diphenhydramine HCl (Benadryl) 25 mg BID PRN PO ITCHING Last administered on 07/10/18 22:07; Admin Dose 25 MG; Start 07/06/18 at 23:30 Ibuprofen (Motrin) 400 mg Q6 PRN PO PAIN Last administered on 07/11/18at 07:49; Admin Dose 400 MG; Start 07/09/18 at 17:00 Caspofungin 35 mg/ Sodium Chloride 250 ml @ 250 mls/hr Q24H IVPB ; Start 07/11/18 at 16:00 ASHOK TIWARI MD Jul 11, 2018 14:11
[2018-07-11] MEDS: CASPOFUNGIN 35 MG in SOD CHLORIDE 0.9% 250 ML IVPB SCH (15:44)
--- NOTE | 2018-07-11 16:26 | PN ---
Date/Time of Note Date/Time of Note DATE: 07/11/18 TIME: 16:24 Assessment/Plan Lines/Catheters IV Catheter Type (from [facility]): Saline Lock Elias in Place (from [facility]): No Assessment/Plan Chief Complaint/Hosp Course 1. 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 +Yumiko started on antifungals.; liver bx: alcoholic steatosis -no surgical intervention recommended at this time -encourage etoh cessation -trend labs -limit hepatotoxins -Hepatic optimization per GI -continue antifungals, eventual steroids 2. Transaminitis and hyperbilirubinemia 2nd above -as above 3. Abdominal pain: Improved -pain mgt 4. Macrocytic hypochromic anemia: likely 2/2 liver disease -monitor & tx as needed 5. Severe obesity BMI: 38 -diet and exercise optimization -encourage weight loss Thank you. Patient seen and examined in collaboration with Dr. Mannie Bailey. Subjective 24 Hr Interval Summary No acute abdominal pain. No fevers, chills, sob, congested cough, cp, palpitations, arora, dizziness, n/v/d/dysuria. BILI uptrending Exam/Review of Systems Vital Signs Vitals Vital Signs Date Temp Pulse Resp B/P (MAP) Pulse Ox O2 O2 Flow FiO2 Time Delivery Rate 07/11/18 98.4 89 16 119/62 95 Room Air 14:06 (81) Intake and Output 07/10/18 07/10/18 07/11/18 1414:59 22:59 06:59 IntakeIntake Total 520 ml 670 ml 4120 ml BalanceBalance 520 ml 670 ml 4120 ml Exam Free Text/Dictation Constitutional: alert, oriented Psych: nl mood/affect, anxiety (min) Head: normocephalic, atraumatic Eyes: nl conjunctiva, EOMI, nl lids, sclera icterus ENMT: nl external ears & nose, nl lips & teeth, nl nasal mucosa & septum, mucosa pink and moist Neck: supple, non-tender Respiratory: normal air movement; No congested cough, No labored breathing Cardiovascular: regular rate and rhythm, nl pulses; No edema Gastrointestinal: soft, nontender Genitourinary - Female: nl external genitalia Musculoskeletal: nl extremities to inspection, nl gait and stance Extremities: normal pulses Neurological: nl mental status, nl speech, nl strength Skin: jaundice No rash or lesions Results Result Diagram: 07/11/18 0535 07/11/18 0535 AARON FREGOSO NP Jul 11, 2018 16:26
--- NOTE | 2018-07-11 18:18 | NUR ---
All needs met.no acute events.gave pain medication and nausea medication as reqested.call light within reach.bed alarm on.she is resting comfortably in bed.
[2018-07-11 20:00] VITALS: BP 117/62; PULSE 93; RESP 18
[2018-07-12 02:00] VITALS: BP 127/64; PULSE 91; RESP 18
--- NOTE | 2018-07-12 04:48 | NUR ---
No acute changes noted during my shift. Pt AAOx4, vital signs stable through the night. Hourly rounding provided, ice packs provided for comfort, and all needs were tended to. Pt took shower at around 0400. Fall precautions in place. Will continue to monitor and endorse to next shift accordingly.
[2018-07-12] MEDS: PANTOPRAZOLE (EC) 40 MG TAB PO SCH ×2 (06:00→17:45)
[2018-07-12] MEDS: ONDANSETRON (ODT) 4 MG TAB ODT SCH ×2 (06:30→17:35)
--- NOTE | 2018-07-12 08:05 | PN ---
Date/Time of Note Date/Time of Note DATE: 07/12/18 TIME: 08:05 Assessment/Plan VTE Prophylaxis Risk score (from Nsg)>0 risk: 1 SCD applied (from Nsg): No SCD contraindicated: low risk/ambulating Pharmacological prophylaxis: NA/contraindicated Pharm contraindication: surgical contra Lines/Catheters IV Catheter Type (from Nrsg): Saline Lock Urinary Cath still in place: No Assessment/Plan Hospital Course 1. 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 S/p ERCP with stricture of bile duct, s/p stent placement. 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 Hyperbilirubinemia with elevated liver enzymes. LIver cirrhosisHepatitis panel is negative from [place]. US of liver reveals fatty infiltration, CD is 5 mm. Records was reviewed form [place] [facility]. CT scan abdomen with contrast revealed : hepato and splenomegaly, 3.1 cm left ovarian cyst 3. Former smoker, pt quit 6 years ago 4. hx of 2 C sections, 6 and 2 years ago 5. Obesity 6. Microcytic hypochromic anemia with thrombocytopenia. Pat. smear show anisocytosis 7. Hx of asthma . - Assessment/Plan -s/p liver biopsy, consistent with liver steatosis - monitor LFT - cw caspofungin - alcohol cessation - ambulate QID -bilirubin is down by 2 Result Diagram: 07/11/18 0535 07/12/18 0535 Results 24hrs Laboratory Tests Test 07/12/18 05:35 Sodium Level 137 Potassium Level 3.7 Chloride Level 104 Carbon Dioxide Level 26 Anion Gap 7 Blood Urea Nitrogen 4 L Creatinine 0.65 Est Glomerular Filtrat Rate mL/min > 60 Glucose Level 112 Calcium Level 8.5 Total Bilirubin 10.6 H Direct Bilirubin 8.70 H Indirect Bilirubin 1.9 H Aspartate Amino Transf (AST/SGOT) 125 H Alanine Aminotransferase (ALT/SGPT) 37 Alkaline Phosphatase 221 H Total Protein 6.5 Albumin 3.0 L Globulin 3.50 H Albumin/Globulin Ratio 0.85 Subjective 24 Hr Interval Summary Constitutional: improved Exam/Review of Systems Exam Vitals Vital Signs Date Temp Pulse Resp B/P (MAP) Pulse Ox O2 O2 Flow FiO2 Time Delivery Rate 07/12/18 98.6 91 18 127/64 96 02:00 (85) 07/11/18 Room Air 14:06 Intake and Output 07/11/18 07/11/18 07/12/18 1515:00 23:00 07:00 IntakeIntake Total 600 ml 600 ml BalanceBalance 600 ml 600 ml Constitutional: alert, oriented Eyes: icteric Neck: supple Respiratory: clear to auscultation Cardiovascular: regular rate and rhythm Gastrointestinal: soft Extremities: edema (1 +) Results Results 24hrs Laboratory Tests Test 07/12/18 05:35 Sodium Level 137 Potassium Level 3.7 Chloride Level 104 Carbon Dioxide Level 26 Anion Gap 7 Blood Urea Nitrogen 4 L Creatinine 0.65 Est Glomerular Filtrat Rate mL/min > 60 Glucose Level 112 Calcium Level 8.5 Total Bilirubin 10.6 H Direct Bilirubin 8.70 H Indirect Bilirubin 1.9 H Aspartate Amino Transf (AST/SGOT) 125 H Alanine Aminotransferase (ALT/SGPT) 37 Alkaline Phosphatase 221 H Total Protein 6.5 Albumin 3.0 L Globulin 3.50 H Albumin/Globulin Ratio 0.85 Medications Medication Current Medications Ondansetron HCl (Zofran Inj) 4 mg Q6H PRN IV NAUSEA AND/OR VOMITING Last administered on 07/11/18 19:59; Admin Dose 4 MG; Start 06/28/18 at 01:30 Metoclopramide HCl (Reglan) 10 mg Q6 PRN IV NAUSEA AND/OR VOMITING Last administered on 07/11/18 12:07; Admin Dose 10 MG; Start 06/28/18 at 01:30 Zolpidem Tartrate (Ambien) 5 mg HS PRN PO INSOMNIA Last administered on 07/10/18 23:02; Admin Dose 5 MG; Start 06/29/18 at 12:00 Potassium Chloride (Klor-Con 20) 40 meq DAILY PO Last administered on 07/11/18 09:04; Admin Dose 40 MEQ; Start 06/29/18 at 15:30 Morphine Sulfate (morphine) 6 mg Q4H PRN PO SEVERE PAIN LEVEL 7-10; Start 07/01/18 at 22:30 Pantoprazole (Protonix Tab) 40 mg BID@06,18 PO Last administered on 07/11/18 16:59; Admin Dose 40 MG; Start 07/03/18 at 18:00 Ondansetron HCl (Zofran Odt) 4 mg AC BREAKFAST DINNER ODT Last administered on 07/11/18 16:59; Admin Dose 4 MG; Start 07/04/18 at 17:35 Hydromorphone HCl (Dilaudid) 0.5 mg Q6H PRN IV SEVERE PAIN LEVEL 7-10 Last administered on 07/08/18 06:28; Admin Dose 0.5 MG; Start 07/04/18 at 16:30 Diphenhydramine HCl (Benadryl) 25 mg BID PRN PO ITCHING Last administered on 07/10/18 22:07; Admin Dose 25 MG; Start 07/06/18 at 23:30 Ibuprofen (Motrin) 400 mg Q6 PRN PO PAIN Last administered on 07/11/18 15:44; Admin Dose 400 MG; Start 07/09/18 at 17:00 Caspofungin 35 mg/ Sodium Chloride 250 ml @ 250 mls/hr Q24H IVPB Last administered on 07/11/18 15:44; Admin Dose 250 MLS/HR; Start 07/11/18 at 16:00 THERESA LEÓN Jul 12, 2018 08:05
[2018-07-12] MEDS: POTASSIUM CHLORIDE (SR) 20 MEQ TAB PO SCH (08:37)
[2018-07-12 08:49] VITALS: BP 145/72; PULSE 102; RESP 18
[2018-07-12 14:00] VITALS: BP 121/66; PULSE 93; RESP 18
--- NOTE | 2018-07-12 14:56 | CONS ---
Consultation Date/Type/Reason Admit Date/Time Jun 27, 2018 at 23:57 Initial Consult Date SUBJECTIVE: Pt is jaundice. sleepy. No acute events, no fevers. VS: stable T: 98.7 LABS: reviewed. LIVER needle Bx: MICROSCOPIC DIAGNOSIS: Liver, needle core biopsies: -- Consistent with alcoholic steatohepatitis with marked, (score 3) steatosis, grade 3 lobular inflammation, score 1 ballooning and stage 3 fibrosis. -- No malignancy or liver cirrhosis is identified. Common Bile Duct BX: MICROSCOPIC DIAGNOSIS: Common bile duct biopsy: -- Fragment of mucoid and purulent exudate containing PAS positive budding yeast and pseudohyphae compatible with lacie species fungal organisms (positive PAS Light Green concurrently reviewed). -- There are a few cytologically bland cuboidal epithelial cells but no tissue fragments are present. -- There is no evidence of malignancy. Abx: Cancidas Physical examination: GEN: Obese well-developed middle-aged white woman who is alert in no distress. HENT: Head atraumatic normocephalic sclera icteric. Neck is supple. PULM: Chest rise symmetrical, breath sounds clear. Heart: S1-S2. Abdomen obese, soft bowel sounds present Extremities without cyanosis. Skin positive for jaundice Assessment: 1. 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 Liver cirrhosis 3. Anemia 4. Obesity Plan: Pt is stable. Continue on antifungal therapy. Path reports noted. GI and surgical recommendations. AM labs. Requesting Provider: ZEB JAMES MD Date/Time of Note DATE: 07/12/18 TIME: 14:54 Exam/Review of Systems Exam Vitals Vital Signs Date Temp Pulse Resp B/P (MAP) Pulse Ox O2 O2 Flow FiO2 Time Delivery Rate 07/12/18 98.7 102 18 145/72 96 Room Air 08:49 (96) Intake and Output 07/11/18 07/11/18 07/12/18 1414:59 22:59 06:59 IntakeIntake Total 600 ml 600 ml BalanceBalance 600 ml 600 ml Results Result Diagram: 07/11/18 0535 07/12/18 0535 Results 24hrs Laboratory Tests Test 07/12/18 05:35 Sodium Level 137 Potassium Level 3.7 Chloride Level 104 Carbon Dioxide Level 26 Anion Gap 7 Blood Urea Nitrogen 4 L Creatinine 0.65 Est Glomerular Filtrat Rate mL/min > 60 Glucose Level 112 Calcium Level 8.5 Total Bilirubin 10.6 H Direct Bilirubin 8.70 H Indirect Bilirubin 1.9 H Aspartate Amino Transf (AST/SGOT) 125 H Alanine Aminotransferase (ALT/SGPT) 37 Alkaline Phosphatase 221 H Total Protein 6.5 Albumin 3.0 L Globulin 3.50 H Albumin/Globulin Ratio 0.85 Medications Medication Current Medications Ondansetron HCl (Zofran Inj) 4 mg Q6H PRN IV NAUSEA AND/OR VOMITING Last administered on 07/11/18 19:59; Admin Dose 4 MG; Start 06/28/18 at 01:30 Metoclopramide HCl (Reglan) 10 mg Q6 PRN IV NAUSEA AND/OR VOMITING Last administered on 07/11/18 12:07; Admin Dose 10 MG; Start 06/28/18 at 01:30 Zolpidem Tartrate (Ambien) 5 mg HS PRN PO INSOMNIA Last administered on 07/10/18 23:02; Admin Dose 5 MG; Start 06/29/18 at 12:00 Potassium Chloride (Klor-Con 20) 40 meq DAILY PO Last administered on 07/11/18 09:04; Admin Dose 40 MEQ; Start 06/29/18 at 15:30 Morphine Sulfate (morphine) 6 mg Q4H PRN PO SEVERE PAIN LEVEL 7-10; Start 06/04 at 22:30 Pantoprazole (Protonix Tab) 40 mg BID@06,18 PO Last administered on 07/11/18 16:59; Admin Dose 40 MG; Start 07/03/18 at 18:00 Ondansetron HCl (Zofran Odt) 4 mg AC BREAKFAST DINNER ODT Last administered on 07/11/18 16:59; Admin Dose 4 MG; Start 07/04/18 at 17:35 Hydromorphone HCl (Dilaudid) 0.5 mg Q6H PRN IV SEVERE PAIN LEVEL 7-10 Last administered on 07/08/18 06:28; Admin Dose 0.5 MG; Start 07/04/18 at 16:30 Diphenhydramine HCl (Benadryl) 25 mg BID PRN PO ITCHING Last administered on 07/10/18 22:07; Admin Dose 25 MG; Start 2/4/19 at 23:30 Ibuprofen (Motrin) 400 mg Q6 PRN PO PAIN Last administered on 07/11/18at 15:44; Admin Dose 400 MG; Start 07/09/18 at 17:00 Caspofungin 35 mg/ Sodium Chloride 250 ml @ 250 mls/hr Q24H IVPB Last administered on 07/11/18at 15:44; Admin Dose 250 MLS/HR; Start 07/11/18 at 16:00 SONU MARTELL Jul 12, 2018 14:56
--- NOTE | 2018-07-12 16:19 | NUR ---
called pharmacy to get the cancidas ivpb since still we don't have here.they said''we will send as soon as possible''so unable to give the dose as ordered at 1600.will give the meds as soon as we receive the meds from pharmacy.
--- NOTE | 2018-07-12 16:35 | PN ---
Date/Time of Note Date/Time of Note DATE: 07/12/18 TIME: 16:34 Assessment/Plan Lines/Catheters IV Catheter Type (from [facility]): Saline Lock Elias in Place (from [facility]): No Assessment/Plan Chief Complaint/Hosp Course 1. 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 +Yumiko started on antifungals.; liver bx: alcoholic steatosis -no surgical intervention recommended at this time -encourage etoh cessation -trend labs -limit hepatotoxins -Hepatic optimization per GI -continue antifungals, eventual steroids 2. Transaminitis and hyperbilirubinemia 2nd above; bilirubin improved -as above 3. Abdominal pain: Improved -pain mgt 4. Macrocytic hypochromic anemia: likely 2/2 liver disease -monitor & tx as needed 5. Severe obesity BMI: 38 -diet and exercise optimization -encourage weight loss Thank you. Patient seen and examined in collaboration with Dr. Mannie Bailey. Subjective 24 Hr Interval Summary Bilirubin improved. No acute abdominal pain. No fevers, chills, sob, congested cough, cp, palpitations, arora, dizziness, nausea, vomiting, diarrhea, dysuria. Exam/Review of Systems Vital Signs Vitals Vital Signs Date Temp Pulse Resp B/P (MAP) Pulse Ox O2 O2 Flow FiO2 Time Delivery Rate 07/12/18 99.2 93 18 121/66 94 Room Air 14:00 (84) Intake and Output 07/11/18 07/11/18 07/12/18 1515:00 23:00 07:00 IntakeIntake Total 600 ml 600 ml BalanceBalance 600 ml 600 ml Exam Free Text/Dictation Constitutional: alert, oriented Psych: nl mood/affect, anxiety (min) Head: normocephalic, atraumatic Eyes: nl conjunctiva, EOMI, nl lids, sclera icterus ENMT: nl external ears & nose, nl lips & teeth, nl nasal mucosa & septum, mucosa pink and moist Neck: supple, non-tender Respiratory: normal air movement; No congested cough, No labored breathing Cardiovascular: regular rate and rhythm, nl pulses; No edema Gastrointestinal: soft, nontender Genitourinary - Female: nl external genitalia Musculoskeletal: nl extremities to inspection, nl gait and stance Extremities: normal pulses Neurological: nl mental status, nl speech, nl strength Skin: jaundice No rash or lesions Results Result Diagram: 07/11/18 0535 07/12/18 0535 AARON FREGOSO NP Jul 12, 2018 16:35
[2018-07-12] MEDS: CASPOFUNGIN 35 MG in SOD CHLORIDE 0.9% 250 ML IVPB SCH (17:00)
--- NOTE | 2018-07-12 17:05 | CONS ---
Assessment/Plan Assessment/Plan Assessment/Plan (Daily) Hospital Course (Demo Recall) 32 yo with persistent biliary colicky pain and increasing bilirubin 1. Abdominal pain, persistent, biliary colicky and increasing bilirubin -t bili is slightly down today -s/p ERCP x 2 -RUQ 2. 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 -autoimmune serologies -Hep panel neg 3. Hepatosplenomegaly secondary to #2 4. Overweight. 5. Progressive jaundice secondary to #2 6. Biliary stricture secondary to hepatomegaly 7. Transaminitis with elevated bili which is trending up secondary to hepatomegaly. 8. Fevers, low grade without leukocytosis, patient is on Zosyn 9. Anemia, acute 10. Diarrhea improved 11. N/V resolved 12. Biopsy positive for budding yeast -on anti fungal 13. One episode of hematochezia likely due to hemorrhoids - will monitor closely 14. Coagulopathy -improving Biopsy of bile duct results: Common bile duct biopsy: -- Fragment of mucoid and purulent exudate containing PAS positive budding yeast and pseudohyphae compatible with lacie species fungal organisms (positive PAS Light Green concurrently reviewed). -- There are a few cytologically bland cuboidal epithelial cells but no tissue fragments are present. -- There is no evidence of malignancy. 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 Patient will definitely need prednisolone 40 mg once a day for 28 days once the WBC count comes down. It is possible her WBC is elevated secondary to alcoholic hepatitis and not due to infection the fungal infection in the biliary system is most probably colonized ration from the stent extend patient's total bilirubin is coming down will observe her Consultation Date/Type/Reason Admit Date/Time Jun 27, 2018 at 23:57 Initial Consult Date 07/01/18 Requesting Provider: ZEB JAMES MD Date/Time of Note DATE: 07/12/18 TIME: 17:05 24 HR Interval Summary Constitutional: no complaints, improved Exam/Review of Systems Exam Vitals Vital Signs Date Temp Pulse Resp B/P (MAP) Pulse Ox O2 O2 Flow FiO2 Time Delivery Rate 07/12/18 99.2 93 18 121/66 94 Room Air 14:00 (84) Intake and Output 07/11/18 07/11/18 07/12/18 1515:00 23:00 07:00 IntakeIntake Total 600 ml 600 ml BalanceBalance 600 ml 600 ml Constitutional: alert, oriented, well developed Psych: no complaints, nl mood/affect Head: normocephalic, atraumatic Eyes: nl conjunctiva, EOMI, nl lids, nl sclera, PERRL ENMT: nl external ears & nose, nl lips & teeth, nl nasal mucosa & septum Neck: supple, non-tender Respiratory: clear to auscultation, normal air movement Cardiovascular: regular rate and rhythm, nl pulses Gastrointestinal: soft, nl liver, spleen, non-tender Musculoskeletal: nl extremities to inspection, nl gait and stance Extremities: normal pulses Neurological: 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 TECHNICIAN II-XII intact, nl mental status, nl speech, nl strength Skin: nl turgor; No rash or lesions Lymph: nl lymph nodes Results Result Diagram: 07/11/1835 07/12/18 0535 Results 24hrs Laboratory Tests Test 07/12/18 05:35 Sodium Level 137 Potassium Level 3.7 Chloride Level 104 Carbon Dioxide Level 26 Anion Gap 7 Blood Urea Nitrogen 4 L Creatinine 0.65 Est Glomerular Filtrat Rate mL/min > 60 Glucose Level 112 Calcium Level 8.5 Total Bilirubin 10.6 H Direct Bilirubin 8.70 H Indirect Bilirubin 1.9 H Aspartate Amino Transf (AST/SGOT) 125 H Alanine Aminotransferase (ALT/SGPT) 37 Alkaline Phosphatase 221 H Total Protein 6.5 Albumin 3.0 L Globulin 3.50 H Albumin/Globulin Ratio 0.85 Medications Medication Current Medications Ondansetron HCl (Zofran Inj) 4 mg Q6H PRN IV NAUSEA AND/OR VOMITING Last administered on 07/11/18at 19:59; Admin Dose 4 MG; Start 06/28/18 at 01:30 Metoclopramide HCl (Reglan) 10 mg Q6 PRN IV NAUSEA AND/OR VOMITING Last administered on 07/11/18at 12:07; Admin Dose 10 MG; Start 06/28/18 at 01:30 Zolpidem Tartrate (Ambien) 5 mg HS PRN PO INSOMNIA Last administered on 07/10/18 23:02; Admin Dose 5 MG; Start 06/29/18 at 12:00 Potassium Chloride (Klor-Con 20) 40 meq DAILY PO Last administered on 07/11/18 09:04; Admin Dose 40 MEQ; Start 06/29/18 at 15:30 Morphine Sulfate (morphine) 6 mg Q4H PRN PO SEVERE PAIN LEVEL 7-10; Start 07/01/18 at 22:30 Pantoprazole (Protonix Tab) 40 mg BID@06,18 PO Last administered on 07/11/18 16:59; Admin Dose 40 MG; Start 07/03/18 at 18:00 Ondansetron HCl (Zofran Odt) 4 mg AC BREAKFAST DINNER ODT Last administered on 07/11/18 16:59; Admin Dose 4 MG; Start 07/04/18 at 17:35 Hydromorphone HCl (Dilaudid) 0.5 mg Q6H PRN IV SEVERE PAIN LEVEL 7-10 Last administered on 07/08/18 06:28; Admin Dose 0.5 MG; Start 07/04/18 at 16:30 Diphenhydramine HCl (Benadryl) 25 mg BID PRN PO ITCHING Last administered on 07/10/18 22:07; Admin Dose 25 MG; Start 07/06/18 at 23:30 Ibuprofen (Motrin) 400 mg Q6 PRN PO PAIN Last administered on 07/11/18 15:44; Admin Dose 400 MG; Start 07/09/18 at 17:00 Caspofungin 35 mg/ Sodium Chloride 250 ml @ 250 mls/hr Q24H IVPB Last administered on 07/12/18 17:00; Admin Dose 250 MLS/HR; Start 07/11/18 at 16:00 ASHOK TIWARI MD Jul 12, 2018 17:05
--- NOTE | 2018-07-12 19:01 | NUR ---
all needs met.no acute events.patient refused to take zofran and protonix as ordered.call light within reach.she is resting comfortably in bed at this time.
[2018-07-12 20:00] VITALS: BP 120/60; PULSE 94; RESP 18
[2018-07-13 02:00] VITALS: BP 112/56; PULSE 91; RESP 18
[2018-07-13] MEDS: PANTOPRAZOLE (EC) 40 MG TAB PO SCH ×2 (05:05→17:57)
--- NOTE | 2018-07-13 07:28 | NUR ---
Pt is alert and oriented x4. Pt ambulates at times around the unit. Vital signs stable. Pt refused meds this morning. Pt denies pain. No other acute event overnight. Will continue monitoring pt.
[2018-07-13] MEDS: ONDANSETRON (ODT) 4 MG TAB ODT SCH ×2 (07:30→17:35)
[2018-07-13 08:12] VITALS: BP 112/61; PULSE 90; RESP 18
[2018-07-13] MEDS: POTASSIUM CHLORIDE (SR) 20 MEQ TAB PO SCH (08:47)
--- NOTE | 2018-07-13 09:14 | CONS ---
Assessment/Plan Assessment/Plan Hospital Course (Demo Recall) 32 yo with persistent biliary colicky pain and increasing bilirubin 1. Abdominal pain, persistent, biliary colicky and increasing bilirubin -t bili is slightly down today -s/p ERCP x 2 -RUQ 2. 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 Hepatosplenomegaly secondary to #2 4. Overweight. 5. Progressive jaundice secondary to #2 6. Biliary stricture secondary to hepatomegaly 7. Transaminitis with elevated bili which is trending up secondary to hepatomegaly. 8. Fevers, low grade without leukocytosis, patient is on Zosyn -resolved 9. Anemia, acute 10. Diarrhea improved 11. N/V resolved 12. Biopsy positive for budding yeast -on anti fungal 13. One episode of hematochezia likely due to hemorrhoids - will monitor closely 14. Coagulopathy -improving 15. Alcoholic steatohepatitis Biopsy of bile duct results: Common bile duct biopsy: -- Fragment of mucoid and purulent exudate containing PAS positive budding yeast and pseudohyphae compatible with lacie species fungal organisms (positive PAS Light Green concurrently reviewed). -- There are a few cytologically bland cuboidal epithelial cells but no tissue fragments are present. -- There is no evidence of malignancy. Biopsy of liver 07/09: Liver, needle core biopsies: -- Consistent with alcoholic steatohepatitis with marked, (score 3) steatosis, grade 3 lobular inflammation, score 1 ballooning and stage 3 fibrosis. -- No malignancy or liver cirrhosis is identified. Plan: Patient will definitely need prednisolone 40 mg once a day for 28 days once the WBC count comes down. It is possible her WBC is elevated secondary to alcoholic hepatitis and not due to infection the fungal infection in the biliary system is most probably colonized ration from the stent extend patient's total bilirubin is coming down will observe her PRN anit emetics Pain management Continue with diet as tolerated Monitor WBC and LFTs Pt examined and plan of care discussed with Dr. Earl Consultation Date/Type/Reason Admit Date/Time Jun 27, 2018 at 23:57 Initial Consult Date 07/01/18 Requesting Provider: ZEB JAMES MD Date/Time of Note DATE: 07/13/18 TIME: 09:11 Exam/Review of Systems Exam Vitals Vital Signs Date Temp Pulse Resp B/P (MAP) Pulse Ox O2 O2 Flow FiO2 Time Delivery Rate 07/13/18 98.7 90 18 112/61 98 Room Air 08:12 (78) Intake and Output 07/12/18 07/12/18 07/13/18 1515:00 23:00 07:00 IntakeIntake Total 1000 ml 550 ml 1000 ml BalanceBalance 1000 ml 550 ml 1000 ml Results Result Diagram: 07/13/18 0542 07/13/18 0542 Results 24hrs Laboratory Tests Test 07/13/18 05:42 White Blood Count 18.4 #H Red Blood Count 3.50 L Hemoglobin 9.6 L Hematocrit 30.1 L Mean Corpuscular Volume 86.0 Mean Corpuscular Hemoglobin 27.4 L Mean Corpuscular Hemoglobin Concent 31.9 L Red Cell Distribution Width 33.0 H Platelet Count 345 # Mean Platelet Volume 11.2 H Immature Granulocytes % 1.600 H Neutrophils % Segmented Neutrophils % (Manual) 49 Band Neutrophils % (Manual) 31 H Lymphocytes % Lymphocytes % (Manual) 9 L Reactive Lymphocytes % (Manual) 1 H Monocytes % Monocytes % (Manual) 2 Eosinophils % Eosinophils % (Manual) 8 H Basophils % Nucleated Red Blood Cells % 0.3 H Immature Granulocytes # 0.290 H Neutrophils # Neutrophils # (Manual) 10.1 H Band Neutrophils # 5.7 H Lymphocytes (Manual) 1.6 Lymphocytes # Reactive Lymphocytes # 0.1 H Monocytes # Monocytes # (Manual) 0.3 Eosinophils # Basophils # Nucleated Red Blood Cells # Platelet Estimate DECREASED Polychromasia 3+ Hypochromasia 2+ Anisocytosis 1+ Macrocytosis 1+ Sodium Level 137 Potassium Level 3.7 Chloride Level 100 Carbon Dioxide Level 28 Anion Gap 9 Blood Urea Nitrogen 3 L Creatinine 0.66 Est Glomerular Filtrat Rate mL/min > 60 Glucose Level 106 Calcium Level 9.1 Medications Medication Current Medications Ondansetron HCl (Zofran Inj) 4 mg Q6H PRN IV NAUSEA AND/OR VOMITING Last administered on 07/11/18at 19:59; Admin Dose 4 MG; Start 06/28/18 at 01:30 Metoclopramide HCl (Reglan) 10 mg Q6 PRN IV NAUSEA AND/OR VOMITING Last administered on 07/11/18at 12:07; Admin Dose 10 MG; Start 06/28/18 at 01:30 Zolpidem Tartrate (Ambien) 5 mg HS PRN PO INSOMNIA Last administered on 07/10/18 23:02; Admin Dose 5 MG; Start 06/29/18 at 12:00 Potassium Chloride (Klor-Con 20) 40 meq DAILY PO Last administered on 07/11/18 09:04; Admin Dose 40 MEQ; Start 06/29/18 at 15:30 Morphine Sulfate (morphine) 6 mg Q4H PRN PO SEVERE PAIN LEVEL 7-10; Start 07/01/18 at 22:30 Pantoprazole (Protonix Tab) 40 mg BID@06,18 PO Last administered on 07/11/18 16:59; Admin Dose 40 MG; Start 07/03/18 at 18:00 Ondansetron HCl (Zofran Odt) 4 mg AC BREAKFAST DINNER ODT Last administered on 07/11/18 16:59; Admin Dose 4 MG; Start 07/04/18 at 17:35 Hydromorphone HCl (Dilaudid) 0.5 mg Q6H PRN IV SEVERE PAIN LEVEL 7-10 Last administered on 07/08/18 06:28; Admin Dose 0.5 MG; Start 07/04/18 at 16:30 Diphenhydramine HCl (Benadryl) 25 mg BID PRN PO ITCHING Last administered on 07/10/18 22:07; Admin Dose 25 MG; Start 07/06/18 at 23:30 Ibuprofen (Motrin) 400 mg Q6 PRN PO PAIN Last administered on 07/11/18 15:44; Admin Dose 400 MG; Start 07/09/18 at 17:00 Caspofungin 35 mg/ Sodium Chloride 250 ml @ 250 mls/hr Q24H IVPB Last administered on 07/12/18 17:00; Admin Dose 250 MLS/HR; Start 07/11/18 at 16:00 ADRIANA RICHARDSON Jul 13, 2018 09:14
--- NOTE | 2018-07-13 10:20 | PN ---
Date/Time of Note Date/Time of Note DATE: 07/13/18 TIME: 10:14 Assessment/Plan Lines/Catheters IV Catheter Type (from [facility]): Saline Lock Elias in Place (from [facility]): No Assessment/Plan Chief Complaint/Hosp Course 1. 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 +Yumiko started on antifungals.; liver bx: alcoholic steatosis -no surgical intervention recommended at this time -Continue encourage etoh cessation -trend labs -limit hepatotoxins -Hepatic optimization per GI -continue antifungals, eventual steroids 2. Transaminitis and hyperbilirubinemia 2nd above; bilirubin improved -as above 3. Abdominal pain: Improved -pain mgt 4. Macrocytic hypochromic anemia: likely 2/2 liver disease -monitor & tx as needed 5. Severe obesity BMI: 38 -diet and exercise optimization -encourage weight loss 6. Leukocytosis: Uptrending -Per ID Thank you. Patient seen and examined in collaboration with Dr. Mannie Bailey. Subjective 24 Hr Interval Summary Feels well. WBC uptrending. No fevers, chills, sob, congested cough, cp, palpitations, arora, dizziness, n/v/d/dysuria. Tolerating diet. Exam/Review of Systems Vital Signs Vitals Vital Signs Date Temp Pulse Resp B/P (MAP) Pulse Ox O2 O2 Flow FiO2 Time Delivery Rate 07/13/18 98.7 90 18 112/61 98 Room Air 08:12 (78) Intake and Output 07/12/18 07/12/18 07/13/18 1515:00 23:00 07:00 IntakeIntake Total 1000 ml 550 ml 1000 ml BalanceBalance 1000 ml 550 ml 1000 ml Exam Free Text/Dictation Constitutional: alert, oriented Psych: nl mood/affect, anxiety (min) Head: normocephalic, atraumatic Eyes: nl conjunctiva, EOMI, nl lids, sclera icterus ENMT: nl external ears & nose, nl lips & teeth, nl nasal mucosa & septum, mucosa pink and moist Neck: supple, non-tender Respiratory: normal air movement; No congested cough, No labored breathing Cardiovascular: regular rate and rhythm, nl pulses; No edema Gastrointestinal: soft, nontender Genitourinary - Female: nl external genitalia Musculoskeletal: nl extremities to inspection, nl gait and stance Extremities: normal pulses, BLE: 1+ edema Neurological: nl mental status, nl speech, nl strength Skin: jaundice No rash or lesions Results Result Diagram: 07/13/18 0542 07/13/18 0542 AARON FREGOSO NP Jul 13, 2018 10:20
--- NOTE | 2018-07-13 11:40 | CONS ---
Assessment/Plan Assessment/Plan Hospital Course (Demo Recall) Patient is alert looks comfortable she has no IV access and is asking to change IV Cancidas to p.o. WBC today went up to 18.4 with neutrophils 49 platelets 345 BUN 3 creatinine 0.66. Patient had been afebrile Physical examination: Obese well-developed middle-aged white woman who is alert in no distress. Head atraumatic normocephalic sclera icteric. Neck is supple. Chest rise symmetrical, breath sounds clear. Heart: S1-S2. Abdomen obese, soft bowel sounds present extremities without cyanosis. Skin positive for jaundice Assessment: 1. 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 Liver cirrhosis 3. Anemia 4. Obesity Plan: Stable, change Cancidas to Diflucan, monitor liver function, follow GI recommendations, check cxr and urine cx Consultation Date/Type/Reason Admit Date/Time Jun 27, 2018 at 23:57 Initial Consult Date 07/01/18 Type of Consult id Requesting Provider: ZEB JAMES MD Date/Time of Note DATE: 07/13/18 TIME: 11:38 Exam/Review of Systems Exam Vitals Vital Signs Date Temp Pulse Resp B/P (MAP) Pulse Ox O2 O2 Flow FiO2 Time Delivery Rate 07/13/18 98.7 90 18 112/61 98 Room Air 08:12 (78) Intake and Output 07/12/18 07/12/18 07/13/18 1414:59 22:59 06:59 IntakeIntake Total 1000 ml 550 ml 1000 ml BalanceBalance 1000 ml 550 ml 1000 ml Results Result Diagram: 07/13/18 0542 07/13/18 0542 Results 24hrs Laboratory Tests Test 07/13/18 05:42 White Blood Count 18.4 #H Red Blood Count 3.50 L Hemoglobin 9.6 L Hematocrit 30.1 L Mean Corpuscular Volume 86.0 Mean Corpuscular Hemoglobin 27.4 L Mean Corpuscular Hemoglobin Concent 31.9 L Red Cell Distribution Width 33.0 H Platelet Count 345 # Mean Platelet Volume 11.2 H Immature Granulocytes % 1.600 H Neutrophils % Segmented Neutrophils % (Manual) 49 Band Neutrophils % (Manual) 31 H Lymphocytes % Lymphocytes % (Manual) 9 L Reactive Lymphocytes % (Manual) 1 H Monocytes % Monocytes % (Manual) 2 Eosinophils % Eosinophils % (Manual) 8 H Basophils % Nucleated Red Blood Cells % 0.3 H Immature Granulocytes # 0.290 H Neutrophils # Neutrophils # (Manual) 10.1 H Band Neutrophils # 5.7 H Lymphocytes (Manual) 1.6 Lymphocytes # Reactive Lymphocytes # 0.1 H Monocytes # Monocytes # (Manual) 0.3 Eosinophils # Basophils # Nucleated Red Blood Cells # Platelet Estimate DECREASED Polychromasia 3+ Hypochromasia 2+ Anisocytosis 1+ Macrocytosis 1+ Sodium Level 137 Potassium Level 3.7 Chloride Level 100 Carbon Dioxide Level 28 Anion Gap 9 Blood Urea Nitrogen 3 L Creatinine 0.66 Est Glomerular Filtrat Rate mL/min > 60 Glucose Level 106 Calcium Level 9.1 Medications Medication Current Medications Ondansetron HCl (Zofran Inj) 4 mg Q6H PRN IV NAUSEA AND/OR VOMITING Last administered on 07/11/18 19:59; Admin Dose 4 MG; Start 06/28/18 at 01:30 Metoclopramide HCl (Reglan) 10 mg Q6 PRN IV NAUSEA AND/OR VOMITING Last administered on 07/11/18 12:07; Admin Dose 10 MG; Start 06/28/18 at 01:30 Zolpidem Tartrate (Ambien) 5 mg HS PRN PO INSOMNIA Last administered on 07/10/18 23:02; Admin Dose 5 MG; Start 06/29/18 at 12:00 Potassium Chloride (Klor-Con 20) 40 meq DAILY PO Last administered on 07/11/18 09:04; Admin Dose 40 MEQ; Start 06/29/18 at 15:30 Morphine Sulfate (morphine) 6 mg Q4H PRN PO SEVERE PAIN LEVEL 7-10; Start 07/01/18 at 22:30 Pantoprazole (Protonix Tab) 40 mg BID@06,18 PO Last administered on 07/11/18 16:59; Admin Dose 40 MG; Start 07/03/18 at 18:00 Ondansetron HCl (Zofran Odt) 4 mg AC BREAKFAST DINNER ODT Last administered on 07/11/18 16:59; Admin Dose 4 MG; Start 07/04/18 at 17:35 Hydromorphone HCl (Dilaudid) 0.5 mg Q6H PRN IV SEVERE PAIN LEVEL 7-10 Last administered on 07/08/18 06:28; Admin Dose 0.5 MG; Start 07/04/18 at 16:30 Diphenhydramine HCl (Benadryl) 25 mg BID PRN PO ITCHING Last administered on 07/10/18 22:07; Admin Dose 25 MG; Start 07/06/18 at 23:30 Ibuprofen (Motrin) 400 mg Q6 PRN PO PAIN Last administered on 07/11/18at 15:44; Admin Dose 400 MG; Start 07/09/18 at 17:00 Caspofungin 35 mg/ Sodium Chloride 250 ml @ 250 mls/hr Q24H IVPB Last administered on 07/12/18 17:00; Admin Dose 250 MLS/HR; Start 07/11/18 at 16:00 DARLEEN RAMOS NP Jul 13, 2018 11:40
[2018-07-13 14:53] VITALS: BP 128/72; PULSE 92; RESP 17
--- NOTE | 2018-07-13 16:53 | PN ---
Date/Time of Note Date/Time of Note DATE: 07/13/18 TIME: 16:51 Assessment/Plan VTE Prophylaxis Risk score (from Nsg)>0 risk: 1 SCD applied (from Nsg): No SCD contraindicated: low risk/ambulating Pharmacological prophylaxis: NA/contraindicated Pharm contraindication: low risk/ambulating Lines/Catheters IV Catheter Type (from Nrsg): Saline Lock Urinary Cath still in place: No Assessment/Plan Hospital Course 32 y/o with .1 Abdominal pain more likely due to acute pancreatitis. Vomiting and diarrhea for 3 weeks. Last 2 weeks patient was drinking 2- 4 shots of hard liquor daily. 2. Hyperbilirubinemia with elevated liver enzymes. Hepatitis panel is negative from [place]. US of liver reveals fatty infiltration, CD is 5 mm. Records w as reviewed form [facility]. 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 Former smoker, pt quit 6 years ago 4. hx of 2 C sections, 6 and 2 years ago 5. Obesity 6. Microcytic hypochromic anemia with thrombocytopenia. Pat. smear show anisocytosis 7. Hx of asthma Assessment/Plan - LFT trending down -Per GI patient can be started on prednisolone if the white count comes down and the candidiasis is probably a colonization, count is 18.6 today however LFTs are spontaneously getting better -Add Lasix due to peripheral edema - po antifungal - alcholol cessation - avoid hepatotoxic agents Result Diagram: 07/13/18 0542 07/13/18 1114 Results 24hrs Laboratory Tests Test 07/13/18 05:42 07/13/18 11:14 White Blood Count 18.4 #H Red Blood Count 3.50 L Hemoglobin 9.6 L Hematocrit 30.1 L Mean Corpuscular Volume 86.0 Mean Corpuscular Hemoglobin 27.4 L Mean Corpuscular Hemoglobin Concent 31.9 L Red Cell Distribution Width 33.0 H Platelet Count 345 # Mean Platelet Volume 11.2 H Immature Granulocytes % 1.600 H Neutrophils % Segmented Neutrophils % (Manual) 49 Band Neutrophils % (Manual) 31 H Lymphocytes % Lymphocytes % (Manual) 9 L Reactive Lymphocytes % (Manual) 1 H Monocytes % Monocytes % (Manual) 2 Eosinophils % Eosinophils % (Manual) 8 H Basophils % Nucleated Red Blood Cells % 0.3 H Immature Granulocytes # 0.290 H Neutrophils # Neutrophils # (Manual) 10.1 H Band Neutrophils # 5.7 H Lymphocytes (Manual) 1.6 Lymphocytes # Reactive Lymphocytes # 0.1 H Monocytes # Monocytes # (Manual) 0.3 Eosinophils # Basophils # Nucleated Red Blood Cells # Platelet Estimate DECREASED Polychromasia 3+ Hypochromasia 2+ Anisocytosis 1+ Macrocytosis 1+ Sodium Level 137 136 Potassium Level 3.7 3.8 Chloride Level 100 102 Carbon Dioxide Level 28 29 Anion Gap 9 5 Blood Urea Nitrogen 3 L 3 L Creatinine 0.66 0.61 Est Glomerular Filtrat Rate mL/min > 60 > 60 Glucose Level 106 99 Calcium Level 9.1 8.8 Total Bilirubin 9.5 H Direct Bilirubin 7.50 H Indirect Bilirubin 2.0 H Aspartate Amino Transf (AST/SGOT) 123 H Alanine Aminotransferase (ALT/SGPT) 33 Alkaline Phosphatase 235 H Total Protein 7.3 Albumin 3.4 Globulin 3.90 H Albumin/Globulin Ratio 0.87 Subjective 24 Hr Interval Summary Free Text/Dictation bilrubin trending down. Bilateral lower extremity edema Exam/Review of Systems Exam Vitals Vital Signs Date Temp Pulse Resp B/P (MAP) Pulse Ox O2 O2 Flow FiO2 Time Delivery Rate 07/13/18 98.1 92 17 128/72 94 Room Air 14:53 (90) Intake and Output 07/12/18 07/12/18 07/13/18 1515:00 23:00 07:00 IntakeIntake Total 1000 ml 550 ml 1000 ml BalanceBalance 1000 ml 550 ml 1000 ml Exam Constitutional: alert, oriented Eyes: icteric Neck: supple Respiratory: clear to auscultation Cardiovascular: regular rate and rhythm Gastrointestinal: soft Extremities: edema (1 +) Results Results 24hrs Laboratory Tests Test 07/13/18 05:42 07/13/18 11:14 White Blood Count 18.4 #H Red Blood Count 3.50 L Hemoglobin 9.6 L Hematocrit 30.1 L Mean Corpuscular Volume 86.0 Mean Corpuscular Hemoglobin 27.4 L Mean Corpuscular Hemoglobin Concent 31.9 L Red Cell Distribution Width 33.0 H Platelet Count 345 # Mean Platelet Volume 11.2 H Immature Granulocytes % 1.600 H Neutrophils % Segmented Neutrophils % (Manual) 49 Band Neutrophils % (Manual) 31 H Lymphocytes % Lymphocytes % (Manual) 9 L Reactive Lymphocytes % (Manual) 1 H Monocytes % Monocytes % (Manual) 2 Eosinophils % Eosinophils % (Manual) 8 H Basophils % Nucleated Red Blood Cells % 0.3 H Immature Granulocytes # 0.290 H Neutrophils # Neutrophils # (Manual) 10.1 H Band Neutrophils # 5.7 H Lymphocytes (Manual) 1.6 Lymphocytes # Reactive Lymphocytes # 0.1 H Monocytes # Monocytes # (Manual) 0.3 Eosinophils # Basophils # Nucleated Red Blood Cells # Platelet Estimate DECREASED Polychromasia 3+ Hypochromasia 2+ Anisocytosis 1+ Macrocytosis 1+ Sodium Level 137 136 Potassium Level 3.7 3.8 Chloride Level 100 102 Carbon Dioxide Level 28 29 Anion Gap 9 5 Blood Urea Nitrogen 3 L 3 L Creatinine 0.66 0.61 Est Glomerular Filtrat Rate mL/min > 60 > 60 Glucose Level 106 99 Calcium Level 9.1 8.8 Total Bilirubin 9.5 H Direct Bilirubin 7.50 H Indirect Bilirubin 2.0 H Aspartate Amino Transf (AST/SGOT) 123 H Alanine Aminotransferase (ALT/SGPT) 33 Alkaline Phosphatase 235 H Total Protein 7.3 Albumin 3.4 Globulin 3.90 H Albumin/Globulin Ratio 0.87 Medications Medication Current Medications Ondansetron HCl (Zofran Inj) 4 mg Q6H PRN IV NAUSEA AND/OR VOMITING Last administered on 07/11/18 19:59; Admin Dose 4 MG; Start 06/28/18 at 01:30 Metoclopramide HCl (Reglan) 10 mg Q6 PRN IV NAUSEA AND/OR VOMITING Last administered on 07/11/18at 12:07; Admin Dose 10 MG; Start 06/28/18 at 01:30 Zolpidem Tartrate (Ambien) 5 mg HS PRN PO INSOMNIA Last administered on 07/10/18 23:02; Admin Dose 5 MG; Start 06/29/18 at 12:00 Potassium Chloride (Klor-Con 20) 40 meq DAILY PO Last administered on 07/11/18 09:04; Admin Dose 40 MEQ; Start 06/29/18 at 15:30 Morphine Sulfate (morphine) 6 mg Q4H PRN PO SEVERE PAIN LEVEL 7-10; Start 07/01/18 at 22:30 Pantoprazole (Protonix Tab) 40 mg BID@06,18 PO Last administered on 07/11/18 16:59; Admin Dose 40 MG; Start 07/03/18 at 18:00 Ondansetron HCl (Zofran Odt) 4 mg AC BREAKFAST DINNER ODT Last administered on 07/11/18 16:59; Admin Dose 4 MG; Start 07/04/18 at 17:35 Hydromorphone HCl (Dilaudid) 0.5 mg Q6H PRN IV SEVERE PAIN LEVEL 7-10 Last administered on 07/08/18 06:28; Admin Dose 0.5 MG; Start 07/04/18 at 16:30 Diphenhydramine HCl (Benadryl) 25 mg BID PRN PO ITCHING Last administered on 07/10/18at 22:07; Admin Dose 25 MG; Start 07/06/18 at 23:30 Ibuprofen (Motrin) 400 mg Q6 PRN PO PAIN Last administered on 07/11/18at 15:44; Admin Dose 400 MG; Start 07/09/18 at 17:00 Fluconazole (Diflucan) 100 mg DAILY PO ; Start 07/14/18 at 09:00 ZEB JAMES MD Jul 13, 2018 16:53
[2018-07-13] MEDS: FUROSEMIDE 40 MG TAB PO SCH (17:53)
--- NOTE | 2018-07-13 18:55 | NUR ---
EOSS: PT'S HEMODYNAMICS AND RESPIR. STATUS ARE STABLE. NO COMPLICATIONS. NO CHANGES IN CONDITION. WILL CONT. MONITORING. WILL CONT. W /THE PLAN OF CARE.
--- NOTE | 2018-07-13 19:34 | NUR ---
REPORT WAS GIVEN TOE THE [employer] ROBOTICIST RN.
[2018-07-13 20:36] VITALS: BP 120/70; PULSE 90; RESP 18
[2018-07-14 02:48] VITALS: BP 114/64; PULSE 87; RESP 20
[2018-07-14] MEDS: PANTOPRAZOLE (EC) 40 MG TAB PO SCH ×2 (05:48→18:00)
--- NOTE | 2018-07-14 06:04 | NUR ---
Patient is able to verbalize needs, denies any pain. Able to ambulate around unit without difficulty. Hourly rounding provided, call light within reach. No acute changes noted during shift.
[2018-07-14] MEDS: ONDANSETRON (ODT) 4 MG TAB ODT SCH ×2 (07:30→17:35)
--- NOTE | 2018-07-14 07:59 | CONS ---
Assessment/Plan Assessment/Plan Hospital Course (Demo Recall) 32 yo with persistent biliary colicky pain and increasing bilirubin 1. Abdominal pain, persistent, biliary colicky and increasing bilirubin -t bili is slightly down today -s/p ERCP x 2 -RUQ 2. 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 Hepatosplenomegaly secondary to #2 4. Overweight. 5. Progressive jaundice secondary to #2 6. Biliary stricture secondary to hepatomegaly 7. Transaminitis with elevated bili which is trending up secondary to hepatomegaly. -trending down 8. Fevers, low grade without leukocytosis, patient is on Zosyn -resolved 9. Anemia, acute 10. Diarrhea improved 11. N/V resolved 12. Biopsy positive for budding yeast -on anti fungal 13. One episode of hematochezia likely due to hemorrhoids - will monitor closely 14. Coagulopathy -improving 15. Alcoholic steatohepatitis Biopsy of bile duct results: Common bile duct biopsy: -- Fragment of mucoid and purulent exudate containing PAS positive budding yeast and pseudohyphae compatible with lacie species fungal organisms (positive PAS Light Green concurrently reviewed). -- There are a few cytologically bland cuboidal epithelial cells but no tissue fragments are present. -- There is no evidence of malignancy. Biopsy of liver 07/09: Liver, needle core biopsies: -- Consistent with alcoholic steatohepatitis with marked, (score 3) steatosis, grade 3 lobular inflammation, score 1 ballooning and stage 3 fibrosis. -- No malignancy or liver cirrhosis is identified. Plan: Continue current care. WBC and LFTs trending down. Patient may need prednisolone 40 mg once a day for 28 days once the WBC count comes down if her total bili does not come down. It is possible her WBC is elevated secondary to alcoholic hepatitis and not due to infection the fungal infection in the biliary system is most probably colonized ration from the stent extend patient's total bilirubin is coming down will observe her PRN anit emetics Pain management Continue with diet as tolerated Monitor WBC and LFTs Pt examined and plan of care discussed with Dr. Earl Consultation Date/Type/Reason Admit Date/Time Jun 27, 2018 at 23:57 Initial Consult Date 07/01/18 Requesting Provider: ZEB JAMES MD Date/Time of Note DATE: 07/14/18 TIME: 07:59 24 HR Interval Summary Free Text/Dictation Pt denies abd pain, N/V, diarrhea or hematochezia. WBC slightly down today. LFTs, including t bili is trending down. Exam/Review of Systems Exam Vitals Vital Signs Date Temp Pulse Resp B/P (MAP) Pulse Ox O2 O2 Flow FiO2 Time Delivery Rate 07/14/18 99.0 87 20 114/64 98 02:48 (81) 07/13/18 Room Air 14:53 Intake and Output 07/13/18 07/13/18 07/14/18 1515:00 23:00 07:00 IntakeIntake Total 300 ml 400 ml BalanceBalance 300 ml 400 ml Constitutional: alert, oriented Psych: no complaints Head: normocephalic Eyes: PERRL, icteric ENMT: mucosa pink and moist Respiratory: clear to auscultation Cardiovascular: regular rate and rhythm Gastrointestinal: soft, tender (mild) Musculoskeletal: nl extremities to inspection, nl gait and stance Extremities: normal pulses Neurological: nl mental status, nl speech Results Result Diagram: 07/13/18 0542 07/14/18 0539 Results 24hrs Laboratory Tests Test 07/13/18 11:14 07/14/18 05:39 Sodium Level 136 137 Potassium Level 3.8 3.3 L Chloride Level 102 100 Carbon Dioxide Level 29 28 Anion Gap 5 9 Blood Urea Nitrogen 3 L 3 L Creatinine 0.61 0.59 Est Glomerular Filtrat Rate mL/min > 60 > 60 Glucose Level 99 99 Calcium Level 8.8 8.7 Total Bilirubin 9.5 H 7.6 H Direct Bilirubin 7.50 H 5.90 H Indirect Bilirubin 2.0 H 1.7 H Aspartate Amino Transf (AST/SGOT) 123 H 125 H Alanine Aminotransferase (ALT/SGPT) 33 29 Alkaline Phosphatase 235 H 243 H Total Protein 7.3 6.7 Albumin 3.4 3.1 L Globulin 3.90 H 3.60 H Albumin/Globulin Ratio 0.87 0.86 Medications Medication Current Medications Ondansetron HCl (Zofran Inj) 4 mg Q6H PRN IV NAUSEA AND/OR VOMITING Last administered on 07/11/18at 19:59; Admin Dose 4 MG; Start 06/28/18 at 01:30 Metoclopramide HCl (Reglan) 10 mg Q6 PRN IV NAUSEA AND/OR VOMITING Last administered on 07/11/18 12:07; Admin Dose 10 MG; Start 06/28/18 at 01:30 Zolpidem Tartrate (Ambien) 5 mg HS PRN PO INSOMNIA Last administered on 07/10 23:02; Admin Dose 5 MG; Start 06/29/18 at 12:00 Potassium Chloride (Klor-Con 20) 40 meq DAILY PO Last administered on 07/11/18 09:04; Admin Dose 40 MEQ; Start 06/29/18 at 15:30 Morphine Sulfate (morphine) 6 mg Q4H PRN PO SEVERE PAIN LEVEL 7-10; Start 07/01/18 at 22:30 Pantoprazole (Protonix Tab) 40 mg BID@06,18 PO Last administered on 07/11/18 16:59; Admin Dose 40 MG; Start 07/03/18 at 18:00 Ondansetron HCl (Zofran Odt) 4 mg AC BREAKFAST DINNER ODT Last administered on 07/11/18 16:59; Admin Dose 4 MG; Start 07/04/18 at 17:35 Hydromorphone HCl (Dilaudid) 0.5 mg Q6H PRN IV SEVERE PAIN LEVEL 7-10 Last administered on 07/08/18 06:28; Admin Dose 0.5 MG; Start 07/04/18 at 16:30 Diphenhydramine HCl (Benadryl) 25 mg BID PRN PO ITCHING Last administered on 07/10/18 22:07; Admin Dose 25 MG; Start 07/06/18 at 23:30 Ibuprofen (Motrin) 400 mg Q6 PRN PO PAIN Last administered on 07/11/18 15:44; Admin Dose 400 MG; Start 07/09/18 at 17:00 Fluconazole (Diflucan) 100 mg DAILY PO ; Start 07/14/18 at 09:00 Furosemide (Lasix) 40 mg DAILY PO Last administered on 07/13/18 17:53; Admin Dose 40 MG; Start 07/13/18 at 17:00 ADRIANA RICHARDSON Jul 14, 2018 07:59
[2018-07-14 08:00] VITALS: BP 116/69; PULSE 82; RESP 20
--- NOTE | 2018-07-14 08:05 | PN ---
Date/Time of Note Date/Time of Note DATE: 07/14/18 TIME: 08:03 Assessment/Plan Lines/Catheters IV Catheter Type (from Nrs): No IV access Elias in Place (from Nrs): No Assessment/Plan Chief Complaint/Hosp Course 1. 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 +Yumiko started on antifungals.; liver bx: alcoholic steatosis -no surgical intervention recommended at this time -Continue encourage etoh cessation -trend labs -limit hepatotoxins -Continue hepatic optimization per GI -continue antifungals, eventual steroids> per GI 2. Transaminitis and hyperbilirubinemia 2nd above; bilirubin improving -as above 3. Abdominal pain: Improved -pain mgt 4. Macrocytic hypochromic anemia: likely 2/2 liver disease -monitor & tx as needed 5. Severe obesity BMI: 38 -diet and exercise optimization -encourage weight loss 6. Leukocytosis: Uptrending -Per ID Thank you. Patient seen and examined in collaboration with Dr. Mannie Bailey. Subjective 24 Hr Interval Summary Feels well. Bilirubin improved. No fevers, chills, sob, congested cough, cp, palpitations, arora, dizziness, nausea, vomiting, diarrhea, dysuria. Exam/Review of Systems Vital Signs Vitals Vital Signs Date Temp Pulse Resp B/P (MAP) Pulse Ox O2 O2 Flow FiO2 Time Delivery Rate 07/14/18 99.0 87 20 114/64 98 02:48 (81) 07/13/18 Room Air 14:53 Intake and Output 07/13/18 07/13/18 07/14/18 1515:00 23:00 07:00 IntakeIntake Total 300 ml 400 ml BalanceBalance 300 ml 400 ml Exam Free Text/Dictation Constitutional: alert, oriented Psych: nl mood/affect, anxiety (min) Head: normocephalic, atraumatic Eyes: nl conjunctiva, EOMI, nl lids, sclera icterus ENMT: nl external ears & nose, nl lips & teeth, nl nasal mucosa & septum, mucosa pink and moist Neck: supple, non-tender Respiratory: normal air movement; No congested cough, No labored breathing Cardiovascular: regular rate and rhythm, nl pulses; No edema Gastrointestinal: soft, nontender Genitourinary - Female: nl external genitalia Musculoskeletal: nl extremities to inspection, nl gait and stance Extremities: normal pulses, BLE: 1+ edema Neurological: nl mental status, nl speech, nl strength Skin: jaundice No rash or lesions Results Result Diagram: 07/13/18 0542 07/14/18 0539 AARON FREGOSO NP Jul 14, 2018 08:05
[2018-07-14] MEDS: POTASSIUM CHLORIDE (SR) 20 MEQ TAB PO SCH (08:53)
[2018-07-14] MEDS: FLUCONAZOLE 100 MG TAB PO SCH (08:53)
[2018-07-14] MEDS: FUROSEMIDE 40 MG TAB PO SCH (08:54)
[2018-07-14] MEDS ORDERED: POTASSIUM CHLORIDE (SR) 20 MEQ TAB PO STA (09:49)
--- NOTE | 2018-07-14 11:02 | CONS ---
Assessment/Plan Assessment/Plan Hospital Course (Demo Recall) No acute events, awake, feels better, no fevers Abx: Diflucan Physical examination: Obese well-developed middle-aged white woman who is alert in no distress. Head atraumatic normocephalic sclera icteric. Neck is supple. Chest rise symmetrical, breath sounds clear. Heart: S1-S2. Abdomen obese, soft bowel sounds present extremities without cyanosis. Skin positive for jaundice Assessment: 1. 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 Liver cirrhosis 3. Anemia 4. Obesity Plan: Stable, continue present care, follow GI/surgical recommendations, cxr noted==> neg Consultation Date/Type/Reason Admit Date/Time Jun 27, 2018 at 23:57 Initial Consult Date 07/01/18 Type of Consult id Requesting Provider: ZEB JAMES MD Date/Time of Note DATE: 07/14/18 TIME: 11:00 Exam/Review of Systems Exam Vitals Vital Signs Date Temp Pulse Resp B/P (MAP) Pulse Ox O2 O2 Flow FiO2 Time Delivery Rate 07/14/18 98.7 82 20 116/69 96 08:00 (85) 07/13/18 Room Air 14:53 Intake and Output 07/13/18 07/13/18 07/14/18 1414:59 22:59 06:59 IntakeIntake Total 300 ml 400 ml BalanceBalance 300 ml 400 ml Results Result Diagram: 07/14/18 0536 07/14/18 0539 Results 24hrs Laboratory Tests Test 07/13/18 11:14 07/14/18 05:36 07/14/18 05:39 Sodium Level 136 137 Potassium Level 3.8 3.3 L Chloride Level 102 100 Carbon Dioxide Level 29 28 Anion Gap 5 9 Blood Urea Nitrogen 3 L 3 L Creatinine 0.61 0.59 Est Glomerular Filtrat Rate mL/min > 60 > 60 Glucose Level 99 99 Calcium Level 8.8 8.7 Total Bilirubin 9.5 H 7.6 H Direct Bilirubin 7.50 H 5.90 H Indirect Bilirubin 2.0 H 1.7 H Aspartate Amino Transf (AST/SGOT) 123 H 125 H Alanine Aminotransferase (ALT/SGPT) 33 29 Alkaline Phosphatase 235 H 243 H Total Protein 7.3 6.7 Albumin 3.4 3.1 L Globulin 3.90 H 3.60 H Albumin/Globulin Ratio 0.87 0.86 White Blood Count 17.5 H Red Blood Count 3.40 L Hemoglobin 9.3 L Hematocrit 29.4 L Mean Corpuscular Volume 86.5 Mean Corpuscular Hemoglobin 27.4 L Mean Corpuscular Hemoglobin Concent 31.6 L Red Cell Distribution Width 32.9 H Platelet Count 310 Mean Platelet Volume 11.1 H Immature Granulocytes % 1.400 H Neutrophils % 80.5 H Lymphocytes % 11.1 L Monocytes % 4.4 Eosinophils % 2.0 Basophils % 0.6 Nucleated Red Blood Cells % 0.1 H Immature Granulocytes # 0.240 H Neutrophils # 14.1 H Lymphocytes # 1.9 Monocytes # 0.8 Eosinophils # 0.4 Basophils # 0.1 Nucleated Red Blood Cells # 0.0 Medications Medication Current Medications Ondansetron HCl (Zofran Inj) 4 mg Q6H PRN IV NAUSEA AND/OR VOMITING Last administered on 07/11/18 19:59; Admin Dose 4 MG; Start 06/28/18 at 01:30 Metoclopramide HCl (Reglan) 10 mg Q6 PRN IV NAUSEA AND/OR VOMITING Last administered on 07/11/18 12:07; Admin Dose 10 MG; Start 06/28/18 at 01:30 Zolpidem Tartrate (Ambien) 5 mg HS PRN PO INSOMNIA Last administered on 07/10/18 23:02; Admin Dose 5 MG; Start 06/29/18 at 12:00 Potassium Chloride (Klor-Con 20) 40 meq DAILY PO Last administered on 07/14/18 08:53; Admin Dose 40 MEQ; Start 06/29/18 at 15:30 Morphine Sulfate (morphine) 6 mg Q4H PRN PO SEVERE PAIN LEVEL 7-10; Start 07/01/18 at 22:30 Pantoprazole (Protonix Tab) 40 mg BID@06,18 PO Last administered on 07/11/18 16:59; Admin Dose 40 MG; Start 07/03/18 at 18:00 Ondansetron HCl (Zofran Odt) 4 mg AC BREAKFAST DINNER ODT Last administered on 07/11/18 16:59; Admin Dose 4 MG; Start 07/04/18 at 17:35 Hydromorphone HCl (Dilaudid) 0.5 mg Q6H PRN IV SEVERE PAIN LEVEL 7-10 Last administered on 07/08/18 06:28; Admin Dose 0.5 MG; Start 07/04/18 at 16:30 Diphenhydramine HCl (Benadryl) 25 mg BID PRN PO ITCHING Last administered on 07/10/18 22:07; Admin Dose 25 MG; Start 07/06/18 at 23:30 Ibuprofen (Motrin) 400 mg Q6 PRN PO PAIN Last administered on 07/11/18 15:44; Admin Dose 400 MG; Start 07/09/18 at 17:00 Fluconazole (Diflucan) 100 mg DAILY PO Last administered on 07/14/18 08:53; Admin Dose 100 MG; Start 07/14/18 at 09:00 Furosemide (Lasix) 40 mg DAILY PO Last administered on 07/14/18 08:54; Admin Dose 40 MG; Start 07/13/18 at 17:00 DARLEEN RAMOS NP Jul 14, 2018 11:02
[2018-07-14 14:00] VITALS: BP 135/77; PULSE 94; RESP 18
--- NOTE | 2018-07-14 16:12 | CONS ---
Assessment/Plan Assessment/Plan Assessment/Plan (Daily) unfortunate 32 yo who has a significant alcohol history over the last year, admitted with massive hepatomegaly, splenomegaly, found to have cirrhosis. #elevated direct bilirubin/elevated LDH -these abnormalities are due to Cirrhosis of liver with portal hypertension. she is jaundiced from cirrhosis and has alcoholic hepatitis per Dr Earl thus explaining her enlarged liver, she has portal hypertension -Discussed with patient about alcohol cessation #anemia of chronic disease and chronic inflammation - s/p Venofer - patient likely has anemia of chronic disease #mild coagulopathy - 2/2 liver dysfunction, INR - 1.2; if INR >2, sp vit K 5 mg po x 1. - check lupus anticoagulant - pending - suspect elevated PT/PTT due to synthetic dysfunction Patient seen in collaboration with Dr calhoun Consultation Date/Type/Reason Admit Date/Time Jun 27, 2018 at 11:57 pm Initial Consult Date 07/01/18 Type of Consult ONCOLOGY Reason for Consultation ANEMIA Requesting Provider: ZEB JAMES MD Date/Time of Note DATE: 07/14/18 TIME: 16:11 24 HR Interval Summary Free Text/Dictation - feels better -family at bed side- all QS answered. no new events reported last night Constitutional: improved Detailed Summary ENT: no complaints Respiratory: no complaints Cardiovascular: no complaints Gastrointestinal: pain Genitourinary: no complaints Musculoskeletal: no complaints Skin: no complaints Neurologic: no complaints Psychological: nl mood/affect Exam/Review of Systems Exam Vitals Vital Signs Date Temp Pulse Resp B/P (MAP) Pulse Ox O2 O2 Flow FiO2 Time Delivery Rate 07/14/18 98.7 82 20 116/69 96 08:00 (85) 07/13/18 Room Air 14:53 Intake and Output 07/13/18 07/13/18 07/14/18 1515:00 23:00 07:00 IntakeIntake Total 300 ml 400 ml BalanceBalance 300 ml 400 ml Constitutional: alert, oriented, well developed Psych: nl mood/affect Head: atraumatic Eyes: EOMI, nl lids, icteric ENMT: nl external ears & nose Neck: supple Respiratory: clear to auscultation Cardiovascular: nl pulses, other (S1S2) Gastrointestinal: soft, non-tender Musculoskeletal: nl extremities to inspection Extremities: normal pulses Neurological: nl mental status, nl speech Skin: nl turgor Lymph: nontender Results Result Diagram: 07/14/18 0536 07/14/18 0539 Results 24hrs Laboratory Tests Test 07/14/18 05:36 07/14/18 05:39 White Blood Count 17.5 H Red Blood Count 3.40 L Hemoglobin 9.3 L Hematocrit 29.4 L Mean Corpuscular Volume 86.5 Mean Corpuscular Hemoglobin 27.4 L Mean Corpuscular Hemoglobin Concent 31.6 L Red Cell Distribution Width 32.9 H Platelet Count 310 Mean Platelet Volume 11.1 H Immature Granulocytes % 1.400 H Neutrophils % 80.5 H Lymphocytes % 11.1 L Monocytes % 4.4 Eosinophils % 2.0 Basophils % 0.6 Nucleated Red Blood Cells % 0.1 H Immature Granulocytes # 0.240 H Neutrophils # 14.1 H Lymphocytes # 1.9 Monocytes # 0.8 Eosinophils # 0.4 Basophils # 0.1 Nucleated Red Blood Cells # 0.0 Sodium Level 137 Potassium Level 3.3 L Chloride Level 100 Carbon Dioxide Level 28 Anion Gap 9 Blood Urea Nitrogen 3 L Creatinine 0.59 Est Glomerular Filtrat Rate mL/min > 60 Glucose Level 99 Calcium Level 8.7 Total Bilirubin 7.6 H Direct Bilirubin 5.90 H Indirect Bilirubin 1.7 H Aspartate Amino Transf (AST/SGOT) 125 H Alanine Aminotransferase (ALT/SGPT) 29 Alkaline Phosphatase 243 H Total Protein 6.7 Albumin 3.1 L Globulin 3.60 H Albumin/Globulin Ratio 0.86 Medications Medication Current Medications Ondansetron HCl (Zofran Inj) 4 mg Q6H PRN IV NAUSEA AND/OR VOMITING Last administered on 07/11/18 19:59; Admin Dose 4 MG; Start 06/28/18 at 01:30 Metoclopramide HCl (Reglan) 10 mg Q6 PRN IV NAUSEA AND/OR VOMITING Last administered on 07/11/18 12:07; Admin Dose 10 MG; Start 06/28/18 at 01:30 Zolpidem Tartrate (Ambien) 5 mg HS PRN PO INSOMNIA Last administered on 07/10/18 23:02; Admin Dose 5 MG; Start 06/29/18 at 12:00 Potassium Chloride (Klor-Con 20) 40 meq DAILY PO Last administered on 07/14/18at 08:53; Admin Dose 40 MEQ; Start 06/29/18 at 15:30 Morphine Sulfate (morphine) 6 mg Q4H PRN PO SEVERE PAIN LEVEL 7-10; Start 07/01/18 at 22:30 Pantoprazole (Protonix Tab) 40 mg BID@06,18 PO Last administered on 07/11/18 16:59; Admin Dose 40 MG; Start 07/03/18 at 18:00 Ondansetron HCl (Zofran Odt) 4 mg AC BREAKFAST DINNER ODT Last administered on 07/11/18 16:59; Admin Dose 4 MG; Start 07/04/18 at 17:35 Hydromorphone HCl (Dilaudid) 0.5 mg Q6H PRN IV SEVERE PAIN LEVEL 7-10 Last administered on 07/08/18 06:28; Admin Dose 0.5 MG; Start 07/04/18 at 16:30 Diphenhydramine HCl (Benadryl) 25 mg BID PRN PO ITCHING Last administered on 07/10/18 22:07; Admin Dose 25 MG; Start 07/06/18 at 23:30 Ibuprofen (Motrin) 400 mg Q6 PRN PO PAIN Last administered on 07/11/18 15:44; Admin Dose 400 MG; Start 07/09/18 at 17:00 Fluconazole (Diflucan) 100 mg DAILY PO Last administered on 07/14/18 08:53; Admin Dose 100 MG; Start 07/14/18 at 09:00 Furosemide (Lasix) 40 mg DAILY PO Last administered on 07/14/18 08:54; Admin Dose 40 MG; Start 07/13/18 at 17:00 YULISSA LOVING Jul 14, 2018 4:11 pm
--- NOTE | 2018-07-14 16:44 | PN ---
Date/Time of Note Date/Time of Note DATE: 07/14/18 TIME: 16:44 Assessment/Plan VTE Prophylaxis Risk score (from Nsg)>0 risk: 2 SCD applied (from Nsg): No SCD contraindicated: low risk/ambulating Pharmacological prophylaxis: NA/contraindicated Pharm contraindication: low risk/ambulating Lines/Catheters IV Catheter Type (from Nrsg): no IV acces Urinary Cath still in place: No Assessment/Plan Hospital Course 32 y/o with .1 Abdominal pain more likely due to acute pancreatitis. Vomiting and diarrhea for 3 weeks. Last 2 weeks patient was drinking 2- 4 shots of hard liquor daily. 2. Hyperbilirubinemia with elevated liver enzymes. Hepatitis panel is negative from [place]. US of liver reveals fatty infiltration, CD is 5 mm. Records w as reviewed form [facility]. 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 Former smoker, pt quit 6 years ago 4. hx of 2 C sections, 6 and 2 years ago 5. Obesity 6. Microcytic hypochromic anemia with thrombocytopenia. Pat. smear show anisocytosis 7. Hx of asthma Assessment/Plan - LFT trending down , total bilirubin and direct bilirubin trending down -Per GI patient can be started on prednisolone if the white count comes down and the candidiasis is probably a colonization, count is 18.6 today however LFTs are spontaneously getting better> likely will not need any steroids - CWLasix due to peripheral edema - po antifungal - alcholol cessation - avoid hepatotoxic agents Result Diagram: 07/14/18 0536 07/14/18 0539 Results 24hrs Laboratory Tests Test 07/14/18 05:36 07/14/18 05:39 White Blood Count 17.5 H Red Blood Count 3.40 L Hemoglobin 9.3 L Hematocrit 29.4 L Mean Corpuscular Volume 86.5 Mean Corpuscular Hemoglobin 27.4 L Mean Corpuscular Hemoglobin Concent 31.6 L Red Cell Distribution Width 32.9 H Platelet Count 310 Mean Platelet Volume 11.1 H Immature Granulocytes % 1.400 H Neutrophils % 80.5 H Lymphocytes % 11.1 L Monocytes % 4.4 Eosinophils % 2.0 Basophils % 0.6 Nucleated Red Blood Cells % 0.1 H Immature Granulocytes # 0.240 H Neutrophils # 14.1 H Lymphocytes # 1.9 Monocytes # 0.8 Eosinophils # 0.4 Basophils # 0.1 Nucleated Red Blood Cells # 0.0 Sodium Level 137 Potassium Level 3.3 L Chloride Level 100 Carbon Dioxide Level 28 Anion Gap 9 Blood Urea Nitrogen 3 L Creatinine 0.59 Est Glomerular Filtrat Rate mL/min > 60 Glucose Level 99 Calcium Level 8.7 Total Bilirubin 7.6 H Direct Bilirubin 5.90 H Indirect Bilirubin 1.7 H Aspartate Amino Transf (AST/SGOT) 125 H Alanine Aminotransferase (ALT/SGPT) 29 Alkaline Phosphatase 243 H Total Protein 6.7 Albumin 3.1 L Globulin 3.60 H Albumin/Globulin Ratio 0.86 Subjective 24 Hr Interval Summary Free Text/Dictation Feels that she is feeling better. Has some edema of the lower extremities Exam/Review of Systems Exam Vitals Vital Signs Date Temp Pulse Resp B/P (MAP) Pulse Ox O2 O2 Flow FiO2 Time Delivery Rate 07/14/18 98.7 82 20 116/69 96 08:00 (85) 07/13/18 Room Air 14:53 Intake and Output 07/13/18 07/13/18 07/14/18 1515:00 23:00 07:00 IntakeIntake Total 300 ml 400 ml BalanceBalance 300 ml 400 ml Exam Constitutional: alert, oriented Eyes: icteric Neck: supple Respiratory: clear to auscultation Cardiovascular: regular rate and rhythm Gastrointestinal: soft Extremities: edema (1 +) Results Results 24hrs Laboratory Tests Test 07/14/18 05:36 07/14/18 05:39 White Blood Count 17.5 H Red Blood Count 3.40 L Hemoglobin 9.3 L Hematocrit 29.4 L Mean Corpuscular Volume 86.5 Mean Corpuscular Hemoglobin 27.4 L Mean Corpuscular Hemoglobin Concent 31.6 L Red Cell Distribution Width 32.9 H Platelet Count 310 Mean Platelet Volume 11.1 H Immature Granulocytes % 1.400 H Neutrophils % 80.5 H Lymphocytes % 11.1 L Monocytes % 4.4 Eosinophils % 2.0 Basophils % 0.6 Nucleated Red Blood Cells % 0.1 H Immature Granulocytes # 0.240 H Neutrophils # 14.1 H Lymphocytes # 1.9 Monocytes # 0.8 Eosinophils # 0.4 Basophils # 0.1 Nucleated Red Blood Cells # 0.0 Sodium Level 137 Potassium Level 3.3 L Chloride Level 100 Carbon Dioxide Level 28 Anion Gap 9 Blood Urea Nitrogen 3 L Creatinine 0.59 Est Glomerular Filtrat Rate mL/min > 60 Glucose Level 99 Calcium Level 8.7 Total Bilirubin 7.6 H Direct Bilirubin 5.90 H Indirect Bilirubin 1.7 H Aspartate Amino Transf (AST/SGOT) 125 H Alanine Aminotransferase (ALT/SGPT) 29 Alkaline Phosphatase 243 H Total Protein 6.7 Albumin 3.1 L Globulin 3.60 H Albumin/Globulin Ratio 0.86 Medications Medication Current Medications Ondansetron HCl (Zofran Inj) 4 mg Q6H PRN IV NAUSEA AND/OR VOMITING Last administered on 07/11/18 19:59; Admin Dose 4 MG; Start 06/28/18 at 01:30 Metoclopramide HCl (Reglan) 10 mg Q6 PRN IV NAUSEA AND/OR VOMITING Last administered on 07/11/18 12:07; Admin Dose 10 MG; Start 06/28/18 at 01:30 Zolpidem Tartrate (Ambien) 5 mg HS PRN PO INSOMNIA Last administered on 07/10/18 23:02; Admin Dose 5 MG; Start 06/29/18 at 12:00 Potassium Chloride (Klor-Con 20) 40 meq DAILY PO Last administered on 07/14/18 08:53; Admin Dose 40 MEQ; Start 06/29/18 at 15:30 Morphine Sulfate (morphine) 6 mg Q4H PRN PO SEVERE PAIN LEVEL 7-10; Start 07/01/18 at 22:30 Pantoprazole (Protonix Tab) 40 mg BID@06,18 PO Last administered on 07/11/18 16:59; Admin Dose 40 MG; Start 07/03/18 at 18:00 Ondansetron HCl (Zofran Odt) 4 mg AC BREAKFAST DINNER ODT Last administered on 07/11/18 16:59; Admin Dose 4 MG; Start 07/04/18 at 17:35 Hydromorphone HCl (Dilaudid) 0.5 mg Q6H PRN IV SEVERE PAIN LEVEL 7-10 Last administered on 07/08/18 06:28; Admin Dose 0.5 MG; Start 07/04/18 at 16:30 Diphenhydramine HCl (Benadryl) 25 mg BID PRN PO ITCHING Last administered on 07/10/18 22:07; Admin Dose 25 MG; Start 07/06/18 at 23:30 Ibuprofen (Motrin) 400 mg Q6 PRN PO PAIN Last administered on 07/11/18at 15:44; Admin Dose 400 MG; Start 07/09/18 at 17:00 Fluconazole (Diflucan) 100 mg DAILY PO Last administered on 07/14/18at 08:53; Admin Dose 100 MG; Start 07/14/18 at 09:00 Furosemide (Lasix) 40 mg DAILY PO Last administered on 07/14/18 08:54; Admin Dose 40 MG; Start 07/13/18 at 17:00 ZEB JAMES MD Jul 14, 2018 16:44
--- NOTE | 2018-07-14 18:40 | NUR ---
Patient with stable vitals throughout shift. Tolerating current treatment regimen. Refusing most meds and MD aware. Corrected Potassium today after explaining to pt importance of taking K with Lasix. Possible D/C in next day or 2
[2018-07-14 20:00] VITALS: BP 115/57; PULSE 91; RESP 18
[2018-07-15 02:00] VITALS: BP 111/61; PULSE 91; RESP 18
[2018-07-15] MEDS: PANTOPRAZOLE (EC) 40 MG TAB PO SCH ×2 (06:00→13:52)
--- NOTE | 2018-07-15 06:47 | NUR ---
Patient in room alert and oriented x4. Vital signs stable with no signs of distress. Patient denying pain. No acute events noted this shift. All needs met. Patient turned every 2 hours and OOB this shift. Safety precautions and hourly rounding currently in place until change of shift.
--- NOTE | 2018-07-15 06:56 | CONS ---
Assessment/Plan Assessment/Plan Hospital Course (Demo Recall) 32 yo with persistent biliary colicky pain and increasing bilirubin 1. Abdominal pain, persistent, biliary colicky and increasing bilirubin -t bili is slightly down today -s/p ERCP x 2 -RUQ -improved 2. 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 Hepatosplenomegaly secondary to #2 4. Overweight. 5. Progressive jaundice secondary to #2 6. Biliary stricture secondary to hepatomegaly 7. Transaminitis with elevated bili which is trending up secondary to hepatomegaly. -trending down 8. Fevers, low grade without leukocytosis, patient is on Zosyn -resolved 9. Anemia, acute 10. Diarrhea improved 11. N/V resolved 12. Biopsy positive for budding yeast -on anti fungal 13. One episode of hematochezia likely due to hemorrhoids - will monitor closely 14. Coagulopathy -improving 15. Alcoholic steatohepatitis Biopsy of bile duct results: Common bile duct biopsy: -- Fragment of mucoid and purulent exudate containing PAS positive budding yeast and pseudohyphae compatible with lacie species fungal organisms (positive PAS [place] concurrently reviewed). -- There are a few cytologically bland cuboidal epithelial cells but no tissue fragments are present. -- There is no evidence of malignancy. Biopsy of liver 07/09: Liver, needle core biopsies: -- Consistent with alcoholic steatohepatitis with marked, (score 3) steatosis, grade 3 lobular inflammation, score 1 ballooning and stage 3 fibrosis. -- No malignancy or liver cirrhosis is identified. Plan: Continue current care. WBC and LFTs trending down. Patient may need prednisolone 40 mg once a day for 28 days once the WBC count comes down if her total bili does not come down. It is possible her WBC is elevated secondary to alcoholic hepatitis and not due to infection the fungal infection in the biliary system is most probably colonized ration from the stent extend patient's total bilirubin is coming down will observe her PRN anit emetics Pain management Pt examined and plan of care discussed with Dr. Earl Consultation Date/Type/Reason Admit Date/Time Jun 27, 2018 at 23:57 Initial Consult Date 07/01/18 Requesting Provider: ZEB JAMES MD Date/Time of Note DATE: 07/15/18 TIME: 06:53 24 HR Interval Summary Free Text/Dictation Pt states ice packs helps with any abdominal discomfort she may experience. No nausea. States she has a runny nose, her son who has been visiting has a cold and sneezed on her. WBC and Total bili trending down. Exam/Review of Systems Exam Vitals Vital Signs Date Temp Pulse Resp B/P (MAP) Pulse Ox O2 O2 Flow FiO2 Time Delivery Rate 07/15/18 98.5 91 18 111/61 98 02:00 (78) 07/13/18 Room Air 14:53 Intake and Output 07/14/18 07/14/18 07/15/18 1414:59 22:59 06:59 IntakeIntake Total 600 ml OutputOutput Total 3 ml BalanceBalance 597 ml Constitutional: alert, oriented Psych: no complaints Head: normocephalic Eyes: PERRL Respiratory: clear to auscultation Cardiovascular: regular rate and rhythm Gastrointestinal: soft, non-tender Musculoskeletal: nl gait and stance Extremities: normal pulses Neurological: nl mental status Results Result Diagram: 07/14/18 0536 07/14/18 0539 Results 24hrs Laboratory Tests Test 07/15/18 05:02 White Blood Count Pending Red Blood Count Pending Hemoglobin Pending Hematocrit Pending Mean Corpuscular Volume Pending Mean Corpuscular Hemoglobin Pending Mean Corpuscular Hemoglobin Concent Pending Red Cell Distribution Width Pending Platelet Count Pending Mean Platelet Volume Pending Medications Medication Current Medications Ondansetron HCl (Zofran Inj) 4 mg Q6H PRN IV NAUSEA AND/OR VOMITING Last administered on 07/11/18at 19:59; Admin Dose 4 MG; Start 06/28/18 at 01:30 Metoclopramide HCl (Reglan) 10 mg Q6 PRN IV NAUSEA AND/OR VOMITING Last administered on 07/11/18at 12:07; Admin Dose 10 MG; Start 06/28/18 at 01:30 Zolpidem Tartrate (Ambien) 5 mg HS PRN PO INSOMNIA Last administered on 07/10/18at 23:02; Admin Dose 5 MG; Start 06/29/18 at 12:00 Potassium Chloride (Klor-Con 20) 40 meq DAILY PO Last administered on 07/14/18at 08:53; Admin Dose 40 MEQ; Start 06/29/18 at 15:30 Morphine Sulfate (morphine) 6 mg Q4H PRN PO SEVERE PAIN LEVEL 7-10; Start 07/01/18 at 22:30 Pantoprazole (Protonix Tab) 40 mg BID@06,18 PO Last administered on 07/11/18 16:59; Admin Dose 40 MG; Start 07/03/18 at 18:00 Ondansetron HCl (Zofran Odt) 4 mg AC BREAKFAST DINNER ODT Last administered on 07/11/18 16:59; Admin Dose 4 MG; Start 07/04/18 at 17:35 Hydromorphone HCl (Dilaudid) 0.5 mg Q6H PRN IV SEVERE PAIN LEVEL 7-10 Last administered on 07/08/18 06:28; Admin Dose 0.5 MG; Start 07/04/18 at 16:30 Diphenhydramine HCl (Benadryl) 25 mg BID PRN PO ITCHING Last administered on 07/10/18 22:07; Admin Dose 25 MG; Start 07/06/18 at 23:30 Ibuprofen (Motrin) 400 mg Q6 PRN PO PAIN Last administered on 07/11/18 15:44; Admin Dose 400 MG; Start 07/09/18 at 17:00 Fluconazole (Diflucan) 100 mg DAILY PO Last administered on 07/14/18 08:53; Admin Dose 100 MG; Start 07/14/18 at 09:00 Furosemide (Lasix) 40 mg DAILY PO Last administered on 07/14/18 08:54; Admin Dose 40 MG; Start 07/13/18 at 17:00 ADRIANA RICHARDSON Jul 15, 2018 06:56
[2018-07-15] MEDS: ONDANSETRON (ODT) 4 MG TAB ODT SCH ×2 (07:30→13:52)
[2018-07-15 07:49] VITALS: BP 109/59; PULSE 87; RESP 16
[2018-07-15] MEDS: POTASSIUM CHLORIDE (SR) 20 MEQ TAB PO SCH (09:00)
[2018-07-15] MEDS: FLUCONAZOLE 100 MG TAB PO SCH (09:00)
[2018-07-15] MEDS: FUROSEMIDE 40 MG TAB PO SCH (09:24)
--- NOTE | 2018-07-15 12:09 | CONS ---
Assessment/Plan Assessment/Plan Hospital Course (Demo Recall) Patient is taking shower no acute events overnight per report WBC today 16.3 neutrophils 80.1. Urine culture negative. Patient had been afebrile. Abx: Diflucan Assessment: 1. Systemic inflammatory response syndrome with ongoing leukocytosis 1. 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 Liver cirrhosis 3. Anemia 4. Obesity Plan: Continue present care, follow GI/surgical recommendations Consultation Date/Type/Reason Admit Date/Time Jun 27, 2018 at 23:57 Initial Consult Date 07/01/18 Type of Consult id Requesting Provider: ZEB JAMES MD Date/Time of Note DATE: 07/15/18 TIME: 12:08 Exam/Review of Systems Exam Vitals Vital Signs Date Temp Pulse Resp B/P (MAP) Pulse Ox O2 O2 Flow FiO2 Time Delivery Rate 07/15/18 98.2 87 16 109/59 96 07:49 (76) 07/13/18 Room Air 14:53 Intake and Output 07/14/18 07/14/18 07/15/18 1515:00 23:00 07:00 IntakeIntake Total 600 ml OutputOutput Total 3 ml BalanceBalance 597 ml Results Result Diagram: 07/15/18 0502 07/15/18 0502 Results 24hrs Laboratory Tests Test 07/15/18 05:02 White Blood Count 16.3 H Red Blood Count 3.38 L Hemoglobin 9.2 L Hematocrit 29.3 L Mean Corpuscular Volume 86.7 Mean Corpuscular Hemoglobin 27.2 L Mean Corpuscular Hemoglobin Concent 31.4 L Red Cell Distribution Width 33.2 H Platelet Count 288 Mean Platelet Volume 10.7 H Immature Granulocytes % 0.900 H Neutrophils % 80.1 H Lymphocytes % 11.7 L Monocytes % 4.4 Eosinophils % 2.3 Basophils % 0.6 Nucleated Red Blood Cells % 0.2 H Immature Granulocytes # 0.150 H Neutrophils # 13.1 H Lymphocytes # 1.9 Monocytes # 0.7 Eosinophils # 0.4 Basophils # 0.1 Nucleated Red Blood Cells # 0.0 Sodium Level 138 Potassium Level 3.5 Chloride Level 100 Carbon Dioxide Level 27 Anion Gap 11 Blood Urea Nitrogen 3 L Creatinine 0.54 Est Glomerular Filtrat Rate mL/min > 60 Glucose Level 97 Calcium Level 8.6 Phosphorus Level 3.1 Magnesium Level 2.3 Total Bilirubin 6.3 H Direct Bilirubin 4.70 #H Indirect Bilirubin 1.6 H Aspartate Amino Transf (AST/SGOT) 123 H Alanine Aminotransferase (ALT/SGPT) 35 Alkaline Phosphatase 249 H Total Protein 6.0 L Albumin 2.9 L Globulin 3.10 Albumin/Globulin Ratio 0.93 Medications Medication Current Medications Ondansetron HCl (Zofran Inj) 4 mg Q6H PRN IV NAUSEA AND/OR VOMITING Last administered on 07/11/18 19:59; Admin Dose 4 MG; Start 06/28/18 at 01:30 Metoclopramide HCl (Reglan) 10 mg Q6 PRN IV NAUSEA AND/OR VOMITING Last administered on 07/11/18 12:07; Admin Dose 10 MG; Start 06/28/18 at 01:30 Zolpidem Tartrate (Ambien) 5 mg HS PRN PO INSOMNIA Last administered on 07/10/18 23:02; Admin Dose 5 MG; Start 06/29/18 at 12:00 Potassium Chloride (Klor-Con 20) 40 meq DAILY PO Last administered on 07/15/18 09:00; Admin Dose 40 MEQ; Start 06/29/18 at 15:30 Morphine Sulfate (morphine) 6 mg Q4H PRN PO SEVERE PAIN LEVEL 7-10; Start 07/01/18 at 22:30 Pantoprazole (Protonix Tab) 40 mg BID@06,18 PO Last administered on 07/11/18 16:59; Admin Dose 40 MG; Start 07/03/18 at 18:00 Ondansetron HCl (Zofran Odt) 4 mg AC BREAKFAST DINNER ODT Last administered on 07/11/18 16:59; Admin Dose 4 MG; Start 07/04/18 at 17:35 Hydromorphone HCl (Dilaudid) 0.5 mg Q6H PRN IV SEVERE PAIN LEVEL 7-10 Last administered on 07/08/18 06:28; Admin Dose 0.5 MG; Start 07/04/18 at 16:30 Diphenhydramine HCl (Benadryl) 25 mg BID PRN PO ITCHING Last administered on 07/10/18 22:07; Admin Dose 25 MG; Start 07/06/18 at 23:30 Ibuprofen (Motrin) 400 mg Q6 PRN PO PAIN Last administered on 07/11/18at 15:44; Admin Dose 400 MG; Start 07/09/18 at 17:00 Fluconazole (Diflucan) 100 mg DAILY PO Last administered on 07/15/18at 09:00; Admin Dose 100 MG; Start 07/14/18 at 09:00 Furosemide (Lasix) 40 mg DAILY PO Last administered on 07/15/18at 09:24; Admin Dose 40 MG; Start 07/13/18 at 17:00 DARLEEN RAMOS NP Jul 15, 2018 12:09
[2018-07-15 14:46] VITALS: BP 120/65; PULSE 93; RESP 18
--- NOTE | 2018-07-15 16:18 | PN ---
Date/Time of Note Date/Time of Note DATE: 07/15/18 TIME: 16:17 Assessment/Plan VTE Prophylaxis Risk score (from Nsg)>0 risk: 1 SCD applied (from Nsg): No SCD contraindicated: low risk/ambulating Pharmacological prophylaxis: NA/contraindicated Pharm contraindication: low risk/ambulating Lines/Catheters IV Catheter Type (from Nrsg): no IV acces Urinary Cath still in place: No Assessment/Plan Hospital Course 32 y/o with .1 Abdominal pain more likely due to acute pancreatitis. Vomiting and diarrhea for 3 weeks. Last 2 weeks patient was drinking 2- 4 shots of hard liquor daily. 2. Hyperbilirubinemia with elevated liver enzymes. Hepatitis panel is negative from [place]. US of liver reveals fatty infiltration, CD is 5 mm. Records w as reviewed form [facility]. 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 Former smoker, pt quit 6 years ago 4. hx of 2 C sections, 6 and 2 years ago 5. Obesity 6. Microcytic hypochromic anemia with thrombocytopenia. Pat. smear show anisocytosis 7. Hx of asthma Assessment/Plan - LFT trending down , total bilirubin and direct bilirubin trending down -Per GI patient can be started on prednisolone if the white count comes down and the candidiasis is probably a colonization, count is 18.6 today however LFTs are spontaneously getting better> likely will not need any steroids - CWLasix due to peripheral edema, will check U.S BLE - po antifungal - alcholol cessation - avoid hepatotoxic agents Result Diagram: 07/15/18 0502 07/15/18 0502 Results 24hrs Laboratory Tests Test 07/15/18 05:02 White Blood Count 16.3 H Red Blood Count 3.38 L Hemoglobin 9.2 L Hematocrit 29.3 L Mean Corpuscular Volume 86.7 Mean Corpuscular Hemoglobin 27.2 L Mean Corpuscular Hemoglobin Concent 31.4 L Red Cell Distribution Width 33.2 H Platelet Count 288 Mean Platelet Volume 10.7 H Immature Granulocytes % 0.900 H Neutrophils % 80.1 H Lymphocytes % 11.7 L Monocytes % 4.4 Eosinophils % 2.3 Basophils % 0.6 Nucleated Red Blood Cells % 0.2 H Immature Granulocytes # 0.150 H Neutrophils # 13.1 H Lymphocytes # 1.9 Monocytes # 0.7 Eosinophils # 0.4 Basophils # 0.1 Nucleated Red Blood Cells # 0.0 Sodium Level 138 Potassium Level 3.5 Chloride Level 100 Carbon Dioxide Level 27 Anion Gap 11 Blood Urea Nitrogen 3 L Creatinine 0.54 Est Glomerular Filtrat Rate mL/min > 60 Glucose Level 97 Calcium Level 8.6 Phosphorus Level 3.1 Magnesium Level 2.3 Total Bilirubin 6.3 H Direct Bilirubin 4.70 #H Indirect Bilirubin 1.6 H Aspartate Amino Transf (AST/SGOT) 123 H Alanine Aminotransferase (ALT/SGPT) 35 Alkaline Phosphatase 249 H Total Protein 6.0 L Albumin 2.9 L Globulin 3.10 Albumin/Globulin Ratio 0.93 Subjective 24 Hr Interval Summary Free Text/Dictation feels A lot better today. bLateral lower extremities are still swollen however improving Exam/Review of Systems Exam Vitals Vital Signs Date Temp Pulse Resp B/P (MAP) Pulse Ox O2 O2 Flow FiO2 Time Delivery Rate 07/15/18 97.6 93 18 120/65 98 14:46 (83) 07/13/18 Room Air 14:53 Intake and Output 07/14/18 07/14/18 07/15/18 1515:00 23:00 07:00 IntakeIntake Total 600 ml OutputOutput Total 3 ml BalanceBalance 597 ml Exam Exam Constitutional: alert, oriented Eyes: icteric Neck: supple Respiratory: clear to auscultation Cardiovascular: regular rate and rhythm Gastrointestinal: soft Extremities: edema (1 +) Results Results 24hrs Laboratory Tests Test 07/15/18 05:02 White Blood Count 16.3 H Red Blood Count 3.38 L Hemoglobin 9.2 L Hematocrit 29.3 L Mean Corpuscular Volume 86.7 Mean Corpuscular Hemoglobin 27.2 L Mean Corpuscular Hemoglobin Concent 31.4 L Red Cell Distribution Width 33.2 H Platelet Count 288 Mean Platelet Volume 10.7 H Immature Granulocytes % 0.900 H Neutrophils % 80.1 H Lymphocytes % 11.7 L Monocytes % 4.4 Eosinophils % 2.3 Basophils % 0.6 Nucleated Red Blood Cells % 0.2 H Immature Granulocytes # 0.150 H Neutrophils # 13.1 H Lymphocytes # 1.9 Monocytes # 0.7 Eosinophils # 0.4 Basophils # 0.1 Nucleated Red Blood Cells # 0.0 Sodium Level 138 Potassium Level 3.5 Chloride Level 100 Carbon Dioxide Level 27 Anion Gap 11 Blood Urea Nitrogen 3 L Creatinine 0.54 Est Glomerular Filtrat Rate mL/min > 60 Glucose Level 97 Calcium Level 8.6 Phosphorus Level 3.1 Magnesium Level 2.3 Total Bilirubin 6.3 H Direct Bilirubin 4.70 #H Indirect Bilirubin 1.6 H Aspartate Amino Transf (AST/SGOT) 123 H Alanine Aminotransferase (ALT/SGPT) 35 Alkaline Phosphatase 249 H Total Protein 6.0 L Albumin 2.9 L Globulin 3.10 Albumin/Globulin Ratio 0.93 Medications Medication Current Medications Ondansetron HCl (Zofran Inj) 4 mg Q6H PRN IV NAUSEA AND/OR VOMITING Last administered on 07/11/18 19:59; Admin Dose 4 MG; Start 06/28/18 at 01:30 Metoclopramide HCl (Reglan) 10 mg Q6 PRN IV NAUSEA AND/OR VOMITING Last ad ministered on 07/11/18 12:07; Admin Dose 10 MG; Start 06/28/18 at 01:30 Zolpidem Tartrate (Ambien) 5 mg HS PRN PO INSOMNIA Last administered on 07/10/18 23:02; Admin Dose 5 MG; Start 06/29/18 at 12:00 Potassium Chloride (Klor-Con 20) 40 meq DAILY PO Last administered on 07/15/18 09:00; Admin Dose 40 MEQ; Start 06/29/18 at 15:30 Morphine Sulfate (morphine) 6 mg Q4H PRN PO SEVERE PAIN LEVEL 7-10; Start 07/01/18 at 22:30 Pantoprazole (Protonix Tab) 40 mg BID@06,18 PO Last administered on 07/11/18 16:59; Admin Dose 40 MG; Start 07/03/18 at 18:00 Hydromorphone HCl (Dilaudid) 0.5 mg Q6H PRN IV SEVERE PAIN LEVEL 7-10 Last administered on 07/08/18 06:28; Admin Dose 0.5 MG; Start 07/04/18 at 16:30 Diphenhydramine HCl (Benadryl) 25 mg BID PRN PO ITCHING Last administered on 07/10/18 22:07; Admin Dose 25 MG; Start 07/06/18 at 23:30 Ibuprofen (Motrin) 400 mg Q6 PRN PO PAIN Last administered on 07/11/18 15:44; Admin Dose 400 MG; Start 07/09/18 at 17:00 Fluconazole (Diflucan) 100 mg DAILY PO Last administered on 07/15/18 09:00; Admin Dose 100 MG; Start 07/14/18 at 09:00 Furosemide (Lasix) 40 mg DAILY PO Last administered on 07/15/18at 09:24; Admin Dose 40 MG; Start 07/13/18 at 17:00 Ondansetron HCl (Zofran Odt) 4 mg AC BREAKFAST DINNER PRN ODT Nausea; Start 07/15/18 at 16:30 ZEB JAMES MD Jul 15, 2018 16:18
[2018-07-15] MEDS ORDERED: ONDANSETRON (ODT) 4 MG TAB ODT PRN (16:30)
--- NOTE | 2018-07-15 18:08 | RADRPT ---
Echocardiogram Report Patient Name: YOLANDA ROWEPatient ID: [id number] : 1985 (32y 11m)Study Date: 07/14/2018 9:35:57 AM Gender: FAccession #: [id number] Tech: Thomas Strong [facility] Location: 2[address] Ref.Physician: ZEB JAMES Height(Cm): BSA: Weight(Kg): Quality: AdequateAccount #: Procedures: Echocardiographic Report: Transthoracic echocardiogram with complete 2D, M-Mode, and doppler examination. Indications: Edema, Ethol use, r/ o cardiomyopathy. Measurements: 2D/M Mode Doppler Measurement Value Normal Range Measurement Value Normal Range LVIDd 2D 4.7 [ 3.8 - 5.2 ] cm AV Peak Elieser 1.8 [ 100.0 - 170.0 ] cm/sec LVIDs 2D 3.1 [ 2.2 - 3.5 ] cm AV Peak PG 13.0 [ 2.0 - 9.0 ] mmHg LVPWd 2D 1.0 [ 0.6 - 0.9 ] cm LVOT Peak Elieser 1.5 [ 70.0 - 110.0 ] cm/sec IVSd 2D 1.0 [ 0.6 - 0.9 ] cm LVOT Peak PG 9.0 [ 2.0 - 6.0 ] mmHg IVS/LVPW 2D 1.0 ratio MV E Peak Elieser 1.3 [ 60.0 - 130.0 ] cm/sec AoR Diam 2D 2.8 [ 2.3 - 3.1 ] cm MV A Peak Elieser 0.7 [ 100.0 - 120.0 ] cm/sec LA/Ao 2D 1 ratio MV E/A 1.9 [ 0.8 - 1.5 ] ratio LA Dimen 2D 3.8 [ 2.7 - 3.8 ] cm MV Decel Time 176 [ 104 - 258 ] msec Lat E` Elieser 0.1 [ 10.0 - 15.0 ] cm/sec Med E` Elieser 0.1 cm/sec MV E/A 1.9 [ 0.8 - 1.5 ] ratio TR Peak Elieser 2.8 [ 100.0 - 280.0 ] cm/sec TR Peak PG 32.0 mmHg RVSP 35.0 [ 10.0 - 36.0 ] mmHg Findings: Left Ventricle: Normal left ventricular systolic function. Normal left ventricular cavity size. Normal left ventricular wall thickness. Ejection fraction is visually estimated at 60 %. Tissue Doppler/Mitral Doppler indices are consistent with impaired relaxation (Stage I diastolic dysfunction). Right Ventricle: Normal right ventricular size. Normal right ventricular systolic function. Left Atrium: The left atrium is normal in size. Right Atrium: The right atrium is normal in size. Mitral Valve: Mild mitral leaflet calcification. Mild mitral annular calcification. Trace mitral regurgitation. Aortic Valve: No significant aortic stenosis or insufficiency. Aortic cusps appear mildly calcified. Tricuspid Valve: Normal appearance of the tricuspid valve. Estimated peak PA systolic pressure 35 mmHg. There is mild tricuspid regurgitation. Pulmonic Valve: Pulmonic valve not well visualized. Pericardium: Normal pericardium with no significant pericardial effusion. Aorta: Normal aortic root. IVC: Normal size and normal respiratory collapse consistent with normal right atrial pressure. Conclusions: Normal left ventricular systolic function. Normal left ventricular cavity size. Normal left ventricular wall thickness. Ejection fraction is visually estimated at 60 %. Tissue Doppler/Mitral Doppler indices are consistent with impaired relaxation (Stage I diastolic dysfunction). Mild mitral leaflet calcification. Mild mitral annular calcification. Trace mitral regurgitation. Normal appearance of the tricuspid valve. Estimated peak PA systolic pressure 35 mmHg. There is mild tricuspid regurgitation. Electronically Signed By: Ceferino Dolan 2018-07-15 18:07:39 PST
[2018-07-15 20:07] VITALS: BP 117/58; PULSE 92; RESP 18
--- NOTE | 2018-07-15 21:34 | PN ---
Date/Time of Note Date/Time of Note DATE: 07/15/18 TIME: 21:32 Assessment/Plan Lines/Catheters IV Catheter Type (from Nrs): no IV acces Elias in Place (from Nrsg): No Assessment/Plan Chief Complaint/Hosp Course 1. 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 +Yumiko started on antifungals.; liver bx: alcoholic steatosis; improving -no surgical intervention recommended at this time -Continue encourage etoh cessation -trend labs -limit hepatotoxins -Continue hepatic optimization per GI -continue antifungals, eventual steroids> per GI 2. Transaminitis and hyperbilirubinemia 2nd above; bilirubin continuing to improve -as above 3. Abdominal pain: Improved -pain mgt 4. Macrocytic hypochromic anemia: likely 2/2 liver disease -monitor & tx as needed 5. Severe obesity BMI: 38 -diet and exercise optimization -encourage weight loss 6. Leukocytosis: Improving -Per ID Thank you. Patient seen and examined in collaboration with Dr. Mannie Bailey. Subjective 24 Hr Interval Summary WBC and T bili downtrending. No fevers, chills, sob, congested cough, cp, palpitations, arora, dizziness, nausea, vomiting, diarrhea, dysuria. + Bowel function. Exam/Review of Systems Vital Signs Vitals Vital Signs Date Temp Pulse Resp B/P (MAP) Pulse Ox O2 O2 Flow FiO2 Time Delivery Rate 07/15/18 98.2 92 18 117/58 97 20:07 (77) 07/13/18 Room Air 14:53 Intake and Output 07/14/18 07/14/18 07/15/18 1515:00 23:00 07:00 IntakeIntake Total 600 ml OutputOutput Total 3 ml BalanceBalance 597 ml Exam Free Text/Dictation Constitutional: alert, oriented Psych: nl mood/affect, anxiety (min) Head: normocephalic, atraumatic Eyes: nl conjunctiva, EOMI, nl lids, sclera icterus ENMT: nl external ears & nose, nl lips & teeth, nl nasal mucosa & septum, mucosa pink and moist Neck: supple, non-tender Respiratory: normal air movement; No congested cough, No labored breathing Cardiovascular: regular rate and rhythm, nl pulses; No edema Gastrointestinal: soft, nontender Genitourinary - Female: nl external genitalia Musculoskeletal: nl extremities to inspection, nl gait and stance Extremities: normal pulses, BLE: 1+ edema, minimal tenderness Neurological: nl mental status, nl speech, nl strength Skin: jaundice No rash or lesions Results Result Diagram: 07/15/18 05007/15/18 050 AARON FREGOSO NP Jul 15, 2018 21:34
[2018-07-16 02:34] VITALS: BP 111/67; PULSE 96; RESP 20
--- NOTE | 2018-07-16 04:34 | NUR ---
No acute changes during my shift. Pt ambulated around the unit a couple of times during the night, steady gait noted. Pt denies nausea or pain. No signs of acute distress noted. Fall precautions in place. Will continue to monitor.
[2018-07-16] MEDS: PANTOPRAZOLE (EC) 40 MG TAB PO SCH ×2 (05:56→13:47)
--- NOTE | 2018-07-16 07:24 | CONS ---
Assessment/Plan Assessment/Plan Assessment/Plan (Daily) unfortunate 32 yo who has a significant alcohol history over the last year, admitted with massive hepatomegaly, splenomegaly, found to have cirrhosis. #elevated direct bilirubin/elevated LDH -these abnormalities are due to Cirrhosis of liver with portal hypertension. - she is jaundiced from cirrhosis and has alcoholic hepatitis per Dr Earl thus explaining her enlarged liver, she has portal hypertension - Discussed with patient about alcohol cessation #anemia of chronic disease and chronic inflammation - s/p Venofer - patient likely has anemia of chronic disease #mild coagulopathy - 2/2 liver dysfunction, INR - 1.2; if INR >2, sp vit K 5 mg po x 1. - check lupus anticoagulant - pending - suspect elevated PT/PTT due to synthetic dysfunction Patient seen in collaboration with Dr calhoun Patient is seen in collaboration with Dr Vieyra Consultation Date/Type/Reason Admit Date/Time Jun 27, 2018 at 11:57 pm Initial Consult Date 07/01/18 Type of Consult ONCOLOGY Requesting Provider: ZEB JAMES MD Date/Time of Note DATE: 07/16/18 TIME: 07:21 24 HR Interval Summary Free Text/Dictation sitting up in bed c/o RUQ tenderness but its better than yesterday feels better; ambulates in x[address] way- tolerating well no new issues reported overnight Detailed Summary Eyes: no complaints ENT: no complaints Respiratory: no complaints Cardiovascular: no complaints Gastrointestinal: pain, nausea; No no complaints, No blood, No constipation, No decreased appetite, No diarrhea, No flatus, No passing stool, No vomiting, No other Genitourinary: no complaints Musculoskeletal: no complaints Skin: no complaints Neurologic: no complaints Exam/Review of Systems Exam Vitals Vital Signs Date Temp Pulse Resp B/P (MAP) Pulse Ox O2 O2 Flow FiO2 Time Delivery Rate 07/16/18 98.6 96 20 111/67 96 02:34 (82) 07/13/18 Room Air 14:53 Intake and Output 07/15/18 07/15/18 07/16/18 1515:00 23:00 07:00 IntakeIntake Total 1800 ml 1900 ml BalanceBalance 1800 ml 1900 ml Constitutional: alert, well developed Psych: nl mood/affect Head: normocephalic Eyes: nl conjunctiva, EOMI ENMT: nl external ears & nose Neck: non-tender Respiratory: clear to auscultation Cardiovascular: nl pulses Gastrointestinal: soft, non-tender Musculoskeletal: nl extremities to inspection Extremities: normal pulses Neurological: nl mental status, nl speech Skin: nl turgor Lymph: nontender Results Result Diagram: 07/15/18 0502 07/16/18 0510 Results 24hrs Laboratory Tests Test 07/16/18 05:10 Sodium Level 136 Potassium Level 3.4 L Chloride Level 99 Carbon Dioxide Level 27 Anion Gap 10 Blood Urea Nitrogen 2 L Creatinine 0.57 Est Glomerular Filtrat Rate mL/min > 60 Glucose Level 164 Calcium Level 8.3 L Total Bilirubin 5.4 H Direct Bilirubin 3.90 H Indirect Bilirubin 1.5 H Aspartate Amino Transf (AST/SGOT) 124 H Alanine Aminotransferase (ALT/SGPT) 27 Alkaline Phosphatase 247 H Total Protein 6.2 Albumin 2.9 L Globulin 3.30 H Albumin/Globulin Ratio 0.87 Medications Medication Current Medications Ondansetron HCl (Zofran Inj) 4 mg Q6H PRN IV NAUSEA AND/OR VOMITING Last administered on 07/11/18 19:59; Admin Dose 4 MG; Start 06/28/18 at 01:30 Metoclopramide HCl (Reglan) 10 mg Q6 PRN IV NAUSEA AND/OR VOMITING Last administered on 07/11/18 12:07; Admin Dose 10 MG; Start 06/28/18 at 01:30 Zolpidem Tartrate (Ambien) 5 mg HS PRN PO INSOMNIA Last administered on 07/10/18 23:02; Admin Dose 5 MG; Start 06/29/18 at 12:00 Potassium Chloride (Klor-Con 20) 40 meq DAILY PO Last administered on 07/15/18 09:00; Admin Dose 40 MEQ; Start 06/29/18 at 15:30 Morphine Sulfate (morphine) 6 mg Q4H PRN PO SEVERE PAIN LEVEL 7-10; Start 07/01/18 at 22:30 Pantoprazole (Protonix Tab) 40 mg BID@06,18 PO Last administered on 07/11/18 16:59; Admin Dose 40 MG; Start 07/03/18 at 18:00 Hydromorphone HCl (Dilaudid) 0.5 mg Q6H PRN IV SEVERE PAIN LEVEL 7-10 Last administered on 07/08/18 06:28; Admin Dose 0.5 MG; Start 07/04/18 at 16:30 Diphenhydramine HCl (Benadryl) 25 mg BID PRN PO ITCHING Last administered on 07/10/18at 22:07; Admin Dose 25 MG; Start 07/06/18 at 23:30 Ibuprofen (Motrin) 400 mg Q6 PRN PO PAIN Last administered on 07/11/18at 15:44; Admin Dose 400 MG; Start 07/09/18 at 17:00 Fluconazole (Diflucan) 100 mg DAILY PO Last administered on 07/15/18at 09:00; Admin Dose 100 MG; Start 07/14/18 at 09:00 Furosemide (Lasix) 40 mg DAILY PO Last administered on 07/15/18 09:24; Admin Dose 40 MG; Start 07/13/18 at 17:00 Ondansetron HCl (Zofran Odt) 4 mg AC BREAKFAST DINNER PRN ODT Nausea; Start 07/15/18 at 16:30 YULISSA LOVING Jul 16, 2018 7:24 am
[2018-07-16 08:02] VITALS: BP 118/60; PULSE 95; RESP 20
[2018-07-16] MEDS: FLUCONAZOLE 100 MG TAB PO SCH (09:23)
[2018-07-16] MEDS: POTASSIUM CHLORIDE (SR) 20 MEQ TAB PO SCH (09:23)
[2018-07-16] MEDS: FUROSEMIDE 40 MG TAB PO SCH (09:23)
--- NOTE | 2018-07-16 10:09 | PN ---
Date/Time of Note Date/Time of Note DATE: 07/16/18 TIME: 10:07 Assessment/Plan Lines/Catheters IV Catheter Type (from Nrs): no IV acces Elias in Place (from Nrs): No Assessment/Plan Chief Complaint/Hosp Course 1. 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 +Yumiko started on antifungals.; liver bx: alcoholic steatosis; cont to improve -no surgical intervention recommended at this time -Continue encourage etoh cessation -limit hepatotoxins -Continue current regimen and hepatic optimization per GI -continue antifungals, eventual steroids> per GI 2. Transaminitis and hyperbilirubinemia 2nd above; bilirubin continuing to improve -as above 3. Abdominal pain: Improved -pain mgt 4. Macrocytic hypochromic anemia: likely 2/2 liver disease -monitor & tx as needed 5. Severe obesity BMI: 38 -diet and exercise optimization -encourage weight loss 6. Leukocytosis: Improving -Per ID Thank you. Patient seen and examined in collaboration with Dr. Mannie Bailey. Subjective 24 Hr Interval Summary bili cont to improve. No fevers, chills, sob, congested cough, cp, palpitations, arora, dizziness, n/v/d/dysuria. Exam/Review of Systems Vital Signs Vitals Vital Signs Date Temp Pulse Resp B/P (MAP) Pulse Ox O2 O2 Flow FiO2 Time Delivery Rate 07/16/18 98.9 95 20 118/60 96 08:02 (79) 07/13/18 Room Air 14:53 Intake and Output 07/15/18 07/15/18 07/16/18 1515:00 23:00 07:00 IntakeIntake Total 1800 ml 1900 ml BalanceBalance 1800 ml 1900 ml Exam Free Text/Dictation Constitutional: alert, oriented Psych: nl mood/affect, anxiety (min) Head: normocephalic, atraumatic Eyes: nl conjunctiva, EOMI, nl lids, sclera icterus ENMT: nl external ears & nose, nl lips & teeth, nl nasal mucosa & septum, mucosa pink and moist Neck: supple, non-tender Respiratory: normal air movement; No congested cough, No labored breathing Cardiovascular: regular rate and rhythm, nl pulses; No edema Gastrointestinal: soft, nontender Genitourinary - Female: nl external genitalia Musculoskeletal: nl extremities to inspection, nl gait and stance Extremities: normal pulses, BLE: 1+ edema, minimal tenderness Neurological: nl mental status, nl speech, nl strength Skin: jaundice No rash or lesions Results Result Diagram: 07/15/18 0502 07/16/18 0510 AARON FREGOSO NP Jul 16, 2018 10:09
--- NOTE | 2018-07-16 14:20 | CONS ---
Assessment/Plan Assessment/Plan Hospital Course (Demo Recall) Patient is alert, feels better, no fevers overnight Abx: Diflucan Physical examination: Obese well-developed middle-aged white woman who is alert in no distress. Head atraumatic normocephalic sclera icteric. Neck is supple. Chest rise symmetrical, breath sounds clear. Heart: S1-S2. Abdomen obese, soft bowel sounds present extremities without cyanosis. Skin positive for jaundice Assessment: 1. Systemic inflammatory response syndrome 1. 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 Liver cirrhosis 3. Anemia 4. Obesity Plan: Patient is doing better, continue present care, DC fluconazole in a.m. Consultation Date/Type/Reason Admit Date/Time Jun 27, 2018 at 23:57 Initial Consult Date 07/01/18 Type of Consult id Requesting Provider: ZEB JAMES MD Date/Time of Note DATE: 07/16/18 TIME: 14:18 Exam/Review of Systems Exam Vitals Vital Signs Date Temp Pulse Resp B/P (MAP) Pulse Ox O2 O2 Flow FiO2 Time Delivery Rate 07/16/18 98.9 95 20 118/60 96 08:02 (79) 07/13/18 Room Air 14:53 Intake and Output 07/15/18 07/15/18 07/16/18 1515:00 23:00 07:00 IntakeIntake Total 1800 ml 1900 ml BalanceBalance 1800 ml 1900 ml Results Result Diagram: 07/15/18 0502 07/16/18 0510 Results 24hrs Laboratory Tests Test 07/16/18 05:10 Sodium Level 136 Potassium Level 3.4 L Chloride Level 99 Carbon Dioxide Level 27 Anion Gap 10 Blood Urea Nitrogen 2 L Creatinine 0.57 Est Glomerular Filtrat Rate mL/min > 60 Glucose Level 164 Calcium Level 8.3 L Total Bilirubin 5.4 H Direct Bilirubin 3.90 H Indirect Bilirubin 1.5 H Aspartate Amino Transf (AST/SGOT) 124 H Alanine Aminotransferase (ALT/SGPT) 27 Alkaline Phosphatase 247 H Total Protein 6.2 Albumin 2.9 L Globulin 3.30 H Albumin/Globulin Ratio 0.87 Medications Medication Current Medications Ondansetron HCl (Zofran Inj) 4 mg Q6H PRN IV NAUSEA AND/OR VOMITING Last administered on 07/11/18at 19:59; Admin Dose 4 MG; Start 06/28/18 at 01:30 Metoclopramide HCl (Reglan) 10 mg Q6 PRN IV NAUSEA AND/OR VOMITING Last administered on 07/11/18 12:07; Admin Dose 10 MG; Start 06/28/18 at 01:30 Zolpidem Tartrate (Ambien) 5 mg HS PRN PO INSOMNIA Last administered on 07/10/18 23:02; Admin Dose 5 MG; Start 06/29/18 at 12:00 Potassium Chloride (Klor-Con 20) 40 meq DAILY PO Last administered on 07/16/18 09:23; Admin Dose 40 MEQ; Start 06/29/18 at 15:30 Morphine Sulfate (morphine) 6 mg Q4H PRN PO SEVERE PAIN LEVEL 7-10; Start 07/01 at 22:30 Pantoprazole (Protonix Tab) 40 mg BID@06,18 PO Last administered on 07/11/18 16:59; Admin Dose 40 MG; Start 07/03/18 at 18:00 Hydromorphone HCl (Dilaudid) 0.5 mg Q6H PRN IV SEVERE PAIN LEVEL 7-10 Last administered on 07/08/18 06:28; Admin Dose 0.5 MG; Start 07/04/18 at 16:30 Diphenhydramine HCl (Benadryl) 25 mg BID PRN PO ITCHING Last administered on 07/10/18 22:07; Admin Dose 25 MG; Start 07/06/18 at 23:30 Ibuprofen (Motrin) 400 mg Q6 PRN PO PAIN Last administered on 07/11/18 15:44; Admin Dose 400 MG; Start 07/09/18 at 17:00 Fluconazole (Diflucan) 100 mg DAILY PO Last administered on 07/16/18 09:23; Admin Dose 100 MG; Start 07/14/18 at 09:00 Furosemide (Lasix) 40 mg DAILY PO Last administered on 07/16/18 09:23; Admin Dose 40 MG; Start 07/13/18 at 17:00 Ondansetron HCl (Zofran Odt) 4 mg AC BREAKFAST DINNER PRN ODT Nausea; Start 07/15/18 at 16:30 DARLEEN RAMOS NP Jul 16, 2018 14:20
[2018-07-16 15:02] VITALS: BP 102/56; PULSE 99; RESP 20
--- NOTE | 2018-07-16 15:37 | PN ---
Date/Time of Note Date/Time of Note DATE: 07/16/18 TIME: 15:36 Assessment/Plan VTE Prophylaxis Risk score (from Nsg)>0 risk: 2 SCD applied (from Nsg): No SCD contraindicated: low risk/ambulating Pharmacological prophylaxis: NA/contraindicated Pharm contraindication: low risk/ambulating Lines/Catheters IV Catheter Type (from Nrsg): no IV acces Urinary Cath still in place: No Assessment/Plan Hospital Course 32 y/o with .1 Abdominal pain more likely due to acute pancreatitis. Vomiting and diarrhea for 3 weeks. Last 2 weeks patient was drinking 2- 4 shots of hard liquor daily. 2. Hyperbilirubinemia with elevated liver enzymes. Hepatitis panel is negative from [place]. US of liver reveals fatty infiltration, CD is 5 mm. Records w as reviewed [facility]. 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 Former smoker, pt quit 6 years ago 4. hx of 2 C sections, 6 and 2 years ago 5. Obesity 6. Microcytic hypochromic anemia with thrombocytopenia. Pat. smear show anisocytosis 7. Hx of asthma Assessment/Plan - LFT trending down , total bilirubin and direct bilirubin trending down -Pt will not need any steroids - CWLasix due to peripheral edema, will check U.S BLE neg - po antifungal - alcholol cessation - avoid hepatotoxic agents dc planning Result Diagram: 07/15/18 0502 07/16/18 0510 Results 24hrs Laboratory Tests Test 07/16/18 05:10 Sodium Level 136 Potassium Level 3.4 L Chloride Level 99 Carbon Dioxide Level 27 Anion Gap 10 Blood Urea Nitrogen 2 L Creatinine 0.57 Est Glomerular Filtrat Rate mL/min > 60 Glucose Level 164 Calcium Level 8.3 L Total Bilirubin 5.4 H Direct Bilirubin 3.90 H Indirect Bilirubin 1.5 H Aspartate Amino Transf (AST/SGOT) 124 H Alanine Aminotransferase (ALT/SGPT) 27 Alkaline Phosphatase 247 H Total Protein 6.2 Albumin 2.9 L Globulin 3.30 H Albumin/Globulin Ratio 0.87 Subjective 24 Hr Interval Summary Free Text/Dictation Feels a lot better. Bilateral lower extremity edema is improving Exam/Review of Systems Exam Vitals Vital Signs Date Temp Pulse Resp B/P (MAP) Pulse Ox O2 O2 Flow FiO2 Time Delivery Rate 07/16/18 98.9 95 20 118/60 96 08:02 (79) 07/13/18 Room Air 14:53 Intake and Output 07/15/18 07/15/18 07/16/18 1515:00 23:00 07:00 IntakeIntake Total 1800 ml 1900 ml BalanceBalance 1800 ml 1900 ml Exam xam Constitutional: alert, oriented Eyes: icteric Neck: supple Respiratory: clear to auscultation Cardiovascular: regular rate and rhythm Gastrointestinal: soft Extremities: edema (1 +) Results Results Results 24hrs Laboratory Tests Test 07/16/18 05:10 Sodium Level 136 Potassium Level 3.4 L Chloride Level 99 Carbon Dioxide Level 27 Anion Gap 10 Blood Urea Nitrogen 2 L Creatinine 0.57 Est Glomerular Filtrat Rate mL/min > 60 Glucose Level 164 Calcium Level 8.3 L Total Bilirubin 5.4 H Direct Bilirubin 3.90 H Indirect Bilirubin 1.5 H Aspartate Amino Transf (AST/SGOT) 124 H Alanine Aminotransferase (ALT/SGPT) 27 Alkaline Phosphatase 247 H Total Protein 6.2 Albumin 2.9 L Globulin 3.30 H Albumin/Globulin Ratio 0.87 Medications Medication Current Medications Ondansetron HCl (Zofran Inj) 4 mg Q6H PRN IV NAUSEA AND/OR VOMITING Last administered on 07/11/18 19:59; Admin Dose 4 MG; Start 06/28/18 at 01:30 Metoclopramide HCl (Reglan) 10 mg Q6 PRN IV NAUSEA AND/OR VOMITING Last administered on 07/11/18at 12:07; Admin Dose 10 MG; Start 06/28/18 at 01:30 Zolpidem Tartrate (Ambien) 5 mg HS PRN PO INSOMNIA Last administered on 07/10/18at 23:02; Admin Dose 5 MG; Start 06/29/18 at 12:00 Potassium Chloride (Klor-Con 20) 40 meq DAILY PO Last administered on 07/16/18 09:23; Admin Dose 40 MEQ; Start 06/29/18 at 15:30 Morphine Sulfate (morphine) 6 mg Q4H PRN PO SEVERE PAIN LEVEL 7-10; Start 07/01/18 at 22:30 Pantoprazole (Protonix Tab) 40 mg BID@06,18 PO Last administered on 07/11/18 16:59; Admin Dose 40 MG; Start 07/03/18 at 18:00 Hydromorphone HCl (Dilaudid) 0.5 mg Q6H PRN IV SEVERE PAIN LEVEL 7-10 Last administered on 07/08/18 06:28; Admin Dose 0.5 MG; Start 07/04/18 at 16:30 Diphenhydramine HCl (Benadryl) 25 mg BID PRN PO ITCHING Last administered on 07/10/18 22:07; Admin Dose 25 MG; Start 07/06/18 at 23:30 Ibuprofen (Motrin) 400 mg Q6 PRN PO PAIN Last administered on 07/11/18at 15:44; Admin Dose 400 MG; Start 07/09/18 at 17:00 Fluconazole (Diflucan) 100 mg DAILY PO Last administered on 07/16/18 09:23; Admin Dose 100 MG; Start 07/14/18 at 09:00; Stop 07/17/18 at 06:00 Furosemide (Lasix) 40 mg DAILY PO Last administered on 07/16/18 09:23; Admin Dose 40 MG; Start 07/13/18 at 17:00 Ondansetron HCl (Zofran Odt) 4 mg AC BREAKFAST DINNER PRN ODT Nausea; Start 07/15/18 at 16:30 ZEB JAMES MD Jul 16, 2018 15:37
[2018-07-16] MEDS ORDERED: POTASSIUM CHLORIDE (SR) 20 MEQ TAB PO SCH (16:00)
[2018-07-16] MEDS ORDERED: POTASSIUM CHLORIDE (SR) 20 MEQ TAB PO ONE (16:00)
[2018-07-16 20:00] VITALS: BP 117/56; PULSE 101; RESP 18
[2018-07-17 02:00] VITALS: BP 116/60; PULSE 103; RESP 18
--- NOTE | 2018-07-17 05:46 | NUR ---
RN NOTE: No acute changes noted during my shift. Pt did not verbalize pain or discomfort. Pts experienced minor fevers through the night. Ice packs were provided; lowered the temperature of the pt slightly. Pt in no signs of acute distress, denies SOB. Will endorse to next shift for continuity of care.
[2018-07-17] MEDS: PANTOPRAZOLE (EC) 40 MG TAB PO SCH (06:00)
[2018-07-17 07:53] VITALS: BP 117/67; PULSE 102; RESP 18
[2018-07-17] MEDS: POTASSIUM CHLORIDE (SR) 20 MEQ TAB PO SCH (08:33)
[2018-07-17] MEDS: FUROSEMIDE 40 MG TAB PO SCH (08:34)
--- NOTE | 2018-07-17 10:53 | PN ---
Date/Time of Note Date/Time of Note DATE: 07/17/18 TIME: 10:50 Assessment/Plan Lines/Catheters IV Catheter Type (from Nrs): no IV acces Elias in Place (from Nrsg): No Assessment/Plan Chief Complaint/Hosp Course 1. 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 +Yumiko started on antifungals.; liver bx: alcoholic steatosis; cont to improve -no surgical intervention recommended at this time -Continue encourage etoh cessation -limit hepatotoxins -Continue current regimen and hepatic optimization per GI -Will need close follow-up with GI as outpatient 2. Transaminitis and hyperbilirubinemia 2nd above; bilirubin continuing to improve -as above 3. Abdominal pain: Improved -pain mgt 4. Macrocytic hypochromic anemia: likely 2/2 liver disease -monitor & tx as needed 5. Severe obesity BMI: 38 -diet and exercise optimization -encourage weight loss 6. Leukocytosis: Improving -Per ID Thank you. Patient seen and examined in collaboration with Dr. Mannie Bailey. Subjective 24 Hr Interval Summary Feels well. Abdominal pain improved. No fevers, chills, sob, congested cough, cp, palpitations, arora, dizziness, nausea, vomiting, diarrhea, dysuria. Bilirubin improved. Exam/Review of Systems Vital Signs Vitals Vital Signs Date Temp Pulse Resp B/P (MAP) Pulse Ox O2 O2 Flow FiO2 Time Delivery Rate 07/17/18 98.1 102 18 117/67 95 07:53 (84) 07/13/18 Room Air 14:53 Intake and Output 07/16/18 07/16/18 07/17/18 1515:00 23:00 07:00 IntakeIntake Total 1280 ml 600 ml 500 ml BalanceBalance 1280 ml 600 ml 500 ml Exam Free Text/Dictation Constitutional: alert, oriented Psych: nl mood/affect, anxiety (min) Head: normocephalic, atraumatic Eyes: nl conjunctiva, EOMI, nl lids, sclera icterus ENMT: nl external ears & nose, nl lips & teeth, nl nasal mucosa & septum, muc jt pink and moist Neck: supple, non-tender Respiratory: normal air movement; No congested cough, No labored breathing Cardiovascular: regular rate and rhythm, nl pulses; No edema Gastrointestinal: soft, nontender Genitourinary - Female: nl external genitalia Musculoskeletal: nl extremities to inspection, nl gait and stance Extremities: normal pulses, BLE: 1+ edema, minimal tenderness Neurological: nl mental status, nl speech, nl strength Skin: jaundice No rash or lesions Results Result Diagram: 07/17/18 0555 07/17/18 0555 AARON FREGOSO NP Jul 17, 2018 10:53
--- NOTE | 2018-07-17 10:58 | PDOCDIS ---
Discharge Instructions CONDITION Ocatl3Cm Patient Condition: [id number] Stable ACTIVITY: [id number] Activity Restrictions: [id number] Slowly Increase Activity Rest between Activity Avoid heavy lifting [id number] Activity Restrictions Comment: [id number] avoid alcohol intake FOLLOW UP/APPOINTMENTS Follow-up Plan PCP [address] Earl 2 weeks SCHOOL/WORK RELEASE May return to School/Work with: No Restrictions THERESA LEÓN Jul 17, 2018 10:58
[2018-07-17] MEDS ORDERED: ONDA4TAB14 ODT (11:00)
[2018-07-17] MEDS ORDERED: POTA20TA15 PO (11:00)
[2018-07-17] MEDS ORDERED: METO5TAB2 PO (11:00)
[2018-07-17] MEDS ORDERED: FURO40TA4 PO (11:00)
--- NOTE | 2018-07-17 11:04 | DS ---
Date/Time of Note Date/Time of Note DATE: 07/17/18 TIME: 11:03 Discharge Summary Admission/Discharge Info Admit Date/Time Jun 27, 2018 at 23:57 Discharge Date/Time Discharge Diagnosis fatty liver infiltration Patient Condition: Stable Consults Dr Rajat MCKNIGHT, DR Griffin, ID, psych.consult Procedures S/P ERCP Hospital Course This 32 y. o female with medical history of asthma presented initially to [facility] with abdominal pain 1 month ago where US and CT scan of abdomen was performed. Medical records was reviewed form [facility]. CT scan abdomen revealed: hepato and splenomegaly, 3.1 cm, left ovarian cyst. US of abdomen is consistent to hepatomegaly and fatty infiltration of liver, CBD is 5 mm. Pt was given zofran, morphine there and she was sent home. She was there again in ER, was given shot, magic cocktail and sent home again. Lately, 2 weeks ago she she went to [facility], where she complained again on abd ominal pain, nausea and diarrhea/loose stool . Lab work reveals hyperbilirubinemia 3 and elevated liver enzymes, anemia and the rest are unremarkable. Pt reported spikes of temperature up to 101 2 times for 3 weeks. Surgical hx: 2 C sections Admitting ds: 1. 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 S/p ERCP with stricture of bile duct, s/p stent placement. 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 Hyperbilirubinemia with elevated liver enzymes. Liver cirrhosis. Hepatitis panel is negative from [place]. US of liver reveals fatty infiltration, CD is 5 mm. Records was reviewed form [place] and [facility]. CT scan abdomen with contrast revealed : hepato and splenomegaly, 3.1 cm left ovarian cyst 3. Former smoker, pt quit 6 years ago 4. hx of 2 C sections, 6 and 2 years ago 5. Obesity 6. Microcytic hypochromic anemia with thrombocytopenia. Pat. smear show anisocytosis 7. Hx of asthma During hospitalization pt was managed by multiple specialists. ROXANNA Clark, performed 2 ERCP, where he got a placement of 2 biliary stent. First stent was not successful, bilirubin was increasing, After second ERCP bigger stent was placed and bilirubin was decreased. Biopsy of liver was performed, it was positive for budding yeast and prt was placed by ID mD dr Griffin on Caspofungin. Also pt had one episode of hematochezia likely due to hemorrhoids, we monitored closely. Pt abdominal pain decreased significantly. Dr Vieyra consulted pt on anemia and massive hepatomegaly, splenomegaly. Biopsy of common bile duct was negative. After biopsy of the liver found alcoholic steatohepatitis with marked, (score 3) steatosis, grade 3 lobular inflammation, score 1 ballooning and stage 3 fibrosis. No malignancy or liver cirrhosis was identified. Anemia of chronic disease and chronic inflammation was treated with Venofer and it was determined that it is a anemia of chronic disease. Patient coagulopathy was improved, it was determined that it is 2/2 liver dysfunction, Lupus anticoagulant were negative. Pt was consulted on cessation of alcohol. Follow-up in the clinic after 1 week. Pt was ambulating, her pain was controlled appropriately. Pt anxiety was supported by nursing. Pt developed edema n lower extremities more likely due to low albumin, she was given lasix with success. Pt was advised to be seen by Dr Earl outpatient. - Home Meds Active Scripts Metoclopramide Hcl* (Metoclopramide Hcl*) 5 Mg Tablet, 5 MG PO Q6H PRN for NAUSEA AND OR VOMITING for 10 Days, TAB Prov:THERESA LEÓN 07/17/18 Ondansetron (Ondansetron Odt) 4 Mg Tab.rapdis, 4 MG ODT AC BREAKFAST DINNER PRN for Nausea for 10 Days Prov:THERESA LEÓN 07/17/18 Potassium Chloride* (K-Dur*) 20 Meq Tab.prt.sr, 20 MEQ PO DAILY for 5 Days Prov:ZENCRAIGEVTHERESA Hunt 07/17/18 Furosemide* (Furosemide*) 40 Mg Tablet, 40 MG PO DAILY for 5 Days, TAB Prov:MEZENTSEVATHERESA 07/17/18 Follow-up Plan PCP [address] Earl 2 weeks Primary Care Provider Not On Staff Doctor Time spent on discharge: < 30 minutes Pending Labs Laboratory Tests Test 07/17/18 05:55 White Blood Count 15.6 10^3/ul (4.8-10.8) Red Blood Count 3.45 10^6/ul (4.20-5.40) Hemoglobin 9.6 g/dl (12.0-16.0) Hematocrit 30.9 % (37.0-47.0) Mean Corpuscular Volume 89.6 fl (82.0-101.0) Mean Corpuscular Hemoglobin 27.8 pg (29.0-33.0) Mean Corpuscular Hemoglobin Concent 31.1 g/dl (32.0-37.0) Red Cell Distribution Width 33.0 % (11.5-14.5) Platelet Count 272 10^3/UL (140-415) Mean Platelet Volume 10.5 fl (7.4-10.4) Immature Granulocytes % 1.100 % (0.001-0.429) Neutrophils % 84.0 % (39.0-77.0) Lymphocytes % 7.1 % (15.0-51.0) Monocytes % 5.3 % (0.0-11.0) Eosinophils % 2.0 % (0.0-7.0) Basophils % 0.5 % (0.0-2.0) Nucleated Red Blood Cells % 0.1 /100WBC (0.0-0.0) Immature Granulocytes # 0.170 10^3/ul (0.0-0.031) Neutrophils # 13.1 10^3/ul (1.6-7.5) Lymphocytes # 1.1 10^3/ul (0.8-2.9) Monocytes # 0.8 10^3/ul (0.3-0.9) Eosinophils # 0.3 10^3/ul (0.0-0.5) Basophils # 0.1 10^3/ul (0.0-0.1) Nucleated Red Blood Cells # 0.0 10^3/ul (0.0-0.0) Sodium Level 136 mmol/L (135-144) Potassium Level 4.0 mmol/L (3.5-5.1) Chloride Level 101 mmol/L (97-110) Carbon Dioxide Level 27 mmol/L (21-31) Anion Gap 8 (5-13) Blood Urea Nitrogen 3 mg/dl (7-20) Creatinine 0.61 mg/dl (0.44-1.00) Est Glomerular Filtrat Rate mL/min > 60 mL/min (>60) Glucose Level 115 mg/dl (70-220) Calcium Level 9.0 mg/dl (8.4-10.2) Magnesium Level 2.1 mg/dl (1.7-2.5) Total Bilirubin 5.3 mg/dl (0.2-1.3) Direct Bilirubin 3.70 mg/dl (0.00-0.20) Indirect Bilirubin 1.6 mg/dl (0-1.1) Aspartate Amino Transf (AST/SGOT) 110 IU/L (15-46) Alanine Aminotransferase (ALT/SGPT) 28 IU/L (13-69) Alkaline Phosphatase 270 IU/L (42-121) Total Protein 7.0 g/dl (6.1-8.1) Albumin 3.2 g/dl (3.3-4.9) Globulin 3.80 g/dl (1.3-3.2) Albumin/Globulin Ratio 0.84 THERESA LEÓN Jul 17, 2018 11:04
--- NOTE | 2018-07-17 11:17 | CONS ---
Assessment/Plan Assessment/Plan Hospital Course (Demo Recall) No events, feels good, nad Abx: s/p Diflucan Physical examination: Obese well-developed middle-aged white woman who is alert in no distress. Head atraumatic normocephalic sclera icteric. Neck is supple. Chest rise symmetrical, breath sounds clear. Heart: S1-S2. Abdomen obese, soft bowel sounds present extremities without cyanosis. Skin positive for jaundice Assessment: 1. Systemic inflammatory response syndrome 1. 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 Liver cirrhosis 3. Anemia 4. Obesity Plan: Stable, pending dc Consultation Date/Type/Reason Admit Date/Time Jun 27, 2018 at 23:57 Initial Consult Date 07/01/18 Type of Consult id Requesting Provider: ZEB JAMES MD Date/Time of Note DATE: 07/17/18 TIME: 11:16 Exam/Review of Systems Exam Vitals Vital Signs Date Temp Pulse Resp B/P (MAP) Pulse Ox O2 O2 Flow FiO2 Time Delivery Rate 07/17/18 98.1 102 18 117/67 95 07:53 (84) 07/13/18 Room Air 14:53 Intake and Output 07/16/18 07/16/18 07/17/18 1515:00 23:00 07:00 IntakeIntake Total 1280 ml 600 ml 500 ml BalanceBalance 1280 ml 600 ml 500 ml Results Result Diagram: 07/17/18 0555 07/17/18 0555 Results 24hrs Laboratory Tests Test 07/17/18 05:55 White Blood Count 15.6 H Red Blood Count 3.45 L Hemoglobin 9.6 L Hematocrit 30.9 L Mean Corpuscular Volume 89.6 Mean Corpuscular Hemoglobin 27.8 L Mean Corpuscular Hemoglobin Concent 31.1 L Red Cell Distribution Width 33.0 H Platelet Count 272 Mean Platelet Volume 10.5 H Immature Granulocytes % 1.100 H Neutrophils % 84.0 H Lymphocytes % 7.1 L Monocytes % 5.3 Eosinophils % 2.0 Basophils % 0.5 Nucleated Red Blood Cells % 0.1 H Immature Granulocytes # 0.170 H Neutrophils # 13.1 H Lymphocytes # 1.1 Monocytes # 0.8 Eosinophils # 0.3 Basophils # 0.1 Nucleated Red Blood Cells # 0.0 Sodium Level 136 Potassium Level 4.0 Chloride Level 101 Carbon Dioxide Level 27 Anion Gap 8 Blood Urea Nitrogen 3 L Creatinine 0.61 Est Glomerular Filtrat Rate mL/min > 60 Glucose Level 115 # Calcium Level 9.0 Magnesium Level 2.1 Total Bilirubin 5.3 H Direct Bilirubin 3.70 H Indirect Bilirubin 1.6 H Aspartate Amino Transf (AST/SGOT) 110 H Alanine Aminotransferase (ALT/SGPT) 28 Alkaline Phosphatase 270 H Total Protein 7.0 Albumin 3.2 L Globulin 3.80 H Albumin/Globulin Ratio 0.84 Medications Medication Current Medications Ondansetron HCl (Zofran Inj) 4 mg Q6H PRN IV NAUSEA AND/OR VOMITING Last adm inistered on 07/11/18 19:59; Admin Dose 4 MG; Start 06/28/18 at 01:30 Metoclopramide HCl (Reglan) 10 mg Q6 PRN IV NAUSEA AND/OR VOMITING Last administered on 07/11/18 12:07; Admin Dose 10 MG; Start 06/28/18 at 01:30 Zolpidem Tartrate (Ambien) 5 mg HS PRN PO INSOMNIA Last administered on 07/10/18 23:02; Admin Dose 5 MG; Start 06/29/18 at 12:00 Potassium Chloride (Klor-Con 20) 40 meq DAILY PO Last administered on 07/17/18 08:33; Admin Dose 40 MEQ; Start 06/29/18 at 15:30 Morphine Sulfate (morphine) 6 mg Q4H PRN PO SEVERE PAIN LEVEL 7-10; Start 07/01/18 at 22:30 Pantoprazole (Protonix Tab) 40 mg BID@06,18 PO Last administered on 07/11/18 16:59; Admin Dose 40 MG; Start 07/03/18 at 18:00 Hydromorphone HCl (Dilaudid) 0.5 mg Q6H PRN IV SEVERE PAIN LEVEL 7-10 Last administered on 07/08/18 06:28; Admin Dose 0.5 MG; Start 07/04/18 at 16:30 Diphenhydramine HCl (Benadryl) 25 mg BID PRN PO ITCHING Last administered on 07/10/18 22:07; Admin Dose 25 MG; Start 07/06/18 at 23:30 Ibuprofen (Motrin) 400 mg Q6 PRN PO PAIN Last administered on 07/11/18at 15:44; Admin Dose 400 MG; Start 07/09/18 at 17:00 Furosemide (Lasix) 40 mg DAILY PO Last administered on 07/17/18at 08:34; Admin Dose 40 MG; Start 07/13/18 at 17:00 Ondansetron HCl (Zofran Odt) 4 mg AC BREAKFAST DINNER PRN ODT Nausea; Start 07/15/18 at 16:30 DARLEEN RAMOS NP Jul 17, 2018 11:17
--- NOTE | 2018-07-17 11:43 | CONS ---
Assessment/Plan Assessment/Plan Assessment/Plan (Daily) Hospital Course (Demo Recall) 32 yo with persistent biliary colicky pain and increasing bilirubin 1. Abdominal pain, persistent, biliary colicky and increasing bilirubin -t bili is slightly down today -s/p ERCP x 2 -RUQ -improved 2. 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 Hepatosplenomegaly secondary to #2 4. Overweight. 5. Progressive jaundice secondary to #2 6. Biliary stricture secondary to hepatomegaly 7. Transaminitis with elevated bili which is trending up secondary to hepatomegaly. -trending down 8. Fevers, low grade without leukocytosis, patient is on Zosyn -resolved 9. Anemia, acute 10. Diarrhea improved 11. N/V resolved 12. Biopsy positive for budding yeast -on anti fungal 13. One episode of hematochezia likely due to hemorrhoids - will monitor closely 14. Coagulopathy -improving 15. Alcoholic steatohepatitis Plan Cessation of alcohol Follow-up in the clinic after 1 week Consultation Date/Type/Reason Admit Date/Time Jun 27, 2018 at 23:57 Initial Consult Date 07/01/18 Requesting Provider: ZEB JAMES MD Date/Time of Note DATE: 07/17/18 TIME: 11:42 24 HR Interval Summary Constitutional: no complaints, improved Exam/Review of Systems Exam Vitals Vital Signs Date Temp Pulse Resp B/P (MAP) Pulse Ox O2 O2 Flow FiO2 Time Delivery Rate 07/17/18 98.1 102 18 117/67 95 07:53 (84) 07/13/18 Room Air 14:53 Intake and Output 07/16/18 07/16/18 07/17/18 1515:00 23:00 07:00 IntakeIntake Total 1280 ml 600 ml 500 ml BalanceBalance 1280 ml 600 ml 500 ml Constitutional: alert, oriented, well developed Psych: no complaints, nl mood/affect Head: normocephalic, atraumatic Eyes: nl conjunctiva, EOMI, nl lids, nl sclera, PERRL ENMT: nl external ears & nose, nl lips & teeth, nl nasal mucosa & septum Neck: supple, non-tender Respiratory: clear to auscultation, normal air movement Cardiovascular: regular rate and rhythm, nl pulses Gastrointestinal: soft, nl liver, spleen, non-tender Musculoskeletal: nl extremities to inspection, nl gait and stance Extremities: normal pulses Neurological: NURSING HOME MANAGER II-XII intact, nl mental status, nl speech, nl strength Skin: nl turgor; No rash or lesions Lymph: nl lymph nodes Results Result Diagram: 07/17/1855 07/17/18 0555 Results 24hrs Laboratory Tests Test 07/17/18 05:55 White Blood Count 15.6 H Red Blood Count 3.45 L Hemoglobin 9.6 L Hematocrit 30.9 L Mean Corpuscular Volume 89.6 Mean Corpuscular Hemoglobin 27.8 L Mean Corpuscular Hemoglobin Concent 31.1 L Red Cell Distribution Width 33.0 H Platelet Count 272 Mean Platelet Volume 10.5 H Immature Granulocytes % 1.100 H Neutrophils % 84.0 H Lymphocytes % 7.1 L Monocytes % 5.3 Eosinophils % 2.0 Basophils % 0.5 Nucleated Red Blood Cells % 0.1 H Immature Granulocytes # 0.170 H Neutrophils # 13.1 H Lymphocytes # 1.1 Monocytes # 0.8 Eosinophils # 0.3 Basophils # 0.1 Nucleated Red Blood Cells # 0.0 Sodium Level 136 Potassium Level 4.0 Chloride Level 101 Carbon Dioxide Level 27 Anion Gap 8 Blood Urea Nitrogen 3 L Creatinine 0.61 Est Glomerular Filtrat Rate mL/min > 60 Glucose Level 115 # Calcium Level 9.0 Magnesium Level 2.1 Total Bilirubin 5.3 H Direct Bilirubin 3.70 H Indirect Bilirubin 1.6 H Aspartate Amino Transf (AST/SGOT) 110 H Alanine Aminotransferase (ALT/SGPT) 28 Alkaline Phosphatase 270 H Total Protein 7.0 Albumin 3.2 L Globulin 3.80 H Albumin/Globulin Ratio 0.84 Medications Medication Current Medications Ondansetron HCl (Zofran Inj) 4 mg Q6H PRN IV NAUSEA AND/OR VOMITING Last administered on 07/11/18 19:59; Admin Dose 4 MG; Start 06/28/18 at 01:30 Metoclopramide HCl (Reglan) 10 mg Q6 PRN IV NAUSEA AND/OR VOMITING Last administered on 07/11/18at 12:07; Admin Dose 10 MG; Start 06/28/18 at 01:30 Zolpidem Tartrate (Ambien) 5 mg HS PRN PO INSOMNIA Last administered on 07/10/18 23:02; Admin Dose 5 MG; Start 06/29/18 at 12:00 Potassium Chloride (Klor-Con 20) 40 meq DAILY PO Last administered on 07/17/18 08:33; Admin Dose 40 MEQ; Start 06/29/18 at 15:30 Morphine Sulfate (morphine) 6 mg Q4H PRN PO SEVERE PAIN LEVEL 7-10; Start 07/01/18 at 22:30 Pantoprazole (Protonix Tab) 40 mg BID@06,18 PO Last administered on 07/11/18 16:59; Admin Dose 40 MG; Start 07/03/18 at 18:00 Hydromorphone HCl (Dilaudid) 0.5 mg Q6H PRN IV SEVERE PAIN LEVEL 7-10 Last administered on 07/08/18 06:28; Admin Dose 0.5 MG; Start 07/04/18 at 16:30 Diphenhydramine HCl (Benadryl) 25 mg BID PRN PO ITCHING Last administered on 07/10/18 22:07; Admin Dose 25 MG; Start 07/06/18 at 23:30 Ibuprofen (Motrin) 400 mg Q6 PRN PO PAIN Last administered on 07/11/18 15:44; Admin Dose 400 MG; Start 07/09/18 at 17:00 Furosemide (Lasix) 40 mg DAILY PO Last administered on 07/17/18 08:34; Admin Dose 40 MG; Start 07/13/18 at 17:00 Ondansetron HCl (Zofran Odt) 4 mg AC BREAKFAST DINNER PRN ODT Nausea; Start 07/15/18 at 16:30 ASHOK TIWARI MD Jul 17, 2018 11:43
--- NOTE | 2018-07-17 12:50 | NUR ---
rn notes patient discharged home, stable, no s/s of acute distress noted, denies pain and discomfort. discharge instructions and medication prescription given to patient. discharge via wheel chair escorted by volunteer. patient's belongings returned to patient. no IV access.
--- NOTE | 2018-07-17 13:58 | PN ---
DATE: 07/16/2018 SUBJECTIVE: A 32-year-old female who presented with cholestatic jaundice. The patient had a liver b iopsy which showed severe steatohepatitis. OBJECTIVE: VITALS: Stable. ABDOMEN: Benign. LUNGS: Clear. EXTREMITIES: No edema. CENTRAL NERVOUS SYSTEM: Grossly within normal limit. LABORATORY DATA: The bilirubin has come down to 5.6. IMPRESSION: 1. Alcoholic hepatitis. 2. Obesity. 3. Ethanol abuse. PLAN: 1. Refrain from alcohol. 2. [facility] the [facility] to [facility]. 3. The patient is stable from GI point and will be followed as an outpatient. Dictated By: ASHOK POOLE/CHALINO Conf#: [id number] DID#: [id number] CC: ZEB JAMES;*EndCC*
== END 2018-07-17 14:00 | disposition home or self-care (01) | DRG 445 ==
LOC: 6WM 23:57 → PP2 06-30 22:44
PROVIDERS: ADMIT Internal Medicine; ATTEND Internal Medicine
PROC: BF10YZZ Fluoroscopy of Bile Ducts using Other Contrast (ICD-10-PCS; 2018-06-30)
PROC: 0FC98ZZ Extirpation of Matter from Common Bile Duct, Via Natural or Artificial Opening Endoscopic (ICD-10-PCS; 2018-06-30)
PROC: 0F798DZ Dilation of Common Bile Duct with Intraluminal Device, Via Natural or Artificial Opening Endoscopic (ICD-10-PCS; principal; 2018-06-30 17:30)
PROC: 0FPB8DZ Removal of Intraluminal Device from Hepatobiliary Duct, Via Natural or Artificial Opening Endoscopic (ICD-10-PCS; 2018-07-06)
PROC: BF10YZZ Fluoroscopy of Bile Ducts using Other Contrast (ICD-10-PCS; 2018-07-06)
PROC: 0FB13ZX Excision of Right Lobe Liver, Percutaneous Approach, Diagnostic (ICD-10-PCS; 2018-07-09)
DX: K83.1 Obstruction of bile duct (principal); K76.6 Portal hypertension; D68.9 Coagulation defect, unspecified; R65.10 Systemic inflammatory response syndrome (SIRS) of non-infectious origin without acute organ dysfunction; B37.89 Other sites of candidiasis; K70.10 Alcoholic hepatitis without ascites; K70.30 Alcoholic cirrhosis of liver without ascites; Z68.38 Body mass index [BMI] 38.0-38.9, adult; Z87.891 Personal history of nicotine dependence; D50.9 Iron deficiency anemia, unspecified; D47.3 Essential (hemorrhagic) thrombocythemia; E66.01 Morbid (severe) obesity due to excess calories; F10.20 Alcohol dependence, uncomplicated; F09 Unspecified mental disorder due to known physiological condition; T50.905A Adverse effect of unspecified drugs, medicaments and biological substances, initial encounter; Y92.239 Unspecified place in hospital as the place of occurrence of the external cause; R16.2 Hepatomegaly with splenomegaly, not elsewhere classified; K76.0 Fatty (change of) liver, not elsewhere classified; K64.9 Unspecified hemorrhoids; D63.8 Anemia in other chronic diseases classified elsewhere; R19.7 Diarrhea, unspecified; R11.2 Nausea with vomiting, unspecified
CPT/HCPCS: 71045; 74177; 74181; 74330; 76942; 80048; 80053; 80076; 82103; 82105; 82140; 82390; 82525; 82728; 83010; 83036; 83540; 83615; 83690; 83735; 84100; 84703; 85014; 85018; 85025; 85045; 85610; 85613; 85730; 86038; 86255; 86704; 86709; 86803; 87040; 87086; 87340; 88305; 88307; 88312; 88313; 93306; 93970; C2617; C9113; J0690; J1100; J1170; J1885; J1940; J2060; J2250; J2270; J2405; J2543; J2710; J2765; J2916; J3010; J3480; J7042; J7050; Q9967

== ENCOUNTER 2018-10-18 15:17 | Emergency (ER) | payer OTHER ==
[~2018-10-18] VITALS: Wt 108.8 kg
[~2018-10-18 15:17] MED LIST: FURO40TA4 PO; METO5TAB2 PO; ONDA4TAB14 ODT; POTA20TA15 PO
[2018-10-18 15:20] VITALS: BP 156/89; PULSE 90; RESP 18
[2018-10-18] MEDS ORDERED: SOD CHLORIDE 0.9% 1,000 ML IV STA (15:33)
[2018-10-18] MEDS ORDERED: KETOROLAC 30 MG INJ IV STA (15:33)
--- NOTE | 2018-10-19 18:54 | ERD ---
ER Documentation Chief Complaint Chief Complaint AP SINCE YESTERDAY HPI 33-year-old female patient with no significant past medical history presents to ED complaining of abdominal pain that started yesterday. Denies any fever, chills, nausea, vomiting, diarrhea, neck stiffness. Patient reports that she had the same problem with biliary sludge and got a ERCP with a stent removed. States that she was admitted for 3 weeks, 3 months ago. States that her last menstruation was a few days ago. Denies any nausea, vomiting, diarrhea, neck stiffness. ROS All systems reviewed and are negative except as per history of present illness. Medications Home Meds Active Scripts Haloperidol* (Haldol*) 1 Mg Tab, 0.5 MG PO BID for 28 Days, TAB Prov:THERESA LEÓN 10/23/18 Reported Medications Beclomethasone Dipropionate (Qvar Redihaler (40 MCG)) Unknown Strength Hfa.aeroba, IH BID, INH 10/20/18 Albuterol Sulfate* (Ventolin HFA*) 18 Gm Hfa.aer.ad, 2 PUFF INHALATION Q4H, #1 INHALER 10/20/18 Albuterol Sulfate (Proair Respiclick) 90 Mcg Aer.pow.ba, 2 PUFF INHALATION Q4 PRN for WHEEZING AND SOB, #1 BOTTLE 10/20/18 Discontinued Scripts Metoclopramide Hcl* (Metoclopramide Hcl*) 5 Mg Tablet, 5 MG PO Q6H PRN for NAUSEA AND OR VOMITING for 10 Days, TAB Prov:THERESA LEÓN 07/17/18 Ondansetron (Ondansetron Odt) 4 Mg Tab.rapdis, 4 MG ODT AC BREAKFAST DINNER PRN for Nausea for 10 Days Prov:THERESA LEÓN 07/17/18 Potassium Chloride* (K-Dur*) 20 Meq Tab.prt.sr, 20 MEQ PO DAILY for 5 Days Prov:THERESA LEÓN 07/17/18 Furosemide* (Furosemide*) 40 Mg Tablet, 40 MG PO DAILY for 5 Days, TAB Prov:THERESA LEÓN 07/17/18 Allergies Allergies: Coded Allergies: nut - unspecified (Verified Allergy, Unknown, 10/20/18) olive oil (Verified Allergy, Unknown, 10/20/18) sesame seed (Verified Allergy, Unknown, 10/20/18) PMhx/Soc History of Surgery: Yes ( X2) Anesthesia Reaction: No Hx Neurological Disorder: No Hx Respiratory Disorders: Yes (ASTHMA) Hx Cardiac Disorders: No Hx Psychiatric Problems: No Hx Miscellaneous Medical Probl: Yes (ANEMIA) Hx Alcohol Use: No Hx Substance Use: No Hx Tobacco Use: No Smoking Status: Never smoker FmHx Family History: No diabetes, No coronary disease Physical Exam Vitals Vital Signs Date Temp Pulse Resp B/P (MAP) Pulse Ox O2 O2 Flow FiO2 Time Delivery Rate 10/18/18 98.6 90 18 156/89 99 15:20 (111) Physical Exam Const: [id number], well-nourished. In no acute distress. Head: Atraumatic, normocephalic Eyes: Normal Conjunctiva without injection. No purulent discharge. ENT: Normal external ear, nose. Moist oropharynx without tonsillar exudates. Non-erythematous pharynx. Uvula midline. No drooling. No trismus. Neck: No cervical midline tenderness. Full range of motion. No meningismus. No cervical lymphadenopathy. No JVD. Resp: Clear to auscultation bilaterally. No wheezing, rhonchi, rales, or crackles. No accessory muscle use. No retractions. Cardio: Regular rate and rhythm. No murmurs, rubs or gallops. Abd: Soft, nontender, non distended. Normal bowel sounds. No palpable masses. No rebound tenderness. No guarding. Negative McBurney's point. Negative psoas sign. Negative obturator sign. Skin: No petechiae or rashes Back: No midline tenderness. No CVA tenderness. Ext: No cyanosis, or edema. Neur: Awake and alert. Normal gait. Normal coordination. Psych: Normal Mood and Affect Results 24 hrs Laboratory Tests Test 10/18/18 15:44 10/18/18 15:46 White Blood Count 7.2 10^3/ul Red Blood Count 4.97 10^6/ul Hemoglobin 12.7 g/dl Hematocrit 41.4 % Mean Corpuscular Volume 83.3 fl Mean Corpuscular Hemoglobin 25.6 pg Mean Corpuscular Hemoglobin Concent 30.7 g/dl Red Cell Distribution Width 14.6 % Platelet Count 214 10^3/UL Mean Platelet Volume 10.7 fl Immature Granulocytes % 0.400 % Neutrophils % 57.0 % Lymphocytes % 34.5 % Monocytes % 5.4 % Eosinophils % 2.1 % Basophils % 0.6 % Nucleated Red Blood Cells % 0.0 /100WBC Immature Granulocytes # 0.030 10^3/ul Neutrophils # 4.1 10^3/ul Lymphocytes # 2.5 10^3/ul Monocytes # 0.4 10^3/ul Eosinophils # 0.2 10^3/ul Basophils # 0.0 10^3/ul Nucleated Red Blood Cells # 0.0 10^3/ul Urine Color STRAW Urine Clarity CLEAR Urine pH 7.0 Urine Specific [place] 1.002 Urine Ketones NEGATIVE mg/dL Urine Nitrite NEGATIVE mg/dL Urine Bilirubin NEGATIVE mg/dL Urine Urobilinogen NEGATIVE mg/dL Urine Leukocyte Esterase NEGATIVE Yamileth/ul Urine Microscopic RBC 12 /HPF Urine Microscopic WBC 0 /HPF Urine Hemoglobin 3+ mg/dL Urine Glucose NEGATIVE mg/dL Urine Total Protein NEGATIVE mg/dl Sodium Level 141 mmol/L Potassium Level 3.5 mmol/L Chloride Level 105 mmol/L Carbon Dioxide Level 27 mmol/L Anion Gap 9 Blood Urea Nitrogen 8 mg/dl Creatinine 0.71 mg/dl Est Glomerular Filtrat Rate mL/min > 60 mL/min Glucose Level 117 mg/dl Calcium Level 9.8 mg/dl Total Bilirubin 1.0 mg/dl Direct Bilirubin 0.00 mg/dl Indirect Bilirubin 1.0 mg/dl Aspartate Amino Transf (AST/SGOT) 36 IU/L Alanine Aminotransferase (ALT/SGPT) 29 IU/L Alkaline Phosphatase 97 IU/L Total Protein 8.0 g/dl Albumin 4.6 g/dl Globulin 3.40 g/dl Albumin/Globulin Ratio 1.35 Lipase 153 U/L POC Beta HCG, Qualitative NEGATIVE Current Medications Medications Dose Sig/Anant Start Time Status Last (Trade) Ordered Route PRN Stop Time Admin Dose Reason Admin Sodium 1,000 ml @ Q1H STAT 10/18/18 DC 10/18/18 Chloride 1,000 mls/hr IV 15:33 15:57 10/18/18 16:32 Ketorolac 30 mg ONCE STAT 10/18/18 DC 10/18/18 Tromethamine IV 15:33 15:57 (Toradol) 10/18/18 15:36 Procedures/MDM 33-year-old female patient with no significant past medical history presents ED complaining of abdominal pain that started yesterday. Patient is afebrile and nontoxic-appearing. Patient was further worked up with CBC, CMP, lipase, UA, gallbladder ultrasound. Patient's pain and symptoms have improved after treatment with 30 mg IV Toradol, 1 L normal saline. CBC: No leukocytosis. No e/o of systemic infection. No e/o anemia. CMP: No e/o severe acidosis, alkalosis, renal failure, diabetic ketoacidosis, liver disease Lipase within normal limits. Urine: No leukocyte esterase, no nitrites, no hematuria. Urine : Negative IMPRESSION: 1. Liver as above with apparent mild nodular contour, correlate for cirrhosis. 2. Biliary sludge, no other findings to suggest cholecystitis. Patient has biliary sludge. Healthy eating education provided. No transaminitis. No leukocytosis. Low suspicion for ectopic , ovarian torsion, gastritis, GERD, peptic ulcer disease, cholecystitis, choledocholithiasis, cholangitis, pancreatitis, appendicitis, bowel obstruction, ileus, volvulus, nephrolithiasis, pyelonephritis, hepatitis, perforated viscus, diverticulitis, strangulated/incarcerated hernia, DKA, acute abdomen, mesenteric ischemia or other emergent conditions. Follow up with primary care physician in 1-2 days for referral to bakery decorator. Instructed patient to return to the ED sooner for any worsening symptoms. Patient's questions were answered. Patient understood and agreed with discharge plan. Patient discharged stable. Departure Diagnosis: Primary Impression: Biliary sludge determined by ultrasound Condition: Stable Patient Instructions: Abdominal Pain, Low-Fat Cooking Tips, Low-Salt Choices Referrals: [facility] YOU HAVE RECEIVED A MEDICAL SCREENING EXAM AND THE RESULTS INDICATE THAT YOU DO NOT HAVE A CONDITION THAT REQUIRES URGENT TREATMENT IN THE EMERGENCY DEPARTMENT. FURTHER EVALUATION AND TREATMENT OF YOUR CONDITION CAN WAIT UNTIL YOU ARE SEEN IN YOUR DOCTORS OFFICE WITHIN THE NEXT 1-2 DAYS. IT IS YOUR RESPONSIBILITY TO MAKE AN APPOINTMENT FOR FOLOW-UP CARE. IF YOU HAVE A PRIMARY DOCTOR --you should call your primary doctor and schedule an appointment IF YOU DO NOT HAVE A PRIMARY DOCTOR YOU CAN CALL OUR PHYSICIAN REFERRAL HOTLINE AT IF YOU CAN NOT AFFORD TO SEE A PHYSICIAN YOU CAN CHOSE FROM THE FOLLOWING [facility] [address] [facility]. [facility] [address] [facility] [address] [facility] [address] [facility] [address] [facility]. [facility] [address] [facility]. [facility] YOU HAVE RECEIVED A MEDICAL SCREENING EXAM AND THE RESULTS INDICATE THAT YOU DO NOT HAVE A CONDITION THAT REQUIRES URGENT TREATMENT IN THE EMERGENCY DEPARTMENT. FURTHER EVALUATION AND TREATMENT OF YOUR CONDITION CAN WAIT UNTIL YOU ARE SEEN IN YOUR DOCTORS OFFICE WITHIN THE NEXT 1-2 DAYS. IT IS YOUR RESPONSIBILITY TO MAKE AN APPOINTMENT FOR FOLOW-UP CARE. IF YOU HAVE A PRIMARY DOCTOR --you should call your primary doctor and schedule and appointment IF YOU DO NOT HAVE A PRIMARY DOCTOR YOU CAN CALL OUR PHYSICIAN REFERRAL HOTLINE AT . IF YOU CAN NOT AFFORD TO SEE A PHYSICIAN YOU CAN CHOSE FROM THE FOLLOWING [facility] INSTITUTIONS: [facility] [address] [place] [address] [facility] [address] [place] [address] [facility] [address] [place] [address] [facility] Additional Instructions: Call your bakery decorator TOMORROW for an appointment for management of biliary sludge.See the doctor sooner or return here if your condition worsens before your appointment time. JEMIMA HEREDIA PA-C October 19, 2018 18:54
== END 2018-10-18 18:26 | disposition home or self-care (01) ==
LOC: FTE 15:17
DX: K83.8 Other specified diseases of biliary tract (principal); J45.909 Unspecified asthma, uncomplicated; R10.2 Pelvic and perineal pain
CPT/HCPCS: 76705; 76830; 76856; 80053; 81001; 81025; 83690; 85025; J1885; J7030; 36415; 96374

== ENCOUNTER 2018-10-20 15:55 | Inpatient (IN) | payer OTHER ==
[~2018-10-20] VITALS: Ht 182.9 cm; Wt 108.0 kg
--- NOTE | 2018-10-20 16:35 | ERD ---
ER Documentation Chief Complaint Chief Complaint AP HPI The patient is a 33-year-old female, tenting to the ER because of recurrent e pigastric abdominal pain for 1 day, had similar symptoms previously, complains of lower abdominal pain for 2 days, had similar symptoms previously. She complains of nausea but no vomiting, denies diarrhea/constipation, complains of dysuria. She does not smoke nor drink, on her period She was seen in the ER this ago and had abdominal and pelvic ultrasound that was unremarkable Past medical history: Asthma, anemia, hepatic steatosis, cirrhosis, hepatosplenomegaly Past surgical history: 2 , ERCP with stent placement and removal ROS All systems reviewed and are negative except as per history of present illness. Medications Home Meds Reported Medications Beclomethasone Dipropionate (Qvar Redihaler (40 MCG)) Unknown Strength Hfa .aeroba, IH BID, INH 10/20/18 Albuterol Sulfate* (Ventolin HFA*) 18 Gm Hfa.aer.ad, 2 PUFF INHALATION Q4H, #1 INHALER 10/20/18 Albuterol Sulfate (Proair Respiclick) 90 Mcg Aer.pow.ba, 2 PUFF INHALATION Q4 PRN for WHEEZING AND SOB, #1 BOTTLE 10/20/18 Discontinued Scripts Metoclopramide Hcl* (Metoclopramide Hcl*) 5 Mg Tablet, 5 MG PO Q6H PRN for NAUSEA AND OR VOMITING for 10 Days, TAB Prov:THERESA LEÓN 07/17/18 Ondansetron (Ondansetron Odt) 4 Mg Tab.rapdis, 4 MG ODT AC BREAKFAST DINNER PRN for Nausea for 10 Days Prov:THERESA LEÓN 07/17/18 Potassium Chloride* (K-Dur*) 20 Meq Tab.prt.sr, 20 MEQ PO DAILY for 5 Days Prov:ZENTSTHERESA ALONSO 07/17/18 Furosemide* (Furosemide*) 40 Mg Tablet, 40 MG PO DAILY for 5 Days, TAB Prov:ZENTHERESA MARIE 07/17/18 Allergies Allergies: Coded Allergies: nut - unspecified (Verified Allergy, Unknown, 10/20/18) olive oil (Verified Allergy, Unknown, 10/20/18) sesame seed (Verified Allergy, Unknown, 10/20/18) PMhx/Soc History of Surgery: Yes ( X2) Anesthesia Reaction: No Hx Neurological Disorder: No Hx Respiratory Disorders: Yes (ASTHMA) Hx Cardiac Disorders: No Hx Psychiatric Problems: No Hx Miscellaneous Medical Probl: Yes (ANEMIA) Hx Alcohol Use: No Hx Substance Use: No Hx Tobacco Use: No Physical Exam Vitals Vital Signs Date Temp Pulse Resp B/P (MAP) Pulse Ox O2 O2 Flow FiO2 Time Delivery Rate 10/20/18 98.8 124 20 167/98 98 Room Air 16:46 (121) 10/20/18 98.8 124 20 167/98 98 16:01 (121) Physical Exam Const: No acute distress. Head: Atraumatic. Eyes: Normal Conjunctiva. ENT: Normal External Ears, Nose and Mouth. Neck: Full range of motion. No meningismus. Resp: Clear to auscultation bilaterally. Cardio: Regular rate and rhythm. Abd: Soft, non distended, normal bowel sounds, mild epigastric abdominal tenderness, no right lower quadrant/right upper quadrant/rigidity/rebound or CVA tenderness Skin: No petechiae or rashes. Back: No midline or flank tenderness. Ext: No cyanosis, or edema. Neur: Awake and alert. No focal deficit Psych: Very anxious Result Diagram: 10/20/18 1655 10/20/18 1655 Results 24 hrs Laboratory Tests Test 10/20/18 16:55 10/20/18 17:37 White Blood Count 4.9 10^3/ul Red Blood Count 4.90 10^6/ul Hemoglobin 12.7 g/dl Hematocrit 39.8 % Mean Corpuscular Volume 81.2 fl Mean Corpuscular Hemoglobin 25.9 pg Mean Corpuscular Hemoglobin Concent 31.9 g/dl Red Cell Distribution Width 14.8 % Platelet Count 170 10^3/UL Mean Platelet Volume 11.0 fl Immature Granulocytes % 0.200 % Neutrophils % 88.2 % Lymphocytes % 10.4 % Monocytes % 0.8 % Eosinophils % 0.2 % Basophils % 0.2 % Nucleated Red Blood Cells % 0.0 /100WBC Immature Granulocytes # 0.010 10^3/ul Neutrophils # 4.3 10^3/ul Lymphocytes # 0.5 10^3/ul Monocytes # 0.0 10^3/ul Eosinophils # 0.0 10^3/ul Basophils # 0.0 10^3/ul Nucleated Red Blood Cells # 0.0 10^3/ul Sodium Level 139 mmol/L Potassium Level 4.1 mmol/L Chloride Level 106 mmol/L Carbon Dioxide Level 20 mmol/L Anion Gap 13 Blood Urea Nitrogen 8 mg/dl Creatinine 0.67 mg/dl Est Glomerular Filtrat Rate mL/min > 60 mL/min Glucose Level 212 mg/dl Calcium Level 9.9 mg/dl Total Bilirubin 1.1 mg/dl Direct Bilirubin 0.00 mg/dl Indirect Bilirubin 1.1 mg/dl Aspartate Amino Transf (AST/SGOT) 31 IU/L Alanine Aminotransferase (ALT/SGPT) 28 IU/L Alkaline Phosphatase 136 IU/L Total Protein 8.4 g/dl Albumin 4.6 g/dl Globulin 3.80 g/dl Albumin/Globulin Ratio 1.21 Lipase 117 U/L Beta HCG, Quantitative < 2.4 mIU/ml Ethyl Alcohol Level < 10.0 mg/dl Urine Color YELLOW Urine Clarity CLEAR Urine pH 6.0 Urine Specific [place] 1.003 Urine Ketones NEGATIVE mg/dL Urine Nitrite NEGATIVE mg/dL Urine Bilirubin NEGATIVE mg/dL Urine Urobilinogen NEGATIVE mg/dL Urine Leukocyte Esterase NEGATIVE Yamileth/ul Urine Microscopic RBC 2 /HPF Urine Microscopic WBC 0 /HPF Urine Bacteria FEW /HPF Urine Hemoglobin 3+ mg/dL Urine Glucose NEGATIVE mg/dL Urine Total Protein NEGATIVE mg/dl Current Medications Medications Dose Sig/Anant Start Time Status Last (Trade) Ordered Route PRN Stop Time Admin Dose Reason Admin Sodium 1,000 ml @ Q1H STAT 10/20/18 DC 10/20/18 Chloride 1,000 mls/hr IV 16:48 17:02 10/20/18 17:47 Morphine 4 mg ONCE STAT 10/20/18 DC 10/20/18 Sulfate IV 16:48 17:02 (morphine) 10/20/18 16:50 Ondansetron 4 mg ONCE STAT 10/20/18 DC 10/20/18 HCl (Zofran IV 16:48 17:01 Inj) 10/20/18 16:50 0.5 mg ONCE STAT 10/20/18 DC 10/20/18 Hydromorphone IV 18:02 18:08 HCl 10/20/18 18:03 (Dilaudid) Procedures/MDM MEDICAL MAKING DECISION: The patient is a 33-year-old female, presenting with acute intractable abdominal pain she was treated with 1 L normal saline for clinical dehydration, morphine 4 mg IV and Dilaudid 0.5 mg IV for pain, Zofran 4 mg IV for nausea UDS Pending The differential diagnoses considered include but are not limited to cholelith iasis, cholecystitis, choledocholithiasis, cholangitis, pancreatitis, hepatitis, gastritis, peptic ulcer disease, gastric ulcer, appendicitis, cystitis, diverticulitis, partial small bowel obstruction. Departure Diagnosis: Primary Impression: Abdominal pain Condition: Stable Comments The patient's blood pressure was elevated (>120/80) but appears stable without evidence of hypertension emergency or urgency. The patient was counseled about the risks of hypertension and urged to pursue outpatient monitoring and therapy within a week with their primary care physician. I discussed the findings with the patient. I discussed the patient with [facility] hospitalist , who was made aware of the lab, the treatment, the patient condition. The patient is admitted to [facility] Disclaimer: Inadvertent spelling and grammatical errors are likely due to EHR/dictation software use and do not reflect on the overall quality of patient care. Also, please note that the electronic time recorded on this note does not necessarily reflect the actual time of the patient encounter. MYRIAM HOLMAN MD October 20, 2018 16:35
[2018-10-20] MEDS ORDERED: ONDANSETRON 4 MG INJ IV STA (16:48)
[2018-10-20] MEDS ORDERED: SOD CHLORIDE 0.9% 1,000 ML IV STA (16:48)
[2018-10-20] MEDS ORDERED: morphine 4 MG/ML VIAL IV STA (16:48)
[2018-10-20] MEDS ORDERED: ALBU18HF INHALATION (16:55)
[2018-10-20] MEDS ORDERED: ALBU90AE INHALATION (16:55)
[2018-10-20] MEDS ORDERED: BECL10.6 IH (16:56)
[2018-10-20] MEDS ORDERED: HYDROmorphONE 0.5 MG/0.5 ML SYG IV STA ×2 (18:02→20:52)
[2018-10-20 21:35] VITALS: Ht 182.9 cm; Wt 108.0 kg
[2018-10-20 21:59] VITALS: BP 131/73; PULSE 88; RESP 20
[2018-10-20] MEDS ORDERED: ONDANSETRON 4 MG INJ IV PRN (22:00)
[2018-10-20] MEDS: SOD CHLORIDE 0.9% 1,000 ML IV SCH (22:22)
[2018-10-21] MEDS: morphine 2 MG INJ IV PRN ×2 (00:19→05:18)
[2018-10-21 02:28] VITALS: BP 119/73; PULSE 64; RESP 18
[2018-10-21] MEDS: PANTOPRAZOLE 40 MG INJ IV SCH (05:15)
[2018-10-21 08:20] VITALS: BP 127/73; PULSE 64; RESP 18
[2018-10-21] MEDS: HYDROCODONE/APAP (5/325) TAB PO PRN ×3 (08:36→16:43)
--- NOTE | 2018-10-21 11:46 | QN ---
Documentation Comment SEEN AND EXAMINED ZEB JAMES MD October 21, 2018 11:46
[2018-10-21] MEDS: SOD CHLORIDE 0.9% 1,000 ML IV SCH (11:53)
[2018-10-21] MEDS ORDERED: LORAZEPAM 0.5 MG TAB PO PRN (12:00)
[2018-10-21] MEDS ORDERED: IOHEXOL 300MG/ML 150 ML BTL ONE (13:39)
[2018-10-21] MEDS ORDERED: SOD CHLORIDE 0.9% 100 ML ONE (13:39)
--- NOTE | 2018-10-21 16:54 | HP ---
DATE OF ADMISSION: 10/20/2018 REASON FOR ADMISSION: Abdominal pain. HISTORY OF PRESENTING ILLNESS: This is a 33-year-old female with a past medical history of alcoholic steatohepatitis, cirrhosis, asthma, who was recently hospitalized in July 2018. At that t miladis, the patient had abnormal LFTs. The patient had ERCP performed and got placement of the biliary stent and had a biliary sludge. The patient had abnormal LFTs. Biopsy of the liver was performed. The patient was thought to have alcoholic steatohepatitis or marked steatosis grade III lobular infla mmation, score 1 ballooning and stage III fibrosis; however, the patient was improved better with the conservative treatment and was discharged home to follow up with the GI. The patient said that she had been doing fine when she got discharged last week and she started having lower abdominal pain. S he thought that it was related to her periods. She had visited a tube roller as an outpatient and w as told she has endometriosis. She had come into the emergency department for evaluation; however, s he started 2 to 3 days ago, again she started having pain in the right upper quadrant radiating to th e back and now it is in the left upper quadrant. The patient came to the emergency department 2 days ago. At that time, the patient had a gallbladder ultrasound that showed liver as above with mild no dular contour and biliary sludge. No other findings to suggest cholecystitis. The patient was disch arged home; however, the patient said the pain was excruciating and was brought into the emergency de partment for further evaluation. White count was 4.9, hemoglobin 12.9, platelet count 170. LFTs wit hin normal limit. Lipase was 117. The patient received morphine, Dilaudid, Zofran and was admitted for intractable abdominal pain. PAST MEDICAL HISTORY: 1. Asthma. 2. Anemia. 3. Hepatic steatosis. 4. Cirrhosis. 5. Hepatosplenomegaly. ALLERGIES: OLIVE OIL AND SESAME OIL. MEDICATIONS: Taking at her albuterol inhaler. HISTORY OF SURGERY: x2. SOCIAL HISTORY: Denies any alcohol abuse; however, said that because of the abdominal pain, she use some marijuana. Denies any alcohol use currently. FAMILY HISTORY: Noncontributory. REVIEW OF SYSTEMS: The patient complained of right upper quadrant pain radiating to the back, also, left upper quadrant pain and then the patient also said that she had some suprapubic pain. Denies an y urinary symptoms. Denies any hematemesis, any melena, any blood per rectum. The patient also had some nausea. Denied any diarrhea. Denied any chest pain, shortness of breath. PHYSICAL EXAMINATION: VITAL SIGNS: Blood pressure 127/73, afebrile, heart rate 64, saturating 98% on room air. GENERAL: The patient is awake, alert, oriented, appears to be in mild distress secondary to pain. HEENT: Pupils equal, round, reactive to light. No scleral icterus. NECK: Supple. HEART: Regular rate and rhythm. LUNGS: Clear to auscultate bilaterally. ABDOMEN: Some tenderness present in the right upper quadrant, left upper quadrant. Positive bowel s ounds. No peritoneal signs. EXTREMITIES: No clubbing, cyanosis, or edema. DIAGNOSTIC DATA: BMP within normal limit. LFTs within normal limit. Beta hCG negative. LABORATORY DATA: White count of 4.1, hemoglobin 11.4, platelet count 133. UA is negative. Toxicolo gy is positive for cannabis. ETOH levels less than 10. ASSESSMENT: This is a 33-year-old female, who presented with: 1. Severe abdominal pain, right upper quadrant, left upper quadrant. LFTs within normal limits. Li pase within normal limit. We will check for CT of the abdomen and pelvis. 2. Marijuana use. 3. History of alcohol use. 4. History of cirrhosis. 5. History of biliary sludge, status post ERCP. 6. Asthma. PLAN: At this period of time, the patient is admitted to med/surg unit. The patient is on n.p.o., s tarted on IV fluids, morphine and Zofran. We will also give some Ativan for anxiety. A GI consultat ion has been requested. A CT scan had been ordered. Rest of the treatment will depend on the patien t's hospitalization course. Dictated By: ZEB CURTIS/CHALINO Conf#: [id number] DID#: [id number] CC: ASHOK TIWARI MD;*EndCC*
[2018-10-21 20:00] VITALS: BP 103/57; PULSE 64; RESP 18
--- NOTE | 2018-10-21 20:02 | CONS ---
DATE OF ADMISSION: 10/20/2018 DATE OF CONSULTATION: TYPE OF CONSULTATION: Gastroenterology. From Ashok Earl MD, to Sara Jones MD HISTORY OF PRESENT ILLNESS: A 33-year-old female with a history of cirrhosis of liver secondary to e thanol, had ethanol-induced hepatitis with bilirubin of 13 to 14. The patient has been sober for the last few months and her bilirubin has come down to almost normal. However, she came to the ER compl aining of epigastric pain radiating to the back. No nausea, no vomiting. 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 The patient did a biopsy of the liver which showed steatohepatitis with ballooning and stage III fibrosi s. She also has endometriosis. No fever, no chills, no weight loss. She takes marijuana. PAST MEDICAL HISTORY: 1. Asthma. 2. Anemia. 3. Cirrhosis of liver. 4. Jaundice, which is completely resolved. ALLERGIES: 1. OLIVE OIL. 2. SESAME OIL. MEDICATIONS: Taking her albuterol inhaler. PAST SURGICAL HISTORY: Two C-sections. FAMILY HISTORY: Nothing contributory. PHYSICAL EXAMINATION: GENERAL: Overweight, not in distress. VITAL SIGNS: Stable. HEENT: Unremarkable. NECK: Supple, no thyromegaly, no lymphadenopathy. CARDIOVASCULAR: No murmur, gallop or click. LUNGS: Clear. ABDOMEN: Soft. Tenderness in the epigastric area. Bowel sounds good. No ____. EXTREMITIES: No edema. CENTRAL NERVOUS SYSTEM: Grossly within normal limits. IMPRESSION: 1. Abdominal pain, exact etiology is unclear at this point. Sonogram was negative. We will get anitra lase, lipase, and CAT scan. 2. Marijuana usage. 3. Cirrhosis of liver from alcohol, sober for the last few months. 4. Bronchial asthma. PLAN: At this point is to review CAT scan. Continue PPI in the interim. Dictated By: ASHOK POOLE/CHALINO Conf#: [id number] DID#: [id number] CC: SARA JONES;*EndCC*
[2018-10-22] MEDS: HYDROCODONE/APAP (5/325) TAB PO PRN ×2 (00:56→06:46)
[2018-10-22 01:54] VITALS: BP 91/53; PULSE 62; RESP 18
[2018-10-22] MEDS: SOD CHLORIDE 0.9% 1,000 ML IV SCH ×4 (02:36→21:05)
[2018-10-22] MEDS: PANTOPRAZOLE 40 MG INJ IV SCH (06:26)
[2018-10-22 07:41] VITALS: BP 125/77; PULSE 78; RESP 17
[2018-10-22] MEDS: morphine 2 MG INJ IV PRN (07:43)
--- NOTE | 2018-10-22 10:08 | PN ---
Date/Time of Note Date/Time of Note DATE: 10/22/18 TIME: 10:08 Assessment/Plan VTE Prophylaxis [place] [facility] [place] [facility]: 2 [place] [facility] SCD contraindicated: other Pharmacological prophylaxis: NA/contraindicated Pharm contraindication: blood coag disorder, liver dx, surgical contra Lines/Catheters IV Catheter Type (from [facility]): Peripheral IV Urinary Cath still in place: No Assessment/Plan Hospital Course 1. Severe abdominal pain, right upper quadrant, left upper quadrant. LFTs within normal limits. Lipase within normal limit. 2/2 Cirrhotic morphology of the liver with evidence of portal hypertension including recanalized umbilical vein, large upper abdominal varices and splenorenal shunt. Persistent marked hepatosplenomegaly. Trace periportal edema. 2. Marijuana use. 3. History of alcohol use. 4. History of cirrhosis. 5. History of biliary sludge, status post ERCP. 6. Asthma. 7. Obesity 8. Prediabetic? Assessment/Plan med/surg unit. Haldol 1 mg p BID -The patient is on soft diet, tolerating well - IV fluids, -Hg A1 C -c/w morphine and Zofran. W -Ativan for anxiety. -A GI consultation dr dias -CT scan abd. showed; Cirrhotic morphology of the liver with evidence of portal hypertension including recanalized umbilical vein, large upper abdominal varices and splenorenal shunt. Persistent marked hepatosplenomegaly. Trace periportal edema. GI proph prot. DVT proph SCD pt might need a surgery Result Diagram: 10/22/18 0511 10/22/18 0511 Results 24hrs Laboratory Tests Test 10/22/18 05:10 10/22/18 05:11 Phosphorus Level 4.0 Magnesium Level 2.0 White Blood Count 4.8 Red Blood Count 4.28 Hemoglobin 11.2 L Hematocrit 35.9 L Mean Corpuscular Volume 83.9 Mean Corpuscular Hemoglobin 26.2 L Mean Corpuscular Hemoglobin Concent 31.2 L Red Cell Distribution Width 15.4 H Platelet Count 139 L Mean Platelet Volume 12.1 H Immature Granulocytes % 0.200 Neutrophils % 51.5 Lymphocytes % 38.2 Monocytes % 7.2 Eosinophils % 2.5 Basophils % 0.4 Nucleated Red Blood Cells % 0.0 Immature Granulocytes # 0.010 Neutrophils # 2.5 Lymphocytes # 1.9 Monocytes # 0.4 Eosinophils # 0.1 Basophils # 0.0 Nucleated Red Blood Cells # 0.0 Sodium Level 141 Potassium Level 4.7 Chloride Level 108 Carbon Dioxide Level 27 Anion Gap 6 Blood Urea Nitrogen 13 Creatinine 0.76 Est Glomerular Filtrat Rate mL/min > 60 Glucose Level 85 Calcium Level 9.1 Total Bilirubin 0.9 Direct Bilirubin 0.00 Indirect Bilirubin 0.9 Aspartate Amino Transf (AST/SGOT) 21 Alanine Aminotransferase (ALT/SGPT) 24 Alkaline Phosphatase 83 Total Protein 6.8 Albumin 3.7 Globulin 3.10 Albumin/Globulin Ratio 1.19 Subjective 24 Hr Interval Summary Gastrointestinal: pain Musculoskeletal: no complaints; No back pain, No bone/joint pain, No neck pain, No restricted range of motion, No swelling, No other Exam/Review of Systems Exam Vitals Vital Signs Date Temp Pulse Resp B/P (MAP) Pulse Ox O2 O2 Flow FiO2 Time Delivery Rate 10/22/18 98.4 78 17 125/77 98 07:41 (93) 10/22/18 Room Air 01:54 10/20/18 2.0 21:59 Intake and Output 10/21/18 10/21/18 10/22/18 1515:00 23:00 07:00 IntakeIntake Total 440 ml 590 ml 700 ml BalanceBalance 440 ml 590 ml 700 ml Constitutional: alert, oriented Respiratory: clear to auscultation Cardiovascular: regular rate and rhythm Gastrointestinal: soft, nl liver, spleen, non-tender, ascites, bowel sounds, distended, firm, hepatomegaly, mass, rebound or guarding, splenomegaly, surgical scars, tender, other Results Results 24hrs Laboratory Tests Test 10/22/18 05:10 10/22/18 05:11 Phosphorus Level 4.0 Magnesium Level 2.0 White Blood Count 4.8 Red Blood Count 4.28 Hemoglobin 11.2 L Hematocrit 35.9 L Mean Corpuscular Volume 83.9 Mean Corpuscular Hemoglobin 26.2 L Mean Corpuscular Hemoglobin Concent 31.2 L Red Cell Distribution Width 15.4 H Platelet Count 139 L Mean Platelet Volume 12.1 H Immature Granulocytes % 0.200 Neutrophils % 51.5 Lymphocytes % 38.2 Monocytes % 7.2 Eosinophils % 2.5 Basophils % 0.4 Nucleated Red Blood Cells % 0.0 Immature Granulocytes # 0.010 Neutrophils # 2.5 Lymphocytes # 1.9 Monocytes # 0.4 Eosinophils # 0.1 Basophils # 0.0 Nucleated Red Blood Cells # 0.0 Sodium Level 141 Potassium Level 4.7 Chloride Level 108 Carbon Dioxide Level 27 Anion Gap 6 Blood Urea Nitrogen 13 Creatinine 0.76 Est Glomerular Filtrat Rate mL/min > 60 Glucose Level 85 Calcium Level 9.1 Total Bilirubin 0.9 Direct Bilirubin 0.00 Indirect Bilirubin 0.9 Aspartate Amino Transf (AST/SGOT) 21 Alanine Aminotransferase (ALT/SGPT) 24 Alkaline Phosphatase 83 Total Protein 6.8 Albumin 3.7 Globulin 3.10 Albumin/Globulin Ratio 1.19 Medications Medication Current Medications Acetaminophen/ Hydrocodone Bitart ([place] (5/325)) 2 tab Q4H PRN PO MODERATE PAIN LEVEL 4-6 Last administered on 10/22/18 06:46; Admin Dose 2 TAB; Start 10/20/18 at 22:00 Morphine Sulfate (morphine) 2 mg Q3H PRN IV SEVERE PAIN LEVEL 7-10 Last administered on 10/22/18 07:43; Admin Dose 2 MG; Start 10/20/18 at 22:00 Ondansetron HCl (Zofran Inj) 4 mg Q6H PRN IV NAUSEA AND/OR VOMITING Last administered on 10/21/18at 14:24; Admin Dose 4 MG; Start 10/20/18 at 22:00 Pantoprazole (Protonix Iv) 40 mg DAILY@06 IV Last administered on 10/22/18at 06:26; Admin Dose 40 MG; Start 10/21/18 at 06:00 Sodium Chloride 1,000 ml @ 70 mls/hr [id number] IV Last administered on 10/22/18at 04:51; Admin Dose 70 MLS/HR; Start 10/20/18 at 22:00 Lorazepam (Ativan) 0.5 mg TID PRN PO ANXIETY; Start 10/21/18 at 12:00 THERESA LEÓN October 22, 2018 10:08
[2018-10-22] MEDS: HALOPERIDOL 1 MG TAB PO SCH ×2 (12:43→21:05)
[2018-10-22 14:31] VITALS: BP 128/72; PULSE 80; RESP 17
[2018-10-22 19:52] VITALS: BP 108/63; PULSE 69; RESP 18
[2018-10-23 01:15] VITALS: BP 99/60; PULSE 65; RESP 18
[2018-10-23] MEDS: PANTOPRAZOLE 40 MG INJ IV SCH (05:22)
[2018-10-23] MEDS: SOD CHLORIDE 0.9% 1,000 ML IV SCH (07:12)
[2018-10-23 07:47] VITALS: BP 109/69; PULSE 76; RESP 16
[2018-10-23] MEDS: HALOPERIDOL 1 MG TAB PO SCH (09:01)
--- NOTE | 2018-10-23 10:31 | PDOCDIS ---
Discharge Instructions DIAGNOSIS Discharge Diagnosis liver cirrhosis CONDITION [id number] Patient Condition: [id number] Stable HOME CARE INSTRUCTIONS: [id number] Diet Instructions: [id number] Low Fat /Cholesterol ACTIVITY: [id number] Activity Restrictions: [id number] Slowly Increase Activity Rest between Activity Avoid heavy lifting FOLLOW UP/APPOINTMENTS Follow-up Plan PCP 1 week THERESA LEÓN October 23, 2018 10:31
[2018-10-23] MEDS ORDERED: HAL1 PO (10:34)
--- NOTE | 2018-10-23 10:35 | DS ---
Date/Time of Note Date/Time of Note DATE: 10/23/18 TIME: 10:35 Discharge Summary Admission/Discharge Info Admit Date/Time October 22, 2018 at 20:56 Discharge Date/Time Discharge Diagnosis liver cirrhosis Patient Condition: Stable Consults Dr Earl Hospital Course HISTORY OF PRESENTING ILLNESS: This is a 33-year-old female with a past medical history of alcoholic steatohepatitis, cirrhosis, asthma, who was recently hospitalized in [facility] July 2018. At that time, the patient had abnormal LFTs. The patient had ERCP performed and got placement of the biliary stent and had a biliary sludge. The patient had abnormal LFTs. Biopsy of the liver was performed. The patient was thought to have alcoholic steatohepatitis or marked steatosis grade III lobular inflammation, score 1 ballooning and stage III fibrosis; however, the patient was improved better with the conservative treatment and was discharged home to follow up with the GI. The patient said that she had been doing fine when she got discharged last week and she started having lower abdominal pain. She thought that it was related to her periods. 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 She had come into the emergency department for evaluation; however, she started 2 to 3 days ago, again she started having pain in the right upper quadrant radiating to the back and now it is in the left upper quadrant. The patient came to the emergency department 2 days ago. At that time, the patient had a gallbladder ultrasound that showed liver as above with mild nodular contour and biliary sludge. No other findings to suggest cholecystitis. The patient was discharged home; however, the patient said the pain was excruciating and was brought into the emergency department for further evaluation. White count was 4.9, hemoglobin 12.9, platelet count 170. LFTs within normal limit. Lipase was 117. The patient received morphine, Dilaudid, Zofran and was admitted for intractable abdominal pain. PAST MEDICAL HISTORY: 1. Asthma. 2. Anemia. 3. Hepatic steatosis. 4. Cirrhosis. 5. Hepatosplenomegaly. ALLERGIES: OLIVE OIL AND SESAME OIL. MEDICATIONS: Taking at her albuterol inhaler. HISTORY OF SURGERY: x2. SOCIAL HISTORY: Denies any alcohol abuse; however, said that because of the abdominal pain, she use some marijuana. Denies any alcohol use currently. FAMILY HISTORY: Noncontributory.1. Severe abdominal pain, right upper quadrant, left upper quadrant. LFTs within normal limits. Lipase within normal limit. 2/2 Cirrhotic morphology of the liver with evidence of portal hyperte nsion including recanalized umbilical vein, large upper abdominal varices and splenorenal shunt. Persistent marked hepatosplenomegaly. Trace periportal edema. 2. Marijuana use. 3. History of alcohol use. 4. History of cirrhosis. 5. History of biliary sludge, status post ERCP. 6. Asthma. 7. Obesity 8. Prediabetic? Dr Earl consulted pt on GI issue, He consider her abdominal pain as unclear at this point. Sonogram was negative. Amylase is unknown , lipase was normal, and CAT scan showed cirrhotic morphology of the liver with evidence of portal hypertension including recanalized umbilical vein, large upper abdominal varices and splenorenal shunt. Persistent marked hepatosplenomegaly. Trace periportal edema. Pt was reported sober for last months and for calming herself purposes she uses Marijuana. Pt is very emotional and cries often. Pt was given Haldol 0.5 mg po BID and she reported significant decrease of pain, no nausea and mood stabilization. Pt was given reassurance and nursing support. She clinically improves and tolerated diet well. She ambulated and was discharge home. Home Meds Active Scripts Haloperidol* (Haldol*) 1 Mg Tab, 0.5 MG PO BID for 28 Days, TAB Prov:THERESA LEÓN 10/23/18 Reported Medications Beclomethasone Dipropionate (Qvar Redihaler (40 MCG)) Unknown Strength Hfa.aeroba, IH BID, INH 10/20/18 Albuterol Sulfate* (Ventolin HFA*) 18 Gm Hfa.aer.ad, 2 PUFF INHALATION Q4H, #1 INHALER 10/20/18 Albuterol Sulfate (Proair Respiclick) 90 Mcg Aer.pow.ba, 2 PUFF INHALATION Q4 PRN for WHEEZING AND SOB, #1 BOTTLE 10/20/18 Discontinued Scripts Metoclopramide Hcl* (Metoclopramide Hcl*) 5 Mg Tablet, 5 MG PO Q6H PRN for NAUSEA AND OR VOMITING for 10 Days, TAB Prov:THERESA LEÓN 07/17/18 Ondansetron (Ondansetron Odt) 4 Mg Tab.rapdis, 4 MG ODT AC BREAKFAST DINNER PRN for Nausea for 10 Days Prov:THERESA LEÓN 07/17/18 Potassium Chloride* (K-Dur*) 20 Meq Tab.prt.sr, 20 MEQ PO DAILY for 5 Days Prov:THERESA LEÓN 07/17/18 Furosemide* (Furosemide*) 40 Mg Tablet, 40 MG PO DAILY for 5 Days, TAB Prov:THERESA LEÓN 07/17/18 Follow-up Plan PCP 1 week Primary Care Provider Not On Staff Doctor Time spent on discharge: < 30 minutes Pending Labs Laboratory Tests Test 10/23/18 04:49 White Blood Count 3.8 10^3/ul (4.8-10.8) Red Blood Count 4.25 10^6/ul (4.20-5.40) Hemoglobin 11.0 g/dl (12.0-16.0) Hematocrit 35.4 % (37.0-47.0) Mean Corpuscular Volume 83.3 fl (82.0-101.0) Mean Corpuscular Hemoglobin 25.9 pg (29.0-33.0) Mean Corpuscular Hemoglobin Concent 31.1 g/dl (32.0-37.0) Red Cell Distribution Width 15.8 % (11.5-14.5) Platelet Count 131 10^3/UL (140-415) Mean Platelet Volume 11.6 fl (7.4-10.4) Immature Granulocytes % 0.300 % (0.001-0.429) Neutrophils % 43.2 % (39.0-77.0) Lymphocytes % 46.4 % (15.0-51.0) Monocytes % 6.9 % (0.0-11.0) Eosinophils % 2.4 % (0.0-7.0) Basophils % 0.8 % (0.0-2.0) Nucleated Red Blood Cells % 0.0 /100WBC (0.0-0.0) Immature Granulocytes # 0.010 10^3/ul (0.0-0.031) Neutrophils # 1.6 10^3/ul (1.6-7.5) Lymphocytes # 1.8 10^3/ul (0.8-2.9) Monocytes # 0.3 10^3/ul (0.3-0.9) Eosinophils # 0.1 10^3/ul (0.0-0.5) Basophils # 0.0 10^3/ul (0.0-0.1) Nucleated Red Blood Cells # 0.0 10^3/ul (0.0-0.0) Sodium Level 142 mmol/L (135-144) Potassium Level 4.6 mmol/L (3.5-5.1) Chloride Level 110 mmol/L (97-110) Carbon Dioxide Level 27 mmol/L (21-31) Anion Gap 5 (5-13) Blood Urea Nitrogen 10 mg/dl (7-20) Creatinine 0.69 mg/dl (0.44-1.00) Est Glomerular Filtrat Rate mL/min > 60 mL/min (>60) Glucose Level 91 mg/dl (70-220) Hemoglobin A1c 5.2 % (0-5.9) Calcium Level 9.1 mg/dl (8.4-10.2) THERESA LEÓN October 23, 2018 10:35
== END 2018-10-23 13:20 | disposition home or self-care (01) | DRG 434 ==
LOC: E/R 15:55 → 2NE 19:27 → OBSVTOIN 10-22 20:56
PROVIDERS: ADMIT Internal Medicine; ATTEND Internal Medicine
DX: K74.60 Unspecified cirrhosis of liver (principal); J45.909 Unspecified asthma, uncomplicated; D64.9 Anemia, unspecified; E66.9 Obesity, unspecified; Z68.32 Body mass index [BMI] 32.0-32.9, adult; F12.10 Cannabis abuse, uncomplicated
CPT/HCPCS: 36415; 74178; 80048; 80053; 80307; 81001; 83036; 83690; 83735; 84100; 84702; 84703; 85025; 96374; 96375; G0378; C9113; J1170; J2270; J2405; J7030; Q9967

== ENCOUNTER 2019-02-26 14:32 | Emergency (ER) | payer OTHER ==
[~2019-02-26] VITALS: Ht 182.9 cm; Wt 85.9 kg
[~2019-02-26 14:32] MED LIST changes: +ALBU18HF INHALATION; +ALBU90AE INHALATION; +BECL10.6 IH; +CHLO1CAP56 PO; +FAMO-96 PO; -FURO40TA4 PO; +HAL1 PO; +HYDR-4011 PO; -METO5TAB2 PO; -ONDA4TAB14 ODT; +ONDA4TAB14 PO; +ONDA4TAB8 PO; +OXYC-279 PO; +PANT40TA3 PO; -POTA20TA15 PO
[2019-02-26 14:34] VITALS: Ht 182.9 cm; Wt 85.9 kg
[2019-02-26] MEDS ORDERED: SOD CHLORIDE 0.9% 1,000 ML IV STA (15:04)
[2019-02-26] MEDS ORDERED: BELLADONNA/PHENOBARBITAL TAB PO STA (15:04)
[2019-02-26] MEDS ORDERED: ONDANSETRON 4 MG INJ IV STA (15:04)
[2019-02-26] MEDS ORDERED: KETOROLAC 15 MG INJ IV STA (15:04)
[2019-02-26] MEDS ORDERED: LIDOCAINE/MYLANTA 40 ML BTL PO STA (15:04)
[2019-02-26] MEDS ORDERED: OXYCODONE/ACETAMINOPHEN (5/325) TAB PO ONE (16:00)
[2019-02-26 17:28] VITALS: BP 112/66; PULSE 68; RESP 15
== END 2019-02-26 17:37 | disposition home or self-care (01) ==
LOC: E/R 14:32
DX: R10.84 Generalized abdominal pain (principal); J45.909 Unspecified asthma, uncomplicated
CPT/HCPCS: 36415; 80053; 81003; 81025; 83690; 84484; 85025; 87086; 96374; 96375; J1885; J2405; J7030; Z7502; Z7610; 93005